=== PATIENT | female | born 1950 | race Caucasian/White ===

== ENCOUNTER → 2018-12-19 | Outpatient (CLI) | payer MEDICARE ==
--- NOTE | 2018-12-19 15:14 | MR ---
EXAMINATION TYPE: MR brain wo/w con DATE OF EXAM: 12/19/2018 COMPARISON: NONE HISTORY: History of falling / Unsteady gait/ balance issues all per patient and order. TECHNIQUE: Multiplanar, multisequence images of the brain and brainstem is performed without and with IV contras t, utilizing 8 mL intravenous Gadavist . FINDINGS: Exam noted suboptimal as there is motion artifact degradation making technologist having to perform repeat sequences Diffusion weighted images demonstrate no evidence of a recent infarct or ot her diffusion abnormality. There is no worrisome extra-axial fluid collection. There is ventricular and sulcal prominence consistent with diffuse cerebral atrophy. There are focal and confluent areas o f T2 hyperintensity seen throughout the superficial, deep, and periventricular white matter. Lesions are nonspecific in appearance and distribution but most likely on basis of product of chronic small v essel ischemic change. Midline structures demonstrate normal morphology. The craniocervical junction appears within normal limits. Post contrast images demonstrate no abnormal enhancement. The dural venous sinuses appear p atent. The visualized sinuses are clear and the globes are intact. Nasal septum is slightly deviated to left of midline. No suspicious fluid signal bilateral mastoid air cells is seen. IMPRESSION: 1. No evidence of a recent or large old cerebellar infarct. 2. Background fairly moderate diffuse cerebral atrophy and chronic small vessel ischemic change witho ut suspicious enhancement noted.
== END | disposition home or self-care (01) ==
LOC: RADMRIMAIN 13:17
PROVIDERS: ATTEND Internal Medicine
DX: I67.82 Cerebral ischemia (principal); G31.9 Degenerative disease of nervous system, unspecified; Z91.81 History of falling
CPT/HCPCS: 82565; 84520; 70553; 36415; A9585

== ENCOUNTER 2018-12-21 13:42 | Inpatient (IN) | payer MEDICARE ==
[2018-12-21 16:18] LABS: Anisocytosis Moderate; Basophils % (A) 0 %; Eosinophils # (A) 0.2 k/uL (0-0.7); Eosinophils % (A) 2 %; HCT 24.1 % (34.0-46.0); Hypochromasia Marked; Lymphocytes # (A) 1.3 k/uL (1.0-4.8); Lymphocytes % (A) 13 %; MCH 21.4 pg (25.0-35.0); MCHC 25.8 g/dL (31.0-37.0); MCV 82.9 fL (80.0-100.0); Microcytosis Slight; Monocytes # (A) 0.5 k/uL (0-1.0); Monocytes % (A) 5 %; Neutrophils % (A) 79 %; Platelet Count 294 k/uL (150-450); RDW 20.4 % (11.5-15.5); WBC 10.2 k/uL (3.8-10.6)
[2018-12-21 16:22] LABS: HGB 6.2 gm/dL (11.4-16.0)
[2018-12-21 16:26] LABS: Albumin 3.2 g/dL (3.5-5.0); Calcium 9.2 mg/dL (8.4-10.2); Total Bilirubin 1.7 mg/dL (0.2-1.3)
[2018-12-21] MEDS ORDERED: methylPREDNISolone SOD SUCCI 125 MG/2 ML VIAL IV STA (16:27)
[2018-12-21] MEDS ORDERED: IPRATROPIUM-ALBUTEROL 3 ML NEB INHALATION STA (16:27)
[2018-12-21] MEDS ORDERED: SODIUM CHLORIDE 0.9% 500 ML 500 ML IV STA (16:27)
[2018-12-21 16:41] LABS: Potassium 6.4 mmol/L (3.5-5.1)
[2018-12-21] MEDS ORDERED: DEXTROSE 5%-0.45% NACL 1,000 ML with SODIUM BICARB (1 MEQ/ML) 50 ML IV ONE ×2 (16:45)
--- NOTE | 2018-12-21 16:49 | ED ---
Weakness HPI <Craig Berry - Last Filed: 12/21/18 16:55> - General Source: patient Mode of arrival: wheelchair Limitations: no limitations <Dania Lo - Last Filed: 12/21/18 21:02> - General Chief complaint: Weakness Stated complaint: bilat leg weakness Time Seen by Provider: 12/21/18 15:43 - History of Present Illness Initial comments: 68-year-old female with past medical history of fibromyalgia, hypertension, non- insulin-dependent type 2 diabetes, chronic low back pain, anemia presenting today for chief complaint of bilateral lower extremity weakness. Patient states she has had an unsteady gait for the past 2 years, she states the past year she has had weakness of the lower extremity bilaterally with on and off lower extremity edema. Patient states the past 3 years she has been unable to lift repeat was 6 inches due to weakness. She states she often at home falling forward, she is occasionally hit her head, last time being 3 weeks ago. Denies extremity injury. Denies neck pain. Patient denies any current headache diplopia or visual changes, nausea or vomiting. Patient states she had an MRI just prior to most recent fall, she states there is no acute findings. Patient states she's been told she has nerve damage of the spine. Patient states that her back pain is a chronic, denies any increases. Patient denies any urinary retention or loss of bowel bladder control. Patient denies any numbness to the legs or vaginal numbness. Patient states she did have a previous MRI of her lumbar spine about 6 months ago, she states she is unsure of the results. Patient states she occasionally has radiation of the pain for her back down her legs bilaterally. Patient denies a chest pain, thoracic back pain, dizziness, dyspnea, dyspnea upon exertion, abdominal pain, indigestion, paresthesias of the upper extremities. Patient states she does occur every day smoker and has occasional wheeze. Patient denies home oxygen use. Patient states she does not use a walker to ambulate at home. She denies any anticoagulant use. (Dania Lo) - Related Data Home Medications Medication Instructions Recorded Confirmed Glimepiride [Amaryl] 2 mg PO AC-BID 02/15/15 12/21/18 Lisinopril-Hctz 20-25 mg 1 tab PO DAILY 02/15/15 12/21/18 [Zestoretic 20-25] Metoprolol Tartrate [Lopressor] 50 mg PO BID 02/15/15 12/21/18 Omeprazole [PriLOSEC] 20 mg PO AC-BID 02/15/15 12/21/18 metFORMIN HCL [Glucophage] 1,000 mg PO BID 02/15/15 12/21/18 Albuterol Inhaler [Ventolin 1 - 2 puff INHALATION RT-QID PRN 03/07/15 12/21/18 Inhaler] Aspirin 81 mg PO DAILY 03/07/15 12/21/18 Amitriptyline HCl [Elavil] 25 mg PO HS 12/21/18 12/21/18 Gabapentin [Neurontin] 300 mg PO TID 12/21/18 12/21/18 HYDROcodone/APAP 7.5-325MG [[place] 1 tab PO Q6HR PRN 12/21/18 12/21/18 7.5-325] Tiotropium 18 Mcg/Puff [Spiriva] 1 cap INHALATION RT-DAILY 12/21/18 12/21/18 Vitamin E 500mg 500 mg PO BID 12/21/18 12/21/18 Allergies Allergy/AdvReac Type Severity Reaction Status Date / Time Penicillins Allergy Dyspnea Verified 12/21/18 16:08 Review of Systems ROS Other: All systems not noted in ROS Statement are negative. <Craig Berry - Last Filed: 12/21/18 16:55> ROS Other: All systems not noted in ROS Statement are negative. <Dania Lo - Last Filed: 12/21/18 21:02> ROS Statement: Those systems with pertinent positive or pertinent negative responses have been documented in the HPI. Past Medical History Past Medical History: Asthma, COPD, Diabetes Mellitus, GERD/Reflux, Hyperlipidemia, Rheumatoid Arthritis (RA) Additional Past Medical History / Comment(s): polymyalgia rheumatica History of Any Multi-Drug Resistant Organisms: None Reported Past Surgical History: Bladder Surgery, Cholecystectomy, Hysterectomy, Tubal Ligation Additional Past Surgical History / Comment(s): BLADDER SUSPENSION, ovarian cyst. FRANSISCO PAIN PROCEDURES Past Anesthesia/Blood Transfusion Reactions: Motion Sickness Additional Past Anesthesia/Blood Transfusion Reaction / Comment(s): OCCASIONAL MOTION SICKNESS ON BOAT OR PLANE Past Psychological History: No Psychological Hx Reported Smoking Status: Current every day smoker Past Alcohol Use History: Occasional Past Drug Use History: None Reported - Past Family History Mother Family Medical History: Hypertension Father Family Medical History: Cancer Additional Family Medical History / Comment(s): RENAL CA <Dania Lo - Last Filed: 12/21/18 21:02> General Exam <BerryCraig - Last Filed: 12/21/18 16:55> Limitations: no limitations <Dania Lo - Last Filed: 12/21/18 21:02> - General Exam Comments Initial Comments: General: The patient is awake and alert, in no distress, and does not appear acutely ill. Eye: +3 mm pupils are equal, round and reactive to light, extra-ocular movements are intact. No APD. No nystagmus. There is normal conjunctiva bilaterally. No signs of icterus. Pallor of lids internally, lower lids. Ears, nose, mouth and throat: There are moist mucous membranes and no oral lesions. Neck: The neck is supple, there is no tenderness or JVD. Tenderness to patient of the cervical spine midline or paravertebral. Full ROM at the cervical spine. Cardiovascular: There is a regular rate and rhythm. No audible murmur, rub or gallop is appreciated. Respiratory: Respirations are non-labored, breath sounds are equal. Expiratory wheeze on exam. No stridor. Gastrointestinal: Soft, non-distended, non-tender abdomen without masses or organomegaly noted. There is no rebound or guarding present. No CVA tenderness. Bowel sounds are unremarkable. Rectal exam no hemorrhoids, good rectal tone. No gross blood. Musculoskeletal: Normal ROM, no tenderness. Strength 5/5. Sensation intact. DP and radial pulses equal bilaterally 2+. Neurological: A&O x 3. CN II-XII intact, There are no obvious motor or sensory deficits. Coordination appears grossly intact. Speech is normal. No pronator drift. Weakness of LE b/l. Skin: Skin is warm and dry and no rashes or lesions are noted. Bilateral lower extremity edema, pitting +1. Negative Homans sign. bilaterally. No tenderness to palpation of the deep venous system of the lower extremities bilaterally Psychiatric: Cooperative, appropriate mood & affect, normal judgment. (Dania Lo) Course <Craig Berry - Last Filed: 12/21/18 16:55> <Dania Lo - Last Filed: 12/21/18 21:02> Vital Signs 12/21/18 12/21/18 12/21/18 14:04 16:00 16:30 Temperature 97.9 F Pulse Rate 84 74 Respiratory 20 Rate Blood Pressure 98/66 104/66 104/66 O2 Sat by Pulse 96 100 100 Oximetry 12/21/18 12/21/18 12/21/18 16:44 16:55 17:00 Temperature Pulse Rate 74 74 77 Respiratory Rate Blood Pressure 104/66 O2 Sat by Pulse 99 Oximetry 12/21/18 12/21/18 12/21/18 17:30 18:00 18:30 Temperature Pulse Rate 80 86 Respiratory Rate Blood Pressure 123/56 123/56 107/52 O2 Sat by Pulse 95 Oximetry 12/21/18 12/21/18 12/21/18 19:00 19:28 20:32 Temperature 97.8 F Pulse Rate 82 78 85 Respiratory 18 17 Rate Blood Pressure 103/72 111/72 117/59 O2 Sat by Pulse 97 99 100 Oximetry 12/21/18 12/21/18 20:45 20:52 Temperature Pulse Rate 80 80 Respiratory Rate Blood Pressure O2 Sat by Pulse Oximetry - Reevaluation(s) Reevaluation #1: 12/21/18 16:56 Case reviewed with practitioner Wally, chart reviewed. Case was discussed in detail with Dr. Crews, who will admit covering for Dr. Curtis. Nephrology will also be contacted. Patient will medications hyperkalemia. Blood transfusion ordered. (Craig Berry) EKG Findings - EKG Comments: EKG Findings:: Ventricular rate 84 bpm, NH interval 158 ms, QRS evangelical 70 ms, QT/QTC 368/434 ms, this is normal sinus rhythm there is a low voltage QRS noted. Nonspecific ST. Reviewed by Dr. Berry as part of ATP, and myself. 18: 10 repeat EKG obtained revealing no acute findings in comparison with previous, ventricular rate 92 bpm, NH interval 158 ms, QRS duration 72 ms, QT/QTC 368/455 ms. <Dania Lo - Last Filed: 12/21/18 21:02> Medical Decision Making - Lab Data Result diagrams: 12/21/18 15:33 12/21/18 15:33 <Craig Berry - Last Filed: 12/21/18 16:55> - Lab Data Result diagrams: 12/21/18 15:33 12/21/18 15:33 <Dania Lo - Last Filed: 12/21/18 21:02> - Medical Decision Making 68 female with past medical history anemia presenting today for chief complaint of bilateral lower extremity weakness. Patient denies history of fall [address] without contrast obtained revealing no acute abnormalities. No signs concerning for cauda equina on exam, CT lumbar revealed no findings concerning for cauda equina, degenerative changes noted. Physical examination revealed no findings concerning for cauda equina, patient told within normal limits. Sensation intact saddle paresthesias. Patient appeared diffusely weak, more so than focal. Expiratory wheeze audible on exam consistent with COPD, patient given DuoNeb treatment. Laboratory revealed anemia as well as hyperkalemia. Hyperkalemia was addressed and transfusion protocols initiated. Pt admitted for anemia, occult +, hyperkalmeia, weakness. Dr. Crews accepted admission after speaking with attending provider Dr. Crews who gave instruction for prefered treatment of hyperkalemia. Dr. Sharif diet patient in the emergency department, I was present during examination. She also revealed chest x-ray. Patient will remain as a admission hold in the emergency department however admitting provider will resume care. Patient appeared stable upon transition of care. Patient is agreeable to admission denies questions at this time. (Dania Lo) - Lab Data Lab Results 12/21/18 12/21/18 12/21/18 Range/Units 14:37 15:30 15:33 WBC 10.2 (3.8-10.6) k/uL RBC 2.90 L (3.80-5.40) m/uL Hgb 6.2 L* (11.4-16.0) gm/dL Hct 24.1 L (34.0-46.0) % MCV 82.9 (80.0-100.0) fL MCH 21.4 L (25.0-35.0) pg MCHC 25.8 L (31.0-37.0) g/dL RDW 20.4 H (11.5-15.5) % Plt Count 294 (150-450) k/uL Neutrophils % 79 % Lymphocytes % 13 % Monocytes % 5 % Eosinophils % 2 % Basophils % 0 % Neutrophils # 8.0 H (1.3-7.7) k/uL Lymphocytes # 1.3 (1.0-4.8) k/uL Monocytes # 0.5 (0-1.0) k/uL Eosinophils # 0.2 (0-0.7) k/uL Basophils # 0.0 (0-0.2) k/uL Hypochromasia Marked Anisocytosis Moderate Microcytosis Slight PT (9.0-12.0) sec INR (<1.2) APTT (22.0-30.0) sec Sodium (137-145) mmol/L Potassium (3.5-5.1) mmol/L Chloride (98-107) mmol/L Carbon Dioxide (22-30) mmol/L Anion Gap mmol/L BUN (7-17) mg/dL Creatinine (0.52-1.04) mg/dL Est GFR (CKD-EPI)AfAm (>60 ml/min/1.73 sqM) Est GFR (CKD-EPI)NonAf (>60 ml/min/1.73 sqM) Glucose (74-99) mg/dL POC Glucose (mg/dL) (75-99) mg/dL POC Glu Director Clinical Pharmacology ID Calcium (8.4-10.2) mg/dL Total Bilirubin (0.2-1.3) mg/dL AST (14-36) U/L ALT (9-52) U/L Alkaline Phosphatase (38-126) U/L CK-MB (CK-2) (0.0-2.4) ng/mL Troponin I (0.000-0.034) ng/mL Total Protein (6.3-8.2) g/dL Albumin (3.5-5.0) g/dL Stool Occult Blood Positive H (Negative) Blood Type O Positive Blood Type Confirm Blood Type Recheck CABO Indicated Antibody Screen POSITIVE Crossmatch See Detail Spec Expiration Date 12/24/2018 - 232912/21/18 12/21/18 12/21/18 Range/Units 15:33 15:33 15:33 WBC (3.8-10.6) k/uL RBC (3.80-5.40) m/uL Hgb (11.4-16.0) gm/dL Hct (34.0-46.0) % MCV (80.0-100.0) fL MCH (25.0-35.0) pg MCHC (31.0-37.0) g/dL RDW (11.5-15.5) % Plt Count (150-450) k/uL Neutrophils % % Lymphocytes % % Monocytes % % Eosinophils % % Basophils % % Neutrophils # (1.3-7.7) k/uL Lymphocytes # (1.0-4.8) k/uL Monocytes # (0-1.0) k/uL Eosinophils # (0-0.7) k/uL Basophils # (0-0.2) k/uL Hypochromasia Anisocytosis Microcytosis PT 11.0 (9.0-12.0) sec INR 1.0 (<1.2) APTT 24.0 (22.0-30.0) sec Sodium 138 (137-145) mmol/L Potassium 6.4 H* (3.5-5.1) mmol/L Chloride 108 H (98-107) mmol/L Carbon Dioxide 19 L (22-30) mmol/L Anion Gap 11 mmol/L BUN 43 H (7-17) mg/dL Creatinine 1.84 H (0.52-1.04) mg/dL Est GFR (CKD-EPI)AfAm 32 (>60 ml/min/1.73 sqM) Est GFR (CKD-EPI)NonAf 27 (>60 ml/min/1.73 sqM) Glucose 104 H (74-99) mg/dL POC Glucose (mg/dL) (75-99) mg/dL POC Glu Director Clinical Pharmacology ID Calcium 9.2 (8.4-10.2) mg/dL Total Bilirubin 1.7 H (0.2-1.3) mg/dL AST 50 H (14-36) U/L ALT 22 (9-52) U/L Alkaline Phosphatase 273 H (38-126) U/L CK-MB (CK-2) 13.7 H (0.0-2.4) ng/mL Troponin I <0.012 (0.000-0.034) ng/mL Total Protein 6.0 L (6.3-8.2) g/dL Albumin 3.2 L (3.5-5.0) g/dL Stool Occult Blood (Negative) Blood Type Blood Type Confirm Blood Type Recheck Antibody Screen Crossmatch Spec Expiration Date 12/21/18 12/21/18 Range/Units 17:48 18:32 WBC (3.8-10.6) k/uL RBC (3.80-5.40) m/uL Hgb (11.4-16.0) gm/dL Hct (34.0-46.0) % MCV (80.0-100.0) fL MCH (25.0-35.0) pg MCHC (31.0-37.0) g/dL RDW (11.5-15.5) % Plt Count (150-450) k/uL Neutrophils % % Lymphocytes % % Monocytes % % Eosinophils % % Basophils % % Neutrophils # (1.3-7.7) k/uL Lymphocytes # (1.0-4.8) k/uL Monocytes # (0-1.0) k/uL Eosinophils # (0-0.7) k/uL Basophils # (0-0.2) k/uL Hypochromasia Anisocytosis Microcytosis PT (9.0-12.0) sec INR (<1.2) APTT (22.0-30.0) sec Sodium (137-145) mmol/L Potassium (3.5-5.1) mmol/L Chloride (98-107) mmol/L Carbon Dioxide (22-30) mmol/L Anion Gap mmol/L BUN (7-17) mg/dL Creatinine (0.52-1.04) mg/dL Est GFR (CKD-EPI)AfAm (>60 ml/min/1.73 sqM) Est GFR (CKD-EPI)NonAf (>60 ml/min/1.73 sqM) Glucose (74-99) mg/dL POC Glucose (mg/dL) 85 (75-99) mg/dL POC Glu Director Clinical Pharmacology ID Dania Elaine Calcium (8.4-10.2) mg/dL Total Bilirubin (0.2-1.3) mg/dL AST (14-36) U/L ALT (9-52) U/L Alkaline Phosphatase (38-126) U/L CK-MB (CK-2) (0.0-2.4) ng/mL Troponin I (0.000-0.034) ng/mL Total Protein (6.3-8.2) g/dL Albumin (3.5-5.0) g/dL Stool Occult Blood (Negative) Blood Type Blood Type Confirm O Positive Blood Type Recheck Antibody Screen Crossmatch Spec Expiration Date Disposition <Craig Berry - Last Filed: 12/21/18 16:55> Is patient prescribed a controlled substance at d/c from ED?: No Time of Disposition: 19:30 Decision to Admit Reason: Admit from EC Decision Date: 12/21/18 Decision Time: 19:30 <Dania Lo - Last Filed: 12/21/18 21:02> Clinical Impression: Anemia, Occult blood in stools, Hyperkalemia Disposition: ADMITTED IP TO THIS [facility] Condition: Stable
[2018-12-21] MEDS ORDERED: CALCIUM GLUCONATE 1,000 MG in SODIUM CHLORIDE 0.9% 100 ML IVPB ONE (16:52)
[2018-12-21] MEDS ORDERED: DEXTROSE 50%-WATER 50 ML SYRINGE IVP STA (16:54)
[2018-12-21] MEDS ORDERED: INSULIN REGULAR 100 UNIT/ML VIAL IV ONE (16:54)
[2018-12-21] MEDS ORDERED: SODIUM POLYSTYRENE SULFONATE 15 GM/60 ML BOTTLE PO STA (16:55)
[2018-12-21 16:56] LABS: Creatine Kinase MB 13.7 ng/mL (0.0-2.4); Troponin I <0.012 ng/mL (0.000-0.034)
--- NOTE | 2018-12-21 17:31 | XR ---
EXAMINATION TYPE: XR chest 2V DATE OF EXAM: 12/21/2018 COMPARISON: Chest x-ray October 14, 2017 HISTORY: Chest pain. TECHNIQUE: Frontal and lateral views of the chest are obtained. FINDINGS: There is chronic parenchymal change with new right middle lobe opacity seen on 2 views bernard houetting portion of right major and minor fissures. No mediastinal shift is seen. No pleural effusio n or pneumothorax is noted. The cardiac silhouette size remains enlarged. The osseous structures r emains demineralized. IMPRESSION: Cardiomegaly and chronic parenchymal changes with new right middle lobe infiltrate and/o r atelectasis identified. Consider progress two view chest xray.
--- NOTE | 2018-12-21 17:56 | CT ---
EXAMINATION TYPE: CT brain wo con DATE OF EXAM: 12/21/2018 HISTORY: inability to ambulate today. CT DLP: 1083.4 mGycm. Automated Exposure Control for Dose Reduction was Utilized. TECHNIQUE: CT scan of the head is performed without contrast. COMPARISON: MR brain 2 days ago. FINDINGS: There is no acute intracranial hemorrhage or midline shift identified. There is diffuse v entricular and sulcal prominence consistent with diffuse age-related cerebral atrophy. There is low- attenuation in the periventricular white matter consistent with chronic small vessel ischemic change. The globes are intact and the visualized sinuses are clear. IMPRESSION: No acute intracranial hemorrhage or midline shift. There is mild to moderate diffuse ag e-related cerebral atrophy and chronic small vessel ischemic change redemonstrated without significan t change from prior MRI.
[2018-12-21 17:59] LABS: Glucose,Whole Blood 85 mg/dL (75-99)
--- NOTE | 2018-12-21 18:05 | CT ---
EXAMINATION TYPE: CT lumbar spine wo con DATE OF EXAM: 12/21/2018 5:42 PM COMPARISON: HISTORY: inability to ambulate today per technologist. Pain per order. CT DLP: 1324.4 mGycm Automated exposure control for dose reduction was used. Unenhanced CT of the lumbar spine was performed. Bone and soft tissue window settings are submitted as well as coronal and sagittal reconstructions. There are 5 lumbar type vertebra identified. Lumbar spine show satisfactory alignment without evidenc e for acute fracture or dislocation. Mild multilevel disc space narrowing is present. No large daily sales audit clerk ior disc herniations are seen on sagittal images. No significant spurring is present. Review of axial images at L3-L4 level shows mild broad disc bulge mildly effacing anterior thecal sac and mild facet degenerative changes bilaterally. There is mild left greater than the right bilateral ly into inferior neural foraminal narrowing noted. Axial images at L4-L5 level shows moderate facet degenerative changes bilaterally. There is moderate broad-based posterior disc protrusion mildly facing anterior thecal sac. There is moderate right and mild left-sided anterior inferior neural foraminal narrowing. Axial images at L5-S1 level show mild to moderate facet degenerative changes bilaterally. There is mo derate left-sided neural foraminal narrowing due to marginal spur disc complex is seen best sagittal image 36. Right-sided neural foramen is patent. There is small to moderate amount of abdominal and pelvic ascites throughout the visualized portion o f abdomen and pelvis including fluid inferior to visualized portion of liver. Fluid surrounding the v isualized portion of spleen is seen. Gallbladder is surgically absent. Visualized liver is hypodense relative to the spleen. Mild to moderate calcified plaque of the aorta extends into branch vessels. IMPRESSION: Some multilevel degenerative changes mid to lower lumbar spine as detailed above. More im portantly partial visualization of moderate abdominal and pelvic ascites with suspicion for cirrhosis and underlying portal hypertension. Clinical correlation advised.
[2018-12-21] MEDS ORDERED: NALOXONE 0.4 MG/ML 1 ML VIAL IV PRN (18:14)
[2018-12-21 20:39] LABS: Appearance,Urine Clear (Clear); Bilirubin,Urine Negative (Negative); Blood,Urine Negative (Negative); Color,Urine Yellow; Glucose,Urine (UA) Negative (Negative); Ketones,Urine Negative (Negative); Leukocyte Esterase,Urine Negative (Negative); Nitrite,Urine Negative (Negative); Protein,Urine Trace (Negative); Specific Gravity,Urine 1.017 (1.001-1.035)
[2018-12-21] MEDS: BUDESONIDE 1 MG/2 ML NEBU INHALATION SCH (20:44)
[2018-12-21 21:31] LABS: Glucose,Whole Blood 92 mg/dL (75-99)
[2018-12-21] MEDS: guaiFENesin 600 MG TABLET.ER PO SCH (22:59)
[2018-12-22] MEDS: BUDESONIDE 1 MG/2 ML NEBU INHALATION SCH ×2 (07:10→19:46)
[2018-12-22] MEDS: IPRATROPIUM-ALBUTEROL 3 ML NEB INHALATION SCH ×4 (07:10→19:46)
[2018-12-22] MEDS ORDERED: GLIMEPIRIDE 2 MG TAB PO SCH (07:30)
[2018-12-22] MEDS ORDERED: metFORMIN 500 MG TAB PO SCH (07:30)
[2018-12-22] MEDS: HYDROcodone/APAP 7.5-325MG 1 EACH TAB PO PRN ×3 (08:19→22:17)
[2018-12-22 08:31] LABS: Glucose,Whole Blood 275 mg/dL (75-99)
[2018-12-22] MEDS: METOPROLOL TARTRATE 50 MG TAB PO SCH ×2 (08:35→20:58)
[2018-12-22] MEDS: GABAPENTIN 300 MG CAP PO SCH ×3 (08:35→20:58)
[2018-12-22 08:41] LABS: Albumin 2.8 g/dL (3.5-5.0); Potassium 5.6 mmol/L (3.5-5.1); Total Bilirubin 1.6 mg/dL (0.2-1.3); Total Protein 5.4 g/dL (6.3-8.2)
[2018-12-22 08:51] LABS: Anisocytosis Moderate; Basophils % (A) 0 %; Eosinophils % (A) 0 %; HCT 20.3 % (34.0-46.0); Hypochromasia Marked; Lymphocytes # (A) 0.7 k/uL (1.0-4.8); Lymphocytes % (A) 11 %; MCH 20.1 pg (25.0-35.0); MCV 83.9 fL (80.0-100.0); Microcytosis Slight; Monocytes # (A) 0.2 k/uL (0-1.0); Monocytes % (A) 3 %; Neutrophils # (A) 5.8 k/uL (1.3-7.7); Neutrophils % (A) 85 %; Platelet Count 260 k/uL (150-450); RBC 2.42 m/uL (3.80-5.40); RDW 20.8 % (11.5-15.5); WBC 6.8 k/uL (3.8-10.6)
[2018-12-22] MEDS ORDERED: LISINOPRIL-HCTZ 20-25 MG 1 EACH TAB PO SCH (09:00)
[2018-12-22 09:06] LABS: HGB 4.9 gm/dL (11.4-16.0)
[2018-12-22] MEDS ORDERED: SODIUM POLYSTYRENE SULFONATE 15 GM/60 ML BOTTLE PO STA ×2 (09:18→15:18)
[2018-12-22] MEDS: guaiFENesin 600 MG TABLET.ER PO SCH ×2 (10:29→20:58)
[2018-12-22 11:21] LABS: Anisocytosis Moderate; Hypochromasia Marked; MCV 84.1 fL (80.0-100.0); Mean Platelet Volume 8.4; Microcytosis Slight; Platelet Count 271 k/uL (150-450); RBC 2.34 m/uL (3.80-5.40); RDW 20.9 % (11.5-15.5); WBC 8.2 k/uL (3.8-10.6)
[2018-12-22 11:30] LABS: HCT 19.7 % (34.0-46.0); HGB 4.9 gm/dL (11.4-16.0)
[2018-12-22 11:32] LABS: Glucose,Whole Blood 290 mg/dL (75-99)
[2018-12-22] MEDS ORDERED: MAGNESIUM HYDROXIDE 2,400 MG/10 ML CUP PO PRN (15:22)
[2018-12-22] MEDS ORDERED: ONDANSETRON 4 MG/2 ML VIAL IVP PRN (15:22)
[2018-12-22] MEDS ORDERED: CALCIUM CARBONATE 500 MG CHEWABLE PO PRN (15:22)
[2018-12-22] MEDS ORDERED: LACTULOSE 20 GM/30 ML CUP PO PRN (15:22)
[2018-12-22] MEDS ORDERED: ALPRAZolam 0.25 MG TAB PO PRN (15:22)
[2018-12-22] MEDS ORDERED: MELATONIN 3 MG TABLET PO PRN (15:22)
[2018-12-22] MEDS: NICOTINE 21MG/24HR PATCH TRANSDERM SCH (16:13)
[2018-12-22] MEDS: methylPREDNISolone SOD SUCCI 40 MG/ML 1 ML VIAL IV SCH (16:13)
--- NOTE | 2018-12-22 16:52 | HP ---
HISTORY AND PHYSICAL DATE OF ADMISSION: 12/21/2018 PRESENTING COMPLAINT: Weakness. HISTORY OF PRESENTING COMPLAINT: This is a 68-year-old patient follows with Dr. Gurdeep Curtis. Chronic stable medical conditions include diabetes, fibromyalgia, GERD, hypertension, hyperlipidemia, polymyalgia rheumatica, chronic low back pain, peripheral neuropathy, hiatal hernia. The patient progressively getting more and more weak although there was some nausea, some dizzy, tired, run down. The patient presented with a hemoglobin of 6.2, repeat hemoglobin was 4.9. The patient is not sure she has been having any dark stools, Hemoccult did come back positive in the ER. The patient's potassium also came back to be 6.4. She was given a cocktail, different medications, trying to bring that down. The patient also was wheezing and was put on bronchodilators. The patient has been a long-standing heavy smoker. There was not exact available because of the symptoms of such. One unit of blood was ordered with close observation. The patient does feel weak, tired, run down. REVIEW OF SYSTEMS: CONSTITUTIONAL: Weak, tired. HEENT none. RESPIRATORY: Wheezing, cough. No sputum. No fever. No chills. GASTROINTESTINAL: No abdominal pain. GENITOURINARY: None. MUSCULOSKELETAL: Chronic low back pain. DERMATOLOGICAL, HEMATOLOGIC, LYMPHATICS: none. PSYCHIATRY none. NEUROLOGICAL: Numbness and tingling especially in the feet. PAST MEDICAL HISTORY: COPD, diabetes, fibromyalgia, GERD, hypertension, hyperlipidemia, rheumatoid arthritis, polymyalgia rheumatica, chronic back pain, hiatal hernia, peripheral neuropathy. PAST SURGICAL HISTORY: Appendectomy, bladder surgery, cholecystectomy, hysterectomy, tubal ligation, bladder suspension, lap surgery, ovarian cyst. Lumbar epidural pain procedure. SOCIAL HISTORY: Lives with her . Has not in the last 2 weeks, as she has been very weak. The patient has been smoking since age of 15, that is over 50 years, close to 5 packs a day. Just the last few days she has cut back a bit. Alcohol occasionally. Lives with her . FAMILY HISTORY: Mother of respiratory at age of 69. Hypertension. HOME MEDICATIONS: 1. Glucophage 1000 mg p.o. b.i.d. 2. Vitamin E 500 mg b.i.d. 3. Spiriva 1 capsule daily. 4. Prilosec 20 mg b.i.d. 5. Lopressor 50 mg b.i.d. 6. Zestoretic 20/25 1 tablet p.o. daily. 7. Mabie 7.5 q.6h p.r.n. 8. Amaryl 2 mg p.o. b.i.d. 9. Neurontin 300 mg p.o. t.i.d. 10.Aspirin 81 mg p.o. daily. 11.Elavil 25 mg at bedtime. 12.Ventolin HFA 1 or 2 puffs q.i.d. p.r.n. ALLERGIES: PENICILLIN. PHYSICAL EXAMINATION: VITAL SIGNS: Vital signs on presentation: Temperature 97.9, pulse 84, respiratory rate 20, blood pressure 98/66, pulse ox 96% on room air. GENERAL APPEARANCE: Well built, BMI 36.6. Lying in bed, short of breath. EYES: Pupils equal. Conjunctivae pale. HEENT: External appearance of nose and ears normal. Oral cavity normal. NECK: Short, thick neck. JVD unable to assess. Mass not palpable. RESPIRATORY: Effort increased. LUNGS: Diminished breath sounds, prolonged expiration with late expiratory crackles. CARDIOVASCULAR: First and second sounds normal. Minimal edema. ABDOMEN: Distended, soft. Liver and spleen not palpable. No guarding or rigidity. No tenderness. LYMPHATICS: No lymph nodes palpable in the neck and axilla. PSYCHIATRY: Alert and oriented x3. Mood and affect normal. NEUROLOGICAL: Pupils equal. Cranial nerves grossly intact. Power and sensation decreased sensation distally. INVESTIGATIONS: Admission labs: White count 10.2, hemoglobin 6.2, platelets 294, potassium 6.4, repeat was 5.6, bicarb 19, BUN 43, creatinine 1.84, bilirubin 1.7. ProBNP 874. Stool occult blood positive. EKG tracing personally reviewed by me shows normal sinus rhythm. Chest x-ray film personally reviewed by me shows borderline cardiomegaly. Maybe some under penetration of the film shows some venous and bronchial cuffing. CT scan of the brain nil acute. ASSESSMENT: 1. Acute severe symptomatic anemia probably from chronic gastrointestinal bleed in a patient who is on aspirin. Hemoglobin down to 4.9. Will require blood transfusion. Suspect upper gastrointestinal bleed, gastric/duodenal in origin. 2. Acute chronic obstructive pulmonary disease exacerbation in a chronic long-standing smoker. 3. Chronic nicotine dependence, patient is a cigarette smoker. 4. Diabetes mellitus type 2 on oral hypoglycemics. 5. Chronic fibromyalgia. 6. Gastroesophageal reflux disease. 7. Hypertension. 8. Essential hyperlipidemia. 9. Chronic polymyalgia rheumatica. 10.Chronic low back pain from arthritis. 11.Peripheral neuropathy secondary to diabetes. 12.Hiatal hernia. 13.Generalized weakness from severe anemia. 14.Possible chronic kidney disease from diabetic nephropathy and hypertensive nephrosclerosis cannot rule out an acute component. PLAN: Blood transfusion has been ordered. Gastroenterology was consulted. We will hold off patient's aspirin. Give a proton pump inhibitor. We will also start the patient on bronchodilators every 4 hours, IV steroids and inhaled steroids. Accu-Cheks will be followed. Given sugars are tending to run on the lower side, we will stop patient's Amaryl and also the metformin. Just follow with Accu-Cheks at this point. For the hyperkalemia, Kayexalate will be given. IV fluids will be given too. Will do renal ultrasound. Copy to Dr. Gurdeep Curtis. MMODL / IJN: [id number] /
[2018-12-22 17:23] LABS: Glucose,Whole Blood 273 mg/dL (75-99)
[2018-12-22] MEDS: INSULIN ASPART (NovoLOG) 100 UNIT/ML VIAL SQ SCH ×2 (17:42→20:58)
--- NOTE | 2018-12-22 19:16 | CONS ---
CONSULTATION REASON FOR CONSULT: Renal failure. HISTORY OF PRESENT ILLNESS: Patient is a 68-year-old female who was admitted to the hospital with complaints of weakness, not feeling well. She was found to have a hemoglobin of 4.9 g/dL. She her stool for occult blood is positive. Patient denies any previous history of kidney disease. A serum creatinine was 1.84. Review of labs shows a previous creatinine of 1.59 on 12/19/2018. On admission, potassium was also elevated at 6.4, and it is now down to 5.6. The patient is receiving packed RBCs transfusion. Gastroenterology has been consulted as well. The patient denies use of any nonsteroidal anti-inflammatory agents prior to admission. Her blood pressure is on the lower side with systolic around 107-102 mmHg. She had been maintained on MEIR inhibitors as outpatient prior to admission. PAST MEDICAL HISTORY: Hypertension, type 2 diabetes, gastroesophageal reflux disease, hyperlipidemia, history of rheumatoid arthritis, COPD, polymyalgia rheumatica. PAST SURGICAL HISTORY: Bladder suspension, cholecystectomy, hysterectomy, tubal ligation, surgery for ovarian cyst. SOCIAL HISTORY: Positive for smoking. No history of drug abuse or alcohol abuse. ALLERGIES: Include PENICILLIN which causes shortness of breath. MEDICATIONS: Medications at home included glimepiride, Zestoretic, Lopressor, Prilosec, Glucophage, Elavil, Neurontin, [place]. REVIEW OF SYSTEMS: As per HPI. Other systems negative. PHYSICAL EXAMINATION: Patient is comfortable, awake, alert, oriented x3. She is not in any acute distress. Blood pressure was 119/72, heart rate 96 per minute. Patient is afebrile. Examination of the heart S1, S2. Examination of the lungs bilateral breath sounds are heard. Abdomen is soft, nontender. Examination lower extremities shows no evidence of edema. EVAPORATOR exam is grossly intact. LABS: Show sodium 138, potassium 5.6, chloride 109, BUN of 42, serum creatinine 1.57, total bilirubin 1.6, hemoglobin 4.9 g/dL. Stool for occult blood was positive. UA shows trace protein. ASSESSMENT: 1. Acute kidney injury secondary to severe anemia, hypotension, hypoperfusion, currently nonoliguric, recurrent. We will hold off on the MEIR inhibitors for now along with diuretics. Continue with IV fluids and transfuse packed RBCs. 2. Gastrointestinal bleed, being transfused packed RBCs and Gastroenterology has been consulted. The patient should be started on proton pump inhibitors. 3. Hyperkalemia associated with acute kidney injury, use of MEIR inhibitors as well as gastrointestinal bleed, currently improved. Avoid further use of Kayexalate given the gastrointestinal bleed. 4. Type 2 diabetes. PLAN: Continue IV fluids. DC Zestoretic. Start proton pump inhibitors. Repeat labs in a.m., transfuse packed RBCs. UA is currently quite benign. We can check an ultrasound of the kidneys down the road. Thank you for this consultation. We will continue to follow the patient with you during her hospitalization. MMODL / IJN: [id number] /
[2018-12-22] MEDS: PANTOPRAZOLE 40 MG/10 ML VIAL IVP SCH (20:58)
[2018-12-22 21:01] LABS: Glucose,Whole Blood 302 mg/dL (75-99)
[2018-12-22 21:02] LABS: Anisocytosis Slight; Basophils % (A) 0 %; Eosinophils % (A) 0 %; HCT 26.8 % (34.0-46.0); Hypochromasia Marked; Lymphocytes # (A) 0.9 k/uL (1.0-4.8); Lymphocytes % (A) 9 %; MCHC 29.7 g/dL (31.0-37.0); MCV 84.3 fL (80.0-100.0); Mean Platelet Volume 7.7; Monocytes # (A) 0.3 k/uL (0-1.0); Monocytes % (A) 3 %; Neutrophils # (A) 8.3 k/uL (1.3-7.7); Neutrophils % (A) 86 %; Platelet Count 280 k/uL (150-450); Poikilocytosis Marked; RBC 3.18 m/uL (3.80-5.40); RDW 19.1 % (11.5-15.5); WBC 9.6 k/uL (3.8-10.6)
[2018-12-22 21:13] LABS: Potassium 4.5 mmol/L (3.5-5.1)
[2018-12-22] MEDS: AMITRIPTYLINE HCL 25 MG TAB PO SCH (22:17)
--- NOTE | 2018-12-22 23:12 | P.CONS ---
History of Present Illness - Reason for Consult Consult date: 12/22/18 Anemia Requesting physician: Gian Crews - Chief Complaint Weakness - History of Present Illness Pleasant 68-year-old female with a medical history significant for diabetes mellitus, fibromyalgia, GERD and hyperlipidemia who presented to the hospital with complaints of weakness. The patient reports progressive weakness over the past few weeks. She reports being tired and run down. She is on home aspirin therapy. She reports that she did note a change in her bowel habits with intermittent passage of black coffee-ground appearing bowel movements over the last little while. She denies any bright red blood with her bowel movements. She denies any prior history of peptic ulcer disease or NSAID use. She does report being told she was anemic 2 years ago and at that time was started on iron therapy with improvement in her hemoglobin. She also reports evaluation with EGD and colonoscopy approximately 1-1/2 years ago at which time she was told she had a hiatal hernia and had colonic polyps removed. She is on twice daily Prilosec therapy at home. On presentation to the hospital the patient was found to have a hemoglobin of 6.2 which trended down to 4.9. Stool was also found to be positive for occult blood. She is currently on the medical floor receiving transfusion with packed red blood cells. She denies any abdominal pain at this time. Review of Systems REVIEW OF SYSTEMS: CONSTITUTIONAL: Denies any fevers, chills, weight change or fatigue. CARDIOVASCULAR: Denies any chest pain, palpitations high or low blood pressures RESPIRATORY: Denies any shortness of breath, hemoptysis or cough. GENITOURINARY: No dysuria or hematuria. MUSCULOSKELETAL: No weakness reported. SKIN: Denies any new rashes or lesions, jaundice or pallor. PSYCHIATRIC: Denies any depression or anxiety. NEUROLOGY: Denies headache, denies any new focal deficits. EARS/NOSE/THROAT: No recent hearing change, congestion, nasal discharge or sore throat. EYES: No pain in eyes, discharge or change in vision. GASTROINTESTINAL: As per HPI. Past Medical History Past Medical History: Asthma, COPD, Diabetes Mellitus, Fibromyalgia, GERD/Reflux , Hyperlipidemia, Hypertension, Rheumatoid Arthritis (RA) Additional Past Medical History / Comment(s): Polymyalgia rheumatica, chronic lower back pain, lower back nerve damage, neuropathy R leg, NIDDM type II, anemia once, hiatal hernia, unsteady gait, elevated LFT in the past. History of Any Multi-Drug Resistant Organisms: None Reported Past Surgical History: Appendectomy, Bladder Surgery, Cholecystectomy, Hysterectomy, Tubal Ligation Additional Past Surgical History / Comment(s): [place] 2018, EGD, bladder suspension, lap surgery for ovarian cyst, lumbar epidural pain procedures, Past Anesthesia/Blood Transfusion Reactions: Motion Sickness Additional Past Anesthesia/Blood Transfusion Reaction / Comm: OCCASIONAL MOTION SICKNESS, some clausterphobia. Smoking Status: Current every day smoker - Past Family History Mother Family Medical History: Hypertension Additional Family Medical History / Comment(s): Mother of a respiratory arrest at the age of 69yrs. Father Family Medical History: Cancer Additional Family Medical History / Comment(s): Father of renal cancer at the age of 67yrs. Medications and Allergies Home Medications Medication Instructions Recorded Confirmed Type Glimepiride [Amaryl] 2 mg PO AC-BID 02/15/15 12/21/18 History Lisinopril-Hctz 20-25 mg 1 tab PO DAILY 02/15/15 12/21/18 History [Zestoretic 20-25] Metoprolol Tartrate [Lopressor] 50 mg PO BID 02/15/15 12/21/18 History Omeprazole [PriLOSEC] 20 mg PO AC-BID 02/15/15 12/21/18 History metFORMIN HCL [Glucophage] 1,000 mg PO BID 02/15/15 12/21/18 History Albuterol Inhaler [Ventolin 1 - 2 puff INHALATION RT-QID PRN 03/07/15 12/21/18 History Inhaler] Aspirin 81 mg PO DAILY 03/07/15 12/21/18 History Amitriptyline HCl [Elavil] 25 mg PO HS 12/21/18 12/21/18 History Gabapentin [Neurontin] 300 mg PO TID 12/21/18 12/21/18 History HYDROcodone/APAP 7.5-325MG [[place] 1 tab PO Q6HR PRN 12/21/18 12/21/18 History 7.5-325] Tiotropium 18 Mcg/Puff [Spiriva] 1 cap INHALATION RT-DAILY 12/21/18 12/21/18 History Vitamin E 500mg 500 mg PO BID 12/21/18 12/21/18 History Allergies Allergy/AdvReac Type Severity Reaction Status Date / Time Penicillins Allergy Dyspnea Verified 12/21/18 16:08 Physical Exam Vitals: Vital Signs Temp Pulse Pulse Resp BP BP Pulse Ox 12/22/18 20:04 80 16 12/22/18 19:49 78 16 12/22/18 19:19 97.5 F L 92 15 116/65 96 12/22/18 18:35 96 14 119/72 100 12/22/18 17:10 97.4 F L 91 20 108/56 96 12/22/18 16:40 97.3 F L 95 20 121/66 96 12/22/18 16:30 97.3 F L 96 20 119/70 95 12/22/18 16:29 98.3 F 95 20 107/52 93 L 12/22/18 15:39 82 12/22/18 15:37 96 20 12/22/18 15:28 80 12/22/18 15:22 93 L 12/22/18 15:00 98.3 F 96 20 121/69 93 L 12/22/18 14:41 98.3 F 96 20 115/69 12/22/18 14:39 98.3 F 96 20 118/65 94 L 12/22/18 12:59 97.5 F L 96 20 101/75 12/22/18 12:55 97.5 F L 96 20 110/75 12/22/18 12:29 97.7 F 94 20 101/41 12/22/18 12:19 97.9 F 95 18 111/65 12/22/18 11:23 92 12/22/18 11:09 92 12/22/18 07:27 108 H 12/22/18 07:11 107 H 12/22/18 07:00 97.9 F 89 20 95 12/22/18 04:16 97.8 F 100 22 104/73 97 12/22/18 00:55 98.7 F 97 19 105/68 100 Intake and Output 12/22/18 12/22/18 12/23/18 14:59 22:59 06:59 Intake Total 1770 310 Balance 1770 310 Intake: Oral 1150 Blood Product 620 310 Rc As-1 Unit 310 [id number] Rc Pheresis 2 As3 Unit 310 [id number] Other: Voiding Method Bedside Commode Bedside Commode # Voids 1 1 # Bowel Movements 0 On physical examination, patient appears comfortable in no apparent distress. HEAD: Normocephalic, atraumatic. EYES: No scleral icterus. No conjunctival injection. MOUTH: No lesions, tongue midline. NECK: Trachea midline, no gross abnormalities. CHEST: Clear to auscultation with no wheezing or rhonchi appreciated. HEART: Regular rate and rhythm. ABDOMEN: Soft, obese. Bowel sounds are positive. No organomegaly. No guarding or rigidity. EXTREMITIES: No pedal edema. SKIN: No rashes, no jaundice. NEUROLOGIC: Alert and oriented x3. No focal deficits. Results CBC & Chem 7: 12/22/18 20:21 12/22/18 20:21 Labs: Abnormal Lab Results - Last 24 Hours (Table) 12/21/18 12/22/18 12/22/18 Range/Units 18:55 08:08 08:08 RBC 2.42 L (3.80-5.40) m/uL Hgb 4.9 L* (11.4-16.0) gm/dL Hct 20.3 L (34.0-46.0) % MCH 20.1 L (25.0-35.0) pg MCHC 24.0 L (31.0-37.0) g/dL RDW 20.8 H (11.5-15.5) % Neutrophils # (1.3-7.7) k/uL Lymphocytes # 0.7 L (1.0-4.8) k/uL Potassium 5.6 H (3.5-5.1) mmol/L Chloride 109 H (98-107) mmol/L Carbon Dioxide 17 L (22-30) mmol/L BUN 42 H (7-17) mg/dL Creatinine 1.57 H (0.52-1.04) mg/dL Glucose 245 H (74-99) mg/dL POC Glucose (mg/dL) (75-99) mg/dL Total Bilirubin 1.6 H (0.2-1.3) mg/dL AST 47 H (14-36) U/L Alkaline Phosphatase 258 H (38-126) U/L Total Protein 5.4 L (6.3-8.2) g/dL Albumin 2.8 L (3.5-5.0) g/dL Crossmatch See Detail 12/22/18 12/22/18 12/22/18 Range/Units 08:27 10:43 11:06 RBC 2.34 L (3.80-5.40) m/uL Hgb 4.9 L* (11.4-16.0) gm/dL Hct 19.7 L* (34.0-46.0) % MCH 21.0 L (25.0-35.0) pg MCHC 25.0 L (31.0-37.0) g/dL RDW 20.9 H (11.5-15.5) % Neutrophils # (1.3-7.7) k/uL Lymphocytes # (1.0-4.8) k/uL Potassium (3.5-5.1) mmol/L Chloride (98-107) mmol/L Carbon Dioxide (22-30) mmol/L BUN (7-17) mg/dL Creatinine (0.52-1.04) mg/dL Glucose (74-99) mg/dL POC Glucose (mg/dL) 275 H 290 H (75-99) mg/dL Total Bilirubin (0.2-1.3) mg/dL AST (14-36) U/L Alkaline Phosphatase (38-126) U/L Total Protein (6.3-8.2) g/dL Albumin (3.5-5.0) g/dL Crossmatch 12/22/18 12/22/18 12/22/18 Range/Units 17:22 20:21 20:21 RBC 3.18 L (3.80-5.40) m/uL Hgb 8.0 L D (11.4-16.0) gm/dL Hct 26.8 L (34.0-46.0) % MCH (25.0-35.0) pg MCHC 29.7 L (31.0-37.0) g/dL RDW 19.1 H (11.5-15.5) % Neutrophils # 8.3 H (1.3-7.7) k/uL Lymphocytes # 0.9 L (1.0-4.8) k/uL Potassium (3.5-5.1) mmol/L Chloride (98-107) mmol/L Carbon Dioxide 19 L (22-30) mmol/L BUN 45 H (7-17) mg/dL Creatinine 1.34 H (0.52-1.04) mg/dL Glucose 254 H (74-99) mg/dL POC Glucose (mg/dL) 273 H (75-99) mg/dL Total Bilirubin (0.2-1.3) mg/dL AST (14-36) U/L Alkaline Phosphatase (38-126) U/L Total Protein (6.3-8.2) g/dL Albumin (3.5-5.0) g/dL Crossmatch 12/22/18 Range/Units 20:49 RBC (3.80-5.40) m/uL Hgb (11.4-16.0) gm/dL Hct (34.0-46.0) % MCH (25.0-35.0) pg MCHC (31.0-37.0) g/dL RDW (11.5-15.5) % Neutrophils # (1.3-7.7) k/uL Lymphocytes # (1.0-4.8) k/uL Potassium (3.5-5.1) mmol/L Chloride (98-107) mmol/L Carbon Dioxide (22-30) mmol/L BUN (7-17) mg/dL Creatinine (0.52-1.04) mg/dL Glucose (74-99) mg/dL POC Glucose (mg/dL) 302 H (75-99) mg/dL Total Bilirubin (0.2-1.3) mg/dL AST (14-36) U/L Alkaline Phosphatase (38-126) U/L Total Protein (6.3-8.2) g/dL Albumin (3.5-5.0) g/dL Crossmatch Chest x-ray: report reviewed (Chest x-ray significant for cardiomegaly and chronic parenchymal changes with a new right middle lobe infiltrate and/or atelectasis identified.) Assessment and Plan (1) Melena Narrative/Plan: Patient presenting with reports of intermittent melena over the past few weeks, found to have an acute fall in her hemoglobin in with stool testing positive for occult blood. This likely represents an upper GI bleed with differential including peptic ulcer disease, erosive esophagitis/gastritis, AVM, or other etiology. Current Visit: Yes Status: Acute Code(s): K92.1 - MELENA SNOMED Code(s): 4837968 (2) Anemia due to blood loss Narrative/Plan: Patient presenting to the ED complaints of weakness found to have hemoglobin of 6.2 subsequently trended down to 4.9. She is currently lying in bed receiving transfusion with a unit of PRBCs. Current Visit: Yes Status: Acute Code(s): D50.0 - IRON DEFICIENCY ANEMIA SECONDARY TO BLOOD LOSS (CHRONIC) SNOMED Code(s): 508581733 (3) Occult blood in stools Current Visit: Yes Status: Acute Code(s): R19.5 - OTHER FECAL ABNORMALITIES SNOMED Code(s): 91043418 Plan: Supportive care Clear liquid diet, nothing by mouth after midnight Continue Protonix therapy Monitor hemoglobin and transfuse as needed Plan for upper endoscopy for further evaluation tomorrow Further recommendations ending findings of endoscopy Thank you for allowing us dysphagia in the care of the patient we will continue to follow
[2018-12-23] MEDS: IPRATROPIUM-ALBUTEROL 3 ML NEB INHALATION SCH ×7 (00:10→23:05)
[2018-12-23] MEDS: methylPREDNISolone SOD SUCCI 40 MG/ML 1 ML VIAL IV SCH ×3 (00:27→17:17)
[2018-12-23 07:53] LABS: Glucose,Whole Blood 175 mg/dL (75-99)
[2018-12-23] MEDS: PANTOPRAZOLE 40 MG/10 ML VIAL IVP SCH (08:25)
[2018-12-23] MEDS: INSULIN ASPART (NovoLOG) 100 UNIT/ML VIAL SQ SCH ×4 (08:26→21:13)
[2018-12-23] MEDS: GABAPENTIN 300 MG CAP PO SCH ×2 (08:26→17:17)
[2018-12-23] MEDS: guaiFENesin 600 MG TABLET.ER PO SCH ×2 (08:26→21:12)
[2018-12-23] MEDS: METOPROLOL TARTRATE 50 MG TAB PO SCH ×2 (08:26→21:12)
[2018-12-23] MEDS: NICOTINE 21MG/24HR PATCH TRANSDERM SCH (08:26)
[2018-12-23 08:52] LABS: Anisocytosis Slight; Basophils % (A) 0 %; Eosinophils % (A) 0 %; HCT 25.9 % (34.0-46.0); HGB 7.6 gm/dL (11.4-16.0); Hypochromasia Marked; Lymphocytes # (A) 0.9 k/uL (1.0-4.8); Lymphocytes % (A) 10 %; MCH 24.6 pg (25.0-35.0); MCHC 29.4 g/dL (31.0-37.0); MCV 83.5 fL (80.0-100.0); Monocytes # (A) 0.2 k/uL (0-1.0); Monocytes % (A) 3 %; Neutrophils # (A) 7.8 k/uL (1.3-7.7); Neutrophils % (A) 87 %; Platelet Count 248 k/uL (150-450); Poikilocytosis Marked; RDW 19.5 % (11.5-15.5)
[2018-12-23] MEDS: BUDESONIDE 1 MG/2 ML NEBU INHALATION SCH ×2 (09:36→21:08)
[2018-12-23 12:18] LABS: Glucose,Whole Blood 168 mg/dL (75-99)
[2018-12-23] MEDS: HYDROcodone/APAP 7.5-325MG 1 EACH TAB PO PRN ×2 (12:41→21:12)
[2018-12-23] MEDS ORDERED: LIDOCAINE 1% INJ 10MG/ML (20 ML MDV) ONE (15:00)
[2018-12-23] MEDS ORDERED: GLYCOPYRROLATE 0.2 MG/ML 2 ML VIAL ONE (15:00)
[2018-12-23] MEDS ORDERED: PROPOFOL 10 MG/ML 20 ML VIAL IV ONE (15:00)
[2018-12-23] MEDS ORDERED: SODIUM CHLORIDE 0.9% 500 ML 500 ML IV ONE (15:21)
--- NOTE | 2018-12-23 15:42 | P.PCN ---
Date of Procedure: 12/23/18 Description of Procedure: BRIEF HISTORY: Pleasant 68-year-old female with a medical history significant for diabetes mellitus, fibromyalgia, GERD and hyperlipidemia who presented to the hospital with complaints of weakness. The patient reports progressive weakness over the past few weeks. She reports being tired and run down. She is on home aspirin therapy. She reports that she did note a change in her bowel habits with intermittent passage of black coffee-ground appearing bowel movements over the last little while. She denies any bright red blood with her bowel movements. She denies any prior history of peptic ulcer disease or NSAID use. She does report being told she was anemic 2 years ago and at that time was started on iron therapy with improvement in her hemoglobin. She also reports evaluation with EGD and colonoscopy approximately 1-1/2 years ago at which time she was told she had a hiatal hernia and had colonic polyps removed. She is on twice daily Prilosec therapy at home. On presentation to the hospital the patient was found to have a hemoglobin of 6.2 which trended down to 4.9. Stool was also found to be positive for occult blood. She is currently on the medical floor receiving transfusion with packed red blood cells. She denies any abdominal pain at this time. PROCEDURE PERFORMED: Esophagogastroduodenoscopy with biopsy. PREOPERATIVE DIAGNOSIS: Stool positive for occult blood, anemia of acute blood loss, melena. ESTIMATED BLOOD LOSS: Minimal. IV sedation per anesthesia. PROCEDURE: After informed consent was obtained, the patient was brought into the endoscopy unit. IV sedation was administered by Anesthesia under continuous monitoring. Initially the Olympus GIF-190 video endoscope was inserted into the mouth. Esophagus intubated without any difficulty. It was gradually advanced into the stomach and duodenum and carefully examined. The bulb and the second part of the duodenum appeared normal. The scope at this time was withdrawn to the stomach, adequately insufflated with air, and upon careful examination, mucosa of the antrum, body, cardia and the fundus appeared grossly normal except for some mild scattered erythema in the antrum and body suggestive of mild gastritis which was biopsied. The scope was then withdrawn into the esophagus. A medium-sized hiatal hernia was noted. The GE junction was located at 36 cm from the incisors. The esophagus appeared was tortuous but otherwise normal. There were no erosions or ulcerations seen and the patient tolerated the procedure well. IMPRESSION: 1. No old blood, fresh blood or pathology to explain patient's anemia. 2. Mild scattered gastritis in the antrum and body, biopsied. Hiatal hernia. Tortuous esophagus. RECOMMENDATIONS: The findings of this examination were discussed with the patient. Okay for full liquid diet, advance as tolerated. Continue to monitor hemoglobin and hematocrit and transfuse as needed. Further recommendations to follow.
[2018-12-23] MEDS ORDERED: PEG 3350-NA SULF,BICARB,CL/KCL 4,000 ML BOTTLE PO ONE (17:02)
[2018-12-23] MEDS ORDERED: BISACODYL 5 MG TABLET.DR PO STA (17:02)
[2018-12-23 17:26] LABS: Glucose,Whole Blood 188 mg/dL (75-99)
--- NOTE | 2018-12-23 21:02 | PN ---
PROGRESS NOTE Patient is seen for followup for acute kidney injury. She was admitted to the hospital with severe anemia. Hemoglobin was 4.9 g/dL. The patient denies any active bleeding. She did have an EGD done by Dr. Howell which showed mild scattered gastritis in the antrum and body with hiatal hernia. No active bleeding was noted. The patient has been transfused packed RBCs. Serum creatinine was 1.3 mg/dL yesterday, which was down from 1.8 on initial admission. Blood pressure was low. Currently, it is much improved. Patient was on MEIR inhibitors which are now on hold. PHYSICAL EXAMINATION: This morning, blood pressure was 112/68, heart rate of 82 per minute. Patient is afebrile. Examination of the heart S1, S2. Examination lungs bilateral breath sounds are heard. Abdomen is soft, nontender. Examination lower extremities shows no evidence of edema. CAFETERIA AIDE exam is grossly intact. LAB: Show hemoglobin 7.6 g/dL. BMP is not done today. ASSESSMENT: 1. Acute kidney injury secondary to severe anemia, hypotension and hypoperfusion. Currently improving. Check labs tomorrow. Continue off of MEIR inhibitors for now. 2. Severe anemia most likely gastrointestinal bleed. However, no active bleeding is noted. EGD did not show any signs of active bleeding. The patient is being followed by Gastroenterology. Iron studies were not done as patient had already received packed RBCs. 3. Hypertension. Blood pressure currently on the lower side. Continue off of MEIR inhibitors. The patient is maintained on Lopressor which we can continue for now. PLAN: Repeat labs in a.m. and continue to hold off on MEIR inhibitors for now. MMODL / IJN: [id number] /
[2018-12-23] MEDS: IPRATROPIUM-ALBUTEROL 3 ML NEB INHALATION PRN ×2 (21:06→21:07)
[2018-12-23] MEDS: AMITRIPTYLINE HCL 25 MG TAB PO SCH (21:12)
[2018-12-23] MEDS: SODIUM BICARBONATE TAB 650 MG TAB PO SCH (21:18)
[2018-12-23] MEDS: LACTATED RINGERS 1,000 ML IV SCH (21:19)
[2018-12-23 21:23] LABS: Glucose,Whole Blood 158 mg/dL (75-99)
--- NOTE | 2018-12-23 21:56 | PN ---
PROGRESS NOTE DATE OF SERVICE: 12/23/2018. PRESENT COMPLAINT: Tired. INTERVAL HISTORY: This patient presented with a hemoglobin of 4.9. Did receive 2 units of blood. Did undergo EGD today that showed some gastritis. Also had COPD exacerbation. Breathing is a bit better. REVIEW OF SYSTEMS: Done for constitutional, cardiovascular, GI, pulmonary; relevant findings as above. CURRENT MEDICATIONS: Reviewed that include bronchodilators, IV Solu-Medrol. PHYSICAL EXAMINATION: VITAL SIGNS: Temperature 97.5, pulse 100, respiratory rate 16, blood pressure 113/70, pulse ox 95% on room air. GENERAL APPEARANCE: Lying in bed, awake. EYES: Pupils equal. Conjunctivae pale. NECK: JVD not raised. Mass not palpable. RESPIRATORY: Effort increased. LUNGS: Diminished breath sounds. Less wheezing. CARDIOVASCULAR: First and second sounds normal. Minimal edema. ABDOMEN: Distended, soft. Liver and spleen not palpable. PSYCHIATRY: Alert and oriented x3. Mood and affect normal. INVESTIGATIONS: White count 9.6, hemoglobin is 8, potassium 4.5, creatinine 1.34. ASSESSMENT: 1. Acute severe symptomatic anemia likely from gastrointestinal bleed, but EGD only showed some gastritis. 2. Acute chronic obstructive pulmonary disease exacerbation in a smoker with some improvement. 3. Chronic nicotine dependence, patient is a cigarette smoker. 4. Diabetes mellitus type 2 on oral hypoglycemics. 5. Chronic fibromyalgia. 6. Gastroesophageal reflux disease. 7. Essential hypertension. 8. Hyperlipidemia. 9. Chronic polymyalgia rheumatica. 10.Chronic low back pain from arthritis. 11.Peripheral neuropathy secondary to diabetes. 12.Hiatal hernia. 13.Asthenia from anemia. 14.Chronic kidney disease likely stage III from diabetic nephropathy and hypertensive nephrosclerosis. 15.Acute kidney injury, most likely prerenal. PLAN: Care was discussed with the patient. Questions were answered. Cut back on IV Solu- Medrol. We will check the patient's total bilirubin, haptoglobin, reticulocyte to check for any hemolysis component. There were no schistocytes reported in the CBC. MMODL / IJN: [id number] /
[2018-12-24 07:27] LABS: Glucose,Whole Blood 121 mg/dL (75-99)
[2018-12-24] MEDS: INSULIN ASPART (NovoLOG) 100 UNIT/ML VIAL SQ SCH ×4 (07:59→21:21)
[2018-12-24] MEDS ORDERED: methylPREDNISolone SOD SUCCI 40 MG/ML 1 ML VIAL IV SCH (09:00)
[2018-12-24] MEDS: BUDESONIDE 1 MG/2 ML NEBU INHALATION SCH ×2 (09:24→18:50)
[2018-12-24] MEDS: IPRATROPIUM-ALBUTEROL 3 ML NEB INHALATION SCH ×4 (09:24→18:50)
[2018-12-24] MEDS: GABAPENTIN 300 MG CAP PO SCH ×2 (10:03→21:25)
[2018-12-24] MEDS: FAMOTIDINE 20 MG TAB PO SCH ×2 (10:03→21:24)
[2018-12-24] MEDS: guaiFENesin 600 MG TABLET.ER PO SCH ×2 (10:03→21:25)
[2018-12-24] MEDS: SODIUM BICARBONATE TAB 650 MG TAB PO SCH ×3 (10:04→21:28)
[2018-12-24] MEDS: METOPROLOL TARTRATE 50 MG TAB PO SCH ×2 (10:08→21:25)
[2018-12-24] MEDS: NICOTINE 21MG/24HR PATCH TRANSDERM SCH (10:14)
[2018-12-24 10:36] LABS: Anisocytosis Moderate; Basophils % (A) 0 %; Eosinophils % (A) 0 %; HCT 29.2 % (34.0-46.0); HGB 8.1 gm/dL (11.4-16.0); Hypochromasia Marked; Lymphocytes # (A) 0.9 k/uL (1.0-4.8); Lymphocytes % (A) 9 %; MCH 23.3 pg (25.0-35.0); MCHC 27.8 g/dL (31.0-37.0); MCV 83.8 fL (80.0-100.0); Mean Platelet Volume 8.4; Microcytosis Slight; Monocytes # (A) 0.5 k/uL (0-1.0); Monocytes % (A) 4 %; Neutrophils # (A) 8.7 k/uL (1.3-7.7); Neutrophils % (A) 86 %; Platelet Count 328 k/uL (150-450); Poikilocytosis Marked; RBC 3.49 m/uL (3.80-5.40); RDW 20.1 % (11.5-15.5); WBC 10.1 k/uL (3.8-10.6)
[2018-12-24 11:07] LABS: Calcium 9.1 mg/dL (8.4-10.2); Total Bilirubin 2.3 mg/dL (0.2-1.3)
[2018-12-24 12:13] LABS: Glucose,Whole Blood 112 mg/dL (75-99)
--- NOTE | 2018-12-24 12:47 | P.PN ---
Subjective Patient is seen in follow-up for acute kidney injury. Unclear as to what her baseline renal function is. Creatinine was 1.8 on admission and is down to 1.09 today. Patient was severely anemic and did receive blood transfusion. Hemoglobin 8.1 this morning. She underwent EGD yesterday which revealed gastritis and a tortuous esophagus. She is currently sleeping. Does not respond much to verbal commands. Vital signs are stable. General: The patient appeared well nourished and normally developed. HEENT: Head exam is unremarkable. Neck is without jugular venous distension. LUNGS: Lungs are clear to auscultation and percussion. Breath sounds decreased. HEART: Rate and Rhythm are regular. First and second heart sounds normal. No murmurs, rubs or gallops. ABDOMEN: Abdominal exam reveals normal bowel sounds. Non-tender and non- distended. No evidence of peritonitis. EXTREMITITES: No clubbing, cyanosis, or edema. Objective - Vital Signs Vital signs: Vital Signs Temp 97.8 F 12/24/18 08:17 Pulse 86 12/24/18 12:34 Resp 16 12/24/18 08:17 BP 134/76 12/24/18 08:17 Pulse Ox 99 12/24/18 08:17 Intake & Output 12/23/18 12/24/18 12/24/18 18:59 06:59 18:59 Intake Total 230 4415 Balance 230 4415 Intake: IV 200 Intake, IV Titration 675 Amount Lactated Ringers 1,000 ml 675 @ 75 mls/hr IV .[id number] HO Rx#:[id number] Oral 30 3740 Other: Voiding Method Toilet Toilet # Voids 2 # Bowel Movements 0 7 - Labs CBC & Chem 7: 12/24/18 08:59 12/24/18 08:59 Labs: Abnormal Lab Results - Last 24 Hours (Table) 12/23/18 12/23/18 12/24/18 Range/Units 17:14 21:11 07:14 RBC (3.80-5.40) m/uL Hgb (11.4-16.0) gm/dL Hct (34.0-46.0) % MCH (25.0-35.0) pg MCHC (31.0-37.0) g/dL RDW (11.5-15.5) % Neutrophils # (1.3-7.7) k/uL Lymphocytes # (1.0-4.8) k/uL BUN (7-17) mg/dL Creatinine (0.52-1.04) mg/dL Glucose (74-99) mg/dL POC Glucose (mg/dL) 188 H 158 H 121 H (75-99) mg/dL Total Bilirubin (0.2-1.3) mg/dL 12/24/18 12/24/18 12/24/18 Range/Units 08:59 08:59 11:56 RBC 3.49 L (3.80-5.40) m/uL Hgb 8.1 L (11.4-16.0) gm/dL Hct 29.2 L (34.0-46.0) % MCH 23.3 L (25.0-35.0) pg MCHC 27.8 L (31.0-37.0) g/dL RDW 20.1 H (11.5-15.5) % Neutrophils # 8.7 H (1.3-7.7) k/uL Lymphocytes # 0.9 L (1.0-4.8) k/uL BUN 43 H (7-17) mg/dL Creatinine 1.09 H (0.52-1.04) mg/dL Glucose 100 H (74-99) mg/dL POC Glucose (mg/dL) 112 H (75-99) mg/dL Total Bilirubin 2.3 H (0.2-1.3) mg/dL Assessment and Plan Plan: Assessment: 1. Nonoliguric acute kidney injury mostly prerenal secondary to severe anemia and hypotension. Improving. Creatinine down to 1.09 today. 2. Acute blood loss anemia secondary to GI bleed status post EGD which revealed mild gastritis and tortuous esophagus. Status post blood transition. 3. Benign hypertension. Controlled. 4. Metabolic acidosis maintained on oral sodium bicarbonate. Better. Plan: Maintain LR at 75 mL an hour. Avoid nephrotoxins. Monitor hemoglobin. Repeat electrolytes in the morning. Encouraged oral intake.
[2018-12-24] MEDS ORDERED: PROPOFOL 10 MG/ML 20 ML VIAL IV ONE (13:43)
[2018-12-24] MEDS ORDERED: MIDAZOLAM 2 MG/2 ML VIAL ONE (13:43)
[2018-12-24] MEDS ORDERED: IV FLUID CONTINUATION 600 ML IV ONE (13:49)
--- NOTE | 2018-12-24 14:24 | P.PCN ---
Date of Procedure: 12/24/18 Description of Procedure: BRIEF HISTORY: Pleasant 68-year-old female with a medical history significant for diabetes mellitus, fibromyalgia, GERD and hyperlipidemia who presented to the hospital with complaints of weakness. The patient reports progressive weakness over the past few weeks. She reports being tired and run down. She is on home aspirin therapy. She reports that she did note a change in her bowel habits with intermittent passage of black coffee-ground appearing bowel movements over the last little while. She denies any bright red blood with her bowel movements. She denies any prior history of peptic ulcer disease or NSAID use. She does report being told she was anemic 2 years ago and at that time was started on iron therapy with improvement in her hemoglobin. She also reports evaluation with EGD and colonoscopy approximately 1-1/2 years ago at which time she was told she had a hiatal hernia and had colonic polyps removed. She is on twice daily Prilosec therapy at home. On presentation to the hospital the patient was found to have a hemoglobin of 6.2 which trended down to 4.9. Stool was also found to be positive for occult blood. EGD which was performed in evaluation was significant only for mild gastritis, a tortuous esophagus and a small hiatal hernia with no source of bleeding identified. PROCEDURE PERFORMED: Colonoscopy with cold forcep polypectomy. PREOPERATIVE DIAGNOSIS: Melena, anemia of acute blood loss. ESTIMATED BLOOD LOSS: Minimal. IV sedation per Anesthesia. PROCEDURE: After informed consent was obtained, the patient, was brought into the endoscopy unit. IV sedation was administered by Anesthesia under continuous monitoring. Digital rectal examination was normal. Initially the Olympus CF- 190 flexible video colonoscope was then inserted in the rectum, gradually advanced into the cecum without any difficulty. Careful examination was performed as the scope was gradually being withdrawn. Ileocecal valve and the appendiceal orifice were visualized and appeared normal. Prep was poor with a large amount of liquid and solid stool found throughout the entire colon, copious lavage was used to suction as much stool as possible, however complete visualization was not achieved. Mucosa of the cecum, ascending colon, transverse colon, descending colon, sigmoid colon, and rectum appeared grossly normal, however visualization was impaired due to poor prep. 4 mm transverse colon polyp removed with cold forcep polypectomy. Mild internal hemorrhoids. The patient tolerated the procedure well. IMPRESSION: No old blood or active GI bleeding or pathology to explain anemia was found. Transverse colon polyp removed with cold forcep polypectomy. Mild internal hemorrhoids. RECOMMENDATIONS: Findings of this examination were discussed with the patient. Nothing by mouth. Proceed with video capsule endoscopy. If patient remains anemic would recommend repeat colonoscopy with 2 day prep in the outpatient setting. Continue to monitor hemoglobin and hematocrit and transfuse as needed.
[2018-12-24] MEDS ORDERED: SIMETHICONE 40 MG/0.6 ML DROPS 2,000 MG/30 ML BOTTLE PO ONE (16:26)
[2018-12-24 17:11] LABS: Glucose,Whole Blood 120 mg/dL (75-99)
[2018-12-24] MEDS: LACTATED RINGERS 1,000 ML IV SCH ×2 (18:26→23:38)
[2018-12-24] MEDS: predniSONE 20 MG TAB PO SCH (18:27)
--- NOTE | 2018-12-24 18:45 | PN ---
PROGRESS NOTE DATE OF SERVICE: 12/24/2018 PRESENTING COMPLAINT: Tired. INTERVAL HISTORY: Patient presented with severe anemia. Did get 2 units of blood. Also had COPD exacerbation. EGD showed some gastritis. The patient this afternoon was due to go down for colonoscopy. Breathing overall better. REVIEW OF SYSTEMS: Done for constitutional, cardiovascular, GI, pulmonary; relevant findings as above. Breathing is improved. CURRENT MEDICATIONS: Reviewed that include DuoNeb, inhaled Pulmicort and IV Solu-Medrol. PHYSICAL EXAMINATION: VITAL SIGNS: Temperature 97.6, pulse 92, respirations 15, blood pressure 103/62, pulse ox 93 percent on 2 L. GENERAL: Sitting up, breathing better. EYES: Pupils equal. Conjunctivae pale. NECK: JVD not raised. Mass not palpable. RESPIRATORY: Effort increased. LUNGS: Improved air entry. CARDIOVASCULAR: 1st and 2nd sounds, minimal edema. ABDOMEN: Distended soft. Liver and spleen not palpable. PSYCHIATRY: Alert and oriented x3. Mood and affect normal. INVESTIGATIONS: White count 10.1, hemoglobin 8.1, potassium 4.0, BUN 43, creatinine 1.09. Colonoscopy unremarkable. ASSESSMENT: 1. Acute severe symptomatic anemia likely from gastrointestinal bleed. EGD showing gastritis and colonoscopy was unremarkable. 2. Acute chronic obstructive pulmonary disease exacerbation in a smoker with significant improvement. 3. Chronic nicotine dependence, patient is a cigarette smoker. 4. Diabetes mellitus type 2 on oral hypoglycemics. 5. Chronic fibromyalgia. 6. Gastroesophageal reflux disease. 7. Essential hypertension. 8. Hyperlipidemia. 9. Chronic polymyalgia rheumatica. 10.Chronic low back pain from arthritis. 11.Peripheral neuropathy secondary to diabetes. 12.Hiatal hernia. 13.Asthenia from anemia, much improved. 14.Chronic kidney disease from diabetic nephropathy and hypertensive nephrosclerosis. 15.Acute renal acute kidney injury, most likely prerenal, with significant improvement. PLAN: We will switch the patient over to oral prednisone. DC the Pulmicort. The patient's colonoscopy was unremarkable. Overall doing much better. Looking at possible discharge in next 24 hours. MMODL / IJN: [id number] /
[2018-12-24] MEDS: HYDROcodone/APAP 7.5-325MG 1 EACH TAB PO PRN (18:47)
[2018-12-24 21:01] LABS: Glucose,Whole Blood 134 mg/dL (75-99)
[2018-12-24] MEDS: AMITRIPTYLINE HCL 25 MG TAB PO SCH (21:24)
[2018-12-25] MEDS: INSULIN ASPART (NovoLOG) 100 UNIT/ML VIAL SQ SCH ×4 (06:49→21:22)
[2018-12-25 07:00] LABS: Glucose,Whole Blood 84 mg/dL (75-99)
[2018-12-25 08:00] LABS: Calcium 9.1 mg/dL (8.4-10.2)
[2018-12-25] MEDS: guaiFENesin 600 MG TABLET.ER PO SCH ×2 (08:50→21:22)
[2018-12-25] MEDS: HYDROcodone/APAP 7.5-325MG 1 EACH TAB PO PRN ×2 (08:50→19:39)
[2018-12-25] MEDS: GABAPENTIN 300 MG CAP PO SCH ×2 (08:50→21:22)
[2018-12-25] MEDS: METOPROLOL TARTRATE 50 MG TAB PO SCH ×2 (08:50→21:22)
[2018-12-25] MEDS: NICOTINE 21MG/24HR PATCH TRANSDERM SCH (08:50)
[2018-12-25] MEDS: SODIUM BICARBONATE TAB 650 MG TAB PO SCH ×3 (08:51→21:22)
[2018-12-25] MEDS: FAMOTIDINE 20 MG TAB PO SCH (08:51)
[2018-12-25] MEDS: predniSONE 20 MG TAB PO SCH (08:51)
[2018-12-25] MEDS: IPRATROPIUM-ALBUTEROL 3 ML NEB INHALATION SCH ×4 (09:26→21:04)
[2018-12-25] MEDS: BUDESONIDE 1 MG/2 ML NEBU INHALATION SCH ×2 (09:26→21:04)
[2018-12-25 11:41] LABS: Glucose,Whole Blood 146 mg/dL (75-99)
--- NOTE | 2018-12-25 15:04 | PN ---
PROGRESS NOTE Patient is seen for followup for acute kidney injury. Her renal function has improved significantly. Patient was admitted with severe anemia, hemoglobin of about 4.9 g/dL. She is currently lying in bed, comfortable, not in any acute distress. Blood pressure this morning was 136/68, heart rate 72 per minute. Patient is afebrile. EXAMINATION OF THE HEART: S1, S2. EXAMINATION OF LUNGS: Bilateral breath sounds are heard. ABDOMEN: Soft, non-tender. Examination of lower extremities shows no evidence of edema. CLERICAL OFFICE exam shows patient is currently sleepy but arousable. She is moving all 4 extremities. Lab show sodium 140, potassium 4.0, BUN 39, serum creatinine 1.04. ASSESSMENT: 1. Acute kidney injury, acute tubular necrosis, currently significantly improved, with creatinine down to 1.0 from 1.8 mg/dL on initial admission. 2. Severe anemia, status post packed red blood cell transfusion. EGD was done which showed no evidence of active bleeding. No ulcers were seen. A polyp was removed. 3. Mild volume depletion, now improved. PLAN: Continue to maintain good oral intake. Patient is stable for discharge from nephrology standpoint. MMODL / IJN: [id number] /
[2018-12-25 16:37] LABS: Glucose,Whole Blood 175 mg/dL (75-99)
--- NOTE | 2018-12-25 16:43 | P.PN ---
Subjective Progress Note Date: 12/25/18 Principal diagnosis: Melena, anemia of acute blood loss Patient lying in bed denying any signs or symptoms GI bleeding. She is tolerating her diet. No abdominal pain reported. Objective - Vital Signs Vital signs: Vital Signs Temp 97.4 F L 12/25/18 14:17 Pulse 78 12/25/18 14:17 Resp 16 12/25/18 12:33 BP 107/73 12/25/18 14:17 Pulse Ox 93 L 12/25/18 14:17 Intake & Output 12/24/18 12/25/18 12/25/18 18:59 06:59 18:59 Intake Total 300 675 Balance 300 675 Intake: IV 300 Intake, IV Titration 675 Amount Lactated Ringers 1,000 ml 675 @ 75 mls/hr IV .[id number] HO Rx#:[id number] Other: # Voids 2 - Exam On physical examination, patient appears comfortable in no apparent distress. HEAD: Normocephalic, atraumatic. EYES: No scleral icterus. No conjunctival injection. MOUTH: No lesions, tongue midline. NECK: Trachea midline, no gross abnormalities. CHEST: Clear to auscultation with no wheezing or rhonchi appreciated. HEART: Regular rate and rhythm. ABDOMEN: Soft, obese. Bowel sounds are positive. No organomegaly. No guarding or rigidity. EXTREMITIES: No pedal edema. SKIN: No rashes, no jaundice. NEUROLOGIC: Alert and oriented x3. No focal deficits. - Labs CBC & Chem 7: 12/24/18 08:59 12/25/18 07:01 Labs: Abnormal Lab Results - Last 24 Hours (Table) 12/24/18 12/24/18 12/25/18 Range/Units 16:57 20:49 07:01 Chloride 109 H (98-107) mmol/L BUN 39 H (7-17) mg/dL Glucose 71 L (74-99) mg/dL POC Glucose (mg/dL) 120 H 134 H (75-99) mg/dL 12/25/18 12/25/18 Range/Units 11:20 16:27 Chloride (98-107) mmol/L BUN (7-17) mg/dL Glucose (74-99) mg/dL POC Glucose (mg/dL) 146 H 175 H (75-99) mg/dL Assessment and Plan (1) Melena Narrative/Plan: Patient presenting with reports of intermittent melena over the past few weeks, found to have an acute fall in her hemoglobin in with stool testing positive for occult blood. Complete evaluation with EGD suggestive only of gastritis, colonoscopy with findings of transverse colon polyp and internal hemorrhoids and video capsule endoscopy with no source of GI bleeding completed. Current Visit: Yes Status: Acute Code(s): K92.1 - MELENA SNOMED Code(s): 9986806 (2) Anemia due to blood loss Narrative/Plan: Patient presenting to the ED complaints of weakness found to have hemoglobin of 6.2 subsequently trended down to 4.9. Currently the patient is lying in bed with hemoglobin of 8.1 from 7.6 yesterday reporting that she is feeling better. Current Visit: Yes Status: Acute Code(s): D50.0 - IRON DEFICIENCY ANEMIA SECONDARY TO BLOOD LOSS (CHRONIC) SNOMED Code(s): 976464708 (3) Occult blood in stools Current Visit: Yes Status: Acute Code(s): R19.5 - OTHER FECAL ABNORMALITIES SNOMED Code(s): 92428139 Plan: Supportive care Okay for diet Continue Protonix therapy Monitor hemoglobin and transfuse as needed No source of GI bleeding found with EGD significant for gastritis, colonoscopy significant for transverse colonic polyp removed with polypectomy and internal hemorrhoids, and a capsule endoscopy with no source of GI bleeding identified Thank you for allowing us to participate in the care of this patient, we will continue to follow
[2018-12-25] MEDS: LACTATED RINGERS 1,000 ML IV SCH (17:41)
[2018-12-25 20:28] LABS: Glucose,Whole Blood 233 mg/dL (75-99)
[2018-12-25] MEDS: AMITRIPTYLINE HCL 25 MG TAB PO SCH (21:22)
--- NOTE | 2018-12-25 22:46 | PN ---
PROGRESS NOTE DATE OF SERVICE: 12/25/2018. PRESENTING COMPLAINT: Tired. INTERVAL HISTORY: This patient presented with severe anemia. Did have an EGD, colonoscopy and a small bowel capsule. Only found to have some gastritis. Overall doing better. Also had COPD exacerbation, better, feels rather tired today. REVIEW OF SYSTEMS: Done for constitutional, cardiovascular, GI, pulmonary and relevant findings as above. CURRENT MEDICATIONS: Reviewed that include DuoNeb, prednisone. EXAMINATION: VITAL SIGNS: Temperature 97.4, pulse 78, respiration 16, blood pressure 107/73, pulse ox 93 percent on 2 L. GENERAL APPEARANCE: Lying in bed tired-appearing. EYES: Pupils equal. Conjunctivae pale. NECK: JVD not raised. Mass not palpable. RESPIRATORY: Effort increased. LUNGS: Improved air entry. CARDIOVASCULAR: 1st and 2nd sounds normal. Minimal edema. ABDOMEN: Soft, nontender. Liver and spleen not palpable. PSYCHIATRY: Alert and oriented x3. Mood and affect tired-appearing. INVESTIGATIONS: Potassium 4, BUN 39, creatinine 1.04. ASSESSMENT: 1. Acute severe symptomatic anemia, likely gastrointestinal bleed. EGD showed gastric gastritis. Otherwise, colonoscopy and capsule endoscopy did not show any more evidence of bleeding. 2. Acute chronic obstructive pulmonary disease exacerbation in a smoker with significant improvement. 3. Chronic nicotine dependence, patient is a cigarette smoker. 4. Diabetes mellitus type 2 on oral hypoglycemics. 5. Chronic fibromyalgia. 6. Gastroesophageal reflux disease. 7. Essential hypertension. 8. Hyperlipidemia. 9. Chronic polymyalgia rheumatica. 10.Chronic low back pain from arthritis. 11.Peripheral neuropathy secondary to diabetes. 12.Hiatal hernia. 13.Asthenia from anemia, much improved. 14.Chronic kidney disease from diabetic nephropathy and hypertensive nephrosclerosis. 15.Acute renal failure likely prerenal with significant improvement. PLAN: Overall patient doing much better. Gastroenterology wanted to watch the patient another 24 hours. Will let the patient go home tomorrow. MMODL / IJN: [id number] /
[2018-12-26] MEDS: LACTATED RINGERS 1,000 ML IV SCH (03:07)
[2018-12-26 04:15] LABS: Glucose,Whole Blood 141 mg/dL (75-99)
[2018-12-26] MEDS: HYDROcodone/APAP 7.5-325MG 1 EACH TAB PO PRN (04:54)
[2018-12-26 07:22] LABS: Glucose,Whole Blood 86 mg/dL (75-99)
[2018-12-26] MEDS: BUDESONIDE 1 MG/2 ML NEBU INHALATION SCH ×2 (07:25→19:21)
[2018-12-26] MEDS: IPRATROPIUM-ALBUTEROL 3 ML NEB INHALATION SCH ×5 (07:25→23:05)
[2018-12-26] MEDS: IPRATROPIUM-ALBUTEROL 3 ML NEB INHALATION PRN (08:21)
[2018-12-26] MEDS ORDERED: FUROSEMIDE 10 MG/ML 4 ML VIAL IV STA (08:31)
[2018-12-26] MEDS: INSULIN ASPART (NovoLOG) 100 UNIT/ML VIAL SQ SCH ×3 (08:46→18:16)
--- NOTE | 2018-12-26 09:03 | XR ---
EXAMINATION TYPE: XR chest 1V DATE OF EXAM: 12/26/2018 CLINICAL HISTORY: Difficulty breathing progress study. TECHNIQUE: Single AP portable upright view of the chest is obtained. COMPARISON: Chest radiograph 12/21/2018 FINDINGS: The cardiomediastinal silhouette is again enlarged. Right basilar atelectasis versus scarring is stab le. Some new airspace disease is identified in the left upper lung. No large pleural effusion. No pne umothorax. Osseous structures again demonstrate senescent changes but are otherwise unremarkable. IMPRESSION: 1. New subtle left upper lung opacity when compared to recent prior study. This may be related to dif ferences in phase of inspiration as the current image was acquired in relative expiration. 2. Otherwise, no significant interval change.
[2018-12-26 09:08] LABS: Anisocytosis Moderate; HCT 33.7 % (34.0-46.0); Hypochromasia Marked; MCH 23.7 pg (25.0-35.0); MCHC 28.6 g/dL (31.0-37.0); MCV 82.7 fL (80.0-100.0); Mean Platelet Volume 7.6; Microcytosis Slight; Platelet Count 333 k/uL (150-450); Poikilocytosis Moderate; RBC 4.07 m/uL (3.80-5.40)
[2018-12-26 09:09] LABS: HGB 9.6 gm/dL (11.4-16.0)
[2018-12-26 09:46] LABS: Calcium 9.2 mg/dL (8.4-10.2); Potassium 4.2 mmol/L (3.5-5.1)
[2018-12-26 09:50] LABS: Glucose,Whole Blood 85 mg/dL (75-99)
[2018-12-26 09:56] LABS: ABG Base Excess 0.4 mmol/L; ABG HCO3 25 mmol/L (21-25); ABG Oxygen Saturation 99.3 % (94-97); ABG PCO2 41 mmHg (35-45); ABG PO2 171 mmHg (83-108); ABG TCO2 27 mmol/L (19-24)
[2018-12-26] MEDS: PROPOFOL 1,000 MG in EMPTY BAG 1 BAG IV SCH ×3 (10:30→19:42)
[2018-12-26 10:37] LABS: Metamyelocytes # (M) 0.16 k/uL (0); Metamyelocytes % 1 %; Monocytes # (M) 0.98 k/uL (0-1.0); Neutrophils # (M) 13.12 k/uL (1.3-7.7); Neutrophils % (M) 80 %; Nucleated Red Blood Cells 1 /100 WBC (0-0); Total Cells Counted 200; WBC 16.4 k/uL (3.8-10.6)
[2018-12-26 10:38] LABS: Polychromasia Present
[2018-12-26] MEDS ORDERED: IOPAMIDOL-300 CONTRAST 30 ML VIAL (ORAL USE) PO PRN (10:54)
--- NOTE | 2018-12-26 10:55 | XR ---
EXAMINATION TYPE: XR chest 1V [facility] DATE OF EXAM: 12/26/2018 CLINICAL HISTORY: Difficulty breathing progress study. TECHNIQUE: Single AP portable upright view of the chest is obtained. COMPARISON: Chest x-ray from earlier the same day. FINDINGS: Cardiomediastinal silhouette silhouette is unchanged. Interval placement of left subclavian central line which is in appropriate position. Enteric tube is in place in the interval with the distal tip and side-port located well below the level of the diaphr agm. Endotracheal tube has been placed with the distal tip residing in the right mainstem bronchus. A few centimeters of retraction is recommended. Wedge-shaped opacity persists in the left upper lung. No pneumothorax or large pleural effusion. Osse ous structures are unchanged. IMPRESSION: 1. Interval placement of endotracheal tracheal tube with the distal tip located in the right mainstem bronchus. A few centimeters of retraction and repeat imaging is recommended. 2. Interval and adequate position of enteric and left subclavian central line. 3. Persistent wedge-shaped area of opacification left upper lung.
[2018-12-26] MEDS: CLINDAMYCIN 600 MG in DEXTROSE 5% IN WATER 50 ML IVPB SCH ×4 (11:12→18:07)
[2018-12-26] MEDS: LEVOFLOXACIN 750MG-D5W PMX 750 MG in DEXTROSE/WATER 1 150ML.BAG IVPB SCH (11:13)
[2018-12-26 11:15] LABS: ABG Base Excess 0.4 mmol/L; ABG HCO3 25 mmol/L (21-25); ABG PCO2 38 mmHg (35-45); ABG PH 7.43 (7.35-7.45); ABG PO2 162 mmHg (83-108); ABG TCO2 26 mmol/L (19-24)
[2018-12-26] MEDS: CISATRACURIUM 2 MG/ML 5 ML VIAL IV ONE ×2 (11:18→19:07)
[2018-12-26] MEDS: SODIUM BICARBONATE TAB 650 MG TAB PO SCH ×3 (11:23→21:04)
[2018-12-26] MEDS: guaiFENesin 600 MG TABLET.ER PO SCH ×2 (11:25→20:50)
[2018-12-26] MEDS: FAMOTIDINE 20 MG TAB PO SCH (11:51)
[2018-12-26] MEDS: GABAPENTIN 300 MG CAP PO SCH ×2 (11:51→21:04)
[2018-12-26] MEDS: NICOTINE 21MG/24HR PATCH TRANSDERM SCH (11:56)
[2018-12-26] MEDS: methylPREDNISolone SOD SUCCI 125 MG/2 ML VIAL IV SCH ×2 (11:56→18:07)
[2018-12-26] MEDS: METOPROLOL TARTRATE 50 MG TAB PO SCH ×2 (13:58→22:40)
--- NOTE | 2018-12-26 14:01 | P.CNPUL ---
History of Present Illness Consult date: 12/26/18 Reason for consult: dyspnea, COPD History of present illness: This is a 68-year-old female patient with known history of COPD in addition to history of polymyalgia rheumatica, fibromyalgia, chronic back pain, peripheral neuropathy and diabetes mellitus who came into the hospital because of generalized weakness. The patient apparently was getting progressively more weak and she had some increased nausea and dizziness. Overall she was feeling rundown. She was having difficulties mobility. In the emergency department, hemoglobin was done and came back at 4.9. The patient denied having any tarry stool. Hemoccult was positive. The patient had a component of hyperkalemia that was treated and the potassium level normalized. The patient was found to bronchospastic and wheezy. The patient was started on bronchodilators. GI consultation was obtained. Patient was given packed RBC transfusion. Over the past few days, the patient underwent further investigation including a EGD that was done that showed no evidence of any acute bleeding. There was mild scattered gastritis and the angiogram in the body and hiatal hernia. The esophagus was tortuous. The colonoscopy was also done that showed a polyp in transverse colon that was removed. There was mild internal hemorrhoids. Based on all this, a video capsule endoscopy was recommended. The patient was doing well. The patient was being considered even to be discharged home. Earlier this morning she became acutely short of breath. She became bronchus spastic and wheezy. She has also diminished level of consciousness. Time of the arrival to the ICU, the patient was diaphoretic and sweaty and tachypneic and tachycardic. She was not following commands. The blood gases was done that showed no significant respiratory acidosis. Nevertheless, clinically the patient was in impending respiratory failure. At that point, I decided to intubate the patient put on a mechanical ventilator. I reviewed the chest x-ray that was done earlier this morning and it showed a new left upper lobe opacity compared to the prior study and this finding was highly suspicious for an evolving pneumonia. Repeat chest x-ray as well as done post intubation showed a wedge-shaped opacity in the left upper lobe. Otherwise the rest of the cardiac border structures were low normal limits and ET tube was in a good location. The patient was started on a combination of Levaquin and clindamycin. She was started on DuoNeb the right seems on the clock and IV Solu-Medrol. Currently she is an assist-control mode of ventilation with a tidal volume of 400, FiO2 of 60%, PEEP of 5 and a respiratory rate of 20. Peak airway pressures around 30. The pH is at 7.43 with a pCO2 of 38 and pO2 of 162. Note that IV realized the patient had some increased abdominal distention post intubation. NG tube was inserted and output was minimal. The patient will be sent for a CAT scan of the chest and abdomen. Note that the CAT scan of the lumbar spine that was done showed degenerative changes in the mid in the lower lumbar spine in addition to moderate degree of abdominal pelvic ascites suspicious for liver cirrhosis an underlying portal hypertension. Review of Systems ROS unobtainable: due to endotracheal tube Past Medical History Past Medical History: COPD, Diabetes Mellitus, Fibromyalgia, GERD/Reflux, Hyperlipidemia, Hypertension, Rheumatoid Arthritis (RA) Additional Past Medical History / Comment(s): Polymyalgia rheumatica, chronic lower back pain, lower back nerve damage, neuropathy R leg, NIDDM type II, anemia once, hiatal hernia, unsteady gait, elevated LFT in the past. History of Any Multi-Drug Resistant Organisms: None Reported Past Surgical History: Appendectomy, Bladder Surgery, Cholecystectomy, Hysterectomy, Tubal Ligation Additional Past Surgical History / Comment(s): [place] 2018, EGD, bladder suspension, lap surgery for ovarian cyst, lumbar epidural pain procedures, Past Anesthesia/Blood Transfusion Reactions: Motion Sickness Additional Past Anesthesia/Blood Transfusion Reaction / Comment(s): OCCASIONAL MOTION SICKNESS, some clausterphobia. Smoking Status: Current every day smoker - Past Family History Mother Family Medical History: Hypertension Additional Family Medical History / Comment(s): Mother of a respiratory arrest at the age of 69yrs. Father Family Medical History: Cancer Additional Family Medical History / Comment(s): Father of renal cancer at the age of 67yrs. Medications and Allergies Home Medications Medication Instructions Recorded Confirmed Type Glimepiride [Amaryl] 2 mg PO AC-BID 02/15/15 12/21/18 History Lisinopril-Hctz 20-25 mg 1 tab PO DAILY 02/15/15 12/21/18 History [Zestoretic 20-25] Metoprolol Tartrate [Lopressor] 50 mg PO BID 02/15/15 12/21/18 History Omeprazole [PriLOSEC] 20 mg PO AC-BID 02/15/15 12/21/18 History metFORMIN HCL [Glucophage] 1,000 mg PO BID 02/15/15 12/21/18 History Albuterol Inhaler [Ventolin 1 - 2 puff INHALATION RT-QID PRN 03/07/15 12/21/18 History Inhaler] Aspirin 81 mg PO DAILY 03/07/15 12/21/18 History Amitriptyline HCl [Elavil] 25 mg PO HS 12/21/18 12/21/18 History Gabapentin [Neurontin] 300 mg PO TID 12/21/18 12/21/18 History HYDROcodone/APAP 7.5-325MG [[place] 1 tab PO Q6HR PRN 12/21/18 12/21/18 History 7.5-325] Tiotropium 18 Mcg/Puff [Spiriva] 1 cap INHALATION RT-DAILY 12/21/18 12/21/18 History Vitamin E 500mg 500 mg PO BID 12/21/18 12/21/18 History Allergies Allergy/AdvReac Type Severity Reaction Status Date / Time Penicillins Allergy Dyspnea Verified 12/21/18 16:08 Physical Exam Vitals: Vital Signs Temp Pulse Pulse Resp BP BP BP 12/26/18 11:51 108 H 12/26/18 11:47 100.4 F H 100 20 84/58 12/26/18 11:40 105 H 12/26/18 08:38 100 99 143/90 12/26/18 08:21 92 12/26/18 08:00 20 12/26/18 07:41 96 12/26/18 07:25 92 12/26/18 07:14 97.6 F 86 20 118/84 12/26/18 03:20 97.7 F 83 18 117/77 12/26/18 01:00 97.7 F 72 20 133/71 12/25/18 21:21 88 12/25/18 21:04 90 12/25/18 19:30 97.8 F 80 18 125/74 12/25/18 17:22 94 12/25/18 17:13 90 12/25/18 14:17 97.4 F L 78 107/73 Pulse Ox 12/26/18 11:51 12/26/18 11:47 99 12/26/18 11:40 12/26/18 08:38 99 12/26/18 08:21 12/26/18 08:00 12/26/18 07:41 12/26/18 07:25 12/26/18 07:14 99 12/26/18 03:20 97 12/26/18 01:00 100 12/25/18 21:21 12/25/18 21:04 12/25/18 19:30 100 12/25/18 17:22 12/25/18 17:13 12/25/18 14:17 93 L Intake and Output 12/25/18 12/26/18 12/26/18 22:59 06:59 14:59 Intake Total 600 1080 173.64 Output Total 825 Balance 600 1080 -651.36 Intake: Intake, IV Titration 600 600 173.64 Amount Lactated Ringers 1,000 ml 600 600 @ 75 mls/hr IV .[id number] HO Rx#:[id number] Levofloxacin 750Mg-D5w 150 Pmx 750 mg In Dextrose/ Water 1 150ml.bag @ 100 mls/hr IVPB Q24H HO Rx#: [id number] Propofol 1,000 mg In 23.64 Empty Bag 1 bag @ Titrate IV .Q0M HO Rx#: [id number] Blood Product 480 Output: Urine 825 Other: Voiding Method Toilet # Voids 3 3 ABP, PAP, CO, CI - Last 8 Hours Arterial Blood Pressure 109/44 Gen. appearance intubated, comfortable likely distress. The patient is sedated with propofol. The patient has an orotracheal and orogastric tube are both in place. Head exam was generally normal. There was no scleral icterus or corneal arcus. Mucous membranes were moist. Neck was supple and without jugular venous distension, thyromegaly, or carotid bruits. Carotids were easily palpable bilaterally. There was no adenopathy. Lungs sounds are diminished and the patient has diffuse expiratory wheezes throughout the lung meyer bilaterally and prolongation of expiratory phase of breathing. Cardiac exam revealed the PMI to be normally situated and sized. The rhythm was regular and no extrasystoles were noted during several minutes of auscultation. The first and second heart sounds were normal and physiologic splitting of the second heart sound was noted. There were no murmurs, rubs, clicks, or gallops. Abdomen is distended. There is some firmness over the upper abdominal portions involving the right upper and left upper quadrant. No direct tenderness. No rebound tenderness. No guarding. There may be possibly some underlying ascites. All his cannot be accurately palpated. The patient is obese. Extremities revealed +1 pitting edema and there is no cyanosis or clubbing. Neurologically, the patient is sedated and the patient is calm and comfortable. Examination of the skin revealed no evidence of significant rashes, suspicious appearing nevi or other concerning lesions. Results - Laboratory Findings CBC and BMP: 12/26/18 08:23 12/26/18 08:13 ABG ABG pH 7.43 (7.35-7.45) 12/26/18 11:13 ABG pCO2 38 mmHg (35-45) 12/26/18 11:13 ABG pO2 162 mmHg (83-108) H 12/26/18 11:13 ABG O2 Saturation 100.0 % (94-97) H 12/26/18 11:13 PT/INR, D-dimer PT 11.0 sec (9.0-12.0) 12/21/18 15:33 INR 1.0 (<1.2) 12/21/18 15:33 Abnormal lab findings: Abnormal Labs 12/21/18 12/21/18 12/21/18 14:37 15:30 15:33 WBC RBC 2.90 L Hgb 6.2 L* Hct 24.1 L MCH 21.4 L MCHC 25.8 L RDW 20.4 H Neutrophils # 8.0 H Neutrophils # (Manual) Lymphocytes # Metamyelocytes # (Man) Nucleated RBCs ABG pO2 ABG Total CO2 ABG O2 Saturation Potassium Chloride Carbon Dioxide BUN Creatinine Glucose POC Glucose (mg/dL) Total Bilirubin AST Alkaline Phosphatase CK-MB (CK-2) Total Protein Albumin Urine Protein Stool Occult Blood Positive H Crossmatch See Detail 12/21/18 12/21/18 12/21/18 15:33 15:33 18:55 WBC RBC Hgb Hct MCH MCHC RDW Neutrophils # Neutrophils # (Manual) Lymphocytes # Metamyelocytes # (Man) Nucleated RBCs ABG pO2 ABG Total CO2 ABG O2 Saturation Potassium 6.4 H* Chloride 108 H Carbon Dioxide 19 L BUN 43 H Creatinine 1.84 H Glucose 104 H POC Glucose (mg/dL) Total Bilirubin 1.7 H AST 50 H Alkaline Phosphatase 273 H CK-MB (CK-2) 13.7 H Total Protein 6.0 L Albumin 3.2 L Urine Protein Stool Occult Blood Crossmatch See Detail 12/21/18 12/22/18 12/22/18 20:23 08:08 08:08 WBC RBC 2.42 L Hgb 4.9 L* Hct 20.3 L MCH 20.1 L MCHC 24.0 L RDW 20.8 H Neutrophils # Neutrophils # (Manual) Lymphocytes # 0.7 L Metamyelocytes # (Man) Nucleated RBCs ABG pO2 ABG Total CO2 ABG O2 Saturation Potassium 5.6 H Chloride 109 H Carbon Dioxide 17 L BUN 42 H Creatinine 1.57 H Glucose 245 H POC Glucose (mg/dL) Total Bilirubin 1.6 H AST 47 H Alkaline Phosphatase 258 H CK-MB (CK-2) Total Protein 5.4 L Albumin 2.8 L Urine Protein Trace H Stool Occult Blood Crossmatch 12/22/18 12/22/18 12/22/18 08:27 10:43 11:06 WBC RBC 2.34 L Hgb 4.9 L* Hct 19.7 L* MCH 21.0 L MCHC 25.0 L RDW 20.9 H Neutrophils # Neutrophils # (Manual) Lymphocytes # Metamyelocytes # (Man) Nucleated RBCs ABG pO2 ABG Total CO2 ABG O2 Saturation Potassium Chloride Carbon Dioxide BUN Creatinine Glucose POC Glucose (mg/dL) 275 H 290 H Total Bilirubin AST Alkaline Phosphatase CK-MB (CK-2) Total Protein Albumin Urine Protein Stool Occult Blood Crossmatch 12/22/18 12/22/18 12/22/18 17:22 20:21 20:21 WBC RBC 3.18 L Hgb 8.0 L D Hct 26.8 L MCH MCHC 29.7 L RDW 19.1 H Neutrophils # 8.3 H Neutrophils # (Manual) Lymphocytes # 0.9 L Metamyelocytes # (Man) Nucleated RBCs ABG pO2 ABG Total CO2 ABG O2 Saturation Potassium Chloride Carbon Dioxide 19 L BUN 45 H Creatinine 1.34 H Glucose 254 H POC Glucose (mg/dL) 273 H Total Bilirubin AST Alkaline Phosphatase CK-MB (CK-2) Total Protein Albumin Urine Protein Stool Occult Blood Crossmatch 12/22/18 12/23/18 12/23/18 20:49 07:41 08:18 WBC RBC 3.10 L Hgb 7.6 L Hct 25.9 L MCH 24.6 L MCHC 29.4 L RDW 19.5 H Neutrophils # 7.8 H Neutrophils # (Manual) Lymphocytes # 0.9 L Metamyelocytes # (Man) Nucleated RBCs ABG pO2 ABG Total CO2 ABG O2 Saturation Potassium Chloride Carbon Dioxide BUN Creatinine Glucose POC Glucose (mg/dL) 302 H 175 H Total Bilirubin AST Alkaline Phosphatase CK-MB (CK-2) Total Protein Albumin Urine Protein Stool Occult Blood Crossmatch 12/23/18 12/23/18 12/23/18 12:07 17:14 21:11 WBC RBC Hgb Hct MCH MCHC RDW Neutrophils # Neutrophils # (Manual) Lymphocytes # Metamyelocytes # (Man) Nucleated RBCs ABG pO2 ABG Total CO2 ABG O2 Saturation Potassium Chloride Carbon Dioxide BUN Creatinine Glucose POC Glucose (mg/dL) 168 H 188 H 158 H Total Bilirubin AST Alkaline Phosphatase CK-MB (CK-2) Total Protein Albumin Urine Protein Stool Occult Blood Crossmatch 12/24/18 12/24/18 12/24/18 07:14 08:59 08:59 WBC RBC 3.49 L Hgb 8.1 L Hct 29.2 L MCH 23.3 L MCHC 27.8 L RDW 20.1 H Neutrophils # 8.7 H Neutrophils # (Manual) Lymphocytes # 0.9 L Metamyelocytes # (Man) Nucleated RBCs ABG pO2 ABG Total CO2 ABG O2 Saturation Potassium Chloride Carbon Dioxide BUN 43 H Creatinine 1.09 H Glucose 100 H POC Glucose (mg/dL) 121 H Total Bilirubin 2.3 H AST Alkaline Phosphatase CK-MB (CK-2) Total Protein Albumin Urine Protein Stool Occult Blood Crossmatch 12/24/18 12/24/18 12/24/18 11:56 16:57 20:49 WBC RBC Hgb Hct MCH MCHC RDW Neutrophils # Neutrophils # (Manual) Lymphocytes # Metamyelocytes # (Man) Nucleated RBCs ABG pO2 ABG Total CO2 ABG O2 Saturation Potassium Chloride Carbon Dioxide BUN Creatinine Glucose POC Glucose (mg/dL) 112 H 120 H 134 H Total Bilirubin AST Alkaline Phosphatase CK-MB (CK-2) Total Protein Albumin Urine Protein Stool Occult Blood Crossmatch 12/25/18 12/25/18 12/25/18 07:01 11:20 16:27 WBC RBC Hgb Hct MCH MCHC RDW Neutrophils # Neutrophils # (Manual) Lymphocytes # Metamyelocytes # (Man) Nucleated RBCs ABG pO2 ABG Total CO2 ABG O2 Saturation Potassium Chloride 109 H Carbon Dioxide BUN 39 H Creatinine Glucose 71 L POC Glucose (mg/dL) 146 H 175 H Total Bilirubin AST Alkaline Phosphatase CK-MB (CK-2) Total Protein Albumin Urine Protein Stool Occult Blood Crossmatch 12/25/18 12/26/18 12/26/18 20:16 04:04 08:13 WBC RBC Hgb Hct MCH MCHC RDW Neutrophils # Neutrophils # (Manual) Lymphocytes # Metamyelocytes # (Man) Nucleated RBCs ABG pO2 ABG Total CO2 ABG O2 Saturation Potassium Chloride Carbon Dioxide BUN 36 H Creatinine Glucose POC Glucose (mg/dL) 233 H 141 H Total Bilirubin AST Alkaline Phosphatase CK-MB (CK-2) Total Protein Albumin Urine Protein Stool Occult Blood Crossmatch 12/26/18 12/26/18 12/26/18 08:23 09:50 11:13 WBC 16.4 H RBC Hgb 9.6 L D Hct 33.7 L MCH 23.7 L MCHC 28.6 L RDW 21.0 H Neutrophils # Neutrophils # (Manual) 13.12 H Lymphocytes # Metamyelocytes # (Man) 0.16 H Nucleated RBCs 1 H ABG pO2 171 H 162 H ABG Total CO2 27 H 26 H ABG O2 Saturation 99.3 H 100.0 H Potassium Chloride Carbon Dioxide BUN Creatinine Glucose POC Glucose (mg/dL) Total Bilirubin AST Alkaline Phosphatase CK-MB (CK-2) Total Protein Albumin Urine Protein Stool Occult Blood Crossmatch - Diagnostic Findings Chest x-ray: image reviewed Assessment and Plan Plan: Assessment 1 acute left upper lobe pneumonia. The patient is a patchy opacity in the left upper lobe it of old over the past 48 hours. Consider hospital-acquired pneumonia. Consider aspiration. Pulmonary embolism is felt to be less likely 2 acute respiratory distress and respiratory failure, requiring intubation mechanical ventilation 3 COPD exacerbation secondary to above 4 abdominal distention, possibly underlying ascites. An underlying abdominal mass cannot be completely excluded 5 history of profound anemia and the patient was hospitalized during this current admission with a hemoglobin as low as 4.9 with a positive Hemoccult blood in the workup included a EGD and colonoscopy both been negative 6 diabetes mellitus 7 fibromyalgia 8. polyMyalgia rheumatica 9 hypertension 10 hyperlipidemia 11 rheumatoid arthritis 12 degenerative this disease involving the lumbar spine and the patient has received lumbar epidural pain injections 13 mild antritis and a transverse colonic polyp that was resected 14 chronic lower back pain 15 difficulties mobility secondary to above-mentioned comorbidities Plan Patient is already intubated on a mechanical ventilated. Necessary vent changes were done. Chest x-ray was reviewed. The patient was started on a combination of Levaquin and clindamycin. The patient was started on DuoNeb the right seems on the clock and IV Solu-Medrol. The patient will need a CAT scan of the chest and abdomen. There is a concern of an abdominal finding 90 the patient's abdomen is slightly distended and same time the patient initially admitted to the hospital because of profound anemia which could be related to any other GI pathology knowing that the EGD and a colonoscopy were essentially negative. Hemoglobin is stable for now at 9.6. No evidence of any ongoing GI bleed. We will offer GI prophylaxis. We'll proceed with a CAT scan of the chest and abdomen. Continue supportive care. IV fluids to no pressors for now. NG tube is in place. We'll continue to follow make further recommendations based on her progress. Time with Patient: Greater than 30
[2018-12-26] MEDS: IOPAMIDOL-300 CONTRAST 30 ML VIAL (ORAL USE) PO PRN ×2 (14:09→15:32)
--- NOTE | 2018-12-26 18:07 | CT ---
EXAMINATION TYPE: CT ChestAbdPelvis w con DATE OF EXAM: 12/26/2018 COMPARISON: CT lumbar spine dated 12/21/2018 HISTORY: Abdominal distention and shortness of breath. CT DLP: 1909.2 mGycm. Automated Exposure Control for Dose Reduction was Utilized. CONTRAST: CT scan of the thorax, abdomen and pelvis is performed with IV Contrast, patient injected with 80ml m L of Isovue 300. FINDINGS: LUNGS: Endotracheal tube is seen extending into the right mainstem bronchus. Retraction of approximat elsie 2-3 cm is recommended for optimal placement. There is linear atelectasis along the right minor fi ssure and dependent right basilar subsegmental atelectasis. Within the left upper lobe there is a foc al consolidation that is somewhat masslike containing air bronchograms. Few areas of decreased attenu ation are seen along the periphery suspicious for pneumonia. There is a trace left pleural effusion a nd left basilar compressive atelectasis that is subsegmental. MEDIASTINUM: There are no greater than 1 cm hilar or mediastinal lymph nodes. No pericardial effusi on is seen. Mild coronary artery calcifications are noted. OTHER: Enteric tube courses beyond the gastroesophageal junction into the gastric body. Fenestrated p ortion is not well delineated on CT. There is moderate body wall edema/anasarca. LIVER/GB: Hepatic parenchyma is diffusely hypoattenuated in comparison to that of the spleen, most co mmonly seen in hepatic steatosis. However there is a lobulated contour of the liver suggesting hepato cellular disease and early cirrhosis. This finding limits evaluation for hepatic masses. No gross dario dence of hepatic mass is seen. No intrahepatic biliary ductal dilatation. Gallbladder surgically abse nt. PANCREAS: No significant abnormality is seen. SPLEEN: Spleen is upper limits of normal size measuring 13.3 cm in craniocaudal dimension. ADRENALS: No significant abnormality is seen. KIDNEYS: Kidneys enhance symmetrically without hydronephrosis. BOWEL: Within the rectal vault there are metallic foreign bodies. There is mild diffuse colonic wall thickening, that may relate to congestive colitis or may be reactive to the adjacent ascites. Additio nal consideration is for hypoalbuminemia given the above findings. OSSEOUS STRUCTURES: Multilevel degenerative changes of the spine are mild. OTHER: Amaro catheter is placed within the incompletely distended urinary bladder. There is moderate volume abdominopelvic ascites as well as diffuse mesenteric edema. Moderate to severe atherosclerosis is seen of the abdominal aorta and its branches. IMPRESSION: 1. Right mainstem endobronchial intubation. Recommend retraction approximately 2-3 cm. Findings were discussed with the patient's nurse Miguel Ángel at 1803 on 12/26/[address] Dowd. 2. Findings suggesting hepatocellular disease and cirrhosis with moderate volume abdominopelvic ascit es and upper limits of normal size of the spleen suggesting portal venous hypertension. 3. Left upper lobe consolidation is likely partially attributable to atelectasis given the right main stem bronchial intubation, however low-density peripheral region suggests superimposed pneumonia. Giv en the masslike morphology follow-up after treatment is recommended to exclude underlying nodule or m ass. 4. Metallic densities within the rectal vault of unknown etiology. 5. Diffuse colonic bowel wall thickening could relate to congestive colitis, reactive from the adjace nt ascites or could relate to hypoalbuminemia.
[2018-12-26 18:12] LABS: Glucose,Whole Blood 201 mg/dL (75-99)
[2018-12-26] MEDS: HYDROmorphone 0.5 MG/0.5 ML SYRINGE IVP PRN (19:11)
[2018-12-26] MEDS: SODIUM CHLORIDE 0.9% 1,000 ML IV SCH (21:04)
[2018-12-26] MEDS: CHLORHEXIDINE GLUCONATE 15 ML CUP MUCOUS MEM SCH (21:04)
--- NOTE | 2018-12-26 22:26 | PN ---
PROGRESS NOTE DATE OF SERVICE: 12/26/2018 PRESENTING COMPLAINT: Short of breath. INTERVAL HISTORY: This patient initially presented with severe anemia, status post EGD, colonoscopy and small bowel capsule study, only was found to have gastritis, also with COPD exacerbation when she initially presented. The patient this morning was quite a bit short of breath and crackles were reported in the chest. Nurses had called me. I told them to get a stat chest x-ray and ordered 40 mg of Lasix. The patient remained short of breath. The patient initially was moved to the Cardiology where is the 3rd selective floor and as patient's symptoms were still present, I asked them to move the patient to the ICU where patient was actually intubated. Chest x-ray was showing infiltrate on the left side which is new and some atelectasis in the right base. REVIEW OF SYSTEMS: Patient intubated. CURRENT MEDICATIONS: Include DuoNeb, nebulized Pulmicort, IV clindamycin, IV Levaquin, IV Solu-Medrol, IV propofol. PHYSICAL EXAMINATION: VITAL SIGNS: Temperature 100.4, pulse 105, respiration 20, blood pressure 84/58, pulse ox 99% on ventilator. GENERAL APPEARANCE: Lying in bed, intubated. EYES: Pupils equal. Conjunctivae normal. HEENT: External appearance of nose and ears normal. Oral cavity endotracheal tube. NECK: JVD unable to assess. Mass not palpable. RESPIRATORY: Effort increased. LUNGS: Diminished breath sounds. Some crackles. CARDIOVASCULAR: First and second sounds normal. Minimal edema. ABDOMEN: Distended, soft. Liver and spleen not palpable. PSYCHIATRY: Unable to assess. NEUROLOGICAL: Pupils are reactive. Does respond to pain. INVESTIGATIONS: White count 16.4, hemoglobin 9.6. Blood gases noted. BUN 36, creatinine 0.97. Chest x-ray film personally reviewed by me, results as above. CT scan abdomen and pelvis ordered by Dr. Vela did show evidence of hepatocellular disease/cirrhosis with some secondary ascites. ASSESSMENT: 1. Left upper lobe aspiration pneumonia causing acute hypoxic respiratory failure leading to ventilator support. 2. Acute severe symptomatic anemia from gastrointestinal bleed status post EGD, colonoscopy and capsule endoscopy. 3. Acute chronic obstructive pulmonary disease exacerbation in a smoker with relapse. 4. Chronic nicotine dependence, patient is a cigarette smoker. 5. Diabetes mellitus type 2. 6. Chronic fibromyalgia. 7. Gastroesophageal reflux disease. 8. Essential hypertension. 9. Hyperlipidemia. 10.Chronic polymyalgia rheumatica. 11.Chronic low back pain from arthritis. 12.Peripheral neuropathy secondary to diabetes. 13.Hiatal hernia. 14.Chronic kidney disease from diabetic nephropathy and hypertensive nephrosclerosis probably mild. 15.Acute renal failure likely prerenal with significant improvement. 16.Cirrhosis and abdominal ascites, cause unknown. PLAN: Care was discussed with Dr. Vela. The patient is on antibiotic, propofol, bronchodilators, steroids. We will have also Gastroenterology relook at the patient from a cirrhosis standpoint. Prognosis is guarded. MMODL / IJN: [id number] /
[2018-12-26] MEDS: AMITRIPTYLINE HCL 25 MG TAB PO SCH (22:43)
[2018-12-27 00:08] LABS: Glucose,Whole Blood 216 mg/dL (75-99)
[2018-12-27] MEDS: CLINDAMYCIN 600 MG in DEXTROSE 5% IN WATER 50 ML IVPB SCH ×8 (00:33→17:21)
[2018-12-27] MEDS: INSULIN ASPART (NovoLOG) 100 UNIT/ML VIAL SQ SCH ×6 (00:33→20:32)
[2018-12-27] MEDS: methylPREDNISolone SOD SUCCI 125 MG/2 ML VIAL IV SCH ×4 (00:34→17:20)
[2018-12-27] MEDS: IPRATROPIUM-ALBUTEROL 3 ML NEB INHALATION SCH ×6 (03:25→23:34)
[2018-12-27] MEDS: PROPOFOL 1,000 MG in EMPTY BAG 1 BAG IV SCH ×4 (03:35→21:59)
[2018-12-27 04:13] LABS: Glucose,Whole Blood 240 mg/dL (75-99)
[2018-12-27 05:15] LABS: ABG Base Excess 0.3 mmol/L; ABG HCO3 24 mmol/L (21-25); ABG Oxygen Saturation 99.6 % (94-97); ABG PCO2 33 mmHg (35-45); ABG PH 7.47 (7.35-7.45); ABG PO2 120 mmHg (83-108); ABG TCO2 25 mmol/L (19-24)
[2018-12-27 05:28] LABS: Magnesium 1.3 mg/dL (1.6-2.3); Phosphorus 4.3 mg/dL (2.5-4.5); Potassium 3.7 mmol/L (3.5-5.1)
[2018-12-27] MEDS: HYDROmorphone 0.5 MG/0.5 ML SYRINGE IVP PRN ×4 (05:34→21:09)
[2018-12-27] MEDS ORDERED: Potassium Replacement Protocol 1 EACH MISC MISCELLANE PRN (06:07)
[2018-12-27] MEDS ORDERED: Magnesium Replacement Protocol 1 EACH MISC MISCELLANE PRN (06:08)
[2018-12-27 06:24] LABS: Anisocytosis Moderate; HCT 24.4 % (34.0-46.0); Hypochromasia Marked; MCH 24.5 pg (25.0-35.0); MCHC 28.9 g/dL (31.0-37.0); MCV 84.9 fL (80.0-100.0); Mean Platelet Volume 7.6; Microcytosis Slight; Platelet Count 212 k/uL (150-450); Poikilocytosis Moderate; RBC 2.88 m/uL (3.80-5.40); RDW 21.1 % (11.5-15.5); WBC 9.7 k/uL (3.8-10.6)
[2018-12-27 06:29] LABS: HGB 7.1 gm/dL (11.4-16.0)
[2018-12-27] MEDS: MAGNESIUM SULFATE-D5W PMX 1 GM in DEXTROSE/WATER 1 100ML.BAG IVPB SCH ×3 (06:48→09:33)
[2018-12-27] MEDS: POTASSIUM CHLORIDE 10 MEQ in WATER FOR INJECTION 1 100ML.BAG IVPB SCH ×2 (06:59→08:25)
[2018-12-27 08:05] LABS: Glucose,Whole Blood 220 mg/dL (75-99)
--- NOTE | 2018-12-27 08:20 | XR ---
EXAMINATION TYPE: XR chest 1V portable DATE OF EXAM: 12/27/2018 COMPARISON: 12/26/2018 INDICATION: Tube placement TECHNIQUE: Single frontal view of the chest is obtained. FINDINGS: The heart size is normal. The pulmonary vasculature is normal. Mild left lower lobe infiltrate is developing. Correlate for atelectasis. Opacity in the left upper lobe is improving. Endotracheal tube tip is within the proximal right main bronchus at the level of the az. This magen uld be pulled back approximately 2 cm. Report was called to the ICU Fay RN by Dr. Tay by teleph one at the time of interpretation. Nasogastric tube transverses the thorax. EKG leads overlie the daina st. Left central venous catheter is present with the tip in the right atrium. IMPRESSION: 1. Suspected atelectasis left lower lobe. 2. Endotracheal tube tip at the level the az or within the proximal right bronchus. Recommend pul ling catheter back 2 cm. A Document Only message has been documented for Gian Crews MD in the [employer] system on 12/27/2018 8:17 AM, Message ID [id number].
[2018-12-27] MEDS: SODIUM BICARBONATE TAB 650 MG TAB PO SCH ×3 (08:32→20:54)
[2018-12-27] MEDS: NICOTINE 21MG/24HR PATCH TRANSDERM SCH (08:32)
[2018-12-27] MEDS: FAMOTIDINE 20 MG TAB PO SCH (08:32)
[2018-12-27] MEDS: CHLORHEXIDINE GLUCONATE 15 ML CUP MUCOUS MEM SCH ×2 (08:32→20:39)
[2018-12-27] MEDS: GABAPENTIN 300 MG CAP PO SCH ×2 (08:32→20:54)
[2018-12-27] MEDS: fentaNYL (PF) 1,000 MCG in SODIUM CHLORIDE 0.9% 80 ML IV SCH ×2 (08:34→17:20)
[2018-12-27] MEDS: BUDESONIDE 1 MG/2 ML NEBU INHALATION SCH ×2 (08:56→19:05)
[2018-12-27] MEDS: guaiFENesin 600 MG TABLET.ER PO SCH ×2 (09:31→20:35)
[2018-12-27] MEDS: METOPROLOL TARTRATE 50 MG TAB PO SCH ×2 (09:32→21:58)
--- NOTE | 2018-12-27 09:32 | XR ---
EXAMINATION TYPE: XR chest 1V DATE OF EXAM: 12/27/2018 COMPARISON: Exam earlier same date INDICATION: Endotracheal tube adjustment TECHNIQUE: Single frontal view of the chest is obtained. FINDINGS: The heart size is normal. The pulmonary vasculature is normal. Retrocardiac infiltrate may remain present. The endotracheal tube is been pulled back and now has the tip located 2.7 cm above the az. The en dotracheal tube transverses the thorax with tip within the midabdomen. Right central venous catheter is present with tip in the right atrium. IMPRESSION: 1. Adjustment of the endotracheal tube with the tip above the az. 2. Suspected retrocardiac infiltrate remains present this time. Some elevation of the right diaphragm may be present. Continued follow-up exams are recommended.
[2018-12-27] MEDS: LEVOFLOXACIN 750MG-D5W PMX 750 MG in DEXTROSE/WATER 1 150ML.BAG IVPB SCH (09:33)
[2018-12-27 09:46] LABS: Band Neutrophils % 2 %; Lymphocytes # (M) 0.49 k/uL (1.0-4.8); Monocytes # (M) 0.19 k/uL (0-1.0); Neutrophils % (M) 91 %; Nucleated Red Blood Cells 0 /100 WBC (0-0); Total Cells Counted 100
[2018-12-27 11:53] LABS: Glucose,Whole Blood 221 mg/dL (75-99)
--- NOTE | 2018-12-27 14:01 | P.PN ---
Subjective Progress Note Date: 12/27/18 This is a 68-year-old female patient with known history of COPD in addition to history of polymyalgia rheumatica, fibromyalgia, chronic back pain, peripheral neuropathy and diabetes mellitus who came into the hospital because of generalized weakness. The patient apparently was getting progressively more weak and she had some increased nausea and dizziness. Overall she was feeling rundown. She was having difficulties mobility. In the emergency department, hemoglobin was done and came back at 4.9. The patient denied having any tarry stool. Hemoccult was positive. The patient had a component of hyperkalemia that was treated and the potassium level normalized. The patient was found to bronchospastic and wheezy. The patient was started on bronchodilators. GI consultation was obtained. Patient was given packed RBC transfusion. Over the past few days, the patient underwent further investigation including a EGD that was done that showed no evidence of any acute bleeding. There was mild scattered gastritis and the angiogram in the body and hiatal hernia. The esophagus was tortuous. The colonoscopy was also done that showed a polyp in transverse colon that was removed. There was mild internal hemorrhoids. Based on all this, a video capsule endoscopy was recommended. The patient was doing well. The patient was being considered even to be discharged home. Earlier this morning she became acutely short of breath. She became bronchus spastic and wheezy. She has also diminished level of consciousness. Time of the arrival to the ICU, the patient was diaphoretic and sweaty and tachypneic and tachycardic. She was not following commands. The blood gases was done that showed no significant respiratory acidosis. Nevertheless, clinically the patient was in impending respiratory failure. At that point, I decided to intubate the patient put on a mechanical ventilator. I reviewed the chest x-ray that was done earlier this morning and it showed a new left upper lobe opacity compared to the prior study and this finding was highly suspicious for an evolving pneumonia. Repeat chest x-ray as well as done post intubation showed a wedge-shaped opacity in the left upper lobe. Otherwise the rest of the cardiac border structures were low normal limits and ET tube was in a good location. The patient was started on a combination of Levaquin and clindamycin. She was started on DuoNeb the right seems on the clock and IV Solu-Medrol. Currently she is an assist-control mode of ventilation with a tidal volume of 400, FiO2 of 60%, PEEP of 5 and a respiratory rate of 20. Peak airway pressures around 30. The pH is at 7.43 with a pCO2 of 38 and pO2 of 162. Note that IV realized the patient had some increased abdominal distention post intubation. NG tube was inserted and output was minimal. The patient will be sent for a CAT scan of the chest and abdomen. Note that the CAT scan of the lumbar spine that was done showed degenerative changes in the mid in the lower lumbar spine in addition to moderate degree of abdominal pelvic ascites suspicious for liver cirrhosis an underlying portal hypertension. On today's evaluation of 12/27/2018 I'm seeing this patient for a follow-up. The patient is calm and comfortable sedated with Diprivan. She remains on a mechanical ventilator. On today's evaluation she has an assist-control mode of ventilation with an FiO2 of 50% with a PEEP of 5 and tidal volume of 400 with a rate of 20. This is an assist-control mode of ventilation. The blood pressure was improvement in oxygenation. The patient also has a component of respiratory alkalosis of these to be adjusted. The chest x-ray shows small lung volumes. There is improvement in left upper lobe consolidation that was consistent with pneumonia. The patient remains on a combination of Levaquin and clindamycin. She remains on bronchodilators. She remains on steroids. The COPD exacerbation is improved and the peak airway pressures around 26 on a mechanical ventilator. CAT scan of the abdomen chest was done yesterday. CAT scan of the chest showed left lung pneumonia consistent with a chest x-ray findings. CAT scan of the abdomen showed liver cirrhosis and abdominal and pelvic ascites. The patient is nothing by mouth. NG tube is in place. She is producing adequate amount of urine output. No fever. No evidence of any GI bleeding. Hemoglobin has dropped and they're monitoring the hemoglobin very closely. Noted the patient initially came into the hospital because of her profound anemia. For the most part, she is improved and she is much more stable compared to yesterday. Objective - Vital Signs Vital signs: Vital Signs Temp 98.0 F 12/27/18 09:00 Pulse 94 12/27/18 12:15 Resp 11 L 12/27/18 11:00 BP 85/52 12/26/18 19:00 Pulse Ox 96 12/27/18 11:00 Intake & Output 12/26/18 12/27/18 12/27/18 18:59 06:59 18:59 Intake Total 779.058 720.924 929.076 Output Total 1185 303 135 Balance -405.942 417.924 794.076 Weight 91.9 kg Intake: IV 250 600 200 Clindamycin 600 mg In 100 Dextrose 5% in Water 50 ml @ 50 mls/hr IVPB Q6HR HO Rx#:[id number] NS 0.9 250 500 200 Intake, IV Titration 529.058 120.924 729.076 Amount Clindamycin 600 mg In 100 Dextrose 5% in Water 50 ml @ 50 mls/hr IVPB Q6HR HO Rx#:[id number] IV Fluid Continuation 600 100 ml @ 0 mls/hr IV .STK- [facility] Rx#:[id number] Levofloxacin 750Mg-D5w 150 150 Pmx 750 mg In Dextrose/ Water 1 150ml.bag @ 100 mls/hr IVPB Q24H [facility] Rx#: [id number] Magnesium Sulfate-D5w Pmx 300 1 gm In Dextrose/Water 1 100ml.bag @ 100 mls/hr IVPB Q1H [facility] Rx#: [id number] Potassium Chloride 10 meq 200 In Water For Injection 1 100ml.bag @ 100 mls/hr IVPB Q1H [facility] Rx#: [id number] Propofol 1,000 mg In 179.058 120.924 79.076 Empty Bag 1 bag @ Titrate IV .Q0M [facility] Rx#: [id number] Output: Urine 1185 303 135 Other: Voiding Method Indwelling Catheter Indwelling Catheter Indwelling Catheter ABP, PAP, CO, CI - Last Documented Arterial Blood Pressure 97/42 - Exam Gen. appearance intubated, comfortable likely distress. The patient is sedated with propofol. The patient has an orotracheal and orogastric tube are both in place. Head exam was generally normal. There was no scleral icterus or corneal arcus. Mucous membranes were moist. Neck was supple and without jugular venous distension, thyromegaly, or carotid bruits. Carotids were easily palpable bilaterally. There was no adenopathy. Lungs sounds are diminished and the patient has diffuse expiratory wheezes throughout the lung meyer bilaterally and prolongation of expiratory phase of breathing. Cardiac exam revealed the PMI to be normally situated and sized. The rhythm was regular and no extrasystoles were noted during several minutes of auscultation. The first and second heart sounds were normal and physiologic splitting of the second heart sound was noted. There were no murmurs, rubs, clicks, or gallops. Abdomen is less distended compared to yesterday.. There is some firmness over the upper abdominal portions involving the right upper and left upper quadrant. No direct tenderness. No rebound tenderness. No guarding. There may be possibly some underlying ascites. All his cannot be accurately palpated. The patient is obese. Extremities revealed +1 pitting edema and there is no cyanosis or clubbing. Neurologically, the patient is sedated and the patient is calm and comfortable. Examination of the skin revealed no evidence of significant rashes, suspicious appearing nevi or other concerning lesions. - Labs CBC & Chem 7: 12/27/18 04:40 12/27/18 04:40 Labs: Abnormal Lab Results - Last 24 Hours (Table) 12/26/18 12/27/18 12/27/18 Range/Units 18:11 00:06 04:11 RBC (3.80-5.40) m/uL Hgb (11.4-16.0) gm/dL Hct (34.0-46.0) % MCH (25.0-35.0) pg MCHC (31.0-37.0) g/dL RDW (11.5-15.5) % Neutrophils # (Manual) (1.3-7.7) k/uL Lymphocytes # (Manual) (1.0-4.8) k/uL ABG pH (7.35-7.45) ABG pCO2 (35-45) mmHg ABG pO2 (83-108) mmHg ABG Total CO2 (19-24) mmol/L ABG O2 Saturation (94-97) % Sodium (137-145) mmol/L BUN (7-17) mg/dL Glucose (74-99) mg/dL POC Glucose (mg/dL) 201 H 216 H 240 H (75-99) mg/dL Calcium (8.4-10.2) mg/dL Magnesium (1.6-2.3) mg/dL 12/27/18 12/27/18 12/27/18 Range/Units 04:40 04:40 05:13 RBC 2.88 L (3.80-5.40) m/uL Hgb 7.1 L D (11.4-16.0) gm/dL Hct 24.4 L (34.0-46.0) % MCH 24.5 L (25.0-35.0) pg MCHC 28.9 L (31.0-37.0) g/dL RDW 21.1 H (11.5-15.5) % Neutrophils # (Manual) 9.00 H (1.3-7.7) k/uL Lymphocytes # (Manual) 0.49 L (1.0-4.8) k/uL ABG pH 7.47 H (7.35-7.45) ABG pCO2 33 L (35-45) mmHg ABG pO2 120 H (83-108) mmHg ABG Total CO2 25 H (19-24) mmol/L ABG O2 Saturation 99.6 H (94-97) % Sodium 135 L (137-145) mmol/L BUN 34 H (7-17) mg/dL Glucose 202 H (74-99) mg/dL POC Glucose (mg/dL) (75-99) mg/dL Calcium 8.0 L (8.4-10.2) mg/dL Magnesium 1.3 L (1.6-2.3) mg/dL 12/27/18 12/27/18 Range/Units 08:04 11:51 RBC (3.80-5.40) m/uL Hgb (11.4-16.0) gm/dL Hct (34.0-46.0) % MCH (25.0-35.0) pg MCHC (31.0-37.0) g/dL RDW (11.5-15.5) % Neutrophils # (Manual) (1.3-7.7) k/uL Lymphocytes # (Manual) (1.0-4.8) k/uL ABG pH (7.35-7.45) ABG pCO2 (35-45) mmHg ABG pO2 (83-108) mmHg ABG Total CO2 (19-24) mmol/L ABG O2 Saturation (94-97) % Sodium (137-145) mmol/L BUN (7-17) mg/dL Glucose (74-99) mg/dL POC Glucose (mg/dL) 220 H 221 H (75-99) mg/dL Calcium (8.4-10.2) mg/dL Magnesium (1.6-2.3) mg/dL Assessment and Plan Plan: Assessment 1 acute left upper lobe pneumonia. The patient is a patchy opacity in the left upper lobe it of old over the past 48 hours. Consider hospital-acquired pneumonia. Consider aspiration. Pulmonary embolism is felt to be less likely. The patient had a CAT scan of the chest that confirmed the left upper lobe consolidation. The patient is currently intubated on a mechanical ventilator. The patient is covered with a combination of Levaquin and clindamycin. Cultures of been negative. Continue pneumonia treatment with same antibiotic coverage. Chest x-ray shows improvement in left upper lobe consolidation. 2 acute respiratory distress and respiratory failure, requiring intubation mechanical ventilation, blood gases from today showing a component of respiratory alkalosis. 3 COPD exacerbation secondary to above 4 abdominal distention, possibly underlying ascites. A CAT scan of the abdomen was done that showed liver cirrhosis and ascites involving the abdomen and pelvis. 5 history of profound anemia and the patient was hospitalized during this current admission with a hemoglobin as low as 4.9 with a positive Hemoccult blood in the workup included a EGD and colonoscopy both been negative. The patient got transfused with packed RBCs. Most recent hemoglobin 7.1 and the patient is not showing any signs of GI bleeding. She is nothing by mouth for now. 6 diabetes mellitus 7 fibromyalgia 8. 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 Continue systemic steroids. Continue antibiotics. Continue mechanical ventilator. Dropped a respiratory rate down to 14. Keep the FiO2 at 40%. Keep the patient nothing by mouth for another 24 hours. Consult interventional radiology for a bedside paracentesis regarding the abdominal and pelvic ascites. This may be needed for diagnostic and therapeutic purposes although an underlying liver cirrhosis cannot be completely excluded. Case was discussed with her . He is agreeable to the above-mentioned interventions. We'll continue to follow and make further recommendations based on the patient's overall progress. Condition is critical. Family is updated on his condition. This evaluation was done and 35 minutes. Time with Patient: Greater than 30
[2018-12-27] MEDS: NOREPINEPHRINE 8 MG in SODIUM CHLORIDE 0.9% 250 ML IV SCH (14:13)
[2018-12-27 16:06] LABS: Glucose,Whole Blood 148 mg/dL (75-99)
[2018-12-27] MEDS: SODIUM CHLORIDE 0.9% 1,000 ML IV SCH (16:46)
--- NOTE | 2018-12-27 19:38 | PN ---
PROGRESS NOTE DATE OF SERVICE: December 27, 2018. PRESENTING COMPLAINT: Short of breath. INTERVAL HISTORY: This patient initially presented to the hospital with severe anemia and COPD exacerbation. Status post EGD, colonoscopy, small bowel capsule study. Was found to have gastritis, polyp and internal hemorrhoids. The patient went into COPD exacerbation again and fluid overload. The patient remains in the ICU with a FiO2 40 and a PEEP of 5. Drips include Levophed and propofol. Telemetry shows sinus rhythm. REVIEW OF SYSTEMS: Patient is intubated. CURRENT MEDICATIONS: Reviewed and include DuoNeb, inhaled Pulmicort, IV clindamycin, IV fentanyl, IV Levaquin, IV Solu-Medrol, IV Levophed and propofol. PHYSICAL EXAMINATION: VITAL SIGNS: Temperature 97.8, pulse 97, respiration 11, blood pressure 104/51, pulse ox 97% on 40% FiO2. GENERAL APPEARANCE: Lying in bed, intubated. EYES: Pupils equal. Conjunctivae normal. HEENT: External appearance of nose and ears normal. Oral cavity normal. Endotracheal tube placed. NECK: JVD unable to assess. Mass not palpable. RESPIRATORY: Effort increased. LUNGS: Diminished breath sounds. CARDIOVASCULAR: 1st and 2nd sounds normal. Some edema. ABDOMEN: Distended, soft. Liver and spleen not palpable. PSYCHIATRY: Unable to assess. NEUROLOGICAL: Pupils are reactive. The patient does move spontaneously. INVESTIGATIONS: Chest x-ray film personally reviewed by me shows infiltrate and possibly fluid overload. White count 9.7, hemoglobin 7.1, platelets 212. Blood gas shows a pH of 7.47, potassium 3.7, BUN 34, creatinine 0.94. ASSESSMENT: 1. Left upper lobe aspiration pneumonia causing acute hypoxic respiratory failure leading to ventilator support. 2. Acute severe symptomatic anemia from gastrointestinal bleed status post EGD, colonoscopy and capsule endoscopy. No obvious source detected. 3. Acute severe chronic obstructive pulmonary disease exacerbation in a smoker relapse, slow to respond. 4. Chronic nicotine dependence, patient is a cigarette smoker. 5. Diabetes mellitus type 2. 6. Chronic fibromyalgia. 7. Gastroesophageal reflux disease. 8. Essential hypertension. 9. Hyperlipidemia. 10.Chronic polymyalgia rheumatica. 11.Chronic low back pain from arthritis. 12.Peripheral neuropathy secondary to diabetes. 13.Hiatal hernia. 14.Acute renal failure likely prerenal with significant improvement. 15.Chronic kidney disease from diabetic nephropathy and hypertensive nephrosclerosis, possibly mild. 16.Cirrhosis with possible ascites, cause unknown. PLAN: Continue current medication and treatment plan. Patient remains critically ill. Dr. Vela is going to have Interventional Radiology tap the belly. We will also await GI for further evaluation in view of the cirrhosis and ascitic fluid. Prognosis remains guarded. MMODL / IJN: [id number] /
[2018-12-27 20:20] LABS: Glucose,Whole Blood 116 mg/dL (75-99)
[2018-12-27] MEDS: AMITRIPTYLINE HCL 25 MG TAB PO SCH (20:54)
[2018-12-28 00:31] LABS: Glucose,Whole Blood 134 mg/dL (75-99)
[2018-12-28] MEDS: INSULIN ASPART (NovoLOG) 100 UNIT/ML VIAL SQ SCH ×6 (00:45→20:22)
[2018-12-28] MEDS: methylPREDNISolone SOD SUCCI 125 MG/2 ML VIAL IV SCH ×3 (00:45→12:35)
[2018-12-28] MEDS: CLINDAMYCIN 600 MG in DEXTROSE 5% IN WATER 50 ML IVPB SCH ×8 (00:45→18:34)
[2018-12-28] MEDS: HYDROmorphone 0.5 MG/0.5 ML SYRINGE IVP PRN ×2 (01:48→06:25)
[2018-12-28] MEDS: IPRATROPIUM-ALBUTEROL 3 ML NEB INHALATION SCH ×6 (03:10→22:57)
[2018-12-28] MEDS: PROPOFOL 1,000 MG in EMPTY BAG 1 BAG IV SCH ×4 (03:27→17:53)
[2018-12-28 04:08] LABS: Glucose,Whole Blood 133 mg/dL (75-99)
[2018-12-28 04:10] LABS: ABG Base Excess 1.3 mmol/L; ABG HCO3 25 mmol/L (21-25); ABG Oxygen Saturation 97.5 % (94-97); ABG PCO2 37 mmHg (35-45); ABG PH 7.44 (7.35-7.45); ABG PO2 90 mmHg (83-108); ABG TCO2 27 mmol/L (19-24)
[2018-12-28 04:32] LABS: Anisocytosis Moderate; Basophils % (A) 0 %; Eosinophils % (A) 0 %; HGB 7.6 gm/dL (11.4-16.0); Hypochromasia Marked; Lymphocytes # (A) 0.4 k/uL (1.0-4.8); Lymphocytes % (A) 3 %; MCH 23.7 pg (25.0-35.0); MCHC 28.3 g/dL (31.0-37.0); MCV 83.8 fL (80.0-100.0); Mean Platelet Volume 7.7; Microcytosis Slight; Monocytes # (A) 0.3 k/uL (0-1.0); Monocytes % (A) 3 %; Neutrophils # (A) 12.1 k/uL (1.3-7.7); Neutrophils % (A) 94 %; Platelet Count 280 k/uL (150-450); Poikilocytosis Moderate; RBC 3.22 m/uL (3.80-5.40); RDW 21.6 % (11.5-15.5); WBC 12.9 k/uL (3.8-10.6)
[2018-12-28 04:40] LABS: Albumin 2.3 g/dL (3.5-5.0); Calcium 8.5 mg/dL (8.4-10.2); Magnesium 1.9 mg/dL (1.6-2.3); Phosphorus 4.8 mg/dL (2.5-4.5); Potassium 3.7 mmol/L (3.5-5.1); Total Bilirubin 2.3 mg/dL (0.2-1.3); Total Protein 4.7 g/dL (6.3-8.2)
[2018-12-28] MEDS: MAGNESIUM SULFATE-D5W PMX 1 GM in DEXTROSE/WATER 1 100ML.BAG IVPB SCH ×2 (05:44→08:27)
[2018-12-28] MEDS: POTASSIUM CHLORIDE 10 MEQ in WATER FOR INJECTION 1 100ML.BAG IVPB SCH ×2 (07:00→08:28)
[2018-12-28] MEDS: BUDESONIDE 1 MG/2 ML NEBU INHALATION SCH ×2 (07:09→19:05)
[2018-12-28 08:09] LABS: Glucose,Whole Blood 177 mg/dL (75-99)
--- NOTE | 2018-12-28 08:15 | XR ---
EXAMINATION TYPE: XR chest 1V portable DATE OF EXAM: 12/28/2018 COMPARISON: Prior chest x-ray 12/27/2018 HISTORY: Intubated TECHNIQUE: Single frontal view of the chest is obtained. FINDINGS: Endotracheal tube, NG tube, left subclavian central venous catheter are stable and are ove rlying appropriate positions. Surgical clips are present in the right upper quadrant. Lung volumes ar e low and the patient is rotated. Heart size is likely stable, enlarged. No pneumothorax. Patchy basi lar density is present, improvement in left upper lobe airspace disease, difficult to exclude small e ffusion. IMPRESSION: Basilar atelectasis, suspect some improved aeration in the left upper lobe. Cardiomegaly .
[2018-12-28] MEDS ORDERED: SODIUM CHLORIDE 0.9% 1,000 ML IV ONE ×2 (08:18→15:14)
[2018-12-28] MEDS: NICOTINE 21MG/24HR PATCH TRANSDERM SCH (08:28)
[2018-12-28] MEDS: METOPROLOL TARTRATE 50 MG TAB PO SCH ×2 (08:29→21:24)
[2018-12-28] MEDS: guaiFENesin 600 MG TABLET.ER PO SCH ×2 (08:29→20:23)
[2018-12-28] MEDS: CHLORHEXIDINE GLUCONATE 15 ML CUP MUCOUS MEM SCH ×2 (08:29→20:22)
[2018-12-28] MEDS: FAMOTIDINE 20 MG TAB PO SCH (08:29)
[2018-12-28] MEDS: GABAPENTIN 300 MG CAP PO SCH ×2 (08:29→21:24)
[2018-12-28] MEDS: SODIUM BICARBONATE TAB 650 MG TAB PO SCH ×3 (08:30→21:24)
[2018-12-28] MEDS: LEVOFLOXACIN 750MG-D5W PMX 750 MG in DEXTROSE/WATER 1 150ML.BAG IVPB SCH (09:59)
[2018-12-28 10:03] LABS: INR 1.2 (<1.2); Prothrombin Time 12.8 sec (9.0-12.0)
--- NOTE | 2018-12-28 10:07 | US ---
EXAMINATION TYPE: US abdomen limited DATE OF EXAM: 12/28/2018 COMPARISON: CT 12/26/2018 CLINICAL HISTORY: Ascites assess for paracentesis. Fluid seen in all four quadrants. IMPRESSION: Moderate ascites
[2018-12-28 10:56] LABS: ABG Base Excess 0.5 mmol/L; ABG HCO3 25 mmol/L (21-25); ABG PCO2 35 mmHg (35-45); ABG PH 7.45 (7.35-7.45); ABG PO2 90 mmHg (83-108); ABG TCO2 26 mmol/L (19-24)
--- NOTE | 2018-12-28 11:38 | P.PN ---
Subjective Progress Note Date: 12/28/18 Principal diagnosis: Acute hypoxic and hypercapnic respiratory failure secondary to left upper lobe pneumonia and underlying COPD with acute exacerbation of COPD. This is a 68-year-old female patient with known history of COPD in addition to history of polymyalgia rheumatica, fibromyalgia, chronic back pain, peripheral neuropathy and diabetes mellitus who came into the hospital because of generalized weakness. The patient apparently was getting progressively more weak and she had some increased nausea and dizziness. Overall she was feeling rundown. She was having difficulties mobility. In the emergency department, hemoglobin was done and came back at 4.9. The patient denied having any tarry stool. Hemoccult was positive. The patient had a component of hyperkalemia that was treated and the potassium level normalized. The patient was found to bronchospastic and wheezy. The patient was started on bronchodilators. GI consultation was obtained. Patient was given packed RBC transfusion. Over the past few days, the patient underwent further investigation including a EGD that was done that showed no evidence of any acute bleeding. There was mild scattered gastritis and the angiogram in the body and hiatal hernia. The esophagus was tortuous. The colonoscopy was also done that showed a polyp in transverse colon that was removed. There was mild internal hemorrhoids. Based on all this, a video capsule endoscopy was recommended.The patient was doing well. The patient was being considered even to be discharged home. Earlier this morning she became acutely short of breath. She became bronchus spastic and wheezy. She has also diminished level of consciousness. Time of the arrival to the ICU, the patient was diaphoretic and sweaty and tachypneic and tachycardic. She was not following commands. The blood gases was done that showed no significant respiratory acidosis. Nevertheless, clinically the patient was in impending respiratory failure. At that point, I decided to intubate the patient put on a mechanical ventilator. I reviewed the chest x- ray that was done earlier this morning and it showed a new left upper lobe opacity compared to the prior study and this finding was highly suspicious for an evolving pneumonia. Repeat chest x-ray as well as done post intubation showed a wedge-shaped opacity in the left upper lobe. Otherwise the rest of the cardiac border structures were low normal limits and ET tube was in a good location. The patient was started on a combination of Levaquin and clindamycin. She was started on DuoNeb the right seems on the clock and IV Solu -Medrol. Currently she is an assist-control mode of ventilation with a tidal volume of 400, FiO2 of 60%, PEEP of 5 and a respiratory rate of 20. Peak airway pressures around 30. The pH is at 7.43 with a pCO2 of 38 and pO2 of 162. Note that IV realized the patient had some increased abdominal distention post intubation. NG tube was inserted and output was minimal. The patient will be sent for a CAT scan of the chest and abdomen. Note that the CAT scan of the lumbar spine that was done showed degenerative changes in the mid in the lower lumbar spine in addition to moderate degree of abdominal pelvic ascites suspicious for liver cirrhosis an underlying portal hypertension. On 12/28/2018, patient was reevaluated in the ICU, remains on mechanical ventilation. Her ventilator settings are tidal volume of 400 assist control rate of 14 FiO2 is 40% PEEP of 5. Chest x-ray continues to show left upper lobe pneumonia. Patient remains on propofol at 40 mcg/kg/m, she was on norepinephrine this morning and this was discontinued. Her urine output was marginal, hence she was given fluid bolus of 0.9 normal saline/1 L. Patient was seen by interventional radiology, ultrasound was done, and being considered for paracentesis sometime today. However this is yet to be done. CT of the abdomen showed liver cirrhosis and abdominal with pelvic ascites. Patient continues to have a nasogastric tube in place, no evidence of any active GI bleeding, hemoglobin is holding at 7.6 today. ABG showed a pO2 of 90 pCO2 of 37 pH of 7.44. Pressure support/CPAP ABG showed a pO2 of 90 pCO2 of 35 pH of 7.45. Relatively normal electrolytes were noted. BUN is 32 creatinine is 0.88. Liver enzymes remain slightly elevated with alkaline phosphatase of 229. Total bilirubin is 2.3. Chest x-ray again showed bibasilar atelectasis, and left upper lobe pneumonia. Patient was noted to be arousable, followed simple instructions even on low dose of propofol. Objective - Vital Signs Vital signs: Vital Signs Temp 97.7 F 12/28/18 10:59 Pulse 91 12/28/18 11:15 Resp 14 12/28/18 11:00 BP 103/60 12/28/18 11:00 Pulse Ox 97 12/28/18 11:00 Intake & Output 12/27/18 12/28/18 12/28/18 18:59 06:59 18:59 Intake Total 1575.170 500.093 8102.447 Output Total 585 760 128 Balance 990.170 96.816 1194.447 Weight 91 kg 91 kg Intake: IV 824 333 8941 Clindamycin 600 mg In 200 50 Dextrose 5% in Water 50 ml @ 50 mls/hr IVPB Q6HR [facility] Rx#:[id number] NS 0.9 550 500 250 Sodium Chloride 0.9% 1, 1000 000 ml @ 999 mls/hr IV . Q1H1M [facility] Rx#:[id number] Intake, IV Titration 825.170 306.816 72.447 Amount Levofloxacin 750Mg-D5w 150 Pmx 750 mg In Dextrose/ Water 1 150ml.bag @ 100 mls/hr IVPB Q24H [facility] Rx#: [id number] Magnesium Sulfate-D5w Pmx 300 1 gm In Dextrose/Water 1 100ml.bag @ 100 mls/hr IVPB Q1H [facility] Rx#: [id number] Norepinephrine 8 mg In 28.004 28.906 11.977 Sodium Chloride 0.9% 250 ml @ 0.05 MCG/KG/MIN 8.89 mls/hr IV .Q24H [facility] Rx#: [id number] Potassium Chloride 10 meq 200 In Water For Injection 1 100ml.bag @ 100 mls/hr IVPB Q1H [facility] Rx#: [id number] Propofol 1,000 mg In 147.166 277.910 60.470 Empty Bag 1 bag @ Titrate IV .Q0M [facility] Rx#: [id number] Output: Gastric Drainage 350 Urine 585 410 128 Other: Voiding Method Indwelling Catheter Indwelling Catheter ABP, PAP, CO, CI - Last Documented Arterial Blood Pressure 147/63 - Exam Physical Exam: Revealed a 68-year-old female, intubated, in no distress, on propofol. Head: Atraumatic normocephalic. HEENT:[Neck is supple.] [No neck masses.] [No thyromegaly.] [No JVD.] PERRLA, EOMI, no icterus. Chest: [Diminished breath sounds at the bases, rhonchi and wheezes mostly on forced expiratory maneuver and mostly over the upper left anterior chest wall.] Cardiac Exam: [Normal S1 and S2, no S3 gallop, no murmur.] Abdomen: [Obese, Soft, nontender, no megaly, no rebound, no guarding, normal bowel sounds.] Extremities: [No clubbing, 1+ bipedal edema, no cyanosis.] Neurological Exam: [No focal neurologic deficit.] Psychiatric: Normal mood affect and mental status examination. Skin: No rashes. - Labs CBC & Chem 7: 12/28/18 04:10 12/28/18 04:10 Labs: Abnormal Lab Results - Last 24 Hours (Table) 12/27/18 12/27/18 12/27/18 Range/Units 11:51 16:05 20:18 WBC (3.8-10.6) k/uL RBC (3.80-5.40) m/uL Hgb (11.4-16.0) gm/dL Hct (34.0-46.0) % MCH (25.0-35.0) pg MCHC (31.0-37.0) g/dL RDW (11.5-15.5) % Neutrophils # (1.3-7.7) k/uL Lymphocytes # (1.0-4.8) k/uL PT (9.0-12.0) sec INR (<1.2) ABG Total CO2 (19-24) mmol/L ABG O2 Saturation (94-97) % Sodium (137-145) mmol/L BUN (7-17) mg/dL Glucose (74-99) mg/dL POC Glucose (mg/dL) 221 H 148 H 116 H (75-99) mg/dL Phosphorus (2.5-4.5) mg/dL Total Bilirubin (0.2-1.3) mg/dL Alkaline Phosphatase (38-126) U/L Total Protein (6.3-8.2) g/dL Albumin (3.5-5.0) g/dL 12/28/18 12/28/18 12/28/18 Range/Units 00:29 04:06 04:09 WBC (3.8-10.6) k/uL RBC (3.80-5.40) m/uL Hgb (11.4-16.0) gm/dL Hct (34.0-46.0) % MCH (25.0-35.0) pg MCHC (31.0-37.0) g/dL RDW (11.5-15.5) % Neutrophils # (1.3-7.7) k/uL Lymphocytes # (1.0-4.8) k/uL PT (9.0-12.0) sec INR (<1.2) ABG Total CO2 27 H (19-24) mmol/L ABG O2 Saturation 97.5 H (94-97) % Sodium (137-145) mmol/L BUN (7-17) mg/dL Glucose (74-99) mg/dL POC Glucose (mg/dL) 134 H 133 H (75-99) mg/dL Phosphorus (2.5-4.5) mg/dL Total Bilirubin (0.2-1.3) mg/dL Alkaline Phosphatase (38-126) U/L Total Protein (6.3-8.2) g/dL Albumin (3.5-5.0) g/dL 12/28/18 12/28/18 12/28/18 Range/Units 04:10 04:10 08:07 WBC 12.9 H (3.8-10.6) k/uL RBC 3.22 L (3.80-5.40) m/uL Hgb 7.6 L (11.4-16.0) gm/dL Hct 27.0 L (34.0-46.0) % MCH 23.7 L (25.0-35.0) pg MCHC 28.3 L (31.0-37.0) g/dL RDW 21.6 H (11.5-15.5) % Neutrophils # 12.1 H (1.3-7.7) k/uL Lymphocytes # 0.4 L (1.0-4.8) k/uL PT (9.0-12.0) sec INR (<1.2) ABG Total CO2 (19-24) mmol/L ABG O2 Saturation (94-97) % Sodium 135 L (137-145) mmol/L BUN 32 H (7-17) mg/dL Glucose 125 H (74-99) mg/dL POC Glucose (mg/dL) 177 H (75-99) mg/dL Phosphorus 4.8 H (2.5-4.5) mg/dL Total Bilirubin 2.3 H (0.2-1.3) mg/dL Alkaline Phosphatase 229 H (38-126) U/L Total Protein 4.7 L (6.3-8.2) g/dL Albumin 2.3 L (3.5-5.0) g/dL 12/28/18 12/28/18 Range/Units 09:25 10:50 WBC (3.8-10.6) k/uL RBC (3.80-5.40) m/uL Hgb (11.4-16.0) gm/dL Hct (34.0-46.0) % MCH (25.0-35.0) pg MCHC (31.0-37.0) g/dL RDW (11.5-15.5) % Neutrophils # (1.3-7.7) k/uL Lymphocytes # (1.0-4.8) k/uL PT 12.8 H (9.0-12.0) sec INR 1.2 H (<1.2) ABG Total CO2 26 H (19-24) mmol/L ABG O2 Saturation 98.0 H (94-97) % Sodium (137-145) mmol/L BUN (7-17) mg/dL Glucose (74-99) mg/dL POC Glucose (mg/dL) (75-99) mg/dL Phosphorus (2.5-4.5) mg/dL Total Bilirubin (0.2-1.3) mg/dL Alkaline Phosphatase (38-126) U/L Total Protein (6.3-8.2) g/dL Albumin (3.5-5.0) g/dL Assessment and Plan Assessment: Impression: 1 acute hypoxic and hypercapnic respiratory failure secondary to left upper lobe pneumonia, likely hospital acquired or aspiration related. Considering the acute episode I believe it is possibly aspiration related. Also related to underlying COPD with acute exacerbation. 2 acute exacerbation of COPD, also contributing to her hypoxic respiratory failure and requiring intubation and mechanical ventilation. 3 profound anemia secondary to GI blood losses, received a total of 2 units of packed RBCs since admission. GI workup is in progress, so far nondiagnostic. 4 abdominal ascites possibly related to liver disease, workup is in progress. Patient will likely have paracentesis done today. 5 multiple comorbidities including diabetes, fibromyalgia, polymyalgia rheumatica, hypertension, rheumatoid arthritis, hyperlipidemia, degenerative joint disease, and transverse colonic polyp which was resected during this admission, chronic low back pain, and possible liver cirrhosis. Recommendation: Continue ventilatory support, bronchodilators, nutritional support, systemic steroids, no changes were made in the ventilator settings, however I was able to wean propofol down and discontinued propofol, patient was given a short weaning trial utilizing a pressure support of 8 and CPAP of 5, it seems to be very well-tolerated, and can potentially consider extubating the patient, however patient is scheduled to undergo a paracentesis this afternoon, will wait until this is done, try and another trial of weaning later this afternoon, and possibly consider extubating the patient later this afternoon. Continue antibiotics for her pneumonia, continue GI and DVT prophylaxis, patient is critically ill, and we will continue to follow. Critical care time is 34 minutes. Time with Patient: Greater than 30
[2018-12-28 11:53] LABS: Glucose,Whole Blood 228 mg/dL (75-99)
[2018-12-28 12:10] LABS: Hemoglobin A1C 5.6 % (4.0-6.0)
[2018-12-28] MEDS: SODIUM CHLORIDE 0.9% 1,000 ML IV SCH (12:41)
[2018-12-28] MEDS: fentaNYL (PF) 1,000 MCG in SODIUM CHLORIDE 0.9% 80 ML IV SCH (14:27)
--- NOTE | 2018-12-28 15:26 | US ---
EXAMINATION TYPE: US paracentesis abd w/image DATE OF EXAM: 12/28/2018 COMPARISON: NONE HISTORY: Ascites. PROCEDURE: Maximal barrier technique was utilized. The skin overlying a suitable pocket of fluid was localized with ultrasound and the overlying skin was prepped and draped. Ultrasound was utilized with sterile technique. Lidocaine was used for local anesthesia and a skin vasile made with a scalpel. Catheter was advanced under direct ultrasound guidance into a suitable pocket of fluid and approximately 4.5 liter s of serous fluid were removed. Catheter was withdrawn and hemostasis achieved. There is no immedia te complication; the patient is discharged in stable condition. IMPRESSION: STATUS POST ULTRASOUND GUIDED PARACENTESIS FOR PALLIATION OF ASCITES. THIS PROCEDURE WA S PERFORMED BY THE UNDERSIGNED. Specimen sent for laboratory analysis.
[2018-12-28] MEDS: HYDROcodone/APAP 7.5-325MG 1 EACH TAB PO PRN (16:06)
[2018-12-28 16:07] LABS: Glucose,Whole Blood 194 mg/dL (75-99)
--- NOTE | 2018-12-28 16:18 | PN ---
PROGRESS NOTE DATE OF SERVICE: December 28, 2018. PRESENTING COMPLAINT: Intubated. INTERVAL HISTORY: The patient initially presented to the hospital with severe anemia and COPD exacerbation. COPD exacerbation actually improved. The patient had EGD, colonoscopy and incomplete small bowel capsule study and was found to have gastritis, polyps, internal hemorrhoids. Subsequently, patient went into COPD exacerbation and aspiration pneumonia. The patient is in the ICU with FiO2 40 and a PEEP of 5. Weaning parameters were good today. Patient currently is on IV propofol and IV epinephrine drip. The patient also newly found to have ascites with cirrhosis possibly from NAFLD awaiting paracentesis. at the bedside in the ICU. REVIEW OF SYSTEMS: Patient intubated. CURRENT MEDICATIONS: Reviewed that include DuoNeb, Elavil, Pulmicort nebulizer, IV clindamycin, IV Levaquin, IV Solu-Medrol, IV Levophed, IV propofol. PHYSICAL EXAMINATION: VITAL SIGNS: Temperature 97.7, pulse 91, respiration 14, blood pressure 130/59, pulse ox 97% on 40% FiO2. GENERAL APPEARANCE: Lying in bed, intubated. EYES: Pupils equal. Conjunctivae normal. HEENT: External appearance of nose and ears normal. Oral cavity, endotracheal tube in place. NECK: JVD unable to assess. Mass not palpable. RESPIRATORY: Effort increased. LUNGS: Diminished breath sounds. CARDIOVASCULAR: 1st and 2nd sounds normal. Minimal edema. ABDOMEN: Distended, soft. Liver and spleen not palpable. PSYCHIATRY: Unable to assess. NEUROLOGICAL: Pupils are reacting. The patient does move spontaneously. INVESTIGATIONS: White count 12.9, hemoglobin 7.6, potassium 3.7, BUN 32, creatinine 0.88. Accu-Cheks are noted. Abdominal ultrasound shows moderate ascites. ASSESSMENT: 1. Left upper lobe aspiration pneumonia causing acute hypoxic respiratory failure leading to ventilator support. 2. Acute severe symptomatic anemia from GI bleed status post EGD, colonoscopy and capsule endoscopy. No obvious source was determined. 3. Acute severe chronic obstructive pulmonary disease exacerbation in a current smoker, improving. 4. Chronic nicotine dependence, patient is a cigarette smoker. 5. Diabetes mellitus type 2, uncontrolled with hyperglycemia secondary to steroids. 6. Chronic fibromyalgia. 7. Gastroesophageal reflux disease. 8. Essential hypertension. 9. Hyperlipidemia. 10.Chronic polymyalgia rheumatica. 11.Chronic low back pain from arthritis. 12.Peripheral neuropathy secondary to diabetes. 13.Hiatal hernia. 14.Acute renal failure likely prerenal with improvement. 15.Cirrhosis, possibly from nonalcoholic fatty liver disease with secondary ascites moderate. PLAN: Awaiting intervention radiology to tap the ascitic fluid. The patient subsequently hopefully can then be extubated. Other medication and treatment plan is to continue. Discussed with the at the bedside. MMODL / IJN: [id number] /
[2018-12-28] MEDS: methylPREDNISolone SOD SUCCI 40 MG/ML 1 ML VIAL IV SCH (16:49)
[2018-12-28] MEDS: NOREPINEPHRINE 8 MG in SODIUM CHLORIDE 0.9% 250 ML IV SCH (16:50)
[2018-12-28 17:04] LABS: Color,BF Yellow
[2018-12-28 17:05] LABS: Appearance,BF Clear; Nucleated Cells, Body Fluid 49 /uL; RBC, Body Fluid 64 /uL
[2018-12-28 17:10] LABS: Mononuclear WBC,Body Fluid 12 %; Polynuclear WBC,Body Fluid 88 %; Total Cells Counted,Body Fluid 100
[2018-12-28 19:36] LABS: Glucose,Whole Blood 188 mg/dL (75-99)
--- NOTE | 2018-12-28 19:38 | P.PN ---
Subjective Progress Note Date: 12/28/18 Principal diagnosis: Melena, anemia of acute blood loss, ascites Patient lying in bed intubated and sedated. No GI bleeding per nursing staff. Objective - Vital Signs Vital signs: Vital Signs Temp 97.9 F 12/28/18 16:00 Pulse 96 12/28/18 19:21 Resp 14 12/28/18 19:00 BP 102/66 12/28/18 14:45 Pulse Ox 99 12/28/18 19:00 Intake & Output 12/28/18 12/28/18 12/29/18 06:59 18:59 06:59 Intake Total 958.372 6740.741 50 Output Total 760 5005 25 Balance 96.816 -2156.259 25 Weight 91 kg 91 kg Intake: IV 550 2550 50 Clindamycin 600 mg In 50 50 Dextrose 5% in Water 50 ml @ 50 mls/hr IVPB Q6HR [facility] Rx#:[id number] NS 0.9 500 550 0 Sodium Chloride 0.9% 1, 2000 000 ml @ 999 mls/hr IV . Q1H1M [facility] Rx#:[id number] Intake, IV Titration 306.816 298.741 Amount Clindamycin 600 mg In 50 Dextrose 5% in Water 50 ml @ 50 mls/hr IVPB Q6HR [facility] Rx#:[id number] Levofloxacin 750Mg-D5w 100 Pmx 750 mg In Dextrose/ Water 1 150ml.bag @ 100 mls/hr IVPB Q24H [facility] Rx#: [id number] Norepinephrine 8 mg In 28.906 11.977 Sodium Chloride 0.9% 250 ml @ 0.05 MCG/KG/MIN 8.89 mls/hr IV .Q24H [facility] Rx#: [id number] Propofol 1,000 mg In 277.910 136.764 Empty Bag 1 bag @ Titrate IV .Q0M [facility] Rx#: [id number] Output: Gastric Drainage 350 200 Urine 410 345 25 Other 4460 Other: Voiding Method Indwelling Catheter Indwelling Catheter ABP, PAP, CO, CI - Last Documented Arterial Blood Pressure 139/57 - Exam On physical examination, patient appears comfortable in no apparent distress. HEAD: Normocephalic, atraumatic. EYES: No scleral icterus. No conjunctival injection. MOUTH: No lesions, tongue midline, ET tube in place. NECK: Trachea midline, no gross abnormalities. CHEST: Intubated with coarse respiratory sounds diffusely. HEART: Regular rate and rhythm. ABDOMEN: Soft, obese. Bowel sounds are positive. No organomegaly. No guarding or rigidity. EXTREMITIES: No pedal edema. SKIN: No rashes, no jaundice. NEUROLOGIC: Intubated and sedated. - Labs CBC & Chem 7: 12/28/18 04:10 12/28/18 16:35 Labs: Abnormal Lab Results - Last 24 Hours (Table) 12/27/18 12/28/18 12/28/18 Range/Units 20:18 00:29 04:06 WBC (3.8-10.6) k/uL RBC (3.80-5.40) m/uL Hgb (11.4-16.0) gm/dL Hct (34.0-46.0) % MCH (25.0-35.0) pg MCHC (31.0-37.0) g/dL RDW (11.5-15.5) % Neutrophils # (1.3-7.7) k/uL Lymphocytes # (1.0-4.8) k/uL PT (9.0-12.0) sec INR (<1.2) ABG Total CO2 (19-24) mmol/L ABG O2 Saturation (94-97) % Sodium (137-145) mmol/L BUN (7-17) mg/dL Glucose (74-99) mg/dL POC Glucose (mg/dL) 116 H 134 H 133 H (75-99) mg/dL Phosphorus (2.5-4.5) mg/dL Total Bilirubin (0.2-1.3) mg/dL Alkaline Phosphatase (38-126) U/L Total Protein (6.3-8.2) g/dL Albumin (3.5-5.0) g/dL 12/28/18 12/28/18 12/28/18 Range/Units 04:09 04:10 04:10 WBC 12.9 H (3.8-10.6) k/uL RBC 3.22 L (3.80-5.40) m/uL Hgb 7.6 L (11.4-16.0) gm/dL Hct 27.0 L (34.0-46.0) % MCH 23.7 L (25.0-35.0) pg MCHC 28.3 L (31.0-37.0) g/dL RDW 21.6 H (11.5-15.5) % Neutrophils # 12.1 H (1.3-7.7) k/uL Lymphocytes # 0.4 L (1.0-4.8) k/uL PT (9.0-12.0) sec INR (<1.2) ABG Total CO2 27 H (19-24) mmol/L ABG O2 Saturation 97.5 H (94-97) % Sodium 135 L (137-145) mmol/L BUN 32 H (7-17) mg/dL Glucose 125 H (74-99) mg/dL POC Glucose (mg/dL) (75-99) mg/dL Phosphorus 4.8 H (2.5-4.5) mg/dL Total Bilirubin 2.3 H (0.2-1.3) mg/dL Alkaline Phosphatase 229 H (38-126) U/L Total Protein 4.7 L (6.3-8.2) g/dL Albumin 2.3 L (3.5-5.0) g/dL 12/28/18 12/28/18 12/28/18 Range/Units 08:07 09:25 10:50 WBC (3.8-10.6) k/uL RBC (3.80-5.40) m/uL Hgb (11.4-16.0) gm/dL Hct (34.0-46.0) % MCH (25.0-35.0) pg MCHC (31.0-37.0) g/dL RDW (11.5-15.5) % Neutrophils # (1.3-7.7) k/uL Lymphocytes # (1.0-4.8) k/uL PT 12.8 H (9.0-12.0) sec INR 1.2 H (<1.2) ABG Total CO2 26 H (19-24) mmol/L ABG O2 Saturation 98.0 H (94-97) % Sodium (137-145) mmol/L BUN (7-17) mg/dL Glucose (74-99) mg/dL POC Glucose (mg/dL) 177 H (75-99) mg/dL Phosphorus (2.5-4.5) mg/dL Total Bilirubin (0.2-1.3) mg/dL Alkaline Phosphatase (38-126) U/L Total Protein (6.3-8.2) g/dL Albumin (3.5-5.0) g/dL 12/28/18 12/28/18 Range/Units 11:52 16:06 WBC (3.8-10.6) k/uL RBC (3.80-5.40) m/uL Hgb (11.4-16.0) gm/dL Hct (34.0-46.0) % MCH (25.0-35.0) pg MCHC (31.0-37.0) g/dL RDW (11.5-15.5) % Neutrophils # (1.3-7.7) k/uL Lymphocytes # (1.0-4.8) k/uL PT (9.0-12.0) sec INR (<1.2) ABG Total CO2 (19-24) mmol/L ABG O2 Saturation (94-97) % Sodium (137-145) mmol/L BUN (7-17) mg/dL Glucose (74-99) mg/dL POC Glucose (mg/dL) 228 H 194 H (75-99) mg/dL Phosphorus (2.5-4.5) mg/dL Total Bilirubin (0.2-1.3) mg/dL Alkaline Phosphatase (38-126) U/L Total Protein (6.3-8.2) g/dL Albumin (3.5-5.0) g/dL Microbiology - Last 24 Hours (Table) 12/28/18 14:55 Body Fluid Culture - Preliminary Ascites Fluid 12/28/18 14:55 Anaerobic Culture - Preliminary Ascites Fluid 12/28/18 14:55 Acid Fast Bacilli Culture - Preliminary Ascites Fluid Assessment and Plan (1) Melena Narrative/Plan: Patient presenting with reports of intermittent melena over the past few weeks, found to have an acute fall in her hemoglobin in with stool testing positive for occult blood. Complete evaluation with EGD suggestive only of gastritis, colonoscopy with findings of transverse colon polyp and internal hemorrhoids and video capsule endoscopy with no source of GI bleeding completed. Current Visit: Yes Status: Acute Code(s): K92.1 - MELENA SNOMED Code(s): 4609406 (2) Anemia due to blood loss Narrative/Plan: Patient presenting to the ED complaints of weakness found to have hemoglobin of 6.2 subsequently trended down to 4.9. Currently the patient is lying in bed with hemoglobin 7.6 from 7.1 yesterday with no signs or symptoms of GI bleeding reported. Current Visit: Yes Status: Acute Code(s): D50.0 - IRON DEFICIENCY ANEMIA SECONDARY TO BLOOD LOSS (CHRONIC) SNOMED Code(s): 412252606 (3) Occult blood in stools Current Visit: Yes Status: Acute Code(s): R19.5 - OTHER FECAL ABNORMALITIES SNOMED Code(s): 04667734 (4) Ascites Narrative/Plan: Unclear if the etiology his underlying liver disease with CT showing hepatic steatosis with nodularity or cardiac etiology, or other source. Paracentesis with 4.5 L removed. Fluid studies pending. Current Visit: Yes Status: Acute Code(s): R18.8 - OTHER ASCITES SNOMED Code(s): 133282702 (5) Elevated liver enzymes Narrative/Plan: Cholestatic pattern of elevation of the patient's liver enzymes with mild elevation of total bilirubin and alkaline phosphatase. Unclear if this is secondary to a liver pathology with the patient being noted to have hepatic steatosis and a contoured liver on computed tomography scan, cardiac etiology or other etiology. Current Visit: Yes Status: Acute Code(s): R74.8 - ABNORMAL LEVELS OF OTHER SERUM ENZYMES SNOMED Code(s): 926266660 Plan: Supportive care Okay for diet after extubation Continue Protonix therapy Monitor hemoglobin and transfuse as needed No source of GI bleeding found with EGD significant for gastritis, colonoscopy significant for transverse colonic polyp removed with polypectomy and internal hemorrhoids, and a capsule endoscopy with no source of GI bleeding identified Await fluid studies from paracentesis Viral hepatitis panel pending Hepatic function order for tomorrow Thank you for allowing us to participate in the care of this patient, we will continue to follow
[2018-12-28] MEDS: AMITRIPTYLINE HCL 25 MG TAB PO SCH (21:24)
[2018-12-29] MEDS: methylPREDNISolone SOD SUCCI 40 MG/ML 1 ML VIAL IV SCH ×3 (00:09→16:41)
[2018-12-29] MEDS: CLINDAMYCIN 600 MG in DEXTROSE 5% IN WATER 50 ML IVPB SCH ×8 (00:09→17:59)
[2018-12-29] MEDS: PROPOFOL 1,000 MG in EMPTY BAG 1 BAG IV SCH ×2 (00:10→05:31)
[2018-12-29 00:23] LABS: Glucose,Whole Blood 174 mg/dL (75-99)
[2018-12-29] MEDS: INSULIN ASPART (NovoLOG) 100 UNIT/ML VIAL SQ SCH ×6 (00:31→20:17)
[2018-12-29 00:43] LABS: Total Protein, Body Fluid 1070 mg/dL
[2018-12-29] MEDS: IPRATROPIUM-ALBUTEROL 3 ML NEB INHALATION SCH ×6 (03:07→23:18)
[2018-12-29] MEDS: HYDROmorphone 0.5 MG/0.5 ML SYRINGE IVP PRN (03:50)
[2018-12-29 04:39] LABS: Glucose,Whole Blood 158 mg/dL (75-99)
[2018-12-29 05:32] LABS: Anisocytosis Moderate; Basophils % (A) 0 %; Eosinophils % (A) 0 %; Hypochromasia Marked; Lymphocytes # (A) 0.3 k/uL (1.0-4.8); Lymphocytes % (A) 4 %; MCH 24.5 pg (25.0-35.0); MCHC 29.1 g/dL (31.0-37.0); MCV 84.4 fL (80.0-100.0); Mean Platelet Volume 7.4; Microcytosis Slight; Monocytes # (A) 0.3 k/uL (0-1.0); Monocytes % (A) 3 %; Neutrophils # (A) 8.2 k/uL (1.3-7.7); Neutrophils % (A) 93 %; Platelet Count 222 k/uL (150-450); Poikilocytosis Moderate; RBC 2.84 m/uL (3.80-5.40); RDW 21.4 % (11.5-15.5); WBC 8.8 k/uL (3.8-10.6)
[2018-12-29 06:02] LABS: Bilirubin, Conjugated 0.3 mg/dL (0.0-0.3); Bilirubin, Delta 1.2 mg/dL (0.0-0.2); Bilirubin,Unconjugated 0.3 mg/dL (0.0-1.1); Calcium 7.9 mg/dL (8.4-10.2); Magnesium 2.1 mg/dL (1.6-2.3); Phosphorus 4.8 mg/dL (2.5-4.5); Total Bilirubin 1.8 mg/dL (0.2-1.3); Total Protein 3.9 g/dL (6.3-8.2)
[2018-12-29 07:03] LABS: ABG HCO3 25 mmol/L (21-25); ABG Oxygen Saturation 99.7 % (94-97); ABG PCO2 37 mmHg (35-45); ABG PH 7.45 (7.35-7.45); ABG PO2 144 mmHg (83-108); ABG TCO2 26 mmol/L (19-24)
[2018-12-29] MEDS: BUDESONIDE 1 MG/2 ML NEBU INHALATION SCH ×2 (07:08→19:53)
[2018-12-29 08:19] LABS: Glucose,Whole Blood 162 mg/dL (75-99)
[2018-12-29] MEDS: NICOTINE 21MG/24HR PATCH TRANSDERM SCH (08:25)
[2018-12-29] MEDS: CHLORHEXIDINE GLUCONATE 15 ML CUP MUCOUS MEM SCH ×2 (08:26→18:01)
[2018-12-29] MEDS: SODIUM CHLORIDE 0.9% 1,000 ML IV SCH (08:31)
[2018-12-29] MEDS: GABAPENTIN 300 MG CAP PO SCH ×2 (08:32→21:03)
[2018-12-29] MEDS: SODIUM BICARBONATE TAB 650 MG TAB PO SCH ×3 (08:32→21:03)
[2018-12-29] MEDS: FAMOTIDINE 20 MG TAB PO SCH (08:32)
[2018-12-29] MEDS: guaiFENesin 600 MG TABLET.ER PO SCH ×2 (08:32→21:03)
[2018-12-29] MEDS: METOPROLOL TARTRATE 50 MG TAB PO SCH ×2 (08:32→21:03)
[2018-12-29] MEDS: fentaNYL (PF) 1,000 MCG in SODIUM CHLORIDE 0.9% 80 ML IV SCH (08:33)
[2018-12-29] MEDS ORDERED: FUROSEMIDE 10 MG/ML 4 ML VIAL IV STA (09:09)
--- NOTE | 2018-12-29 09:13 | XR ---
EXAMINATION TYPE: XR chest 1V portable DATE OF EXAM: 12/29/2018 COMPARISON: Prior chest x-ray 12/28/2017 HISTORY: Intubated TECHNIQUE: Single frontal view of the chest is obtained. FINDINGS: Endotracheal tube, orogastric tube, left subclavian central venous catheter are overlying appropriate positions, distal tip of the gastric tube is not seen. There is no pneumothorax. Patchy b ibasilar density persists. Heart size remains enlarged. Prominence of the central vascularity, airspa ce disease present in the left upper lobe. IMPRESSION: Probable basilar atelectasis, correlate for pneumonia. Cardiomegaly.
--- NOTE | 2018-12-29 10:55 | P.PN ---
Subjective Progress Note Date: 12/29/18 Principal diagnosis: Acute hypoxic and hypercapnic respiratory failure secondary to left upper lobe pneumonia and underlying COPD with acute exacerbation of COPD. This is a 68-year-old female patient with known history of COPD in addition to history of polymyalgia rheumatica, fibromyalgia, chronic back pain, peripheral neuropathy and diabetes mellitus who came into the hospital because of generalized weakness. The patient apparently was getting progressively more weak and she had some increased nausea and dizziness. Overall she was feeling rundown. She was having difficulties mobility. In the emergency department, hemoglobin was done and came back at 4.9. The patient denied having any tarry stool. Hemoccult was positive. The patient had a component of hyperkalemia that was treated and the potassium level normalized. The patient was found to bronchospastic and wheezy. The patient was started on bronchodilators. GI consultation was obtained. Patient was given packed RBC transfusion. Over the past few days, the patient underwent further investigation including a EGD that was done that showed no evidence of any acute bleeding. There was mild scattered gastritis and the angiogram in the body and hiatal hernia. The esophagus was tortuous. The colonoscopy was also done that showed a polyp in transverse colon that was removed. There was mild internal hemorrhoids. Based on all this, a video capsule endoscopy was recommended.The patient was doing well. The patient was being considered even to be discharged home. Earlier this morning she became acutely short of breath. She became bronchus spastic and wheezy. She has also diminished level of consciousness. Time of the arrival to the ICU, the patient was diaphoretic and sweaty and tachypneic and tachycardic. She was not following commands. The blood gases was done that showed no significant respiratory acidosis. Nevertheless, clinically the patient was in impending respiratory failure. At that point, I decided to intubate the patient put on a mechanical ventilator. I reviewed the chest x- ray that was done earlier this morning and it showed a new left upper lobe opacity compared to the prior study and this finding was highly suspicious for an evolving pneumonia. Repeat chest x-ray as well as done post intubation showed a wedge-shaped opacity in the left upper lobe. Otherwise the rest of the cardiac border structures were low normal limits and ET tube was in a good location. The patient was started on a combination of Levaquin and clindamycin. She was started on DuoNeb the right seems on the clock and IV Solu -Medrol. Currently she is an assist-control mode of ventilation with a tidal volume of 400, FiO2 of 60%, PEEP of 5 and a respiratory rate of 20. Peak airway pressures around 30. The pH is at 7.43 with a pCO2 of 38 and pO2 of 162. Note that IV realized the patient had some increased abdominal distention post intubation. NG tube was inserted and output was minimal. The patient will be sent for a CAT scan of the chest and abdomen. Note that the CAT scan of the lumbar spine that was done showed degenerative changes in the mid in the lower lumbar spine in addition to moderate degree of abdominal pelvic ascites suspicious for liver cirrhosis an underlying portal hypertension. On 12/28/2018, patient was reevaluated in the ICU, remains on mechanical ventilation. Her ventilator settings are tidal volume of 400 assist control rate of 14 FiO2 is 40% PEEP of 5. Chest x-ray continues to show left upper lobe pneumonia. Patient remains on propofol at 40 mcg/kg/m, she was on norepinephrine this morning and this was discontinued. Her urine output was marginal, hence she was given fluid bolus of 0.9 normal saline/1 L. Patient was seen by interventional radiology, ultrasound was done, and being considered for paracentesis sometime today. However this is yet to be done. CT of the abdomen showed liver cirrhosis and abdominal with pelvic ascites. Patient continues to have a nasogastric tube in place, no evidence of any active GI bleeding, hemoglobin is holding at 7.6 today. ABG showed a pO2 of 90 pCO2 of 37 pH of 7.44. Pressure support/CPAP ABG showed a pO2 of 90 pCO2 of 35 pH of 7.45. Relatively normal electrolytes were noted. BUN is 32 creatinine is 0.88. Liver enzymes remain slightly elevated with alkaline phosphatase of 229. Total bilirubin is 2.3. Chest x-ray again showed bibasilar atelectasis, and left upper lobe pneumonia. Patient was noted to be arousable, followed simple instructions even on low dose of propofol. A shunt was reevaluated today on 12/29/2018, remains in the ICU, mechanically ventilated. Her ventilator settings were noted to be unchanged, remains on assist control rate of 14, FiO2 of 40% PEEP of 400 and PEEP of 5. Chest x-ray is showing improvement, patchy bibasilar density persists, resolving pneumonia. Patient underwent paracentesis yesterday, and 4.5 L of fluid were drained. ABG this morning showed a pO2 of 144 pCO2 of 37 pH of 7.45. WBC count is 8.8 hemoglobin is 7. Electrolytes and renal profile are relatively normal. Studies on the spinal fluid are pending. However the fluid seems to be low on protein, and minimal amount of WBC count noted in the fluid. Clearly does not seem to be infected patient remains sedated at present, however I plan to hold sedation and I will likely give the patient another trial of weaning today, this will be utilizing a pressure support of 8 and CPAP, and if tolerated I will likely proceed to extubating the patient later today. Objective - Vital Signs Vital signs: Vital Signs Temp 96.3 F L 12/29/18 08:00 Pulse 67 12/29/18 10:00 Resp 13 12/29/18 10:00 BP 94/51 12/29/18 10:00 Pulse Ox 100 12/29/18 10:00 Intake & Output 12/28/18 12/29/18 12/29/18 18:59 06:59 18:59 Intake Total 2848.741 829.224 206.987 Output Total 5005 440 335 Balance -2156.259 389.224 -128.013 Weight 91 kg 91.4 kg 91.4 kg Intake: IV 2550 650 150 Clindamycin 600 mg In 50 Dextrose 5% in Water 50 ml @ 50 mls/hr IVPB Q6HR [facility] Rx#:[id number] NS 0.9 550 600 150 Sodium Chloride 0.9% 1, 2000 000 ml @ 999 mls/hr IV . Q1H1M [facility] Rx#:[id number] Intake, IV Titration 298.741 179.224 56.987 Amount Clindamycin 600 mg In 50 Dextrose 5% in Water 50 ml @ 50 mls/hr IVPB Q6HR [facility] Rx#:[id number] Levofloxacin 750Mg-D5w 100 Pmx 750 mg In Dextrose/ Water 1 150ml.bag @ 100 mls/hr IVPB Q24H [facility] Rx#: [id number] Norepinephrine 8 mg In 11.977 Sodium Chloride 0.9% 250 ml @ 0.05 MCG/KG/MIN 8.89 mls/hr IV .Q24H [facility] Rx#: [id number] Propofol 1,000 mg In 136.764 179.224 56.987 Empty Bag 1 bag @ Titrate IV .Q0M [facility] Rx#: [id number] Output: Gastric Drainage 200 Urine 345 440 335 Other 4460 Other: Voiding Method Indwelling Catheter Indwelling Catheter Indwelling Catheter ABP, PAP, CO, CI - Last Documented Arterial Blood Pressure 141/63 - Exam Physical Exam: Revealed a 68-year-old female, intubated, in no distress, on propofol. Head: Atraumatic normocephalic. HEENT:[Neck is supple.] [No neck masses.] [No thyromegaly.] [No JVD.] PERRLA, EOMI, no icterus. Chest: [Diminished breath sounds at the bases, rhonchi and wheezes mostly on forced expiratory maneuver and mostly over the upper left anterior chest wall.] Cardiac Exam: [Normal S1 and S2, no S3 gallop, no murmur.] Abdomen: [Obese, Soft, nontender, no megaly, no rebound, no guarding, normal bowel sounds.] Extremities: [No clubbing, 1+ bipedal edema, no cyanosis.] Neurological Exam: Cannot be assessed, patient remains on propofol this morning , sedated. Psychiatric: Cannot be assessed today.. Skin: No rashes. Lymphatics: No lymphadenopathy. - Labs CBC & Chem 7: 12/29/18 04:25 12/29/18 04:25 Labs: Abnormal Lab Results - Last 24 Hours (Table) 12/28/18 12/28/18 12/28/18 Range/Units 10:50 11:52 16:06 RBC (3.80-5.40) m/uL Hgb (11.4-16.0) gm/dL Hct (34.0-46.0) % MCH (25.0-35.0) pg MCHC (31.0-37.0) g/dL RDW (11.5-15.5) % Neutrophils # (1.3-7.7) k/uL Lymphocytes # (1.0-4.8) k/uL ABG pO2 (83-108) mmHg ABG Total CO2 26 H (19-24) mmol/L ABG O2 Saturation 98.0 H (94-97) % Sodium (137-145) mmol/L BUN (7-17) mg/dL Glucose (74-99) mg/dL POC Glucose (mg/dL) 228 H 194 H (75-99) mg/dL Calcium (8.4-10.2) mg/dL Phosphorus (2.5-4.5) mg/dL Total Bilirubin (0.2-1.3) mg/dL Delta Bilirubin (0.0-0.2) mg/dL Alkaline Phosphatase (38-126) U/L Total Protein (6.3-8.2) g/dL Albumin (3.5-5.0) g/dL 12/28/18 12/29/18 12/29/18 Range/Units 19:35 00:20 04:25 RBC 2.84 L (3.80-5.40) m/uL Hgb 7.0 L (11.4-16.0) gm/dL Hct 24.0 L (34.0-46.0) % MCH 24.5 L (25.0-35.0) pg MCHC 29.1 L (31.0-37.0) g/dL RDW 21.4 H (11.5-15.5) % Neutrophils # 8.2 H (1.3-7.7) k/uL Lymphocytes # 0.3 L (1.0-4.8) k/uL ABG pO2 (83-108) mmHg ABG Total CO2 (19-24) mmol/L ABG O2 Saturation (94-97) % Sodium (137-145) mmol/L BUN (7-17) mg/dL Glucose (74-99) mg/dL POC Glucose (mg/dL) 188 H 174 H (75-99) mg/dL Calcium (8.4-10.2) mg/dL Phosphorus (2.5-4.5) mg/dL Total Bilirubin (0.2-1.3) mg/dL Delta Bilirubin (0.0-0.2) mg/dL Alkaline Phosphatase (38-126) U/L Total Protein (6.3-8.2) g/dL Albumin (3.5-5.0) g/dL 12/29/18 12/29/18 12/29/18 Range/Units 04:25 04:38 06:59 RBC (3.80-5.40) m/uL Hgb (11.4-16.0) gm/dL Hct (34.0-46.0) % MCH (25.0-35.0) pg MCHC (31.0-37.0) g/dL RDW (11.5-15.5) % Neutrophils # (1.3-7.7) k/uL Lymphocytes # (1.0-4.8) k/uL ABG pO2 144 H (83-108) mmHg ABG Total CO2 26 H (19-24) mmol/L ABG O2 Saturation 99.7 H (94-97) % Sodium 134 L (137-145) mmol/L BUN 33 H (7-17) mg/dL Glucose 142 H (74-99) mg/dL POC Glucose (mg/dL) 158 H (75-99) mg/dL Calcium 7.9 L (8.4-10.2) mg/dL Phosphorus 4.8 H (2.5-4.5) mg/dL Total Bilirubin 1.8 H (0.2-1.3) mg/dL Delta Bilirubin 1.2 H (0.0-0.2) mg/dL Alkaline Phosphatase 153 H (38-126) U/L Total Protein 3.9 L (6.3-8.2) g/dL Albumin 2.0 L (3.5-5.0) g/dL 12/29/18 Range/Units 08:16 RBC (3.80-5.40) m/uL Hgb (11.4-16.0) gm/dL Hct (34.0-46.0) % MCH (25.0-35.0) pg MCHC (31.0-37.0) g/dL RDW (11.5-15.5) % Neutrophils # (1.3-7.7) k/uL Lymphocytes # (1.0-4.8) k/uL ABG pO2 (83-108) mmHg ABG Total CO2 (19-24) mmol/L ABG O2 Saturation (94-97) % Sodium (137-145) mmol/L BUN (7-17) mg/dL Glucose (74-99) mg/dL POC Glucose (mg/dL) 162 H (75-99) mg/dL Calcium (8.4-10.2) mg/dL Phosphorus (2.5-4.5) mg/dL Total Bilirubin (0.2-1.3) mg/dL Delta Bilirubin (0.0-0.2) mg/dL Alkaline Phosphatase (38-126) U/L Total Protein (6.3-8.2) g/dL Albumin (3.5-5.0) g/dL Microbiology - Last 24 Hours (Table) 12/28/18 14:55 Acid Fast Bacilli Smear - Final Ascites Fluid Acid Fast Bacilli Culture - Preliminary 12/28/18 14:55 Gram Stain - Preliminary Ascites Fluid Body Fluid Culture - Preliminary 12/28/18 14:55 Anaerobic Culture - Preliminary Ascites Fluid Assessment and Plan Assessment: Impression: 1 acute hypoxic and hypercapnic respiratory failure secondary to likely aspiration pneumonia, and underlying COPD with acute exacerbation. Patient is presently on mechanical ventilation, however considering all the values and the chest x-ray findings and the ABG findings, I would likely consider weaning trial today and possibly extubation. 2 acute exacerbation of COPD, also contributing to her hypoxic respiratory failure and requiring intubation and mechanical ventilation. 3 profound anemia secondary to GI blood losses, received a total of 2 units of packed RBCs since admission. GI workup is in progress, so far nondiagnostic. 4 abdominal ascites possibly related to liver disease, workup is in progress. Patient underwent paracentesis, and 4.5 L of fluid were drained from the peritoneal cavity. 5 multiple comorbidities including diabetes, fibromyalgia, polymyalgia rheumatica, hypertension, rheumatoid arthritis, hyperlipidemia, degenerative joint disease, and transverse colonic polyp which was resected during this admission, chronic low back pain, and possible liver cirrhosis. Recommendation: Continue present treatment plan addressing all the issues noted above, patient will remain on GI and DVT prophylaxis. We will give the patient a weaning trial today using pressure support and CPAP, continue bronchodilators , antibiotics, continue to follow up on the results of the peritoneal fluid, and address accordingly. Patient is still being followed by gastroenterology on the case. is at bedside today, and he is well-known to me, he is actually a patient of mine, and we discussed her condition, updated him on all her complex medical issues, and I felt the patient will at least be given a trial of weaning possibly extubation today. Even if extubated, the patient will be monitored in the ICU for at least the next 24 hours. Critical care time is 40 minutes. Time with Patient: Greater than 30
[2018-12-29] MEDS: LEVOFLOXACIN 750MG-D5W PMX 750 MG in DEXTROSE/WATER 1 150ML.BAG IVPB SCH (11:15)
[2018-12-29] MEDS: NOREPINEPHRINE 8 MG in SODIUM CHLORIDE 0.9% 250 ML IV SCH (11:18)
[2018-12-29 11:58] LABS: Glucose,Whole Blood 139 mg/dL (75-99)
[2018-12-29 12:41] LABS: ABG HCO3 26 mmol/L (21-25); ABG Oxygen Saturation 99.4 % (94-97); ABG PCO2 35 mmHg (35-45); ABG PH 7.47 (7.35-7.45); ABG PO2 118 mmHg (83-108); ABG TCO2 27 mmol/L (19-24)
[2018-12-29 13:59] LABS: Hepatitis A Antibody IgM Non-Reactive (Non-Reactive); Hepatitis B Core IgM Non-Reactive (Non-Reactive)
[2018-12-29 16:27] LABS: Glucose,Whole Blood 130 mg/dL (75-99)
--- NOTE | 2018-12-29 18:58 | P.PN ---
Subjective Progress Note Date: 12/29/18 Principal diagnosis: Melena, anemia of acute blood loss, ascites Patient seen lying in bed extubated earlier. There is no signs or symptoms of GI bleeding reported. Objective - Vital Signs Vital signs: Vital Signs Temp 97.6 F 12/29/18 16:00 Pulse 77 12/29/18 18:00 Resp 14 12/29/18 18:00 BP 94/51 12/29/18 17:00 Pulse Ox 97 12/29/18 18:00 Intake & Output 12/28/18 12/29/18 12/29/18 18:59 06:59 18:59 Intake Total 2848.741 829.224 706.987 Output Total 5005 440 1420 Balance -2156.259 389.224 -713.013 Weight 91 kg 91.4 kg 91.4 kg Intake: IV 2550 650 650 Clindamycin 600 mg In 50 100 Dextrose 5% in Water 50 ml @ 50 mls/hr IVPB Q6HR [facility] Rx#:[id number] NS 0.9 550 600 550 Sodium Chloride 0.9% 1, 2000 000 ml @ 999 mls/hr IV . Q1H1M [facility] Rx#:[id number] Intake, IV Titration 298.741 179.224 56.987 Amount Clindamycin 600 mg In 50 Dextrose 5% in Water 50 ml @ 50 mls/hr IVPB Q6HR [facility] Rx#:[id number] Levofloxacin 750Mg-D5w 100 Pmx 750 mg In Dextrose/ Water 1 150ml.bag @ 100 mls/hr IVPB Q24H [facility] Rx#: [id number] Norepinephrine 8 mg In 11.977 Sodium Chloride 0.9% 250 ml @ 0.05 MCG/KG/MIN 8.89 mls/hr IV .Q24H [facility] Rx#: [id number] Propofol 1,000 mg In 136.764 179.224 56.987 Empty Bag 1 bag @ Titrate IV .Q0M [facility] Rx#: [id number] Output: Gastric Drainage 200 Urine 909 742 5940 Other 4460 Other: Voiding Method Indwelling Catheter Indwelling Catheter Indwelling Catheter ABP, PAP, CO, CI - Last Documented Arterial Blood Pressure 114/51 - Exam On physical examination, patient appears comfortable in no apparent distress. HEAD: Normocephalic, atraumatic. EYES: No scleral icterus. No conjunctival injection. MOUTH: No lesions, tongue midline. NECK: Trachea midline, no gross abnormalities. CHEST: Decreased air entry in all lung meyer. HEART: Regular rate and rhythm. ABDOMEN: Soft, obese. Bowel sounds are positive. No organomegaly. No guarding or rigidity. EXTREMITIES: No pedal edema. SKIN: No rashes, no jaundice. NEUROLOGIC: Awake, alert and oriented 3. - Labs CBC & Chem 7: 12/29/18 04:25 12/29/18 04:25 Labs: Abnormal Lab Results - Last 24 Hours (Table) 12/28/18 12/29/18 12/29/18 Range/Units 19:35 00:20 04:25 RBC 2.84 L (3.80-5.40) m/uL Hgb 7.0 L (11.4-16.0) gm/dL Hct 24.0 L (34.0-46.0) % MCH 24.5 L (25.0-35.0) pg MCHC 29.1 L (31.0-37.0) g/dL RDW 21.4 H (11.5-15.5) % Neutrophils # 8.2 H (1.3-7.7) k/uL Lymphocytes # 0.3 L (1.0-4.8) k/uL ABG pH (7.35-7.45) ABG pO2 (83-108) mmHg ABG HCO3 (21-25) mmol/L ABG Total CO2 (19-24) mmol/L ABG O2 Saturation (94-97) % Sodium (137-145) mmol/L BUN (7-17) mg/dL Glucose (74-99) mg/dL POC Glucose (mg/dL) 188 H 174 H (75-99) mg/dL Calcium (8.4-10.2) mg/dL Phosphorus (2.5-4.5) mg/dL Total Bilirubin (0.2-1.3) mg/dL Delta Bilirubin (0.0-0.2) mg/dL Alkaline Phosphatase (38-126) U/L Total Protein (6.3-8.2) g/dL Albumin (3.5-5.0) g/dL 12/29/18 12/29/18 12/29/18 Range/Units 04:25 04:38 06:59 RBC (3.80-5.40) m/uL Hgb (11.4-16.0) gm/dL Hct (34.0-46.0) % MCH (25.0-35.0) pg MCHC (31.0-37.0) g/dL RDW (11.5-15.5) % Neutrophils # (1.3-7.7) k/uL Lymphocytes # (1.0-4.8) k/uL ABG pH (7.35-7.45) ABG pO2 144 H (83-108) mmHg ABG HCO3 (21-25) mmol/L ABG Total CO2 26 H (19-24) mmol/L ABG O2 Saturation 99.7 H (94-97) % Sodium 134 L (137-145) mmol/L BUN 33 H (7-17) mg/dL Glucose 142 H (74-99) mg/dL POC Glucose (mg/dL) 158 H (75-99) mg/dL Calcium 7.9 L (8.4-10.2) mg/dL Phosphorus 4.8 H (2.5-4.5) mg/dL Total Bilirubin 1.8 H (0.2-1.3) mg/dL Delta Bilirubin 1.2 H (0.0-0.2) mg/dL Alkaline Phosphatase 153 H (38-126) U/L Total Protein 3.9 L (6.3-8.2) g/dL Albumin 2.0 L (3.5-5.0) g/dL 12/29/18 12/29/18 12/29/18 Range/Units 08:16 11:57 12:35 RBC (3.80-5.40) m/uL Hgb (11.4-16.0) gm/dL Hct (34.0-46.0) % MCH (25.0-35.0) pg MCHC (31.0-37.0) g/dL RDW (11.5-15.5) % Neutrophils # (1.3-7.7) k/uL Lymphocytes # (1.0-4.8) k/uL ABG pH 7.47 H (7.35-7.45) ABG pO2 118 H (83-108) mmHg ABG HCO3 26 H (21-25) mmol/L ABG Total CO2 27 H (19-24) mmol/L ABG O2 Saturation 99.4 H (94-97) % Sodium (137-145) mmol/L BUN (7-17) mg/dL Glucose (74-99) mg/dL POC Glucose (mg/dL) 162 H 139 H (75-99) mg/dL Calcium (8.4-10.2) mg/dL Phosphorus (2.5-4.5) mg/dL Total Bilirubin (0.2-1.3) mg/dL Delta Bilirubin (0.0-0.2) mg/dL Alkaline Phosphatase (38-126) U/L Total Protein (6.3-8.2) g/dL Albumin (3.5-5.0) g/dL 12/29/18 Range/Units 16:26 RBC (3.80-5.40) m/uL Hgb (11.4-16.0) gm/dL Hct (34.0-46.0) % MCH (25.0-35.0) pg MCHC (31.0-37.0) g/dL RDW (11.5-15.5) % Neutrophils # (1.3-7.7) k/uL Lymphocytes # (1.0-4.8) k/uL ABG pH (7.35-7.45) ABG pO2 (83-108) mmHg ABG HCO3 (21-25) mmol/L ABG Total CO2 (19-24) mmol/L ABG O2 Saturation (94-97) % Sodium (137-145) mmol/L BUN (7-17) mg/dL Glucose (74-99) mg/dL POC Glucose (mg/dL) 130 H (75-99) mg/dL Calcium (8.4-10.2) mg/dL Phosphorus (2.5-4.5) mg/dL Total Bilirubin (0.2-1.3) mg/dL Delta Bilirubin (0.0-0.2) mg/dL Alkaline Phosphatase (38-126) U/L Total Protein (6.3-8.2) g/dL Albumin (3.5-5.0) g/dL Microbiology - Last 24 Hours (Table) 12/28/18 14:55 Gram Stain - Preliminary Ascites Fluid Body Fluid Culture - Preliminary 12/28/18 14:55 Acid Fast Bacilli Smear - Final Ascites Fluid Acid Fast Bacilli Culture - Preliminary 12/28/18 14:55 Anaerobic Culture - Preliminary Ascites Fluid Assessment and Plan (1) Melena Narrative/Plan: Patient presenting with reports of intermittent melena over the past few weeks, found to have an acute fall in her hemoglobin in with stool testing positive for occult blood. Complete evaluation with EGD suggestive only of gastritis, colonoscopy with findings of transverse colon polyp and internal hemorrhoids and video capsule endoscopy with no source of GI bleeding completed. Current Visit: Yes Status: Acute Code(s): K92.1 - MELENA SNOMED Code(s): 1374756 (2) Anemia due to blood loss Narrative/Plan: Patient presenting to the ED complaints of weakness found to have hemoglobin of 6.2 subsequently trended down to 4.9. Currently the patient is lying in bed with hemoglobin 7.0 from 7.6 yesterday with no signs or symptoms of GI bleeding reported. Current Visit: Yes Status: Acute Code(s): D50.0 - IRON DEFICIENCY ANEMIA SECONDARY TO BLOOD LOSS (CHRONIC) SNOMED Code(s): 561169120 (3) Occult blood in stools Current Visit: Yes Status: Acute Code(s): R19.5 - OTHER FECAL ABNORMALITIES SNOMED Code(s): 27293841 (4) Ascites Narrative/Plan: Unclear if the etiology his underlying liver disease with CT showing hepatic steatosis with nodularity or cardiac etiology, or other source. Paracentesis with 4.5 L removed. Current Visit: Yes Status: Acute Code(s): R18.8 - OTHER ASCITES SNOMED Code(s): 658142028 (5) Elevated liver enzymes Narrative/Plan: Cholestatic pattern of elevation of the patient's liver enzymes with mild elevation of total bilirubin and alkaline phosphatase. Unclear if this is secondary to a liver pathology with the patient being noted to have hepatic steatosis and a contoured liver on computed tomography scan, cardiac etiology or other etiology. Improved today. Current Visit: Yes Status: Acute Code(s): R74.8 - ABNORMAL LEVELS OF OTHER SERUM ENZYMES SNOMED Code(s): 630946699 Plan: Supportive care Okay for diet Continue Protonix therapy Monitor hemoglobin and transfuse as needed No source of GI bleeding found with EGD significant for gastritis, colonoscopy significant for transverse colonic polyp removed with polypectomy and internal hemorrhoids, and a capsule endoscopy with no source of GI bleeding identified Await fluid studies from paracentesis Viral hepatitis panel negative Thank you for allowing us to participate in the care of this patient, we will continue to follow
[2018-12-29 19:52] LABS: Glucose,Whole Blood 123 mg/dL (75-99)
[2018-12-29] MEDS: AMITRIPTYLINE HCL 25 MG TAB PO SCH (21:04)
[2018-12-29] MEDS: ACETAMINOPHEN TAB 325 MG TAB PO PRN (21:04)
--- NOTE | 2018-12-29 23:26 | P.PN ---
Subjective Progress Note Date: 12/29/18 Principal diagnosis: Acute hypoxic respiratory failure. Status post VDRF Left upper lobe aspiration pneumonia Acute blood loss anemia secondary to GI bleed. Status post EGD and colonoscopy. No source identified. Patient is 68-year-old female initially presented to ER with severe anemia and COPD exacerbation. Patient had EGD and colonoscopy and incomplete small bowel capsule endoscopy. Patient was found have gastritis/polyps and internal hemorrhoids. Subsequently patient went into respiratory failure secondary to COPD and possible aspiration pneumonia. Patient was transferred to ICU. Patient was also found to have ascites and cirrhosis possibly from nonalcoholic fatty liver disease..Paracentesis with 4.5 L removed. Viral hepatitis panel is negative. 12/29/2089 Patient was successfully extubated today. Currently patient is awake alert and oriented 3 and is able to communicate slowly. No fever no chills. Paracentesis fluid analysis is pending at this time. Unlikely SBP. Hemoglobin is 7.0 today. Pulmonary and GI is following. Liver enzymes normalized. Alk phos is slightly elevated 153 Albumin 2.0. No complaints of chest pain. No worsening shortness of breath. No leg swelling. All other review of systems negative except the above Discussed with her at bedside in detail. Active Medications Acetaminophen (Tylenol Tab) 650 mg PO Q6HR PRN PRN Reason: Mild Pain or Fever > 100.5 Last Admin: 12/29/18 21:04 Dose: 650 mg Hydrocodone Bitart/Acetaminophen ([place] 7.5-325) 1 each PO Q6H PRN PRN Reason: Pain Last Admin: 12/28/18 16:06 Dose: 1 each Albuterol/Ipratropium (Duoneb 0.5 Mg-3 Mg/3 Ml Soln) 3 ml INHALATION RT-Q4H PRN PRN Reason: Shortness Of Breath Or Wheezing Last Admin: 12/26/18 08:21 Dose: 3 ml Albuterol/Ipratropium (Duoneb 0.5 Mg-3 Mg/3 Ml Soln) 3 ml INHALATION RT-Q4H HO Last Admin: 12/29/18 23:18 Dose: 3 ml Alprazolam (Xanax) 0.25 mg PO Q6HR PRN PRN Reason: Anxiety Amitriptyline HCl (Elavil) 25 mg PO HS HO Last Admin: 12/29/18 21:04 Dose: 25 mg Budesonide (Pulmicort) 1 mg INHALATION RT-BID [facility] Last Admin: 12/29/18 19:53 Dose: 1 mg Calcium Carbonate/Glycine (Tums) 1,000 mg PO Q4HR PRN PRN Reason: Dyspepsia Chlorhexidine Gluconate (Peridex) 15 ml MUCOUS MEM BID [facility] Last Admin: 12/29/18 18:01 Dose: Not Given Famotidine (Pepcid) 20 mg PO DAILY [facility] Last Admin: 12/29/18 08:32 Dose: 20 mg Gabapentin (Neurontin) 300 mg PO BID [facility] Last Admin: 12/29/18 21:03 Dose: 300 mg Guaifenesin (Mucinex) 1,200 mg PO Q12HR [facility] Last Admin: 12/29/18 21:03 Dose: 1,200 mg Hydromorphone HCl (Dilaudid) 0.5 mg IVP Q3HR PRN PRN Reason: Pain Last Admin: 12/29/18 03:50 Dose: 0.5 mg Clindamycin Phosphate 600 mg/ (Dextrose/Water) 54 mls @ 50 mls/hr IVPB Q6HR [facility] Last Admin: 12/29/18 17:59 Dose: 50 mls/hr Levofloxacin 750 mg/ IV (Solution) 150 mls @ 100 mls/hr IVPB Q24H [facility] Last Admin: 12/29/18 11:15 Dose: 100 mls/hr Propofol 1,000 mg/ IV Solution 100 mls @ 0 mls/hr IV .Q0M [facility]; Protocol Last Titration: 12/29/18 09:43 Dose: 5 mcg/kg/min, 2.74 mls/hr Fentanyl Citrate 1,000 mcg/ (Sodium Chloride) 100 mls @ 4.92 mls/hr IV .[id number] [facility] Last Admin: 12/29/18 08:33 Dose: Not Given Sodium Chloride (Saline 0.9%) 1,000 mls @ 50 mls/hr IV .Q20H [facility] Last Admin: 12/29/18 08:31 Dose: 50 mls/hr Norepinephrine Bitartrate 8 mg (/ Sodium Chloride) 258 mls @ 8.89 mls/hr IV .Q24H [facility]; Protocol Last Admin: 12/29/18 11:18 Dose: Not Given Insulin Aspart (Novolog) 0 unit SQ Q4H [facility]; Protocol Last Admin: 12/29/18 20:17 Dose: Not Given Lactulose (Cephulac) 20 gm PO DAILY PRN PRN Reason: Constipation Magnesium Hydroxide (Milk Of Magnesia) 2,400 mg PO DAILY PRN PRN Reason: Constipation Melatonin (Melatonin) 3 mg PO HS PRN PRN Reason: Insomnia Methylprednisolone Sodium Succinate (Solu-Medrol) 40 mg IV Q8HR [facility] Last Admin: 12/29/18 16:41 Dose: 40 mg Metoprolol Tartrate (Lopressor) 50 mg PO BID [facility] Last Admin: 12/29/18 21:03 Dose: 50 mg Miscellaneous Information (Magnesium Per Protocol) 1 each MISCELLANE DAILY PRN ; Protocol PRN Reason: Per Protocol Miscellaneous Information (Potassium Per Protocol) 1 each MISCELLANE DAILY PRN ; Protocol PRN Reason: Per Protocol Naloxone HCl (Narcan) 0.2 mg IV Q2M PRN PRN Reason: Opioid Reversal Nicotine (Habitrol 21mg/24hr Patch) 1 patch TRANSDERM DAILY [facility] Last Admin: 12/29/18 08:25 Dose: 1 patch Ondansetron HCl (Zofran) 4 mg IVP Q8HR PRN PRN Reason: Nausea And Vomiting Last Admin: 12/24/18 01:50 Dose: 4 mg Sodium Bicarbonate (Sodium Bicarbonate Tab) 650 mg PO TID [facility] Last Admin: 12/29/18 21:03 Dose: 650 mg Objective - Vital Signs Vital signs: Vital Signs Temp 96.3 F L 12/29/18 08:00 Pulse 69 12/29/18 13:00 Resp 13 12/29/18 13:00 BP 94/51 12/29/18 13:00 Pulse Ox 100 12/29/18 13:00 Intake & Output 12/28/18 12/29/18 12/29/18 18:59 06:59 18:59 Intake Total 2848.741 829.224 406.987 Output Total 5005 440 985 Balance -2156.259 389.224 -578.013 Weight 91 kg 91.4 kg 91.4 kg Intake: IV 2550 650 350 Clindamycin 600 mg In 50 50 Dextrose 5% in Water 50 ml @ 50 mls/hr IVPB Q6HR [facility] Rx#:[id number] NS 0.9 550 600 300 Sodium Chloride 0.9% 1, 2000 000 ml @ 999 mls/hr IV . Q1H1M [facility] Rx#:[id number] Intake, IV Titration 298.741 179.224 56.987 Amount Clindamycin 600 mg In 50 Dextrose 5% in Water 50 ml @ 50 mls/hr IVPB Q6HR [facility] Rx#:[id number] Levofloxacin 750Mg-D5w 100 Pmx 750 mg In Dextrose/ Water 1 150ml.bag @ 100 mls/hr IVPB Q24H [facility] Rx#: [id number] Norepinephrine 8 mg In 11.977 Sodium Chloride 0.9% 250 ml @ 0.05 MCG/KG/MIN 8.89 mls/hr IV .Q24H [facility] Rx#: [id number] Propofol 1,000 mg In 136.764 179.224 56.987 Empty Bag 1 bag @ Titrate IV .Q0M [facility] Rx#: [id number] Output: Gastric Drainage 200 Urine 345 440 985 Other 4460 Other: Voiding Method Indwelling Catheter Indwelling Catheter Indwelling Catheter ABP, PAP, CO, CI - Last Documented Arterial Blood Pressure 130/59 - Exam On physical examination, patient appears comfortable in no apparent distress. HEAD: Normocephalic, atraumatic. EYES: No scleral icterus. No conjunctival injection. MOUTH: No lesions, tongue midline. NECK: Trachea midline, no gross abnormalities. CHEST: Decreased air entry in all lung meyer. Scattered rhonchi. HEART: Regular rate and rhythm. ABDOMEN: Soft, obese. Bowel sounds are positive. No organomegaly. No guarding or rigidity. EXTREMITIES: No pedal edema. SKIN: No rashes, no jaundice. NEUROLOGIC: Awake, alert and oriented 3. - Labs CBC & Chem 7: 12/29/18 04:25 12/29/18 04:25 Labs: Abnormal Lab Results - Last 24 Hours (Table) 12/28/18 12/28/18 12/29/18 Range/Units 16:06 19:35 00:20 RBC (3.80-5.40) m/uL Hgb (11.4-16.0) gm/dL Hct (34.0-46.0) % MCH (25.0-35.0) pg MCHC (31.0-37.0) g/dL RDW (11.5-15.5) % Neutrophils # (1.3-7.7) k/uL Lymphocytes # (1.0-4.8) k/uL ABG pH (7.35-7.45) ABG pO2 (83-108) mmHg ABG HCO3 (21-25) mmol/L ABG Total CO2 (19-24) mmol/L ABG O2 Saturation (94-97) % Sodium (137-145) mmol/L BUN (7-17) mg/dL Glucose (74-99) mg/dL POC Glucose (mg/dL) 194 H 188 H 174 H (75-99) mg/dL Calcium (8.4-10.2) mg/dL Phosphorus (2.5-4.5) mg/dL Total Bilirubin (0.2-1.3) mg/dL Delta Bilirubin (0.0-0.2) mg/dL Alkaline Phosphatase (38-126) U/L Total Protein (6.3-8.2) g/dL Albumin (3.5-5.0) g/dL 12/29/18 12/29/18 12/29/18 Range/Units 04:25 04:25 04:38 RBC 2.84 L (3.80-5.40) m/uL Hgb 7.0 L (11.4-16.0) gm/dL Hct 24.0 L (34.0-46.0) % MCH 24.5 L (25.0-35.0) pg MCHC 29.1 L (31.0-37.0) g/dL RDW 21.4 H (11.5-15.5) % Neutrophils # 8.2 H (1.3-7.7) k/uL Lymphocytes # 0.3 L (1.0-4.8) k/uL ABG pH (7.35-7.45) ABG pO2 (83-108) mmHg ABG HCO3 (21-25) mmol/L ABG Total CO2 (19-24) mmol/L ABG O2 Saturation (94-97) % Sodium 134 L (137-145) mmol/L BUN 33 H (7-17) mg/dL Glucose 142 H (74-99) mg/dL POC Glucose (mg/dL) 158 H (75-99) mg/dL Calcium 7.9 L (8.4-10.2) mg/dL Phosphorus 4.8 H (2.5-4.5) mg/dL Total Bilirubin 1.8 H (0.2-1.3) mg/dL Delta Bilirubin 1.2 H (0.0-0.2) mg/dL Alkaline Phosphatase 153 H (38-126) U/L Total Protein 3.9 L (6.3-8.2) g/dL Albumin 2.0 L (3.5-5.0) g/dL 12/29/18 12/29/18 12/29/18 Range/Units 06:59 08:16 11:57 RBC (3.80-5.40) m/uL Hgb (11.4-16.0) gm/dL Hct (34.0-46.0) % MCH (25.0-35.0) pg MCHC (31.0-37.0) g/dL RDW (11.5-15.5) % Neutrophils # (1.3-7.7) k/uL Lymphocytes # (1.0-4.8) k/uL ABG pH (7.35-7.45) ABG pO2 144 H (83-108) mmHg ABG HCO3 (21-25) mmol/L ABG Total CO2 26 H (19-24) mmol/L ABG O2 Saturation 99.7 H (94-97) % Sodium (137-145) mmol/L BUN (7-17) mg/dL Glucose (74-99) mg/dL POC Glucose (mg/dL) 162 H 139 H (75-99) mg/dL Calcium (8.4-10.2) mg/dL Phosphorus (2.5-4.5) mg/dL Total Bilirubin (0.2-1.3) mg/dL Delta Bilirubin (0.0-0.2) mg/dL Alkaline Phosphatase (38-126) U/L Total Protein (6.3-8.2) g/dL Albumin (3.5-5.0) g/dL 12/29/18 Range/Units 12:35 RBC (3.80-5.40) m/uL Hgb (11.4-16.0) gm/dL Hct (34.0-46.0) % MCH (25.0-35.0) pg MCHC (31.0-37.0) g/dL RDW (11.5-15.5) % Neutrophils # (1.3-7.7) k/uL Lymphocytes # (1.0-4.8) k/uL ABG pH 7.47 H (7.35-7.45) ABG pO2 118 H (83-108) mmHg ABG HCO3 26 H (21-25) mmol/L ABG Total CO2 27 H (19-24) mmol/L ABG O2 Saturation 99.4 H (94-97) % Sodium (137-145) mmol/L BUN (7-17) mg/dL Glucose (74-99) mg/dL POC Glucose (mg/dL) (75-99) mg/dL Calcium (8.4-10.2) mg/dL Phosphorus (2.5-4.5) mg/dL Total Bilirubin (0.2-1.3) mg/dL Delta Bilirubin (0.0-0.2) mg/dL Alkaline Phosphatase (38-126) U/L Total Protein (6.3-8.2) g/dL Albumin (3.5-5.0) g/dL Microbiology - Last 24 Hours (Table) 12/28/18 14:55 Gram Stain - Preliminary Ascites Fluid Body Fluid Culture - Preliminary 12/28/18 14:55 Acid Fast Bacilli Smear - Final Ascites Fluid Acid Fast Bacilli Culture - Preliminary 12/28/18 14:55 Anaerobic Culture - Preliminary Ascites Fluid Assessment and Plan Assessment: Acute hypoxic respiratory failure status post ventilator-dependent respiratory failure. currently extubated. Acute severe blood loss anemia status post EGD and colonoscopy and inconclusive small bowel capsule endoscopy. Gastritis and olives and internal hemorrhoids. Acute COPD exacerbation Left upper lobe pneumonia possibly aspiration Ascites status post paracentesis 4.5 L and NALFD/cirrhosis/ Chronic nicotine dependence Diabetes type 2 uncontrolled with hyperglycemia secondary to steroids Chronic fibromyalgia GERD Essential hypertension Hyperlipidemia Chronic polymyalgia rheumatica Chronic low back pain with arthritis. Peripheral neuropathy secondary to diabetes Hyperlipidemia Acute renal failure likely prerenal improved Plan: Patient be continued on breathing treatments and IV steroids. Current with antibiotics in the form of Levaquin and clindamycin. Transfuse if needed. Hemoglobin 7.0 today. Continue to follow closely and further recommendations based on the clinical course. Follow-up fluid analysis from paracentesis. Pulmonary and GI is on board. Prognosis is guarded. Time with Patient: Greater than 30
[2018-12-29 23:45] LABS: Glucose,Whole Blood 130 mg/dL (75-99)
[2018-12-30] MEDS: INSULIN ASPART (NovoLOG) 100 UNIT/ML VIAL SQ SCH ×6 (00:50→21:27)
[2018-12-30] MEDS: CLINDAMYCIN 600 MG in DEXTROSE 5% IN WATER 50 ML IVPB SCH ×8 (00:53→18:12)
[2018-12-30] MEDS: methylPREDNISolone SOD SUCCI 40 MG/ML 1 ML VIAL IV SCH ×3 (00:53→16:45)
[2018-12-30] MEDS: IPRATROPIUM-ALBUTEROL 3 ML NEB INHALATION SCH ×6 (03:13→23:45)
[2018-12-30 04:01] LABS: Glucose,Whole Blood 137 mg/dL (75-99)
[2018-12-30] MEDS: fentaNYL (PF) 1,000 MCG in SODIUM CHLORIDE 0.9% 80 ML IV SCH (04:48)
[2018-12-30] MEDS: SODIUM CHLORIDE 0.9% 1,000 ML IV SCH ×2 (05:23→08:09)
[2018-12-30 05:44] LABS: Anisocytosis Moderate; Basophils % (A) 0 %; Eosinophils % (A) 0 %; HGB 8.1 gm/dL (11.4-16.0); Hypochromasia Marked; Lymphocytes # (A) 0.4 k/uL (1.0-4.8); Lymphocytes % (A) 4 %; MCH 24.3 pg (25.0-35.0); MCHC 28.8 g/dL (31.0-37.0); MCV 84.3 fL (80.0-100.0); Mean Platelet Volume 6.7; Microcytosis Slight; Monocytes # (A) 0.4 k/uL (0-1.0); Monocytes % (A) 4 %; Neutrophils # (A) 9.4 k/uL (1.3-7.7); Neutrophils % (A) 91 %; Platelet Count 230 k/uL (150-450); Poikilocytosis Moderate; RBC 3.32 m/uL (3.80-5.40); WBC 10.3 k/uL (3.8-10.6)
[2018-12-30 05:54] LABS: Albumin 2.2 g/dL (3.5-5.0); Phosphorus 4.8 mg/dL (2.5-4.5); Potassium 4.1 mmol/L (3.5-5.1); Total Bilirubin 2.2 mg/dL (0.2-1.3); Total Protein 4.3 g/dL (6.3-8.2)
--- NOTE | 2018-12-30 07:33 | XR ---
EXAMINATION TYPE: XR chest 1V portable DATE OF EXAM: 12/30/2018 COMPARISON: Prior chest x-ray 12/29/2018 HISTORY: Extubated, abnormal chest x-ray TECHNIQUE: Single frontal view of the chest is obtained. FINDINGS: There is been interval removal of the endotracheal tube, orogastric tube. Left subclavian central venous catheter remains in place, there are overlying cardiac leads and tubing. No evident pn eumothorax. Heart remains enlarged. Lung volumes are improved. Patchy basilar and left upper lobe den sity is improved. IMPRESSION: Improvement in aeration, interval extubation.
[2018-12-30] MEDS: BUDESONIDE 1 MG/2 ML NEBU INHALATION SCH ×2 (07:54→20:24)
[2018-12-30 07:58] LABS: Glucose,Whole Blood 138 mg/dL (75-99)
[2018-12-30] MEDS: NICOTINE 21MG/24HR PATCH TRANSDERM SCH (08:05)
[2018-12-30] MEDS: CHLORHEXIDINE GLUCONATE 15 ML CUP MUCOUS MEM SCH (08:11)
[2018-12-30 09:19] LABS: ABG Base Excess 1.1 mmol/L; ABG HCO3 25 mmol/L (21-25); ABG Oxygen Saturation 93.3 % (94-97); ABG PCO2 34 mmHg (35-45); ABG PH 7.47 (7.35-7.45); ABG PO2 66 mmHg (83-108); ABG TCO2 26 mmol/L (19-24)
[2018-12-30] MEDS: GABAPENTIN 300 MG CAP PO SCH ×2 (09:34→21:26)
[2018-12-30] MEDS: SODIUM BICARBONATE TAB 650 MG TAB PO SCH ×3 (09:34→21:27)
[2018-12-30] MEDS: METOPROLOL TARTRATE 50 MG TAB PO SCH ×2 (09:34→21:27)
[2018-12-30] MEDS: guaiFENesin 600 MG TABLET.ER PO SCH ×2 (09:35→21:26)
[2018-12-30] MEDS: FAMOTIDINE 20 MG TAB PO SCH (09:36)
[2018-12-30] MEDS: LEVOFLOXACIN 750MG-D5W PMX 750 MG in DEXTROSE/WATER 1 150ML.BAG IVPB SCH (09:46)
[2018-12-30] MEDS: NOREPINEPHRINE 8 MG in SODIUM CHLORIDE 0.9% 250 ML IV SCH (09:46)
--- NOTE | 2018-12-30 10:23 | P.PN ---
Subjective Progress Note Date: 12/30/18 Principal diagnosis: Acute hypoxic and hypercapnic respiratory failure secondary to left upper lobe pneumonia and underlying COPD with acute exacerbation of COPD. This is a 68-year-old female patient with known history of COPD in addition to history of polymyalgia rheumatica, fibromyalgia, chronic back pain, peripheral neuropathy and diabetes mellitus who came into the hospital because of generalized weakness. The patient apparently was getting progressively more weak and she had some increased nausea and dizziness. Overall she was feeling rundown. She was having difficulties mobility. In the emergency department, hemoglobin was done and came back at 4.9. The patient denied having any tarry stool. Hemoccult was positive. The patient had a component of hyperkalemia that was treated and the potassium level normalized. The patient was found to bronchospastic and wheezy. The patient was started on bronchodilators. GI consultation was obtained. Patient was given packed RBC transfusion. Over the past few days, the patient underwent further investigation including a EGD that was done that showed no evidence of any acute bleeding. There was mild scattered gastritis and the angiogram in the body and hiatal hernia. The esophagus was tortuous. The colonoscopy was also done that showed a polyp in transverse colon that was removed. There was mild internal hemorrhoids. Based on all this, a video capsule endoscopy was recommended.The patient was doing well. The patient was being considered even to be discharged home. Earlier this morning she became acutely short of breath. She became bronchus spastic and wheezy. She has also diminished level of consciousness. Time of the arrival to the ICU, the patient was diaphoretic and sweaty and tachypneic and tachycardic. She was not following commands. The blood gases was done that showed no significant respiratory acidosis. Nevertheless, clinically the patient was in impending respiratory failure. At that point, I decided to intubate the patient put on a mechanical ventilator. I reviewed the chest x- ray that was done earlier this morning and it showed a new left upper lobe opacity compared to the prior study and this finding was highly suspicious for an evolving pneumonia. Repeat chest x-ray as well as done post intubation showed a wedge-shaped opacity in the left upper lobe. Otherwise the rest of the cardiac border structures were low normal limits and ET tube was in a good location. The patient was started on a combination of Levaquin and clindamycin. She was started on DuoNeb the right seems on the clock and IV Solu -Medrol. Currently she is an assist-control mode of ventilation with a tidal volume of 400, FiO2 of 60%, PEEP of 5 and a respiratory rate of 20. Peak airway pressures around 30. The pH is at 7.43 with a pCO2 of 38 and pO2 of 162. Note that IV realized the patient had some increased abdominal distention post intubation. NG tube was inserted and output was minimal. The patient will be sent for a CAT scan of the chest and abdomen. Note that the CAT scan of the lumbar spine that was done showed degenerative changes in the mid in the lower lumbar spine in addition to moderate degree of abdominal pelvic ascites suspicious for liver cirrhosis an underlying portal hypertension. On 12/28/2018, patient was reevaluated in the ICU, remains on mechanical ventilation. Her ventilator settings are tidal volume of 400 assist control rate of 14 FiO2 is 40% PEEP of 5. Chest x-ray continues to show left upper lobe pneumonia. Patient remains on propofol at 40 mcg/kg/m, she was on norepinephrine this morning and this was discontinued. Her urine output was marginal, hence she was given fluid bolus of 0.9 normal saline/1 L. Patient was seen by interventional radiology, ultrasound was done, and being considered for paracentesis sometime today. However this is yet to be done. CT of the abdomen showed liver cirrhosis and abdominal with pelvic ascites. Patient continues to have a nasogastric tube in place, no evidence of any active GI bleeding, hemoglobin is holding at 7.6 today. ABG showed a pO2 of 90 pCO2 of 37 pH of 7.44. Pressure support/CPAP ABG showed a pO2 of 90 pCO2 of 35 pH of 7.45. Relatively normal electrolytes were noted. BUN is 32 creatinine is 0.88. Liver enzymes remain slightly elevated with alkaline phosphatase of 229. Total bilirubin is 2.3. Chest x-ray again showed bibasilar atelectasis, and left upper lobe pneumonia. Patient was noted to be arousable, followed simple instructions even on low dose of propofol. A patient was reevaluated today on 12/29/2018, remains in the ICU, mechanically ventilated. Her ventilator settings were noted to be unchanged, remains on assist control rate of 14, FiO2 of 40% PEEP of 400 and PEEP of 5. Chest x-ray is showing improvement, patchy bibasilar density persists, resolving pneumonia. Patient underwent paracentesis yesterday, and 4.5 L of fluid were drained. ABG this morning showed a pO2 of 144 pCO2 of 37 pH of 7.45. WBC count is 8.8 hemoglobin is 7. Electrolytes and renal profile are relatively normal. Studies on the spinal fluid are pending. However the fluid seems to be low on protein, and minimal amount of WBC count noted in the fluid. Clearly does not seem to be infected patient remains sedated at present, however I plan to hold sedation and I will likely give the patient another trial of weaning today, this will be utilizing a pressure support of 8 and CPAP, and if tolerated I will likely proceed to extubating the patient later today. Patient was reevaluated today on 10/29/2019, she was extubated yesterday, and tolerated the extubation quite well. However this morning the patient seems to be a bit sleepy and lethargic, in no form of respiratory distress. He denies any pain, denies any shortness of breath, no cough no wheezing, her abdomen seems to be a bit more distended, and I believe she is developing ascites again. This is all likely related to her liver and underlying liver disease. Patient was never a drinker, but she had history of fatty liver. ABG this morning was done to look into potential hypercapnia, her pO2 was noted to be 66 pCO2 is 34 pH of 7.47, and this was done on room air. Her chest x-ray, showed definite improvement in aeration of both lungs and specially the left upper lobe post extubation. Blood sugar was noted to be normal. Ammonia level is pending. Cytology on the peritoneal fluid is still pending. Cultures are negative so far. Patient is still being followed by gastroenterology. Still addressing her issue of intermittent melena and anemia as well as ascites and elevated liver enzymes. Objective - Vital Signs Vital signs: Vital Signs Temp 97.9 F 12/30/18 08:00 Pulse 77 12/30/18 10:00 Resp 20 12/30/18 10:00 BP 94/51 12/30/18 10:00 Pulse Ox 91 L 12/30/18 10:00 Intake & Output 12/29/18 12/30/18 12/30/18 18:59 06:59 18:59 Intake Total 739.979 6007 200 Output Total 1420 620 170 Balance -827.084 8038 30 Weight 91.4 kg 90.2 kg Intake: IV 650 700 200 Clindamycin 600 mg In 100 100 Dextrose 5% in Water 50 ml @ 50 mls/hr IVPB Q6HR HO Rx#:[id number] NS 0.9 550 600 200 Intake, IV Titration 56.987 Amount Propofol 1,000 mg In 56.987 Empty Bag 1 bag @ Titrate IV .Q0M HO Rx#: [id number] Oral 960 Output: Urine 1420 620 170 Other: Voiding Method Indwelling Catheter Indwelling Catheter Indwelling Catheter ABP, PAP, CO, CI - Last Documented Arterial Blood Pressure 136/65 - Exam Physical Exam: Revealed a 68-year-old female, on room air, slightly lethargic, but arousable, follows all simple instructions, and appropriate. On room air. Head: Atraumatic normocephalic. HEENT:[Neck is supple.] [No neck masses.] [No thyromegaly.] [No JVD.] PERRLA, EOMI, no icterus. Chest: [Diminished breath sounds at the bases, no crackles or rhonchi or wheezes. Cardiac Exam: [Normal S1 and S2, no S3 gallop, no murmur.] Abdomen: [Obese,distended nontender, no megaly, no rebound, no guarding, normal bowel sounds. Suspect ongoing ascites.] Extremities: [No clubbing, trace of bipedal edema, no cyanosis..] Neurological Exam: Lethargic, arousable, followed all simple instructions, no gross focal neurologic deficit otherwise Psychiatric: Normal mood, affect and mental status examination except for a bit of lethargy. Skin: No rashes. Lymphatics: No lymphadenopathy. - Labs CBC & Chem 7: 12/30/18 05:25 12/30/18 05:25 Labs: Abnormal Lab Results - Last 24 Hours (Table) 12/29/18 12/29/18 12/29/18 Range/Units 11:57 12:35 16:26 RBC (3.80-5.40) m/uL Hgb (11.4-16.0) gm/dL Hct (34.0-46.0) % MCH (25.0-35.0) pg MCHC (31.0-37.0) g/dL RDW (11.5-15.5) % Neutrophils # (1.3-7.7) k/uL Lymphocytes # (1.0-4.8) k/uL ABG pH 7.47 H (7.35-7.45) ABG pCO2 (35-45) mmHg ABG pO2 118 H (83-108) mmHg ABG HCO3 26 H (21-25) mmol/L ABG Total CO2 27 H (19-24) mmol/L ABG O2 Saturation 99.4 H (94-97) % Sodium (137-145) mmol/L BUN (7-17) mg/dL Glucose (74-99) mg/dL POC Glucose (mg/dL) 139 H 130 H (75-99) mg/dL Calcium (8.4-10.2) mg/dL Phosphorus (2.5-4.5) mg/dL Total Bilirubin (0.2-1.3) mg/dL AST (14-36) U/L Alkaline Phosphatase (38-126) U/L Total Protein (6.3-8.2) g/dL Albumin (3.5-5.0) g/dL 12/29/18 12/29/18 12/30/18 Range/Units 19:51 23:43 04:00 RBC (3.80-5.40) m/uL Hgb (11.4-16.0) gm/dL Hct (34.0-46.0) % MCH (25.0-35.0) pg MCHC (31.0-37.0) g/dL RDW (11.5-15.5) % Neutrophils # (1.3-7.7) k/uL Lymphocytes # (1.0-4.8) k/uL ABG pH (7.35-7.45) ABG pCO2 (35-45) mmHg ABG pO2 (83-108) mmHg ABG HCO3 (21-25) mmol/L ABG Total CO2 (19-24) mmol/L ABG O2 Saturation (94-97) % Sodium (137-145) mmol/L BUN (7-17) mg/dL Glucose (74-99) mg/dL POC Glucose (mg/dL) 123 H 130 H 137 H (75-99) mg/dL Calcium (8.4-10.2) mg/dL Phosphorus (2.5-4.5) mg/dL Total Bilirubin (0.2-1.3) mg/dL AST (14-36) U/L Alkaline Phosphatase (38-126) U/L Total Protein (6.3-8.2) g/dL Albumin (3.5-5.0) g/dL 12/30/18 12/30/18 12/30/18 Range/Units 05:25 05:25 07:56 RBC 3.32 L (3.80-5.40) m/uL Hgb 8.1 L (11.4-16.0) gm/dL Hct 28.0 L (34.0-46.0) % MCH 24.3 L (25.0-35.0) pg MCHC 28.8 L (31.0-37.0) g/dL RDW 21.0 H (11.5-15.5) % Neutrophils # 9.4 H (1.3-7.7) k/uL Lymphocytes # 0.4 L (1.0-4.8) k/uL ABG pH (7.35-7.45) ABG pCO2 (35-45) mmHg ABG pO2 (83-108) mmHg ABG HCO3 (21-25) mmol/L ABG Total CO2 (19-24) mmol/L ABG O2 Saturation (94-97) % Sodium 136 L (137-145) mmol/L BUN 35 H (7-17) mg/dL Glucose 124 H (74-99) mg/dL POC Glucose (mg/dL) 138 H (75-99) mg/dL Calcium 8.0 L (8.4-10.2) mg/dL Phosphorus 4.8 H (2.5-4.5) mg/dL Total Bilirubin 2.2 H (0.2-1.3) mg/dL AST 40 H (14-36) U/L Alkaline Phosphatase 188 H (38-126) U/L Total Protein 4.3 L (6.3-8.2) g/dL Albumin 2.2 L (3.5-5.0) g/dL 12/30/18 Range/Units 09:14 RBC (3.80-5.40) m/uL Hgb (11.4-16.0) gm/dL Hct (34.0-46.0) % MCH (25.0-35.0) pg MCHC (31.0-37.0) g/dL RDW (11.5-15.5) % Neutrophils # (1.3-7.7) k/uL Lymphocytes # (1.0-4.8) k/uL ABG pH 7.47 H (7.35-7.45) ABG pCO2 34 L (35-45) mmHg ABG pO2 66 L (83-108) mmHg ABG HCO3 (21-25) mmol/L ABG Total CO2 26 H (19-24) mmol/L ABG O2 Saturation 93.3 L (94-97) % Sodium (137-145) mmol/L BUN (7-17) mg/dL Glucose (74-99) mg/dL POC Glucose (mg/dL) (75-99) mg/dL Calcium (8.4-10.2) mg/dL Phosphorus (2.5-4.5) mg/dL Total Bilirubin (0.2-1.3) mg/dL AST (14-36) U/L Alkaline Phosphatase (38-126) U/L Total Protein (6.3-8.2) g/dL Albumin (3.5-5.0) g/dL Microbiology - Last 24 Hours (Table) 12/28/18 14:55 Gram Stain - Preliminary Ascites Fluid Body Fluid Culture - Preliminary Assessment and Plan Assessment: Impression: 1 acute hypoxic and hypercapnic respiratory failure secondary to likely aspiration pneumonia, and underlying COPD with acute exacerbation. Patient was extubated on 12/29/2018, tolerated the extubation well, remains on antibiotics and bronchodilators. 2 acute exacerbation of COPD, also contributing to her hypoxic respiratory failure and requiring intubation and mechanical ventilation. 3 profound anemia secondary to GI blood losses, received a total of 2 units of packed RBCs since admission. GI workup is in progress, so far nondiagnostic. 4 abdominal ascites possibly related to liver disease, workup is in progress. Patient underwent paracentesis, and 4.5 L of fluid were drained from the peritoneal cavity. This was done a few days ago. 5 change in mental status, possible metabolic encephalopathy possible related to elevated ammonia level which will be checked and results are pending. ABG did not reflect hypercapnia. 6 type 2 diabetes 7 fibromyalgia 8 polymyalgia rheumatica 9 hypertension 10 rheumatoid arthritis 11 hyperlipidemia 12 elevated liver enzymes and history of fatty liver with ascites. 13 transverse colonic polyp recently resected. 14 chronic back pain. Recommendation: Continue present treatment plan including bronchodilators, antibiotics, GI and DVT prophylaxis, patient is now on room air, ABG was reviewed, discussed her mental status with the family, ammonia level is pending , if elevated may start the patient on around the clock lactulose. Cytology from the peritoneal fluid is still pending. Cultures so far are negative. We' ll continue to monitor in the ICU today, patient is not quite ready for any discharge planning. Time with Patient: Less than 30
[2018-12-30] MEDS: ACETAMINOPHEN TAB 325 MG TAB PO PRN (11:02)
[2018-12-30 12:09] LABS: Glucose,Whole Blood 136 mg/dL (75-99)
[2018-12-30 16:53] LABS: Glucose,Whole Blood 157 mg/dL (75-99)
[2018-12-30 21:15] LABS: Glucose,Whole Blood 219 mg/dL (75-99)
[2018-12-30] MEDS: AMITRIPTYLINE HCL 25 MG TAB PO SCH (21:28)
--- NOTE | 2018-12-30 22:13 | P.PN ---
Subjective Progress Note Date: 12/30/18 Principal diagnosis: Melena, anemia of acute blood loss, ascites Patient is seen lying in bed. Family is bedside. She is awaiting lunch. No abdominal pain reported. No signs or symptoms of GI bleeding reported. Objective - Vital Signs Vital signs: Vital Signs Temp 97.8 F 12/30/18 20:00 Pulse 105 H 12/30/18 21:00 Resp 17 12/30/18 21:00 BP 94/51 12/30/18 18:00 Pulse Ox 92 L 12/30/18 21:00 Intake & Output 12/30/18 12/30/18 12/31/18 06:59 18:59 06:59 Intake Total 1660 1400 Output Total 620 670 175 Balance 1040 730 -175 Weight 90.2 kg 90.2 kg Intake: IV 700 650 Clindamycin 600 mg In 100 50 Dextrose 5% in Water 50 ml @ 50 mls/hr IVPB Q6HR HO Rx#:[id number] NS 0.9 600 600 Oral 960 750 Output: Urine 620 670 175 Other: Voiding Method Indwelling Catheter Indwelling Catheter ABP, PAP, CO, CI - Last Documented Arterial Blood Pressure 125/67 - Exam On physical examination, patient appears comfortable in no apparent distress. HEAD: Normocephalic, atraumatic. EYES: No scleral icterus. No conjunctival injection. MOUTH: No lesions, tongue midline. NECK: Trachea midline, no gross abnormalities. CHEST: Decreased air entry in all lung meyer. HEART: Regular rate and rhythm. ABDOMEN: Soft, obese. Bowel sounds are positive. No organomegaly. No guarding or rigidity. EXTREMITIES: No pedal edema. SKIN: No rashes, no jaundice. NEUROLOGIC: Awake, alert and oriented 3. - Labs CBC & Chem 7: 12/30/18 05:25 12/30/18 05:25 Labs: Abnormal Lab Results - Last 24 Hours (Table) 12/29/18 12/30/18 12/30/18 Range/Units 23:43 04:00 05:25 RBC 3.32 L (3.80-5.40) m/uL Hgb 8.1 L (11.4-16.0) gm/dL Hct 28.0 L (34.0-46.0) % MCH 24.3 L (25.0-35.0) pg MCHC 28.8 L (31.0-37.0) g/dL RDW 21.0 H (11.5-15.5) % Neutrophils # 9.4 H (1.3-7.7) k/uL Lymphocytes # 0.4 L (1.0-4.8) k/uL ABG pH (7.35-7.45) ABG pCO2 (35-45) mmHg ABG pO2 (83-108) mmHg ABG Total CO2 (19-24) mmol/L ABG O2 Saturation (94-97) % Sodium (137-145) mmol/L BUN (7-17) mg/dL Glucose (74-99) mg/dL POC Glucose (mg/dL) 130 H 137 H (75-99) mg/dL Calcium (8.4-10.2) mg/dL Phosphorus (2.5-4.5) mg/dL Total Bilirubin (0.2-1.3) mg/dL AST (14-36) U/L Alkaline Phosphatase (38-126) U/L Total Protein (6.3-8.2) g/dL Albumin (3.5-5.0) g/dL 12/30/18 12/30/18 12/30/18 Range/Units 05:25 07:56 09:14 RBC (3.80-5.40) m/uL Hgb (11.4-16.0) gm/dL Hct (34.0-46.0) % MCH (25.0-35.0) pg MCHC (31.0-37.0) g/dL RDW (11.5-15.5) % Neutrophils # (1.3-7.7) k/uL Lymphocytes # (1.0-4.8) k/uL ABG pH 7.47 H (7.35-7.45) ABG pCO2 34 L (35-45) mmHg ABG pO2 66 L (83-108) mmHg ABG Total CO2 26 H (19-24) mmol/L ABG O2 Saturation 93.3 L (94-97) % Sodium 136 L (137-145) mmol/L BUN 35 H (7-17) mg/dL Glucose 124 H (74-99) mg/dL POC Glucose (mg/dL) 138 H (75-99) mg/dL Calcium 8.0 L (8.4-10.2) mg/dL Phosphorus 4.8 H (2.5-4.5) mg/dL Total Bilirubin 2.2 H (0.2-1.3) mg/dL AST 40 H (14-36) U/L Alkaline Phosphatase 188 H (38-126) U/L Total Protein 4.3 L (6.3-8.2) g/dL Albumin 2.2 L (3.5-5.0) g/dL 12/30/18 12/30/18 12/30/18 Range/Units 12:07 16:50 21:14 RBC (3.80-5.40) m/uL Hgb (11.4-16.0) gm/dL Hct (34.0-46.0) % MCH (25.0-35.0) pg MCHC (31.0-37.0) g/dL RDW (11.5-15.5) % Neutrophils # (1.3-7.7) k/uL Lymphocytes # (1.0-4.8) k/uL ABG pH (7.35-7.45) ABG pCO2 (35-45) mmHg ABG pO2 (83-108) mmHg ABG Total CO2 (19-24) mmol/L ABG O2 Saturation (94-97) % Sodium (137-145) mmol/L BUN (7-17) mg/dL Glucose (74-99) mg/dL POC Glucose (mg/dL) 136 H 157 H 219 H (75-99) mg/dL Calcium (8.4-10.2) mg/dL Phosphorus (2.5-4.5) mg/dL Total Bilirubin (0.2-1.3) mg/dL AST (14-36) U/L Alkaline Phosphatase (38-126) U/L Total Protein (6.3-8.2) g/dL Albumin (3.5-5.0) g/dL Microbiology - Last 24 Hours (Table) 12/28/18 14:55 Anaerobic Culture - Preliminary Ascites Fluid 12/28/18 14:55 Gram Stain - Preliminary Ascites Fluid Body Fluid Culture - Preliminary Assessment and Plan (1) Melena Narrative/Plan: Patient presenting with reports of intermittent melena over the past few weeks, found to have an acute fall in her hemoglobin in with stool testing positive for occult blood. Complete evaluation with EGD suggestive only of gastritis, colonoscopy with findings of transverse colon polyp and internal hemorrhoids and video capsule endoscopy with no source of GI bleeding completed. Current Visit: Yes Status: Acute Code(s): K92.1 - MELENA SNOMED Code(s): 3198447 (2) Anemia due to blood loss Narrative/Plan: Patient presenting to the ED complaints of weakness found to have hemoglobin of 6.2 subsequently trended down to 4.9. Currently the patient is lying in bed with hemoglobin 8.1 from 7.0 yesterday with no signs or symptoms of GI bleeding reported. Current Visit: Yes Status: Acute Code(s): D50.0 - IRON DEFICIENCY ANEMIA SECONDARY TO BLOOD LOSS (CHRONIC) SNOMED Code(s): 521076161 (3) Occult blood in stools Current Visit: Yes Status: Acute Code(s): R19.5 - OTHER FECAL ABNORMALITIES SNOMED Code(s): 57975832 (4) Ascites Narrative/Plan: Unclear if the etiology his underlying liver disease with CT showing hepatic steatosis with nodularity or cardiac etiology, or other source. Paracentesis with 4.5 L removed. Current Visit: Yes Status: Acute Code(s): R18.8 - OTHER ASCITES SNOMED Code(s): 047684355 (5) Elevated liver enzymes Narrative/Plan: Cholestatic pattern of elevation of the patient's liver enzymes with mild elevation of total bilirubin and alkaline phosphatase. Unclear if this is secondary to a liver pathology with the patient being noted to have hepatic steatosis and a contoured liver on computed tomography scan, cardiac etiology or other etiology. Current Visit: Yes Status: Acute Code(s): R74.8 - ABNORMAL LEVELS OF OTHER SERUM ENZYMES SNOMED Code(s): 391326974 Plan: Supportive care Okay for diet Continue Protonix therapy Monitor hemoglobin and transfuse as needed No source of GI bleeding found with EGD significant for gastritis, colonoscopy significant for transverse colonic polyp removed with polypectomy and internal hemorrhoids, and a capsule endoscopy with no source of GI bleeding identified Await fluid studies from paracentesis, albumin level pending and final culture Viral hepatitis panel negative Will consider full serology for liver enzymes if they do not continue to improve , however elevation is likely secondary to underlying fatty liver disease with decompensation during her hospitalization due to multiple medical issues Thank you for allowing us to participate in the care of this patient, we will continue to follow
[2018-12-31] MEDS: CLINDAMYCIN 600 MG in DEXTROSE 5% IN WATER 50 ML IVPB SCH ×10 (00:20→22:52)
[2018-12-31] MEDS: methylPREDNISolone SOD SUCCI 40 MG/ML 1 ML VIAL IV SCH ×3 (00:21→21:11)
[2018-12-31] MEDS ORDERED: HALOPERIDOL LACTATE 5 MG/ML 1 ML VIAL IVP PRN (01:55)
[2018-12-31] MEDS: IPRATROPIUM-ALBUTEROL 3 ML NEB INHALATION SCH ×5 (03:34→20:27)
[2018-12-31 04:40] LABS: Anisocytosis Moderate; Basophils % (A) 0 %; Eosinophils % (A) 0 %; HCT 27.7 % (34.0-46.0); HGB 8.2 gm/dL (11.4-16.0); Hypochromasia Marked; Lymphocytes # (A) 0.6 k/uL (1.0-4.8); Lymphocytes % (A) 6 %; MCH 24.7 pg (25.0-35.0); MCHC 29.7 g/dL (31.0-37.0); MCV 83.4 fL (80.0-100.0); Microcytosis Slight; Monocytes # (A) 0.4 k/uL (0-1.0); Monocytes % (A) 4 %; Neutrophils # (A) 9.5 k/uL (1.3-7.7); Neutrophils % (A) 89 %; Platelet Count 210 k/uL (150-450); Poikilocytosis Moderate; RBC 3.32 m/uL (3.80-5.40); RDW 20.9 % (11.5-15.5); WBC 10.6 k/uL (3.8-10.6)
[2018-12-31 04:43] LABS: INR 1.2 (<1.2); Prothrombin Time 12.5 sec (9.0-12.0)
[2018-12-31 04:49] LABS: Albumin 2.4 g/dL (3.5-5.0); Bilirubin, Conjugated 0.3 mg/dL (0.0-0.3); Bilirubin, Delta 1.3 mg/dL (0.0-0.2); Bilirubin,Unconjugated 0.5 mg/dL (0.0-1.1); Calcium 8.4 mg/dL (8.4-10.2); Phosphorus 4.6 mg/dL (2.5-4.5); Potassium 4.5 mmol/L (3.5-5.1); Total Bilirubin 2.1 mg/dL (0.2-1.3); Total Protein 4.6 g/dL (6.3-8.2)
[2018-12-31] MEDS: fentaNYL (PF) 1,000 MCG in SODIUM CHLORIDE 0.9% 80 ML IV SCH (06:20)
[2018-12-31] MEDS: SODIUM CHLORIDE 0.9% 1,000 ML IV SCH ×2 (06:26→21:47)
[2018-12-31 06:32] LABS: Glucose,Whole Blood 186 mg/dL (75-99)
[2018-12-31] MEDS: INSULIN ASPART (NovoLOG) 100 UNIT/ML VIAL SQ SCH ×4 (06:33→21:11)
[2018-12-31] MEDS: BUDESONIDE 1 MG/2 ML NEBU INHALATION SCH ×2 (07:24→20:27)
--- NOTE | 2018-12-31 08:46 | XR ---
EXAMINATION TYPE: XR chest 1V portable DATE OF EXAM: 12/31/2018 COMPARISON: Prior chest x-ray 12/30/2018 HISTORY: Abnormal chest x-ray TECHNIQUE: Single frontal view of the chest is obtained. FINDINGS: Account for differences in technique there is not a significant interval change. Patchy ba silar density persists. Heart remains enlarged. Aorta is dense. Central venous catheter is stable. No pneumothorax. IMPRESSION: Probable residual basilar atelectasis. Cardiomegaly. Follow-up PA and lateral chest x-ra y when patient is clinically stable.
[2018-12-31] MEDS: GABAPENTIN 300 MG CAP PO SCH ×2 (08:48→21:10)
[2018-12-31] MEDS: SODIUM BICARBONATE TAB 650 MG TAB PO SCH ×3 (08:48→21:10)
[2018-12-31] MEDS: guaiFENesin 600 MG TABLET.ER PO SCH ×2 (08:48→21:11)
[2018-12-31] MEDS: METOPROLOL TARTRATE 50 MG TAB PO SCH ×2 (08:48→21:11)
[2018-12-31] MEDS: FAMOTIDINE 20 MG TAB PO SCH (08:48)
--- NOTE | 2018-12-31 10:42 | P.PN ---
Subjective Progress Note Date: 12/31/18 Principal diagnosis: Acute hypoxic and hypercapnic respiratory failure secondary to left upper lobe pneumonia and underlying COPD with acute exacerbation of COPD. This is a 68-year-old female patient with known history of COPD in addition to history of polymyalgia rheumatica, fibromyalgia, chronic back pain, peripheral neuropathy and diabetes mellitus who came into the hospital because of generalized weakness. The patient apparently was getting progressively more weak and she had some increased nausea and dizziness. Overall she was feeling rundown. She was having difficulties mobility. In the emergency department, hemoglobin was done and came back at 4.9. The patient denied having any tarry stool. Hemoccult was positive. The patient had a component of hyperkalemia that was treated and the potassium level normalized. The patient was found to bronchospastic and wheezy. The patient was started on bronchodilators. GI consultation was obtained. Patient was given packed RBC transfusion. Over the past few days, the patient underwent further investigation including a EGD that was done that showed no evidence of any acute bleeding. There was mild scattered gastritis and the angiogram in the body and hiatal hernia. The esophagus was tortuous. The colonoscopy was also done that showed a polyp in transverse colon that was removed. There was mild internal hemorrhoids. Based on all this, a video capsule endoscopy was recommended.The patient was doing well. The patient was being considered even to be discharged home. Earlier this morning she became acutely short of breath. She became bronchus spastic and wheezy. She has also diminished level of consciousness. Time of the arrival to the ICU, the patient was diaphoretic and sweaty and tachypneic and tachycardic. She was not following commands. The blood gases was done that showed no significant respiratory acidosis. Nevertheless, clinically the patient was in impending respiratory failure. At that point, I decided to intubate the patient put on a mechanical ventilator. I reviewed the chest x- ray that was done earlier this morning and it showed a new left upper lobe opacity compared to the prior study and this finding was highly suspicious for an evolving pneumonia. Repeat chest x-ray as well as done post intubation showed a wedge-shaped opacity in the left upper lobe. Otherwise the rest of the cardiac border structures were low normal limits and ET tube was in a good location. The patient was started on a combination of Levaquin and clindamycin. She was started on DuoNeb the right seems on the clock and IV Solu -Medrol. Currently she is an assist-control mode of ventilation with a tidal volume of 400, FiO2 of 60%, PEEP of 5 and a respiratory rate of 20. Peak airway pressures around 30. The pH is at 7.43 with a pCO2 of 38 and pO2 of 162. Note that IV realized the patient had some increased abdominal distention post intubation. NG tube was inserted and output was minimal. The patient will be sent for a CAT scan of the chest and abdomen. Note that the CAT scan of the lumbar spine that was done showed degenerative changes in the mid in the lower lumbar spine in addition to moderate degree of abdominal pelvic ascites suspicious for liver cirrhosis an underlying portal hypertension. On 12/28/2018, patient was reevaluated in the ICU, remains on mechanical ventilation. Her ventilator settings are tidal volume of 400 assist control rate of 14 FiO2 is 40% PEEP of 5. Chest x-ray continues to show left upper lobe pneumonia. Patient remains on propofol at 40 mcg/kg/m, she was on norepinephrine this morning and this was discontinued. Her urine output was marginal, hence she was given fluid bolus of 0.9 normal saline/1 L. Patient was seen by interventional radiology, ultrasound was done, and being considered for paracentesis sometime today. However this is yet to be done. CT of the abdomen showed liver cirrhosis and abdominal with pelvic ascites. Patient continues to have a nasogastric tube in place, no evidence of any active GI bleeding, hemoglobin is holding at 7.6 today. ABG showed a pO2 of 90 pCO2 of 37 pH of 7.44. Pressure support/CPAP ABG showed a pO2 of 90 pCO2 of 35 pH of 7.45. Relatively normal electrolytes were noted. BUN is 32 creatinine is 0.88. Liver enzymes remain slightly elevated with alkaline phosphatase of 229. Total bilirubin is 2.3. Chest x-ray again showed bibasilar atelectasis, and left upper lobe pneumonia. Patient was noted to be arousable, followed simple instructions even on low dose of propofol. A patient was reevaluated today on 12/29/2018, remains in the ICU, mechanically ventilated. Her ventilator settings were noted to be unchanged, remains on assist control rate of 14, FiO2 of 40% PEEP of 400 and PEEP of 5. Chest x-ray is showing improvement, patchy bibasilar density persists, resolving pneumonia. Patient underwent paracentesis yesterday, and 4.5 L of fluid were drained. ABG this morning showed a pO2 of 144 pCO2 of 37 pH of 7.45. WBC count is 8.8 hemoglobin is 7. Electrolytes and renal profile are relatively normal. Studies on the spinal fluid are pending. However the fluid seems to be low on protein, and minimal amount of WBC count noted in the fluid. Clearly does not seem to be infected patient remains sedated at present, however I plan to hold sedation and I will likely give the patient another trial of weaning today, this will be utilizing a pressure support of 8 and CPAP, and if tolerated I will likely proceed to extubating the patient later today. Patient was reevaluated today on 12/30/2018, she was extubated yesterday, and tolerated the extubation quite well. However this morning the patient seems to be a bit sleepy and lethargic, in no form of respiratory distress. He denies any pain, denies any shortness of breath, no cough no wheezing, her abdomen seems to be a bit more distended, and I believe she is developing ascites again. This is all likely related to her liver and underlying liver disease. Patient was never a drinker, but she had history of fatty liver. ABG this morning was done to look into potential hypercapnia, her pO2 was noted to be 66 pCO2 is 34 pH of 7.47, and this was done on room air. Her chest x-ray, showed definite improvement in aeration of both lungs and specially the left upper lobe post extubation. Blood sugar was noted to be normal. Ammonia level is pending. Cytology on the peritoneal fluid is still pending. Cultures are negative so far. Patient is still being followed by gastroenterology. Still addressing her issue of intermittent melena and anemia as well as ascites and elevated liver enzymes. Reevaluated today on 12/31/2018, patient remains in the ICU, she was extubated 2 days ago, and she tolerated the extubation well. Denies any active pulmonary symptoms, no cough no wheezing no shortness of breath. She seems to be more alert today, however she had some episodes of confusion last night, and this has resolved early this morning. Denies any abdominal pain, no evidence of any active bleeding, hemoglobin is holding at 8.2 today. INR is normal. Electrolytes are normal renal profile is normal. Liver enzymes were noted to be slightly elevated. Chest x-ray was also reviewed, her left upper lobe pneumonia seems to be significantly improved. Ascites fluid has been negative for infection. Negative cytology was also noted. Objective - Vital Signs Vital signs: Vital Signs Temp 98.4 F 12/31/18 08:00 Pulse 84 12/31/18 08:00 Resp 18 12/31/18 08:00 BP 94/51 12/31/18 00:00 Pulse Ox 94 L 12/31/18 08:00 Intake & Output 12/30/18 12/31/18 12/31/18 18:59 06:59 18:59 Intake Total 1400 100 250 Output Total 670 560 85 Balance 730 -460 165 Weight 90.2 kg 91.4 kg Intake: IV 650 100 100 Clindamycin 600 mg In 50 Dextrose 5% in Water 50 ml @ 50 mls/hr IVPB Q6HR [facility] Rx#:[id number] NS 0.9 600 100 100 Oral 750 150 Output: Urine 670 560 85 Other: Voiding Method Indwelling Catheter Indwelling Catheter Bedpan ABP, PAP, CO, CI - Last Documented Arterial Blood Pressure 137/61 - Exam Physical Exam: Revealed a 68-year-old female, on room air, alert oriented, in no distress. Head: Atraumatic normocephalic. HEENT:[Neck is supple.] [No neck masses.] [No thyromegaly.] [No JVD.] PERRLA, EOMI, no icterus. Chest: [Diminished breath sounds at the bases symmetrical chest expansion, no rhonchi and no wheezes. Cardiac Exam: [Normal S1 and S2, no S3 gallop, no murmur.] Abdomen: [Obese,distended nontender, no megaly, no rebound, no guarding, normal bowel sounds. Suspect ongoing ascites.] Extremities: [No clubbing, trace of bipedal edema, no cyanosis..] Neurological Exam: Alert and oriented 3, no gross focal neurologic deficits. Psychiatric: Normal mood, affect and normal mental status. Skin: No rashes. Lymphatics: No lymphadenopathy. - Labs CBC & Chem 7: 12/31/18 04:29 12/31/18 04:29 Labs: Abnormal Lab Results - Last 24 Hours (Table) 12/30/18 12/30/18 12/30/18 Range/Units 12:07 16:50 21:14 RBC (3.80-5.40) m/uL Hgb (11.4-16.0) gm/dL Hct (34.0-46.0) % MCH (25.0-35.0) pg MCHC (31.0-37.0) g/dL RDW (11.5-15.5) % Neutrophils # (1.3-7.7) k/uL Lymphocytes # (1.0-4.8) k/uL PT (9.0-12.0) sec INR (<1.2) BUN (7-17) mg/dL Glucose (74-99) mg/dL POC Glucose (mg/dL) 136 H 157 H 219 H (75-99) mg/dL Phosphorus (2.5-4.5) mg/dL Total Bilirubin (0.2-1.3) mg/dL Delta Bilirubin (0.0-0.2) mg/dL AST (14-36) U/L ALT (9-52) U/L Alkaline Phosphatase (38-126) U/L Total Protein (6.3-8.2) g/dL Albumin (3.5-5.0) g/dL 12/31/18 12/31/18 12/31/18 Range/Units 04:29 04:29 04:29 RBC 3.32 L (3.80-5.40) m/uL Hgb 8.2 L (11.4-16.0) gm/dL Hct 27.7 L (34.0-46.0) % MCH 24.7 L (25.0-35.0) pg MCHC 29.7 L (31.0-37.0) g/dL RDW 20.9 H (11.5-15.5) % Neutrophils # 9.5 H (1.3-7.7) k/uL Lymphocytes # 0.6 L (1.0-4.8) k/uL PT 12.5 H (9.0-12.0) sec INR 1.2 H (<1.2) BUN 39 H (7-17) mg/dL Glucose 166 H (74-99) mg/dL POC Glucose (mg/dL) (75-99) mg/dL Phosphorus 4.6 H (2.5-4.5) mg/dL Total Bilirubin 2.1 H (0.2-1.3) mg/dL Delta Bilirubin 1.3 H (0.0-0.2) mg/dL AST 46 H (14-36) U/L ALT 57 H (9-52) U/L Alkaline Phosphatase 248 H (38-126) U/L Total Protein 4.6 L (6.3-8.2) g/dL Albumin 2.4 L (3.5-5.0) g/dL 12/31/18 Range/Units 06:31 RBC (3.80-5.40) m/uL Hgb (11.4-16.0) gm/dL Hct (34.0-46.0) % MCH (25.0-35.0) pg MCHC (31.0-37.0) g/dL RDW (11.5-15.5) % Neutrophils # (1.3-7.7) k/uL Lymphocytes # (1.0-4.8) k/uL PT (9.0-12.0) sec INR (<1.2) BUN (7-17) mg/dL Glucose (74-99) mg/dL POC Glucose (mg/dL) 186 H (75-99) mg/dL Phosphorus (2.5-4.5) mg/dL Total Bilirubin (0.2-1.3) mg/dL Delta Bilirubin (0.0-0.2) mg/dL AST (14-36) U/L ALT (9-52) U/L Alkaline Phosphatase (38-126) U/L Total Protein (6.3-8.2) g/dL Albumin (3.5-5.0) g/dL Microbiology - Last 24 Hours (Table) 12/28/18 14:55 Gram Stain - Preliminary Ascites Fluid Body Fluid Culture - Preliminary 12/28/18 14:55 Anaerobic Culture - Preliminary Ascites Fluid Assessment and Plan Assessment: Impression: 1 acute hypoxic and hypercapnic respiratory failure secondary to likely aspiration pneumonia, and underlying COPD with acute exacerbation. Patient was extubated on 12/29/2018, 2 acute exacerbation of COPD, also contributing to her hypoxic respiratory failure and requiring intubation and mechanical ventilation. 3 profound anemia secondary to GI blood losses, received a total of 2 units of packed RBCs since admission. Continues to be followed by gastroenterology. 4 abdominal ascites possibly related to liver disease, workup is nondiagnostic, basically negative. 5 change in mental status, possible metabolic encephalopathy improving, and her ammonia level came back normal 6 type 2 diabetes 7 fibromyalgia 8 polymyalgia rheumatica 9 hypertension 10 rheumatoid arthritis 11 hyperlipidemia 12 elevated liver enzymes and history of fatty liver with ascites. 13 transverse colonic polyp recently resected. 14 chronic back pain. Recommendation: Continue supportive care measures, antibiotics, bronchodilators , GI and DVT prophylaxis, discussed with the patient the results of her peritoneal fluid, and the fact on cultures are negative, cytology is negative, patient is nothing requiring any pressors at this point, and her mental status seems to be improving, hence I would likely recommend that we transfer the patient out of the ICU to a medical surgical floor, will continue to follow. Her ascites and her GI bleeding is being addressed by gastroenterology on the case. Not quite ready for discharge planning at this point yet. Considering her liver issues and GI issues, prognosis remains guarded. Time with Patient: Less than 30
[2018-12-31 12:08] LABS: Glucose,Whole Blood 162 mg/dL (75-99)
[2018-12-31 17:16] LABS: Glucose,Whole Blood 134 mg/dL (75-99)
[2018-12-31 20:27] LABS: Glucose,Whole Blood 178 mg/dL (75-99)
--- NOTE | 2018-12-31 20:42 | P.PN ---
Subjective Progress Note Date: 12/31/18 Principal diagnosis: Melena, anemia of acute blood loss, ascites Patient is seen lying in bed. Some confusion overnight reported by nursing staff. No signs or symptoms of GI bleeding or complaints of abdominal pain, she is tolerating her diet. Objective - Vital Signs Vital signs: Vital Signs Temp 98.7 F 12/31/18 15:00 Pulse 92 12/31/18 20:27 Resp 18 12/31/18 15:00 BP 115/62 12/31/18 15:00 Pulse Ox 95 12/31/18 15:00 Intake & Output 12/31/18 12/31/18 01/01/19 06:59 18:59 06:59 Intake Total 100 1350 Output Total 560 885 Balance -460 465 Weight 91.4 kg Intake: IV 100 550 Clindamycin 600 mg In 50 Dextrose 5% in Water 50 ml @ 50 mls/hr IVPB Q6HR [facility] Rx#:[id number] NS 0.9 100 500 Oral 800 Output: Urine 560 885 Other: Voiding Method Indwelling Catheter Bedpan ABP, PAP, CO, CI - Last Documented Arterial Blood Pressure 137/61 - Exam On physical examination, patient appears comfortable in no apparent distress. HEAD: Normocephalic, atraumatic. EYES: No scleral icterus. No conjunctival injection. MOUTH: No lesions, tongue midline. NECK: Trachea midline, no gross abnormalities. CHEST: Decreased air entry in all lung meyer. HEART: Regular rate and rhythm. ABDOMEN: Soft, obese. Bowel sounds are positive. No organomegaly. No guarding or rigidity. EXTREMITIES: No pedal edema. SKIN: No rashes, no jaundice. NEUROLOGIC: Awake, alert and oriented 3. - Labs CBC & Chem 7: 12/31/18 04:29 12/31/18 04:29 Labs: Abnormal Lab Results - Last 24 Hours (Table) 12/30/18 12/31/18 12/31/18 Range/Units 21:14 04:29 04:29 RBC (3.80-5.40) m/uL Hgb (11.4-16.0) gm/dL Hct (34.0-46.0) % MCH (25.0-35.0) pg MCHC (31.0-37.0) g/dL RDW (11.5-15.5) % Neutrophils # (1.3-7.7) k/uL Lymphocytes # (1.0-4.8) k/uL PT 12.5 H (9.0-12.0) sec INR 1.2 H (<1.2) BUN 39 H (7-17) mg/dL Glucose 166 H (74-99) mg/dL POC Glucose (mg/dL) 219 H (75-99) mg/dL Phosphorus 4.6 H (2.5-4.5) mg/dL Total Bilirubin 2.1 H (0.2-1.3) mg/dL Delta Bilirubin 1.3 H (0.0-0.2) mg/dL AST 46 H (14-36) U/L ALT 57 H (9-52) U/L Alkaline Phosphatase 248 H (38-126) U/L Total Protein 4.6 L (6.3-8.2) g/dL Albumin 2.4 L (3.5-5.0) g/dL 12/31/18 12/31/18 12/31/18 Range/Units 04:29 06:31 12:06 RBC 3.32 L (3.80-5.40) m/uL Hgb 8.2 L (11.4-16.0) gm/dL Hct 27.7 L (34.0-46.0) % MCH 24.7 L (25.0-35.0) pg MCHC 29.7 L (31.0-37.0) g/dL RDW 20.9 H (11.5-15.5) % Neutrophils # 9.5 H (1.3-7.7) k/uL Lymphocytes # 0.6 L (1.0-4.8) k/uL PT (9.0-12.0) sec INR (<1.2) BUN (7-17) mg/dL Glucose (74-99) mg/dL POC Glucose (mg/dL) 186 H 162 H (75-99) mg/dL Phosphorus (2.5-4.5) mg/dL Total Bilirubin (0.2-1.3) mg/dL Delta Bilirubin (0.0-0.2) mg/dL AST (14-36) U/L ALT (9-52) U/L Alkaline Phosphatase (38-126) U/L Total Protein (6.3-8.2) g/dL Albumin (3.5-5.0) g/dL 12/31/18 12/31/18 Range/Units 17:15 20:26 RBC (3.80-5.40) m/uL Hgb (11.4-16.0) gm/dL Hct (34.0-46.0) % MCH (25.0-35.0) pg MCHC (31.0-37.0) g/dL RDW (11.5-15.5) % Neutrophils # (1.3-7.7) k/uL Lymphocytes # (1.0-4.8) k/uL PT (9.0-12.0) sec INR (<1.2) BUN (7-17) mg/dL Glucose (74-99) mg/dL POC Glucose (mg/dL) 134 H 178 H (75-99) mg/dL Phosphorus (2.5-4.5) mg/dL Total Bilirubin (0.2-1.3) mg/dL Delta Bilirubin (0.0-0.2) mg/dL AST (14-36) U/L ALT (9-52) U/L Alkaline Phosphatase (38-126) U/L Total Protein (6.3-8.2) g/dL Albumin (3.5-5.0) g/dL Microbiology - Last 24 Hours (Table) 12/28/18 14:55 Gram Stain - Preliminary Ascites Fluid Body Fluid Culture - Preliminary Assessment and Plan (1) Melena Narrative/Plan: Patient presenting with reports of intermittent melena over the past few weeks, found to have an acute fall in her hemoglobin in with stool testing positive for occult blood. Complete evaluation with EGD suggestive only of gastritis, colonoscopy with findings of transverse colon polyp and internal hemorrhoids and video capsule endoscopy with no source of GI bleeding completed. Current Visit: Yes Status: Acute Code(s): K92.1 - MELENA SNOMED Code(s): 6146691 (2) Anemia due to blood loss Narrative/Plan: Patient presenting to the ED complaints of weakness found to have hemoglobin of 6.2 subsequently trended down to 4.9. Currently the patient is lying in bed with hemoglobin 8.1 from 7.0 yesterday with no signs or symptoms of GI bleeding reported. Current Visit: Yes Status: Acute Code(s): D50.0 - IRON DEFICIENCY ANEMIA SECONDARY TO BLOOD LOSS (CHRONIC) SNOMED Code(s): 102424820 (3) Occult blood in stools Current Visit: Yes Status: Acute Code(s): R19.5 - OTHER FECAL ABNORMALITIES SNOMED Code(s): 62315885 (4) Ascites Narrative/Plan: Unclear if the etiology his underlying liver disease with CT showing hepatic steatosis with nodularity or cardiac etiology, or other source. Paracentesis with 4.5 L removed. Current Visit: Yes Status: Acute Code(s): R18.8 - OTHER ASCITES SNOMED Code(s): 934651099 (5) Elevated liver enzymes Narrative/Plan: Cholestatic and hepatocellular pattern of elevation of the patient's liver enzymes with mild elevation of total bilirubin and alkaline phosphatase and transaminases. Unclear if this is secondary to a liver pathology with the patient being noted to have hepatic steatosis and a contoured liver on computed tomography scan, cardiac etiology or other etiology. Current Visit: Yes Status: Acute Code(s): R74.8 - ABNORMAL LEVELS OF OTHER SERUM ENZYMES SNOMED Code(s): 632800928 Plan: Supportive care Okay for diet Continue Protonix therapy Monitor hemoglobin and transfuse as needed No source of GI bleeding found with EGD significant for gastritis, colonoscopy significant for transverse colonic polyp removed with polypectomy and internal hemorrhoids, and a capsule endoscopy with no source of GI bleeding identified Await fluid studies from paracentesis, albumin level pending Viral hepatitis panel negative Will order full liver serologies given persistent elevat of liver enzymes, however elevation is likely secondary to underlying fatty liver disease with decompensation during her hospitalization due to multiple medical issues Thank you for allowing us to participate in the care of this patient, we will continue to follow
[2018-12-31] MEDS: AMITRIPTYLINE HCL 25 MG TAB PO SCH (21:11)
[2019-01-01] MEDS: IPRATROPIUM-ALBUTEROL 3 ML NEB INHALATION SCH ×6 (00:25→21:20)
--- NOTE | 2019-01-01 00:46 | P.PN ---
Subjective Progress Note Date: 12/30/18 Principal diagnosis: Acute hypoxic respiratory failure. Status post VDRF Left upper lobe aspiration pneumonia Acute blood loss anemia secondary to GI bleed. Status post EGD and colonoscopy. No source identified. Patient is 68-year-old female initially presented to ER with severe anemia and COPD exacerbation. Patient had EGD and colonoscopy and incomplete small bowel capsule endoscopy. Patient was found have gastritis/polyps and internal hemorrhoids. Subsequently patient went into respiratory failure secondary to COPD and possible aspiration pneumonia. Patient was transferred to ICU. Patient was also found to have ascites and cirrhosis possibly from nonalcoholic fatty liver disease..Paracentesis with 4.5 L removed. Viral hepatitis panel is negative. 12/29/2018 Patient was successfully extubated today. Currently patient is awake alert and oriented 3 and is able to communicate slowly. No fever no chills. Paracentesis fluid analysis is pending at this time. Unlikely SBP. Hemoglobin is 7.0 today. Pulmonary and GI is following. Liver enzymes normalized. Alk phos is slightly elevated 153 Albumin 2.0. No complaints of chest pain. No worsening shortness of breath. No leg swelling. 12/30/2018 Patient is lying in the bed comfortably. Patient was able to sit in the chair this morning. Otherwise no complaints of fever or chills. No nausea vomiting or abdominal pain. Abdominal is slightly distended likely due to recurrent ascites. Fluid culture is negative. Cytology is pending. Patient is able to tolerate oral diet. No commerce of fever or chills. Pulmonary and GI is following. All other review of systems negative except the above Discussed with her at bedside in detail. Current medications reviewed. Objective - Vital Signs Vital signs: Vital Signs Temp 97.8 F 12/30/18 20:00 Pulse 105 H 12/30/18 21:00 Resp 17 12/30/18 21:00 BP 94/51 12/30/18 18:00 Pulse Ox 92 L 12/30/18 21:00 Intake & Output 12/30/18 12/30/18 12/31/18 06:59 18:59 06:59 Intake Total 1660 1400 Output Total 620 670 175 Balance 1040 730 -175 Weight 90.2 kg 90.2 kg Intake: IV 700 650 Clindamycin 600 mg In 100 50 Dextrose 5% in Water 50 ml @ 50 mls/hr IVPB Q6HR [facility] Rx#:[id number] NS 0.9 600 600 Oral 960 750 Output: Urine 620 670 175 Other: Voiding Method Indwelling Catheter Indwelling Catheter ABP, PAP, CO, CI - Last Documented Arterial Blood Pressure 125/67 - Exam On physical examination, patient appears comfortable in no apparent distress. HEAD: Normocephalic, atraumatic. EYES: No scleral icterus. No conjunctival injection. MOUTH: No lesions, tongue midline. NECK: Trachea midline, no gross abnormalities. CHEST: Decreased air entry in all lung meyer. Scattered rhonchi. HEART: Regular rate and rhythm. ABDOMEN: Soft, obese. Bowel sounds are positive. No organomegaly. No guarding or rigidity. EXTREMITIES: No pedal edema. SKIN: No rashes, no jaundice. NEUROLOGIC: Awake, alert and oriented 3. - Labs CBC & Chem 7: 12/31/18 04:29 12/31/18 04:29 Labs: Abnormal Lab Results - Last 24 Hours (Table) 12/29/18 12/30/18 12/30/18 Range/Units 23:43 04:00 05:25 RBC 3.32 L (3.80-5.40) m/uL Hgb 8.1 L (11.4-16.0) gm/dL Hct 28.0 L (34.0-46.0) % MCH 24.3 L (25.0-35.0) pg MCHC 28.8 L (31.0-37.0) g/dL RDW 21.0 H (11.5-15.5) % Neutrophils # 9.4 H (1.3-7.7) k/uL Lymphocytes # 0.4 L (1.0-4.8) k/uL ABG pH (7.35-7.45) ABG pCO2 (35-45) mmHg ABG pO2 (83-108) mmHg ABG Total CO2 (19-24) mmol/L ABG O2 Saturation (94-97) % Sodium (137-145) mmol/L BUN (7-17) mg/dL Glucose (74-99) mg/dL POC Glucose (mg/dL) 130 H 137 H (75-99) mg/dL Calcium (8.4-10.2) mg/dL Phosphorus (2.5-4.5) mg/dL Total Bilirubin (0.2-1.3) mg/dL AST (14-36) U/L Alkaline Phosphatase (38-126) U/L Total Protein (6.3-8.2) g/dL Albumin (3.5-5.0) g/dL 12/30/18 12/30/18 12/30/18 Range/Units 05:25 07:56 09:14 RBC (3.80-5.40) m/uL Hgb (11.4-16.0) gm/dL Hct (34.0-46.0) % MCH (25.0-35.0) pg MCHC (31.0-37.0) g/dL RDW (11.5-15.5) % Neutrophils # (1.3-7.7) k/uL Lymphocytes # (1.0-4.8) k/uL ABG pH 7.47 H (7.35-7.45) ABG pCO2 34 L (35-45) mmHg ABG pO2 66 L (83-108) mmHg ABG Total CO2 26 H (19-24) mmol/L ABG O2 Saturation 93.3 L (94-97) % Sodium 136 L (137-145) mmol/L BUN 35 H (7-17) mg/dL Glucose 124 H (74-99) mg/dL POC Glucose (mg/dL) 138 H (75-99) mg/dL Calcium 8.0 L (8.4-10.2) mg/dL Phosphorus 4.8 H (2.5-4.5) mg/dL Total Bilirubin 2.2 H (0.2-1.3) mg/dL AST 40 H (14-36) U/L Alkaline Phosphatase 188 H (38-126) U/L Total Protein 4.3 L (6.3-8.2) g/dL Albumin 2.2 L (3.5-5.0) g/dL 12/30/18 12/30/18 12/30/18 Range/Units 12:07 16:50 21:14 RBC (3.80-5.40) m/uL Hgb (11.4-16.0) gm/dL Hct (34.0-46.0) % MCH (25.0-35.0) pg MCHC (31.0-37.0) g/dL RDW (11.5-15.5) % Neutrophils # (1.3-7.7) k/uL Lymphocytes # (1.0-4.8) k/uL ABG pH (7.35-7.45) ABG pCO2 (35-45) mmHg ABG pO2 (83-108) mmHg ABG Total CO2 (19-24) mmol/L ABG O2 Saturation (94-97) % Sodium (137-145) mmol/L BUN (7-17) mg/dL Glucose (74-99) mg/dL POC Glucose (mg/dL) 136 H 157 H 219 H (75-99) mg/dL Calcium (8.4-10.2) mg/dL Phosphorus (2.5-4.5) mg/dL Total Bilirubin (0.2-1.3) mg/dL AST (14-36) U/L Alkaline Phosphatase (38-126) U/L Total Protein (6.3-8.2) g/dL Albumin (3.5-5.0) g/dL Microbiology - Last 24 Hours (Table) 12/28/18 14:55 Anaerobic Culture - Preliminary Ascites Fluid 12/28/18 14:55 Gram Stain - Preliminary Ascites Fluid Body Fluid Culture - Preliminary Assessment and Plan Assessment: Acute hypoxic respiratory failure status post ventilator-dependent respiratory failure. currently extubated. Acute severe blood loss anemia status post EGD and colonoscopy and inconclusive small bowel capsule endoscopy. Gastritis and olives and internal hemorrhoids. Acute COPD exacerbation Left upper lobe pneumonia possibly aspiration Ascites status post paracentesis 4.5 L and NALFD/cirrhosis/ Chronic nicotine dependence Diabetes type 2 uncontrolled with hyperglycemia secondary to steroids Chronic fibromyalgia GERD Essential hypertension Hyperlipidemia Chronic polymyalgia rheumatica Chronic low back pain with arthritis. Peripheral neuropathy secondary to diabetes Hyperlipidemia Acute renal failure likely prerenal improved Plan: Patient be continued on breathing treatments and IV steroids. Current with antibiotics in the form of Levaquin and clindamycin. Transfuse if needed. Hemoglobin 7.0 today. Continue to follow closely and further recommendations based on the clinical course. Follow-up fluid analysis from paracentesis. Pulmonary and GI is on board. Prognosis is guarded. Time with Patient: Greater than 30
--- NOTE | 2019-01-01 00:50 | P.PN ---
Subjective Progress Note Date: 12/31/18 Principal diagnosis: Acute hypoxic respiratory failure. Status post VDRF Left upper lobe aspiration pneumonia Acute blood loss anemia secondary to GI bleed. Status post EGD and colonoscopy. No source identified. Patient is 68-year-old female initially presented to ER with severe anemia and COPD exacerbation. Patient had EGD and colonoscopy and incomplete small bowel capsule endoscopy. Patient was found have gastritis/polyps and internal hemorrhoids. Subsequently patient went into respiratory failure secondary to COPD and possible aspiration pneumonia. Patient was transferred to ICU. Patient was also found to have ascites and cirrhosis possibly from nonalcoholic fatty liver disease..Paracentesis with 4.5 L removed. Viral hepatitis panel is negative. 12/29/2018 Patient was successfully extubated today. Currently patient is awake alert and oriented 3 and is able to communicate slowly. No fever no chills. Paracentesis fluid analysis is pending at this time. Unlikely SBP. Hemoglobin is 7.0 today. Pulmonary and GI is following. Liver enzymes normalized. Alk phos is slightly elevated 153 Albumin 2.0. No complaints of chest pain. No worsening shortness of breath. No leg swelling. 12/30/2018 Patient is lying in the bed comfortably. Patient was able to sit in the chair this morning. Otherwise no complaints of fever or chills. No nausea vomiting or abdominal pain. Abdominal is slightly distended likely due to recurrent ascites. Fluid culture is negative. Cytology is pending. Patient is able to tolerate oral diet. No commerce of fever or chills. Pulmonary and GI is following. 12/31/2018 Patient is able to sit in the chair and tolerating oral diet today. PT OT was consulted. Otherwise hemoglobin is stable. Abdomen seems to be still distending. No complaints of fever or chills. Fluid culture showed no growth. and cytology is negative for malignancy. Patient will be assessed for subacute rehab transfer. Chest x-ray showed improved aeration of the left upper lobe with improving pneumonia. Patient is being transferred to general medical floor today. Pulmonary and GI on board. All other review of systems negative except the above Discussed with her at bedside in detail. Current medications reviewed. Objective - Vital Signs Vital signs: Vital Signs Temp 98.0 F 12/31/18 21:29 Pulse 96 12/31/18 21:29 Resp 14 12/31/18 21:29 BP 107/67 12/31/18 21:29 Pulse Ox 95 12/31/18 21:29 Intake & Output 12/31/18 12/31/18 01/01/19 06:59 18:59 06:59 Intake Total 100 1350 Output Total 560 885 Balance -460 465 Weight 91.4 kg Intake: IV 100 550 Clindamycin 600 mg In 50 Dextrose 5% in Water 50 ml @ 50 mls/hr IVPB Q6HR [facility] Rx#:[id number] NS 0.9 100 500 Oral 800 Output: Urine 560 885 Other: Voiding Method Indwelling Catheter Bedpan ABP, PAP, CO, CI - Last Documented Arterial Blood Pressure 137/61 - Exam On physical examination, patient appears comfortable in no apparent distress. HEAD: Normocephalic, atraumatic. EYES: No scleral icterus. No conjunctival injection. MOUTH: No lesions, tongue midline. NECK: Trachea midline, no gross abnormalities. CHEST: Decreased air entry in all lung meyer. Scattered rhonchi. HEART: Regular rate and rhythm. ABDOMEN: Soft, obese. Distended. Bowel sounds are positive. No organomegaly. No guarding or rigidity. EXTREMITIES: No pedal edema. SKIN: No rashes, no jaundice. NEUROLOGIC: Awake, alert and oriented 3. - Labs CBC & Chem 7: 12/31/18 04:29 12/31/18 04:29 Labs: Abnormal Lab Results - Last 24 Hours (Table) 12/31/18 12/31/18 12/31/18 Range/Units 04:29 04:29 04:29 RBC 3.32 L (3.80-5.40) m/uL Hgb 8.2 L (11.4-16.0) gm/dL Hct 27.7 L (34.0-46.0) % MCH 24.7 L (25.0-35.0) pg MCHC 29.7 L (31.0-37.0) g/dL RDW 20.9 H (11.5-15.5) % Neutrophils # 9.5 H (1.3-7.7) k/uL Lymphocytes # 0.6 L (1.0-4.8) k/uL PT 12.5 H (9.0-12.0) sec INR 1.2 H (<1.2) BUN 39 H (7-17) mg/dL Glucose 166 H (74-99) mg/dL POC Glucose (mg/dL) (75-99) mg/dL Phosphorus 4.6 H (2.5-4.5) mg/dL Total Bilirubin 2.1 H (0.2-1.3) mg/dL Delta Bilirubin 1.3 H (0.0-0.2) mg/dL AST 46 H (14-36) U/L ALT 57 H (9-52) U/L Alkaline Phosphatase 248 H (38-126) U/L Total Protein 4.6 L (6.3-8.2) g/dL Albumin 2.4 L (3.5-5.0) g/dL 12/31/18 12/31/18 12/31/18 Range/Units 06:31 12:06 17:15 RBC (3.80-5.40) m/uL Hgb (11.4-16.0) gm/dL Hct (34.0-46.0) % MCH (25.0-35.0) pg MCHC (31.0-37.0) g/dL RDW (11.5-15.5) % Neutrophils # (1.3-7.7) k/uL Lymphocytes # (1.0-4.8) k/uL PT (9.0-12.0) sec INR (<1.2) BUN (7-17) mg/dL Glucose (74-99) mg/dL POC Glucose (mg/dL) 186 H 162 H 134 H (75-99) mg/dL Phosphorus (2.5-4.5) mg/dL Total Bilirubin (0.2-1.3) mg/dL Delta Bilirubin (0.0-0.2) mg/dL AST (14-36) U/L ALT (9-52) U/L Alkaline Phosphatase (38-126) U/L Total Protein (6.3-8.2) g/dL Albumin (3.5-5.0) g/dL 12/31/18 Range/Units 20:26 RBC (3.80-5.40) m/uL Hgb (11.4-16.0) gm/dL Hct (34.0-46.0) % MCH (25.0-35.0) pg MCHC (31.0-37.0) g/dL RDW (11.5-15.5) % Neutrophils # (1.3-7.7) k/uL Lymphocytes # (1.0-4.8) k/uL PT (9.0-12.0) sec INR (<1.2) BUN (7-17) mg/dL Glucose (74-99) mg/dL POC Glucose (mg/dL) 178 H (75-99) mg/dL Phosphorus (2.5-4.5) mg/dL Total Bilirubin (0.2-1.3) mg/dL Delta Bilirubin (0.0-0.2) mg/dL AST (14-36) U/L ALT (9-52) U/L Alkaline Phosphatase (38-126) U/L Total Protein (6.3-8.2) g/dL Albumin (3.5-5.0) g/dL Microbiology - Last 24 Hours (Table) 12/28/18 14:55 Gram Stain - Preliminary Ascites Fluid Body Fluid Culture - Preliminary Assessment and Plan Assessment: Acute hypoxic respiratory failure status post ventilator-dependent respiratory failure. currently extubated. Acute severe blood loss anemia status post EGD and colonoscopy and inconclusive small bowel capsule endoscopy. Gastritis and internal hemorrhoids. Hemoglobin stable. Acute COPD exacerbation Left upper lobe pneumonia possibly aspiration Ascites status post paracentesis 4.5 L and NALFD/cirrhosis/ Chronic nicotine dependence Diabetes type 2 uncontrolled with hyperglycemia secondary to steroids Chronic fibromyalgia GERD Essential hypertension Hyperlipidemia Chronic polymyalgia rheumatica Chronic low back pain with arthritis. Peripheral neuropathy secondary to diabetes Hyperlipidemia Acute renal failure likely prerenal improved Plan: Patient be continued on breathing treatments and IV steroids. Current with antibiotics in the form of Levaquin and clindamycin. Transfuse if needed. Hemoglobin 8.2 today. Continue to follow closely and further recommendations based on the clinical course. Follow-up fluid analysis from paracentesis. Pulmonary and GI is on board. Prognosis is guarded. Time with Patient: Greater than 30
[2019-01-01] MEDS: CLINDAMYCIN 600 MG in DEXTROSE 5% IN WATER 50 ML IVPB SCH ×8 (05:47→23:27)
[2019-01-01 07:27] LABS: Glucose,Whole Blood 139 mg/dL (75-99)
[2019-01-01] MEDS: INSULIN ASPART (NovoLOG) 100 UNIT/ML VIAL SQ SCH ×4 (08:26→21:28)
[2019-01-01] MEDS: GABAPENTIN 300 MG CAP PO SCH ×3 (08:27→21:28)
[2019-01-01] MEDS: guaiFENesin 600 MG TABLET.ER PO SCH ×3 (08:27→20:35)
[2019-01-01] MEDS: METOPROLOL TARTRATE 50 MG TAB PO SCH ×3 (08:27→20:35)
[2019-01-01] MEDS: SODIUM BICARBONATE TAB 650 MG TAB PO SCH ×4 (08:27→20:35)
[2019-01-01] MEDS: FAMOTIDINE 20 MG TAB PO SCH ×2 (08:27→10:45)
[2019-01-01] MEDS: methylPREDNISolone SOD SUCCI 40 MG/ML 1 ML VIAL IV SCH ×2 (09:07→20:39)
[2019-01-01] MEDS: BUDESONIDE 1 MG/2 ML NEBU INHALATION SCH ×2 (09:09→21:20)
[2019-01-01] MEDS: predniSONE 20 MG TAB PO SCH (09:12)
[2019-01-01] MEDS: LEVOFLOXACIN 750 MG TAB PO SCH ×2 (09:57→10:45)
[2019-01-01 12:09] LABS: Glucose,Whole Blood 130 mg/dL (75-99)
[2019-01-01 12:58] VITALS: BMI 40.6
--- NOTE | 2019-01-01 13:14 | US ---
EXAMINATION TYPE: US abdomen limited DATE OF EXAM: 01/01/2019 COMPARISON: NONE CLINICAL HISTORY: ascites/recurrent. Mild amount of free fluid visualized. Largest pocket measuring 4.7cm in the RLQ IMPRESSION: Mild to moderate ascites.
--- NOTE | 2019-01-01 14:58 | P.PN ---
Subjective Progress Note Date: 01/01/19 Principal diagnosis: Acute hypoxic and hypercapnic respiratory failure secondary to left upper lobe pneumonia and underlying COPD with acute exacerbation. This is a 68-year-old female patient with known history of COPD in addition to history of polymyalgia rheumatica, fibromyalgia, chronic back pain, peripheral neuropathy and diabetes mellitus who came into the hospital because of generalized weakness. The patient apparently was getting progressively more weak and she had some increased nausea and dizziness. Overall she was feeling rundown. She was having difficulties mobility. In the emergency department, hemoglobin was done and came back at 4.9. The patient denied having any tarry stool. Hemoccult was positive. The patient had a component of hyperkalemia that was treated and the potassium level normalized. The patient was found to bronchospastic and wheezy. The patient was started on bronchodilators. GI consultation was obtained. Patient was given packed RBC transfusion. Over the past few days, the patient underwent further investigation including a EGD that was done that showed no evidence of any acute bleeding. There was mild scattered gastritis and the angiogram in the body and hiatal hernia. The esophagus was tortuous. The colonoscopy was also done that showed a polyp in transverse colon that was removed. There was mild internal hemorrhoids. Based on all this, a video capsule endoscopy was recommended.The patient was doing well. The patient was being considered even to be discharged home. Earlier this morning she became acutely short of breath. She became bronchus spastic and wheezy. She has also diminished level of consciousness. Time of the arrival to the ICU, the patient was diaphoretic and sweaty and tachypneic and tachycardic. She was not following commands. The blood gases was done that showed no significant respiratory acidosis. Nevertheless, clinically the patient was in impending respiratory failure. At that point, I decided to intubate the patient put on a mechanical ventilator. I reviewed the chest x- ray that was done earlier this morning and it showed a new left upper lobe opacity compared to the prior study and this finding was highly suspicious for an evolving pneumonia. Repeat chest x-ray as well as done post intubation showed a wedge-shaped opacity in the left upper lobe. Otherwise the rest of the cardiac border structures were low normal limits and ET tube was in a good location. The patient was started on a combination of Levaquin and clindamycin. She was started on DuoNeb the right seems on the clock and IV Solu -Medrol. Currently she is an assist-control mode of ventilation with a tidal volume of 400, FiO2 of 60%, PEEP of 5 and a respiratory rate of 20. Peak airway pressures around 30. The pH is at 7.43 with a pCO2 of 38 and pO2 of 162. Note that IV realized the patient had some increased abdominal distention post intubation. NG tube was inserted and output was minimal. The patient will be sent for a CAT scan of the chest and abdomen. Note that the CAT scan of the lumbar spine that was done showed degenerative changes in the mid in the lower lumbar spine in addition to moderate degree of abdominal pelvic ascites suspicious for liver cirrhosis an underlying portal hypertension. On 12/28/2018, patient was reevaluated in the ICU, remains on mechanical ventilation. Her ventilator settings are tidal volume of 400 assist control rate of 14 FiO2 is 40% PEEP of 5. Chest x-ray continues to show left upper lobe pneumonia. Patient remains on propofol at 40 mcg/kg/m, she was on norepinephrine this morning and this was discontinued. Her urine output was marginal, hence she was given fluid bolus of 0.9 normal saline/1 L. Patient was seen by interventional radiology, ultrasound was done, and being considered for paracentesis sometime today. However this is yet to be done. CT of the abdomen showed liver cirrhosis and abdominal with pelvic ascites. Patient continues to have a nasogastric tube in place, no evidence of any active GI bleeding, hemoglobin is holding at 7.6 today. ABG showed a pO2 of 90 pCO2 of 37 pH of 7.44. Pressure support/CPAP ABG showed a pO2 of 90 pCO2 of 35 pH of 7.45. Relatively normal electrolytes were noted. BUN is 32 creatinine is 0.88. Liver enzymes remain slightly elevated with alkaline phosphatase of 229. Total bilirubin is 2.3. Chest x-ray again showed bibasilar atelectasis, and left upper lobe pneumonia. Patient was noted to be arousable, followed simple instructions even on low dose of propofol. A patient was reevaluated today on 12/29/2018, remains in the ICU, mechanically ventilated. Her ventilator settings were noted to be unchanged, remains on assist control rate of 14, FiO2 of 40% PEEP of 400 and PEEP of 5. Chest x-ray is showing improvement, patchy bibasilar density persists, resolving pneumonia. Patient underwent paracentesis yesterday, and 4.5 L of fluid were drained. ABG this morning showed a pO2 of 144 pCO2 of 37 pH of 7.45. WBC count is 8.8 hemoglobin is 7. Electrolytes and renal profile are relatively normal. Studies on the spinal fluid are pending. However the fluid seems to be low on protein, and minimal amount of WBC count noted in the fluid. Clearly does not seem to be infected patient remains sedated at present, however I plan to hold sedation and I will likely give the patient another trial of weaning today, this will be utilizing a pressure support of 8 and CPAP, and if tolerated I will likely proceed to extubating the patient later today. Patient was reevaluated today on 12/30/2018, she was extubated yesterday, and tolerated the extubation quite well. However this morning the patient seems to be a bit sleepy and lethargic, in no form of respiratory distress. He denies any pain, denies any shortness of breath, no cough no wheezing, her abdomen seems to be a bit more distended, and I believe she is developing ascites again. This is all likely related to her liver and underlying liver disease. Patient was never a drinker, but she had history of fatty liver. ABG this morning was done to look into potential hypercapnia, her pO2 was noted to be 66 pCO2 is 34 pH of 7.47, and this was done on room air. Her chest x-ray, showed definite improvement in aeration of both lungs and specially the left upper lobe post extubation. Blood sugar was noted to be normal. Ammonia level is pending. Cytology on the peritoneal fluid is still pending. Cultures are negative so far. Patient is still being followed by gastroenterology. Still addressing her issue of intermittent melena and anemia as well as ascites and elevated liver enzymes. Reevaluated today on 12/31/2018, patient remains in the ICU, she was extubated 2 days ago, and she tolerated the extubation well. Denies any active pulmonary symptoms, no cough no wheezing no shortness of breath. She seems to be more alert today, however she had some episodes of confusion last night, and this has resolved early this morning. Denies any abdominal pain, no evidence of any active bleeding, hemoglobin is holding at 8.2 today. INR is normal. Electrolytes are normal renal profile is normal. Liver enzymes were noted to be slightly elevated. Chest x-ray was also reviewed, her left upper lobe pneumonia seems to be significantly improved. Ascites fluid has been negative for infection. Negative cytology was also noted. On 01/01/2019 patient seen in follow-up in medical surgical floor. She is lethargic, but arousable to verbal and tactile stimulation. No signs of respiratory distress, pulse ox is 99% on room air, no fever or chills, no use of accessory muscles of breathing. Lung sounds are positive for scattered rhonchi. Ascites fluid cultures remain negative thus far. Abdomen soft and nontender, family thinks there is a reaccumulation of ascites fluid. GI service is following. Repeat ultrasound the abdomen today showed mild to moderate ascites. She is status post paracentesis with removal of 3000 ML of ascites fluid on 12/29/2018. Cytology showed acute inflammation admixed with reactive mesothelial cells. Objective - Vital Signs Vital signs: Vital Signs Temp 97.8 F 01/01/19 05:49 Pulse 85 01/01/19 13:06 Resp 18 01/01/19 08:00 BP 119/71 01/01/19 05:49 Pulse Ox 99 01/01/19 05:49 Intake & Output 12/31/18 01/01/19 01/01/19 18:59 06:59 18:59 Intake Total 1350 50 Output Total 885 550 Balance 465 -500 Weight 91.4 kg Intake: IV 550 50 Clindamycin 600 mg In 50 50 Dextrose 5% in Water 50 ml @ 50 mls/hr IVPB Q6HR [facility] Rx#:[id number] NS 0.9 500 Oral 800 Output: Urine 885 550 Other: Voiding Method Bedpan Indwelling Catheter # Voids 0 # Bowel Movements 3 ABP, PAP, CO, CI - Last Documented Arterial Blood Pressure 137/61 - Exam GENERAL EXAM: Somnolent, but arousable 68-year-old white female, on room air, comfortable in no apparent distress. HEAD: Normocephalic/atraumatic. EYES: Normal reaction of pupils, equal size. Conjunctiva pink, sclera white. NOSE: Clear with pink turbinates. THROAT: No erythema or exudates. NECK: No masses, no JVD, no thyroid enlargement, no adenopathy. CHEST: No chest wall deformity. Symmetrical expansion. LUNGS: Equal air entry with diffuse rhonchi CVS: Regular rate and rhythm, normal S1 and S2, no gallops, no murmurs, no rubs ABDOMEN: Soft, nontender. No hepatosplenomegaly, normal bowel sounds, no guarding or rigidity. EXTREMITIES: No clubbing, no edema, no cyanosis, 2+ pulses and upper and lower extremities. MUSCULOSKELETAL: Muscle strength and tone normal. SPINE: No scoliosis or deformity SKIN: No rashes CENTRAL NERVOUS SYSTEM: Lethargic but arousable, confused. No focal deficits, tone is normal in all 4 extremities. - Labs CBC & Chem 7: 12/31/18 04:29 12/31/18 04:29 Labs: Abnormal Lab Results - Last 24 Hours (Table) 12/31/18 12/31/18 01/01/19 Range/Units 17:15 20:26 07:16 POC Glucose (mg/dL) 134 H 178 H 139 H (75-99) mg/dL 01/01/19 Range/Units 12:03 POC Glucose (mg/dL) 130 H (75-99) mg/dL Microbiology - Last 24 Hours (Table) 12/28/18 14:55 Anaerobic Culture - Final Ascites Fluid 12/28/18 14:55 Gram Stain - Final Ascites Fluid Body Fluid Culture - Final Assessment and Plan Plan: Assessment: 1 acute hypoxic and hypercapnic respiratory failure secondary to likely aspiration pneumonia, and underlying COPD with acute exacerbation. Patient was extubated on 12/29/2018, 2 acute exacerbation of COPD, also contributing to her hypoxic respiratory failure and requiring intubation and mechanical ventilation. 3 profound anemia secondary to GI blood losses, received a total of 2 units of packed RBCs since admission. Continues to be followed by gastroenterology. 4 abdominal ascites possibly related to liver disease, workup is nondiagnostic, basically negative. 5 change in mental status, possible metabolic encephalopathy improving, and her ammonia level came back normal 6 type 2 diabetes 7 fibromyalgia 8 polymyalgia rheumatica 9 hypertension 10 rheumatoid arthritis 11 hyperlipidemia 12 elevated liver enzymes and history of fatty liver with ascites. 13 transverse colonic polyp recently resected. 14 chronic back pain. Plan: From pulmonary perspective patient remains stable, tolerating extubation quite well, currently on room air, maintain aspiration precautions, continue current antibiotic coverage. No fever or chills. Chest x-ray from yesterday showing improvement in the appearance of left upper lobe pneumonia, probable residual basilar atelectasis. Continue nebulized bronchodilators, increase activity as tolerated, encouraged patient to sit up in the chair, deep breathing and cough. Family takes there is reaccumulation of the ascites fluid within the abdomen, and repeat ultrasound abdomen showed only mild to moderate ascites. GI service is following. I performed a history & physical examination of the patient and discussed their management with my nurse practitioner, Kenzie Daigle. I reviewed the nurse practitioner's note and agree with the documented findings and plan of care. Lung sounds are positive for scattered rhonchi. The findings and the impression was discussed with the patient. I attest to the documentation by the nurse practitioner. Time with Patient: Less than 30
[2019-01-01 17:18] LABS: Glucose,Whole Blood 175 mg/dL (75-99)
[2019-01-01] MEDS: SODIUM CHLORIDE 0.9% 1,000 ML IV SCH (17:26)
[2019-01-01] MEDS: AMITRIPTYLINE HCL 25 MG TAB PO SCH (20:35)
[2019-01-01 21:21] LABS: Glucose,Whole Blood 176 mg/dL (75-99)
--- NOTE | 2019-01-01 22:04 | P.PN ---
Subjective Progress Note Date: 01/01/19 Principal diagnosis: Melena, anemia of acute blood loss, ascites patient is seen lying in bed eating her lunch. No reports of abdominal pain. She was transferred out of the ICU and is currently on the medical floor. Objective - Vital Signs Vital signs: Vital Signs Temp 98.2 F 01/01/19 15:00 Pulse 80 01/01/19 21:32 Resp 16 01/01/19 18:10 BP 124/73 01/01/19 15:00 Pulse Ox 92 L 01/01/19 15:00 Intake & Output 01/01/19 01/01/19 01/02/19 06:59 18:59 06:59 Intake Total 50 50 Output Total 550 450 Balance -500 -400 Weight 91.4 kg Intake: IV 50 Clindamycin 600 mg In 50 Dextrose 5% in Water 50 ml @ 50 mls/hr IVPB Q6HR [facility] Rx#:[id number] Intake, IV Titration 50 Amount Clindamycin 600 mg In 50 Dextrose 5% in Water 50 ml @ 50 mls/hr IVPB Q6HR [facility] Rx#:[id number] Output: Urine 550 450 Other: Voiding Method Indwelling Catheter Indwelling Catheter # Voids 0 400 # Bowel Movements 3 ABP, PAP, CO, CI - Last Documented Arterial Blood Pressure 137/61 - Exam On physical examination, patient appears comfortable in no apparent distress. HEAD: Normocephalic, atraumatic. EYES: No scleral icterus. No conjunctival injection. MOUTH: No lesions, tongue midline. NECK: Trachea midline, no gross abnormalities. CHEST: Decreased air entry in all lung meyer. HEART: Regular rate and rhythm. ABDOMEN: Soft, obese. Bowel sounds are positive. No organomegaly. No guarding or rigidity. EXTREMITIES: No pedal edema. SKIN: No rashes, no jaundice. NEUROLOGIC: Awake, alert and oriented 3. - Labs CBC & Chem 7: 12/31/18 04:29 12/31/18 04:29 Labs: Abnormal Lab Results - Last 24 Hours (Table) 01/01/19 01/01/19 01/01/19 Range/Units 07:16 12:03 17:14 POC Glucose (mg/dL) 139 H 130 H 175 H (75-99) mg/dL 01/01/19 Range/Units 21:18 POC Glucose (mg/dL) 176 H (75-99) mg/dL Microbiology - Last 24 Hours (Table) 12/28/18 14:55 Anaerobic Culture - Final Ascites Fluid 12/28/18 14:55 Gram Stain - Final Ascites Fluid Body Fluid Culture - Final Assessment and Plan (1) Melena Narrative/Plan: Patient presenting with reports of intermittent melena over the past few weeks, found to have an acute fall in her hemoglobin in with stool testing positive for occult blood. Complete evaluation with EGD suggestive only of gastritis, colonoscopy with findings of transverse colon polyp and internal hemorrhoids and video capsule endoscopy with no source of GI bleeding completed. Current Visit: Yes Status: Acute Code(s): K92.1 - MELENA SNOMED Code(s): 0691997 (2) Anemia due to blood loss Narrative/Plan: Patient presenting to the ED complaints of weakness found to have hemoglobin of 6.2 subsequently trended down to 4.9. Currently the patient is lying in bed with hemoglobin 8.2 from 8.1 yesterday with no signs or symptoms of GI bleeding reported. Current Visit: Yes Status: Acute Code(s): D50.0 - IRON DEFICIENCY ANEMIA SECONDARY TO BLOOD LOSS (CHRONIC) SNOMED Code(s): 829890773 (3) Occult blood in stools Current Visit: Yes Status: Acute Code(s): R19.5 - OTHER FECAL ABNORMALITIES SNOMED Code(s): 56331069 (4) Ascites Narrative/Plan: Unclear if the etiology his underlying liver disease with CT showing hepatic steatosis with nodularity or cardiac etiology, or other source. Paracentesis with 4.5 L removed. Current Visit: Yes Status: Acute Code(s): R18.8 - OTHER ASCITES SNOMED Code(s): 266110520 (5) Elevated liver enzymes Narrative/Plan: Cholestatic and hepatocellular pattern of elevation of the patient's liver enzymes with mild elevation of total bilirubin and alkaline phosphatase and transaminases. Unclear if this is secondary to a liver pathology with the patient being noted to have hepatic steatosis and a contoured liver on computed tomography scan, cardiac etiology or other etiology. Current Visit: Yes Status: Acute Code(s): R74.8 - ABNORMAL LEVELS OF OTHER SERUM ENZYMES SNOMED Code(s): 501169377 Plan: Supportive care Okay for diet Continue Protonix therapy Monitor hemoglobin and transfuse as needed No source of GI bleeding found with EGD significant for gastritis, colonoscopy significant for transverse colonic polyp removed with polypectomy and internal hemorrhoids, and a capsule endoscopy with no source of GI bleeding identified Await fluid studies from paracentesis, albumin level pending Viral hepatitis panel negative Results from liver serology pending Thank you for allowing us to participate in the care of this patient, we will continue to follow
--- NOTE | 2019-01-01 23:40 | P.PN ---
Subjective Progress Note Date: 01/01/19 Principal diagnosis: Acute hypoxic respiratory failure. Status post VDRF Left upper lobe aspiration pneumonia Acute blood loss anemia secondary to GI bleed. Status post EGD and colonoscopy. No source identified. Patient is 68-year-old female initially presented to ER with severe anemia and COPD exacerbation. Patient had EGD and colonoscopy and incomplete small bowel capsule endoscopy. Patient was found have gastritis/polyps and internal hemorrhoids. Subsequently patient went into respiratory failure secondary to COPD and possible aspiration pneumonia. Patient was transferred to ICU. Patient was also found to have ascites and cirrhosis possibly from nonalcoholic fatty liver disease..Paracentesis with 4.5 L removed. Viral hepatitis panel is negative. 12/29/2018 Patient was successfully extubated today. Currently patient is awake alert and oriented 3 and is able to communicate slowly. No fever no chills. Paracentesis fluid analysis is pending at this time. Unlikely SBP. Hemoglobin is 7.0 today. Pulmonary and GI is following. Liver enzymes normalized. Alk phos is slightly elevated 153 Albumin 2.0. No complaints of chest pain. No worsening shortness of breath. No leg swelling. 12/30/2018 Patient is lying in the bed comfortably. Patient was able to sit in the chair this morning. Otherwise no complaints of fever or chills. No nausea vomiting or abdominal pain. Abdominal is slightly distended likely due to recurrent ascites. Fluid culture is negative. Cytology is pending. Patient is able to tolerate oral diet. No commerce of fever or chills. Pulmonary and GI is following. 12/31/2018 Patient is able to sit in the chair and tolerating oral diet today. PT OT was consulted. Otherwise hemoglobin is stable. Abdomen seems to be still distending. No complaints of fever or chills. Fluid culture showed no growth. and cytology is negative for malignancy. Patient will be assessed for subacute rehab transfer. Chest x-ray showed improved aeration of the left upper lobe with improving pneumonia. Patient is being transferred to general medical floor today. Pulmonary and GI on board. 01/01/2019 Patient was transferred to general medical floor today. Patient is able to get up Slowly and trying to participate in physical therapy. Abdominal distention is stable otherwise. No fever no chills. Hepatic serology panel was ordered per GI. Patient is being continued on PT OT and possible rehab transfer on Friday. All other review of systems negative except the above Discussed with her at bedside in detail. Current medications reviewed. Objective - Vital Signs Vital signs: Vital Signs Temp 98.2 F 01/01/19 15:00 Pulse 80 01/01/19 21:21 Resp 16 01/01/19 18:10 BP 124/73 01/01/19 15:00 Pulse Ox 92 L 01/01/19 15:00 Intake & Output 01/01/19 01/01/19 01/02/19 06:59 18:59 06:59 Intake Total 50 50 Output Total 550 450 Balance -500 -400 Weight 91.4 kg Intake: IV 50 Clindamycin 600 mg In 50 Dextrose 5% in Water 50 ml @ 50 mls/hr IVPB Q6HR [facility] Rx#:[id number] Intake, IV Titration 50 Amount Clindamycin 600 mg In 50 Dextrose 5% in Water 50 ml @ 50 mls/hr IVPB Q6HR [facility] Rx#:[id number] Output: Urine 550 450 Other: Voiding Method Indwelling Catheter # Voids 0 400 # Bowel Movements 3 ABP, PAP, CO, CI - Last Documented Arterial Blood Pressure 137/61 - Exam On physical examination, patient appears comfortable in no apparent distress. HEAD: Normocephalic, atraumatic. EYES: No scleral icterus. No conjunctival injection. MOUTH: No lesions, tongue midline. NECK: Trachea midline, no gross abnormalities. CHEST: Decreased air entry in all lung meyer. Scattered rhonchi. HEART: Regular rate and rhythm. ABDOMEN: Soft, obese. Distended but soft. Bowel sounds are positive. No organomegaly. No guarding or rigidity. EXTREMITIES: No pedal edema. SKIN: No rashes, no jaundice. NEUROLOGIC: Awake, alert and oriented 3. - Labs CBC & Chem 7: 12/31/18 04:29 12/31/18 04:29 Labs: Abnormal Lab Results - Last 24 Hours (Table) 01/01/19 01/01/19 01/01/19 Range/Units 07:16 12:03 17:14 POC Glucose (mg/dL) 139 H 130 H 175 H (75-99) mg/dL 01/01/19 Range/Units 21:18 POC Glucose (mg/dL) 176 H (75-99) mg/dL Microbiology - Last 24 Hours (Table) 12/28/18 14:55 Anaerobic Culture - Final Ascites Fluid 12/28/18 14:55 Gram Stain - Final Ascites Fluid Body Fluid Culture - Final Assessment and Plan Assessment: Acute hypoxic respiratory failure status post ventilator-dependent respiratory failure. currently extubated. Acute severe blood loss anemia status post EGD and colonoscopy and inconclusive small bowel capsule endoscopy. Gastritis and internal hemorrhoids. Hemoglobin stable. Acute COPD exacerbation Left upper lobe pneumonia possibly aspiration Ascites status post paracentesis 4.5 L and NALFD/cirrhosis/ Chronic nicotine dependence Diabetes type 2 uncontrolled with hyperglycemia secondary to steroids Chronic fibromyalgia GERD Essential hypertension Hyperlipidemia Chronic polymyalgia rheumatica Chronic low back pain with arthritis. Peripheral neuropathy secondary to diabetes Hyperlipidemia Acute renal failure likely prerenal improved Plan: Patient be continued on breathing treatments and IV steroids. Current with antibiotics in the form of Levaquin and clindamycin. Transfuse if needed. Hemoglobin is stable. Continue to follow closely and further recommendations based on the clinical course. Fluid cytology negative for malignancy.. Pulmonary and GI is on board. Prognosis is guarded. Time with Patient: Greater than 30
[2019-01-02] MEDS: IPRATROPIUM-ALBUTEROL 3 ML NEB INHALATION SCH ×6 (00:12→20:12)
[2019-01-02] MEDS: CLINDAMYCIN 600 MG in DEXTROSE 5% IN WATER 50 ML IVPB SCH ×8 (06:43→23:44)
[2019-01-02 07:21] LABS: Glucose,Whole Blood 286 mg/dL (75-99)
[2019-01-02] MEDS: BUDESONIDE 1 MG/2 ML NEBU INHALATION SCH ×2 (07:47→20:13)
[2019-01-02] MEDS: INSULIN ASPART (NovoLOG) 100 UNIT/ML VIAL SQ SCH ×4 (08:36→21:34)
[2019-01-02] MEDS: SODIUM BICARBONATE TAB 650 MG TAB PO SCH (08:36)
[2019-01-02] MEDS: METOPROLOL TARTRATE 50 MG TAB PO SCH ×2 (08:36→20:02)
[2019-01-02] MEDS: FAMOTIDINE 20 MG TAB PO SCH (08:36)
[2019-01-02] MEDS: methylPREDNISolone SOD SUCCI 40 MG/ML 1 ML VIAL IV SCH (08:37)
[2019-01-02] MEDS: guaiFENesin 600 MG TABLET.ER PO SCH ×2 (08:37→20:03)
[2019-01-02] MEDS: GABAPENTIN 300 MG CAP PO SCH ×2 (08:43→20:02)
[2019-01-02 09:53] LABS: Anisocytosis Moderate; Basophils % (A) 0 %; Eosinophils % (A) 0 %; HCT 29.4 % (34.0-46.0); HGB 8.5 gm/dL (11.4-16.0); Hypochromasia Marked; Lymphocytes # (A) 1.2 k/uL (1.0-4.8); Lymphocytes % (A) 11 %; MCH 24.2 pg (25.0-35.0); MCHC 28.7 g/dL (31.0-37.0); MCV 84.2 fL (80.0-100.0); Mean Platelet Volume 7.9; Microcytosis Slight; Monocytes # (A) 0.5 k/uL (0-1.0); Monocytes % (A) 5 %; Neutrophils # (A) 9.3 k/uL (1.3-7.7); Neutrophils % (A) 84 %; Platelet Count 165 k/uL (150-450); Poikilocytosis Slight; RBC 3.49 m/uL (3.80-5.40); RDW 20.9 % (11.5-15.5); WBC 11.1 k/uL (3.8-10.6)
[2019-01-02 10:04] LABS: Albumin 2.8 g/dL (3.5-5.0); Bilirubin, Conjugated 0.1 mg/dL (0.0-0.3); Bilirubin, Delta 1.5 mg/dL (0.0-0.2); Bilirubin,Unconjugated 0.9 mg/dL (0.0-1.1); Calcium 8.9 mg/dL (8.4-10.2); Potassium 4.4 mmol/L (3.5-5.1); Total Bilirubin 2.5 mg/dL (0.2-1.3); Total Protein 5.2 g/dL (6.3-8.2)
[2019-01-02 11:30] LABS: Glucose,Whole Blood 157 mg/dL (75-99)
[2019-01-02 11:45] LABS: IgG Subclass 3 11.5 mg/dL (11.0-85.0); IgG Subclass 4 8.6 mg/dL (3.0-175.0)
[2019-01-02 12:06] LABS: IgG Subclass 2 85.2 mg/dL (169.0-640.0)
[2019-01-02 12:18] LABS: Ceruloplasmin 27.9 mg/dL (20.0-60.0)
[2019-01-02] MEDS: SODIUM CHLORIDE 0.9% 1,000 ML IV SCH (13:15)
[2019-01-02 14:30] LABS: Appearance,Urine Bloody (Clear); Color,Urine Red; RBC,Urine >182 /hpf (0-5); WBC,Urine >182 /hpf (0-5)
--- NOTE | 2019-01-02 14:47 | P.PN ---
Subjective Progress Note Date: 01/02/19 Principal diagnosis: Acute hypoxic and hypercapnic respiratory failure secondary to left upper lobe pneumonia and underlying COPD with acute exacerbation of COPD. This is a 68-year-old female patient with known history of COPD in addition to history of polymyalgia rheumatica, fibromyalgia, chronic back pain, peripheral neuropathy and diabetes mellitus who came into the hospital because of generalized weakness. The patient apparently was getting progressively more weak and she had some increased nausea and dizziness. Overall she was feeling rundown. She was having difficulties mobility. In the emergency department, hemoglobin was done and came back at 4.9. The patient denied having any tarry stool. Hemoccult was positive. The patient had a component of hyperkalemia that was treated and the potassium level normalized. The patient was found to bronchospastic and wheezy. The patient was started on bronchodilators. GI consultation was obtained. Patient was given packed RBC transfusion. Over the past few days, the patient underwent further investigation including a EGD that was done that showed no evidence of any acute bleeding. There was mild scattered gastritis and the angiogram in the body and hiatal hernia. The esophagus was tortuous. The colonoscopy was also done that showed a polyp in transverse colon that was removed. There was mild internal hemorrhoids. Based on all this, a video capsule endoscopy was recommended.The patient was doing well. The patient was being considered even to be discharged home. Earlier this morning she became acutely short of breath. She became bronchus spastic and wheezy. She has also diminished level of consciousness. Time of the arrival to the ICU, the patient was diaphoretic and sweaty and tachypneic and tachycardic. She was not following commands. The blood gases was done that showed no significant respiratory acidosis. Nevertheless, clinically the patient was in impending respiratory failure. At that point, I decided to intubate the patient put on a mechanical ventilator. I reviewed the chest x- ray that was done earlier this morning and it showed a new left upper lobe opacity compared to the prior study and this finding was highly suspicious for an evolving pneumonia. Repeat chest x-ray as well as done post intubation showed a wedge-shaped opacity in the left upper lobe. Otherwise the rest of the cardiac border structures were low normal limits and ET tube was in a good location. The patient was started on a combination of Levaquin and clindamycin. She was started on DuoNeb the right seems on the clock and IV Solu -Medrol. Currently she is an assist-control mode of ventilation with a tidal volume of 400, FiO2 of 60%, PEEP of 5 and a respiratory rate of 20. Peak airway pressures around 30. The pH is at 7.43 with a pCO2 of 38 and pO2 of 162. Note that IV realized the patient had some increased abdominal distention post intubation. NG tube was inserted and output was minimal. The patient will be sent for a CAT scan of the chest and abdomen. Note that the CAT scan of the lumbar spine that was done showed degenerative changes in the mid in the lower lumbar spine in addition to moderate degree of abdominal pelvic ascites suspicious for liver cirrhosis an underlying portal hypertension. On 12/28/2018, patient was reevaluated in the ICU, remains on mechanical ventilation. Her ventilator settings are tidal volume of 400 assist control rate of 14 FiO2 is 40% PEEP of 5. Chest x-ray continues to show left upper lobe pneumonia. Patient remains on propofol at 40 mcg/kg/m, she was on norepinephrine this morning and this was discontinued. Her urine output was marginal, hence she was given fluid bolus of 0.9 normal saline/1 L. Patient was seen by interventional radiology, ultrasound was done, and being considered for paracentesis sometime today. However this is yet to be done. CT of the abdomen showed liver cirrhosis and abdominal with pelvic ascites. Patient continues to have a nasogastric tube in place, no evidence of any active GI bleeding, hemoglobin is holding at 7.6 today. ABG showed a pO2 of 90 pCO2 of 37 pH of 7.44. Pressure support/CPAP ABG showed a pO2 of 90 pCO2 of 35 pH of 7.45. Relatively normal electrolytes were noted. BUN is 32 creatinine is 0.88. Liver enzymes remain slightly elevated with alkaline phosphatase of 229. Total bilirubin is 2.3. Chest x-ray again showed bibasilar atelectasis, and left upper lobe pneumonia. Patient was noted to be arousable, followed simple instructions even on low dose of propofol. A patient was reevaluated today on 12/29/2018, remains in the ICU, mechanically ventilated. Her ventilator settings were noted to be unchanged, remains on assist control rate of 14, FiO2 of 40% PEEP of 400 and PEEP of 5. Chest x-ray is showing improvement, patchy bibasilar density persists, resolving pneumonia. Patient underwent paracentesis yesterday, and 4.5 L of fluid were drained. ABG this morning showed a pO2 of 144 pCO2 of 37 pH of 7.45. WBC count is 8.8 hemoglobin is 7. Electrolytes and renal profile are relatively normal. Studies on the spinal fluid are pending. However the fluid seems to be low on protein, and minimal amount of WBC count noted in the fluid. Clearly does not seem to be infected patient remains sedated at present, however I plan to hold sedation and I will likely give the patient another trial of weaning today, this will be utilizing a pressure support of 8 and CPAP, and if tolerated I will likely proceed to extubating the patient later today. Patient was reevaluated today on 12/30/2018, she was extubated yesterday, and tolerated the extubation quite well. However this morning the patient seems to be a bit sleepy and lethargic, in no form of respiratory distress. He denies any pain, denies any shortness of breath, no cough no wheezing, her abdomen seems to be a bit more distended, and I believe she is developing ascites again. This is all likely related to her liver and underlying liver disease. Patient was never a drinker, but she had history of fatty liver. ABG this morning was done to look into potential hypercapnia, her pO2 was noted to be 66 pCO2 is 34 pH of 7.47, and this was done on room air. Her chest x-ray, showed definite improvement in aeration of both lungs and specially the left upper lobe post extubation. Blood sugar was noted to be normal. Ammonia level is pending. Cytology on the peritoneal fluid is still pending. Cultures are negative so far. Patient is still being followed by gastroenterology. Still addressing her issue of intermittent melena and anemia as well as ascites and elevated liver enzymes. Reevaluated today on 12/31/2018, patient remains in the ICU, she was extubated 2 days ago, and she tolerated the extubation well. Denies any active pulmonary symptoms, no cough no wheezing no shortness of breath. She seems to be more alert today, however she had some episodes of confusion last night, and this has resolved early this morning. Denies any abdominal pain, no evidence of any active bleeding, hemoglobin is holding at 8.2 today. INR is normal. Electrolytes are normal renal profile is normal. Liver enzymes were noted to be slightly elevated. Chest x-ray was also reviewed, her left upper lobe pneumonia seems to be significantly improved. Ascites fluid has been negative for infection. Negative cytology was also noted. On 01/01/2019 patient seen in follow-up in medical surgical floor. She is lethargic, but arousable to verbal and tactile stimulation. No signs of respiratory distress, pulse ox is 99% on room air, no fever or chills, no use of accessory muscles of breathing. Lung sounds are positive for scattered rhonchi. Ascites fluid cultures remain negative thus far. Abdomen soft and nontender, family thinks there is a reaccumulation of ascites fluid. GI service is following. Repeat ultrasound the abdomen today showed mild to moderate ascites. She is status post paracentesis with removal of 3000 ML of ascites fluid on 12/29/2018. Cytology showed acute inflammation admixed with reactive mesothelial cells. On 01/02/2019, patient was reevaluated on the medical surgical floor, she is more awake today, more verbal, denies any specific complaints. Denies any shortness of breath, no cough no wheezing, no abdominal pain. Her ultrasound of the abdomen showed mild to moderate ascites, not certain that the patient may or may not require another paracentesis. Liver enzymes were noted to be slightly elevated. Patient does not have any further episodes of GI bleeding or blood loss. GI service is addressing the issue of ascites, and I will leave it up to them to decide whether another paracentesis is necessary. Labs today were reviewed, and I went ahead and switch the patient to oral prednisone instead of Solu-Medrol, discontinued some of the medications she is presently on including bicarb, and including Dierks. Her CBC is relatively normal, hemoglobin is holding at 8.5. Basic metabolic profile is normal. BUN is 35 creatinine is 0.91. IV fluid was cut down from 50 mL per hour to 20 mL/h, and I have instructed the nurses taking care of the patient to establish a peripheral IV access and discontinue left subclavian central line. Objective - Vital Signs Vital signs: Vital Signs Temp 96.6 F L 01/02/19 14:30 Pulse 78 01/02/19 14:30 Resp 16 01/02/19 14:30 BP 130/72 01/02/19 14:30 Pulse Ox 95 01/02/19 14:30 Intake & Output 01/01/19 01/02/19 01/02/19 18:59 06:59 18:59 Intake Total 50 Output Total 975 300 Balance -925 -300 Weight 91.4 kg Intake: Intake, IV Titration 50 Amount Clindamycin 600 mg In 50 Dextrose 5% in Water 50 ml @ 50 mls/hr IVPB Q6HR [facility] Rx#:[id number] Output: Urine 975 300 Other: Voiding Method Indwelling Catheter Indwelling Catheter Indwelling Catheter # Voids 400 # Bowel Movements 3 1 1 ABP, PAP, CO, CI - Last Documented Arterial Blood Pressure 137/61 - Exam Physical Exam: Revealed a 68-year-old female, on room air, alert oriented, in no distress. Head: Atraumatic normocephalic. HEENT:[Neck is supple.] [No neck masses.] [No thyromegaly.] [No JVD.] PERRLA, EOMI, no icterus. Chest: [Diminished breath sounds at the bases symmetrical chest expansion, no rhonchi and no wheezes. Cardiac Exam: [Normal S1 and S2, no S3 gallop, no murmur.] Abdomen: [Obese,distended nontender, no megaly, no rebound, no guarding, normal bowel sounds. Minimal ascites is suspected.] Extremities: [No clubbing, trace of bipedal edema, no cyanosis..] Neurological Exam: Alert and oriented 3, no gross focal neurologic deficits. Psychiatric: Normal mood, affect and normal mental status. Skin: No rashes. Lymphatics: No lymphadenopathy. - Labs CBC & Chem 7: 01/02/19 08:56 01/02/19 08:56 Labs: Abnormal Lab Results - Last 24 Hours (Table) 01/01/19 01/01/19 01/01/19 Range/Units 09:22 17:14 21:18 WBC (3.8-10.6) k/uL RBC (3.80-5.40) m/uL Hgb (11.4-16.0) gm/dL Hct (34.0-46.0) % MCH (25.0-35.0) pg MCHC (31.0-37.0) g/dL RDW (11.5-15.5) % Neutrophils # (1.3-7.7) k/uL BUN (7-17) mg/dL Glucose (74-99) mg/dL POC Glucose (mg/dL) 175 H 176 H (75-99) mg/dL Total Bilirubin (0.2-1.3) mg/dL Delta Bilirubin (0.0-0.2) mg/dL AST (14-36) U/L ALT (9-52) U/L Alkaline Phosphatase (38-126) U/L Total Protein (6.3-8.2) g/dL Albumin (3.5-5.0) g/dL Urine Appearance (Clear) Urine RBC (0-5) /hpf Urine WBC (0-5) /hpf IgG2 85.2 L (169.0-640.0) mg/dL 01/02/19 01/02/19 01/02/19 Range/Units 07:19 08:56 08:56 WBC 11.1 H (3.8-10.6) k/uL RBC 3.49 L (3.80-5.40) m/uL Hgb 8.5 L (11.4-16.0) gm/dL Hct 29.4 L (34.0-46.0) % MCH 24.2 L (25.0-35.0) pg MCHC 28.7 L (31.0-37.0) g/dL RDW 20.9 H (11.5-15.5) % Neutrophils # 9.3 H (1.3-7.7) k/uL BUN 35 H (7-17) mg/dL Glucose 172 H (74-99) mg/dL POC Glucose (mg/dL) 286 H (75-99) mg/dL Total Bilirubin 2.5 H (0.2-1.3) mg/dL Delta Bilirubin 1.5 H (0.0-0.2) mg/dL AST 57 H (14-36) U/L ALT 71 H (9-52) U/L Alkaline Phosphatase 292 H (38-126) U/L Total Protein 5.2 L (6.3-8.2) g/dL Albumin 2.8 L (3.5-5.0) g/dL Urine Appearance (Clear) Urine RBC (0-5) /hpf Urine WBC (0-5) /hpf IgG2 (169.0-640.0) mg/dL 01/02/19 01/02/19 Range/Units 11:24 13:58 WBC (3.8-10.6) k/uL RBC (3.80-5.40) m/uL Hgb (11.4-16.0) gm/dL Hct (34.0-46.0) % MCH (25.0-35.0) pg MCHC (31.0-37.0) g/dL RDW (11.5-15.5) % Neutrophils # (1.3-7.7) k/uL BUN (7-17) mg/dL Glucose (74-99) mg/dL POC Glucose (mg/dL) 157 H (75-99) mg/dL Total Bilirubin (0.2-1.3) mg/dL Delta Bilirubin (0.0-0.2) mg/dL AST (14-36) U/L ALT (9-52) U/L Alkaline Phosphatase (38-126) U/L Total Protein (6.3-8.2) g/dL Albumin (3.5-5.0) g/dL Urine Appearance Bloody H (Clear) Urine RBC >182 H (0-5) /hpf Urine WBC >182 H (0-5) /hpf IgG2 (169.0-640.0) mg/dL Microbiology - Last 24 Hours (Table) 12/28/18 14:55 Anaerobic Culture - Final Ascites Fluid Assessment and Plan Assessment: Impression: 1 acute hypoxic and hypercapnic respiratory failure secondary to likely aspiration pneumonia, and underlying COPD with acute exacerbation. Patient was extubated on 12/29/2018, 2 acute exacerbation of COPD, also contributing to her hypoxic respiratory failure and requiring intubation and mechanical ventilation. 3 profound anemia secondary to GI blood losses, received a total of 2 units of packed RBCs since admission. Continues to be followed by gastroenterology. 4 abdominal ascites possibly related to liver disease, workup is nondiagnostic, basically negative. Minimal reaccumulation of ascites fluid noted on the last ultrasound yesterday 5 change in mental status, possible metabolic encephalopathy, resolved 6 type 2 diabetes 7 fibromyalgia 8 polymyalgia rheumatica 9 hypertension 10 rheumatoid arthritis 11 hyperlipidemia 12 elevated liver enzymes and history of fatty liver with ascites. 13 transverse colonic polyp recently resected. 14 chronic back pain. Recommendation: Today, I recommended establishing a peripheral IV access and discontinue left subclavian central line. We'll switch Solu-Medrol to oral prednisone 20 mg daily and that will be tapered probably on outpatient basis. I have also recommended discontinuation of Dierks, discontinue sodium bicarb, possibly switch to oral antibiotics tomorrow, and discontinue clindamycin in a.m. We'll continue bronchodilators. Reviewed and discussed the findings of the ultrasound that was done yesterday, but I will leave it up to the nephrology nurse on the case to decide whether repeat paracentesis is even necessary. Continue GI and DVT prophylaxis, continue bronchodilators, antibiotics for now, reviewed the cytology report from the paracentesis fluid. Consider discharge planning early next week. We will have to be cleared by other consultants on the case. Time with Patient: Less than 30
[2019-01-02] MEDS: predniSONE 20 MG TAB PO SCH (15:25)
[2019-01-02 17:14] LABS: Glucose,Whole Blood 232 mg/dL (75-99)
--- NOTE | 2019-01-02 18:19 | PN ---
PROGRESS NOTE DATE OF SERVICE: 01/02/2019 This 68-year-old woman who was admitted with acute hypoxic respiratory failure also had left upper lobe aspiration pneumonia. The patient is confused. Patient also complained of generalized tiredness and weakness. The patient is being closely monitored. PT, OT evaluated the patient for possible ECF rehab. Past medical history reviewed. REVIEW OF SYSTEMS: CARDIOVASCULAR: No angina. Respiratory: As mentioned earlier. GASTROINTESTINAL: no nausea or vomiting. no dysuria. Nervous systems: As mentioned earlier. CURRENT MEDICATIONS ARE: Reviewed and include: 1. Tylenol 650 q.6h p.r.n. 2. DuoNeb q.i.d. and p.r.n. 3. Xanax 0.5 q.6h. 4. Elavil 25 mg q.h.s. 5. Pulmicort 1 mg b.i.d. 6. Tums 1000 mg q.4h p.r.n. 7. Clindamycin 600 mg q.6h. 8. Pepcid 20 mg. 9. Neurontin 300 mg p.o. b.i.d. 10.Mucinex 1200 mg p.o. b.i.d. 11.NovoLog. 12.Cephulac 20 g daily. 13.Levaquin 750 mg every 48 hours. 14.Milk of Magnesia. 15.Melatonin 3 mg q.h.s. 16.Lopressor 50 mg p.o. b.i.d. 17.Replacement protocols. 18.Narcan. 19.Prednisone. PHYSICAL EXAMINATION: Patient is alert, oriented times three. Pulse 78. Blood pressure 130/72, respiration 16, temperature 98.6, pulse ox 94% on room air. HEENT: Conjunctivae normal. Neck: No jugular venous distention. CARDIOVASCULAR: S1, S2 muffled. Respiratory: Breath sounds diminished in the bases. A few scattered rhonchi and crackles. Abdomen is soft, nontender. Legs are no edema. No swelling. Central nervous system: Diffusely weak. LAB STUDIES: WBC 11.7, hemoglobin is 8.5, sodium 139, potassium 4.4. UA noted. ASSESSMENT: 1. Chronic obstructive pulmonary disease acute exacerbation with acute hypoxic respiratory failure ventilator dependent status post mechanical ventilation. 2. Acute left upper lobe pneumonia possibly gram-negative. 3. Acute severe blood loss anemia status post EGD, colonoscopy, and small bowel enteroscopy is showing gastritis and internal hemorrhoids. 4. Ascites status post paracentesis of 2.5 L. Nonalcoholic fatty liver disease or cirrhosis of liver. 5. History of nicotine dependence. 6. Diabetes mellitus type 2, uncontrolled with hyperglycemia secondary to steroids. 7. Chronic fibromyalgia. 8. Gastroesophageal reflux disease. 9. Hypertension. 10.Hyperlipidemia. 11.History of polymyalgia rheumatica. 12.History of chronic back pain. 13.Peripheral neuropathy. 14.Hyperlipidemia. 15.Gait dysfunction. 16.Acute renal failure, likely prerenal improved. 17.FULL CODE. RECOMMENDATIONS AND DISCUSSION: In this 68-year-old woman who presented with multiple complex medical issues, we will monitor the patient closely. Continue the current medications, management and symptomatic treatment. Continue the bronchodilators. Continue with antibiotics. Continue with tapering steroids. PT/OT evaluation. Increase ambulation. Possible ECF rehab. Discussed with the patient who understands and agrees. Further recommendations to follow. The patient is looking at [facility]. MMODL / IJN: [id number] /
[2019-01-02] MEDS: AMITRIPTYLINE HCL 25 MG TAB PO SCH (20:02)
[2019-01-02 21:02] LABS: Glucose,Whole Blood 258 mg/dL (75-99)
[2019-01-03] MEDS: IPRATROPIUM-ALBUTEROL 3 ML NEB INHALATION SCH ×6 (00:25→21:22)
[2019-01-03] MEDS: CLINDAMYCIN 600 MG in DEXTROSE 5% IN WATER 50 ML IVPB SCH ×6 (06:11→18:17)
[2019-01-03 07:19] LABS: Glucose,Whole Blood 328 mg/dL (75-99)
[2019-01-03] MEDS: guaiFENesin 600 MG TABLET.ER PO SCH ×2 (08:01→22:15)
[2019-01-03] MEDS: ASPIRIN 81 MG PO SCH (08:02)
[2019-01-03] MEDS: LEVOFLOXACIN 750 MG TAB PO SCH (08:02)
[2019-01-03] MEDS: INSULIN ASPART (NovoLOG) 100 UNIT/ML VIAL SQ SCH ×4 (08:02→22:16)
[2019-01-03] MEDS: FAMOTIDINE 20 MG TAB PO SCH (08:02)
[2019-01-03] MEDS: PANTOPRAZOLE 40 MG TABLET PO SCH (08:02)
[2019-01-03] MEDS: GABAPENTIN 300 MG CAP PO SCH ×2 (08:02→22:15)
[2019-01-03] MEDS: METOPROLOL TARTRATE 50 MG TAB PO SCH ×2 (08:02→22:15)
[2019-01-03] MEDS: predniSONE 20 MG TAB PO SCH (08:02)
[2019-01-03] MEDS: BUDESONIDE 1 MG/2 ML NEBU INHALATION SCH ×2 (08:20→21:22)
[2019-01-03 11:37] LABS: Anisocytosis Moderate; Basophils % (A) 0 %; Eosinophils # (A) 0.1 k/uL (0-0.7); Eosinophils % (A) 1 %; HCT 30.4 % (34.0-46.0); HGB 8.7 gm/dL (11.4-16.0); Hypochromasia Marked; Lymphocytes # (A) 0.8 k/uL (1.0-4.8); Lymphocytes % (A) 6 %; MCH 24.6 pg (25.0-35.0); MCHC 28.6 g/dL (31.0-37.0); MCV 85.9 fL (80.0-100.0); Mean Platelet Volume 7.1; Microcytosis Slight; Monocytes # (A) 0.5 k/uL (0-1.0); Monocytes % (A) 4 %; Neutrophils # (A) 12.3 k/uL (1.3-7.7); Neutrophils % (A) 88 %; Platelet Count 144 k/uL (150-450); Poikilocytosis Slight; RBC 3.53 m/uL (3.80-5.40); RDW 21.7 % (11.5-15.5)
[2019-01-03 11:54] LABS: Calcium 8.9 mg/dL (8.4-10.2); Potassium 4.7 mmol/L (3.5-5.1)
[2019-01-03 12:02] LABS: Glucose,Whole Blood 133 mg/dL (75-99)
[2019-01-03] MEDS: SODIUM CHLORIDE 0.9% 1,000 ML IV SCH (13:17)
--- NOTE | 2019-01-03 14:39 | P.PN ---
Subjective Progress Note Date: 01/03/19 Principal diagnosis: Acute hypoxic and hypercapnic respiratory failure secondary to left upper lobe pneumonia and underlying COPD with acute exacerbation of COPD. This is a 68-year-old female patient with known history of COPD in addition to history of polymyalgia rheumatica, fibromyalgia, chronic back pain, peripheral neuropathy and diabetes mellitus who came into the hospital because of generalized weakness. The patient apparently was getting progressively more weak and she had some increased nausea and dizziness. Overall she was feeling rundown. She was having difficulties mobility. In the emergency department, hemoglobin was done and came back at 4.9. The patient denied having any tarry stool. Hemoccult was positive. The patient had a component of hyperkalemia that was treated and the potassium level normalized. The patient was found to bronchospastic and wheezy. The patient was started on bronchodilators. GI consultation was obtained. Patient was given packed RBC transfusion. Over the past few days, the patient underwent further investigation including a EGD that was done that showed no evidence of any acute bleeding. There was mild scattered gastritis and the angiogram in the body and hiatal hernia. The esophagus was tortuous. The colonoscopy was also done that showed a polyp in transverse colon that was removed. There was mild internal hemorrhoids. Based on all this, a video capsule endoscopy was recommended.The patient was doing well. The patient was being considered even to be discharged home. Earlier this morning she became acutely short of breath. She became bronchus spastic and wheezy. She has also diminished level of consciousness. Time of the arrival to the ICU, the patient was diaphoretic and sweaty and tachypneic and tachycardic. She was not following commands. The blood gases was done that showed no significant respiratory acidosis. Nevertheless, clinically the patient was in impending respiratory failure. At that point, I decided to intubate the patient put on a mechanical ventilator. I reviewed the chest x- ray that was done earlier this morning and it showed a new left upper lobe opacity compared to the prior study and this finding was highly suspicious for an evolving pneumonia. Repeat chest x-ray as well as done post intubation showed a wedge-shaped opacity in the left upper lobe. Otherwise the rest of the cardiac border structures were low normal limits and ET tube was in a good location. The patient was started on a combination of Levaquin and clindamycin. She was started on DuoNeb the right seems on the clock and IV Solu -Medrol. Currently she is an assist-control mode of ventilation with a tidal volume of 400, FiO2 of 60%, PEEP of 5 and a respiratory rate of 20. Peak airway pressures around 30. The pH is at 7.43 with a pCO2 of 38 and pO2 of 162. Note that IV realized the patient had some increased abdominal distention post intubation. NG tube was inserted and output was minimal. The patient will be sent for a CAT scan of the chest and abdomen. Note that the CAT scan of the lumbar spine that was done showed degenerative changes in the mid in the lower lumbar spine in addition to moderate degree of abdominal pelvic ascites suspicious for liver cirrhosis an underlying portal hypertension. On 12/28/2018, patient was reevaluated in the ICU, remains on mechanical ventilation. Her ventilator settings are tidal volume of 400 assist control rate of 14 FiO2 is 40% PEEP of 5. Chest x-ray continues to show left upper lobe pneumonia. Patient remains on propofol at 40 mcg/kg/m, she was on norepinephrine this morning and this was discontinued. Her urine output was marginal, hence she was given fluid bolus of 0.9 normal saline/1 L. Patient was seen by interventional radiology, ultrasound was done, and being considered for paracentesis sometime today. However this is yet to be done. CT of the abdomen showed liver cirrhosis and abdominal with pelvic ascites. Patient continues to have a nasogastric tube in place, no evidence of any active GI bleeding, hemoglobin is holding at 7.6 today. ABG showed a pO2 of 90 pCO2 of 37 pH of 7.44. Pressure support/CPAP ABG showed a pO2 of 90 pCO2 of 35 pH of 7.45. Relatively normal electrolytes were noted. BUN is 32 creatinine is 0.88. Liver enzymes remain slightly elevated with alkaline phosphatase of 229. Total bilirubin is 2.3. Chest x-ray again showed bibasilar atelectasis, and left upper lobe pneumonia. Patient was noted to be arousable, followed simple instructions even on low dose of propofol. A patient was reevaluated today on 12/29/2018, remains in the ICU, mechanically ventilated. Her ventilator settings were noted to be unchanged, remains on assist control rate of 14, FiO2 of 40% PEEP of 400 and PEEP of 5. Chest x-ray is showing improvement, patchy bibasilar density persists, resolving pneumonia. Patient underwent paracentesis yesterday, and 4.5 L of fluid were drained. ABG this morning showed a pO2 of 144 pCO2 of 37 pH of 7.45. WBC count is 8.8 hemoglobin is 7. Electrolytes and renal profile are relatively normal. Studies on the spinal fluid are pending. However the fluid seems to be low on protein, and minimal amount of WBC count noted in the fluid. Clearly does not seem to be infected patient remains sedated at present, however I plan to hold sedation and I will likely give the patient another trial of weaning today, this will be utilizing a pressure support of 8 and CPAP, and if tolerated I will likely proceed to extubating the patient later today. Patient was reevaluated today on 12/30/2018, she was extubated yesterday, and tolerated the extubation quite well. However this morning the patient seems to be a bit sleepy and lethargic, in no form of respiratory distress. He denies any pain, denies any shortness of breath, no cough no wheezing, her abdomen seems to be a bit more distended, and I believe she is developing ascites again. This is all likely related to her liver and underlying liver disease. Patient was never a drinker, but she had history of fatty liver. ABG this morning was done to look into potential hypercapnia, her pO2 was noted to be 66 pCO2 is 34 pH of 7.47, and this was done on room air. Her chest x-ray, showed definite improvement in aeration of both lungs and specially the left upper lobe post extubation. Blood sugar was noted to be normal. Ammonia level is pending. Cytology on the peritoneal fluid is still pending. Cultures are negative so far. Patient is still being followed by gastroenterology. Still addressing her issue of intermittent melena and anemia as well as ascites and elevated liver enzymes. Reevaluated today on 12/31/2018, patient remains in the ICU, she was extubated 2 days ago, and she tolerated the extubation well. Denies any active pulmonary symptoms, no cough no wheezing no shortness of breath. She seems to be more alert today, however she had some episodes of confusion last night, and this has resolved early this morning. Denies any abdominal pain, no evidence of any active bleeding, hemoglobin is holding at 8.2 today. INR is normal. Electrolytes are normal renal profile is normal. Liver enzymes were noted to be slightly elevated. Chest x-ray was also reviewed, her left upper lobe pneumonia seems to be significantly improved. Ascites fluid has been negative for infection. Negative cytology was also noted. On 01/01/2019 patient seen in follow-up in medical surgical floor. She is lethargic, but arousable to verbal and tactile stimulation. No signs of respiratory distress, pulse ox is 99% on room air, no fever or chills, no use of accessory muscles of breathing. Lung sounds are positive for scattered rhonchi. Ascites fluid cultures remain negative thus far. Abdomen soft and nontender, family thinks there is a reaccumulation of ascites fluid. GI service is following. Repeat ultrasound the abdomen today showed mild to moderate ascites. She is status post paracentesis with removal of 3000 ML of ascites fluid on 12/29/2018. Cytology showed acute inflammation admixed with reactive mesothelial cells. On 01/02/2019, patient was reevaluated on the medical surgical floor, she is more awake today, more verbal, denies any specific complaints. Denies any shortness of breath, no cough no wheezing, no abdominal pain. Her ultrasound of the abdomen showed mild to moderate ascites, not certain that the patient may or may not require another paracentesis. Liver enzymes were noted to be slightly elevated. Patient does not have any further episodes of GI bleeding or blood loss. GI service is addressing the issue of ascites, and I will leave it up to them to decide whether another paracentesis is necessary. Labs today were reviewed, and I went ahead and switch the patient to oral prednisone instead of Solu-Medrol, discontinued some of the medications she is presently on including bicarb, and including [place]albin. Her CBC is relatively normal, hemoglobin is holding at 8.5. Basic metabolic profile is normal. BUN is 35 creatinine is 0.91. IV fluid was cut down from 50 mL per hour to 20 mL/h, and I have instructed the nurses taking care of the patient to establish a peripheral IV access and discontinue left subclavian central line. Reevaluated today on 01/03/2019, patient is showing steady improvement. Less cough and less wheezing less shortness of breath, she is clearly having some difficulty ambulating out of the bed to the bedside chair, and required a lot of assistance today. Her pulmonary status seems to be improving, her abdominal status is basically about the same, and I'm not certain if the repeat paracentesis will be recommended by gastroenterology on the case. At this point the patient is showing definite improvement compared to how she felt on admission. Labs today showed WBC count of 14 hemoglobin of 8.7 electrolytes are normal renal profile is normal. Medications were all reviewed, she remains on DuoNeb updrafts, clindamycin, Levaquin, And oral prednisone at 20 mg daily. Will deficit Recommend repeat chest x-ray tomorrow, and if improved, patient could be considered for discharge planning to a rehab facility for sure. Objective - Vital Signs Vital signs: Vital Signs Temp 97.9 F 01/03/19 05:50 Pulse 77 01/03/19 12:33 Resp 16 01/03/19 05:50 BP 123/75 01/03/19 05:50 Pulse Ox 97 01/03/19 08:20 Intake & Output 01/02/19 01/03/19 01/03/19 18:59 06:59 18:59 Intake Total 210 160 Output Total 300 650 Balance -90 -650 160 Intake: IV 210 160 Clindamycin 600 mg In 50 Dextrose 5% in Water 50 ml @ 50 mls/hr IVPB Q6HR HO Rx#:[id number] Sodium Chloride 0.9% 1, 160 160 000 ml @ 20 mls/hr IV . Q24H HO Rx#:[id number] Output: Urine 300 650 Other: Voiding Method Indwelling Catheter Indwelling Catheter Indwelling Catheter # Bowel Movements 1 1 ABP, PAP, CO, CI - Last Documented Arterial Blood Pressure 137/61 - Exam Physical Exam: Revealed a 68-year-old female, on room air, asymptomatic Head: Atraumatic normocephalic. HEENT:[Neck is supple.] [No neck masses.] [No thyromegaly.] [No JVD.] PERRLA, EOMI, no icterus. Chest: [Diminished breath sounds at the bases symmetrical chest expansion, no rhonchi and no wheezes. Cardiac Exam: [Normal S1 and S2, no S3 gallop, no murmur.] Abdomen: [Obese,distended nontender, no megaly, no rebound, no guarding, normal bowel sounds. Minimal ascites is suspected.] Extremities: [No clubbing, 2+ by bipedal edema, no cyanosis..] Neurological Exam: Alert and oriented 3, no gross focal neurologic deficits. Psychiatric: Normal mood, affect and normal mental status. Skin: No rashes. Lymphatics: No lymphadenopathy. - Labs CBC & Chem 7: 01/03/19 11:24 01/03/19 11:24 Labs: Abnormal Lab Results - Last 24 Hours (Table) 01/02/19 01/02/19 01/03/19 Range/Units 17:12 21:01 07:17 WBC (3.8-10.6) k/uL RBC (3.80-5.40) m/uL Hgb (11.4-16.0) gm/dL Hct (34.0-46.0) % MCH (25.0-35.0) pg MCHC (31.0-37.0) g/dL RDW (11.5-15.5) % Plt Count (150-450) k/uL Neutrophils # (1.3-7.7) k/uL Lymphocytes # (1.0-4.8) k/uL BUN (7-17) mg/dL Glucose (74-99) mg/dL POC Glucose (mg/dL) 232 H 258 H 328 H (75-99) mg/dL 01/03/19 01/03/19 01/03/19 Range/Units 11:24 11:24 12:00 WBC 14.0 H (3.8-10.6) k/uL RBC 3.53 L (3.80-5.40) m/uL Hgb 8.7 L (11.4-16.0) gm/dL Hct 30.4 L (34.0-46.0) % MCH 24.6 L (25.0-35.0) pg MCHC 28.6 L (31.0-37.0) g/dL RDW 21.7 H (11.5-15.5) % Plt Count 144 L (150-450) k/uL Neutrophils # 12.3 H (1.3-7.7) k/uL Lymphocytes # 0.8 L (1.0-4.8) k/uL BUN 32 H (7-17) mg/dL Glucose 130 H (74-99) mg/dL POC Glucose (mg/dL) 133 H (75-99) mg/dL Microbiology - Last 24 Hours (Table) 01/02/19 13:58 Urine Culture - Preliminary Urine,Catheterized Yeast species Assessment and Plan Assessment: Impression: 1 acute hypoxic and hypercapnic respiratory failure secondary to likely aspiration pneumonia, and underlying COPD with acute exacerbation. Patient was extubated on 12/29/2018, 2 acute exacerbation of COPD, also contributing to her hypoxic respiratory failure and requiring intubation and mechanical ventilation. 3 profound anemia secondary to GI blood losses, received a total of 2 units of packed RBCs since admission. Continues to be followed by gastroenterology. 4 abdominal ascites possibly related to liver disease, workup is nondiagnostic, basically negative. Minimal reaccumulation of ascites fluid noted on the last ultrasound on 01/01/2019 5 change in mental status, possible metabolic encephalopathy, resolved, and much improvement 6 type 2 diabetes 7 fibromyalgia 8 polymyalgia rheumatica 9 hypertension 10 rheumatoid arthritis 11 hyperlipidemia 12 elevated liver enzymes and history of fatty liver with ascites. 13 transverse colonic polyp recently resected. 14 chronic back pain. 15 medical debility and profound weakness, may have to consider eventual referral to a rehab facility near [place]. Recommendation: Today I had a long discussion with the at bedside. Explained time that from the pulmonary perspective she is showing definite improvement. GI will likely reevaluate regarding her GI bleeding and regarding her ascites. And at this point no need for repeat paracentesis as far as I'm concerned. I have explained to them that I will repeat chest x-ray tomorrow, and if continues to improve, could consider stopping all antibiotics. Patient will remain on bronchodilators, will likely remain on all the remaining medications as listed, and also prednisone 20 mg which will be tapered down over the next month 20 mg. Patient will definitely need rehab referral considering the profound weakness that I have noticed today. Long-term prognosis is definitely guarded. understands, and he would like to talk to social work program coordinator regarding his preference for rehab. Time with Patient: Less than 30
--- NOTE | 2019-01-03 16:44 | PN ---
PROGRESS NOTE DATE OF SERVICE: 01/03/2019 This 68-year-old woman who was admitted with COPD acute exacerbation, also complaining of change in mental status also. Patient also had pneumonia. Patient has been closely monitored. PT, OT evaluating the patient for possible ECF rehab. PAST MEDICAL HISTORY: Reviewed. REVIEW OF SYSTEMS: CARDIOVASCULAR: No angina. RESPIRATORY: As mentioned earlier. GI: As mentioned. : No dysuria. NERVOUS SYSTEM: As mentioned earlier. MEDICATIONS: Reviewed and include: 1. Tylenol 650 q.6h p.r.n. 2. DuoNeb q.i.d. and p.r.n. 3. Xanax 0.5 q.6h. 4. Elavil 25 mg q.h.s. 5. Aspirin 81 mg. 6. TUMs. 7. Clindamycin. 8. Pepcid. 9. Neurontin. 10.Mucinex. 11.NovoLog. 12.Cephalexin. 13.Levaquin. 14.Melatonin. 15.Narcan. 16.Zofran. EXAM: Patient is alert, oriented x3. The pulse is 83, blood pressure 123/75, respirations 16, temperature 97.2, pulse ox 94% on room air. HEENT: Conjunctivae normal. CARDIOVASCULAR: S1, S2. RESPIRATORY: Breath sounds diminished in the bases. Scattered rhonchi and crackles. ABDOMEN: Soft, nontender. LEGS: No edema. NERVOUS SYSTEM: No focal deficits. LABS: WBC 14, hemoglobin n. Other labs are noted. ASSESSMENT: 1. Chronic obstructive pulmonary disease acute exacerbation with acute hypoxic respiratory failure and ventilator dependent respiratory failure on mechanical ventilation and acute left upper lobe pneumonia possibly gram-negative. 2. Acute severe blood loss anemia, status post EGD, colonoscopy, small bowel enteroscopy showing gastritis and internal hemorrhoids. 3. Ascites status post paracentesis 2.5 L. 4. Nonalcoholic fatty liver disease or cirrhosis of liver. 5. History of nicotine dependence. 6. Diabetes mellitus type 2, uncontrolled with hyperglycemia secondary to steroids. 7. Chronic fibromyalgia. 8. Gastroesophageal reflux disease. 9. Gait dysfunction. 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 11.Hypertension. 12.Hyperlipidemia. 13.History of polymyalgia rheumatica. 14.History of chronic back pain. 15.Peripheral neuropathy. 16.Hyperlipidemia. 17.Gait dysfunction. 18.Acute renal failure possibly prerenal improved. 19.FULL CODE. RECOMMENDATIONS AND DISCUSSION: I recommend to continue current management and symptomatic treatment. The patient has significant weakness possibly secondary to critical-care polyneuropathy. I would recommend continue the PT, OT evaluation. Repeat labs. Continue the bronchodilators, steroids. Continue the antibiotics. Closely follow with Pulmonary. PT, OT evaluation, possible ECF rehab. [facility] is being [facility] by the family. Further recommendations to follow. MMIRISL / IJN: [id number] / DANIE
[2019-01-03 16:59] LABS: Glucose,Whole Blood 188 mg/dL (75-99)
[2019-01-03 20:32] LABS: Glucose,Whole Blood 326 mg/dL (75-99)
[2019-01-03] MEDS: AMITRIPTYLINE HCL 25 MG TAB PO SCH (22:15)
[2019-01-04] MEDS: IPRATROPIUM-ALBUTEROL 3 ML NEB INHALATION SCH ×7 (00:39→23:34)
[2019-01-04] MEDS: CLINDAMYCIN 600 MG in DEXTROSE 5% IN WATER 50 ML IVPB SCH ×6 (00:40→18:30)
[2019-01-04 07:11] LABS: Glucose,Whole Blood 144 mg/dL (75-99)
[2019-01-04] MEDS: BUDESONIDE 1 MG/2 ML NEBU INHALATION SCH ×2 (08:00→20:11)
[2019-01-04 08:07] LABS: Anisocytosis Moderate; Basophils % (A) 0 %; Eosinophils # (A) 0.2 k/uL (0-0.7); Eosinophils % (A) 2 %; HCT 28.2 % (34.0-46.0); HGB 8.2 gm/dL (11.4-16.0); Hypochromasia Marked; Lymphocytes # (A) 1.7 k/uL (1.0-4.8); Lymphocytes % (A) 19 %; MCH 24.8 pg (25.0-35.0); MCHC 28.9 g/dL (31.0-37.0); MCV 85.8 fL (80.0-100.0); Mean Platelet Volume 7.1; Microcytosis Slight; Monocytes # (A) 0.3 k/uL (0-1.0); Monocytes % (A) 4 %; Neutrophils # (A) 6.7 k/uL (1.3-7.7); Neutrophils % (A) 75 %; Platelet Count 119 k/uL (150-450); Poikilocytosis Slight; RBC 3.28 m/uL (3.80-5.40); RDW 22.2 % (11.5-15.5)
[2019-01-04 08:23] LABS: Calcium 8.6 mg/dL (8.4-10.2)
--- NOTE | 2019-01-04 08:24 | XR ---
EXAMINATION TYPE: XR chest 1V portable DATE OF EXAM: 01/04/2019 COMPARISON: 12/31/2018 HISTORY: Pneumonia TECHNIQUE: Single frontal view of the chest is obtained. FINDINGS: Bilateral consolidation and small effusion stable. Arthropathy shoulders. Heart size stable. No pneumothorax. IMPRESSION: 1. Stable bilateral consolidation and pleural effusion. Correlate for pneumonia versus CHF. Findings stable. Follow-up to resolution to exclude other
[2019-01-04] MEDS: GABAPENTIN 300 MG CAP PO SCH ×2 (08:48→21:55)
[2019-01-04] MEDS: METOPROLOL TARTRATE 50 MG TAB PO SCH ×2 (08:48→21:55)
[2019-01-04] MEDS: FAMOTIDINE 20 MG TAB PO SCH (08:48)
[2019-01-04] MEDS: predniSONE 20 MG TAB PO SCH (08:48)
[2019-01-04] MEDS: PANTOPRAZOLE 40 MG TABLET PO SCH (08:48)
[2019-01-04] MEDS: ASPIRIN 81 MG PO SCH (08:48)
[2019-01-04] MEDS: guaiFENesin 600 MG TABLET.ER PO SCH ×2 (08:48→21:55)
[2019-01-04] MEDS: SODIUM CHLORIDE 0.9% 1,000 ML IV SCH (08:49)
[2019-01-04] MEDS: INSULIN ASPART (NovoLOG) 100 UNIT/ML VIAL SQ SCH ×4 (08:49→21:55)
--- NOTE | 2019-01-04 09:37 | P.PN ---
Subjective Progress Note Date: 01/04/19 Principal diagnosis: melena anemia acute blood loss ascites No GI complaints. No bleeding. S/P paracentesis last week. Hemoglobin 8.2. LFTs 2 days ago TB 2.5. AST 57. ALT 71. AP 292. ALbumin 2.8. Ascitic fluid no evidence of infection. Ascitic albumin pending. Hep panel nonreactive. Cytology non malignant. CT hepatic steatosis. Objective - Vital Signs Vital signs: Vital Signs Temp 98.0 F 01/04/19 07:00 Pulse 76 01/04/19 08:16 Resp 18 01/04/19 07:00 BP 123/82 01/04/19 07:00 Pulse Ox 95 01/04/19 07:00 Intake & Output 01/03/19 01/04/19 01/04/19 18:59 06:59 18:59 Intake Total 160 Output Total 1300 Balance 160 -1300 Intake: IV 160 Sodium Chloride 0.9% 1, 160 000 ml @ 20 mls/hr IV . Q24H HO Rx#:[id number] Output: Urine 1300 Other: Voiding Method Indwelling Catheter Indwelling Catheter ABP, PAP, CO, CI - Last Documented Arterial Blood Pressure 137/61 - Constitutional General appearance: Present: average body habitus, obese - EENT Eyes: Present: normal appearance - Neck Neck: Present: normal ROM - Respiratory Respiratory: bilateral: CTA - Cardiovascular Heart sounds: normal: S1, S2 - Gastrointestinal Gastrointestinal Comment(s): nontender General gastrointestinal: Present: soft - Integumentary Integumentary Comment(s): +2 BLE edema - Psychiatric Psychiatric: Present: appropriate affect - Labs CBC & Chem 7: 01/04/19 07:44 01/04/19 07:44 Labs: Abnormal Lab Results - Last 24 Hours (Table) 01/03/19 01/03/19 01/03/19 Range/Units 11:24 11:24 12:00 WBC 14.0 H (3.8-10.6) k/uL RBC 3.53 L (3.80-5.40) m/uL Hgb 8.7 L (11.4-16.0) gm/dL Hct 30.4 L (34.0-46.0) % MCH 24.6 L (25.0-35.0) pg MCHC 28.6 L (31.0-37.0) g/dL RDW 21.7 H (11.5-15.5) % Plt Count 144 L (150-450) k/uL Neutrophils # 12.3 H (1.3-7.7) k/uL Lymphocytes # 0.8 L (1.0-4.8) k/uL BUN 32 H (7-17) mg/dL Glucose 130 H (74-99) mg/dL POC Glucose (mg/dL) 133 H (75-99) mg/dL 01/03/19 01/03/19 01/04/19 Range/Units 16:50 20:29 07:09 WBC (3.8-10.6) k/uL RBC (3.80-5.40) m/uL Hgb (11.4-16.0) gm/dL Hct (34.0-46.0) % MCH (25.0-35.0) pg MCHC (31.0-37.0) g/dL RDW (11.5-15.5) % Plt Count (150-450) k/uL Neutrophils # (1.3-7.7) k/uL Lymphocytes # (1.0-4.8) k/uL BUN (7-17) mg/dL Glucose (74-99) mg/dL POC Glucose (mg/dL) 188 H 326 H 144 H (75-99) mg/dL 01/04/19 01/04/19 Range/Units 07:44 07:44 WBC (3.8-10.6) k/uL RBC 3.28 L (3.80-5.40) m/uL Hgb 8.2 L (11.4-16.0) gm/dL Hct 28.2 L (34.0-46.0) % MCH 24.8 L (25.0-35.0) pg MCHC 28.9 L (31.0-37.0) g/dL RDW 22.2 H (11.5-15.5) % Plt Count 119 L (150-450) k/uL Neutrophils # (1.3-7.7) k/uL Lymphocytes # (1.0-4.8) k/uL BUN 27 H (7-17) mg/dL Glucose (74-99) mg/dL POC Glucose (mg/dL) (75-99) mg/dL Microbiology - Last 24 Hours (Table) 01/02/19 13:58 Urine Culture - Preliminary Urine,Catheterized Yeast species Assessment and Plan (1) Anemia due to blood loss Current Visit: Yes Status: Acute Code(s): D50.0 - IRON DEFICIENCY ANEMIA SECONDARY TO BLOOD LOSS (CHRONIC) SNOMED Code(s): 703222087 (2) Ascites Current Visit: Yes Status: Acute Code(s): R18.8 - OTHER ASCITES SNOMED Code(s): 758549962 (3) Elevated liver enzymes Current Visit: Yes Status: Acute Code(s): R74.8 - ABNORMAL LEVELS OF OTHER SERUM ENZYMES SNOMED Code(s): 458446474 (4) Melena Current Visit: Yes Status: Acute Code(s): K92.1 - MELENA SNOMED Code(s): 1097934 (5) Occult blood in stools Current Visit: Yes Status: Acute Code(s): R19.5 - OTHER FECAL ABNORMALITIES SNOMED Code(s): 49522352 (6) Hepatic steatosis Current Visit: Yes Status: Acute Code(s): K76.0 - FATTY (CHANGE OF) LIVER, NOT ELSEWHERE CLASSIFIED SNOMED Code(s): 135423438 Plan: 1. Continue with current management. Chronic serologic workup for liver disease pending. DC per medicine to rehab. RTO 2-3 weeks. Low salt diet. Assessment and plan of care discussed with Dr. Howell
[2019-01-04 11:11] LABS: Glucose,Whole Blood 153 mg/dL (75-99)
[2019-01-04 12:53] LABS: Prothrombin Time 11.1 sec (9.0-12.0)
--- NOTE | 2019-01-04 13:28 | P.DS ---
Providers Date of admission: 12/21/18 19:30 Expected date of discharge: 01/04/19 Attending physician: Gian Long Consults: 12/21/18 17:32 Consult Physician Stat Consulting Provider: Cezar Howell Consult Reason/Comments: heme occult +, anemia Do you want consulting provider notified?: Yes 12/21/18 17:33 Consult Physician Stat Consulting Provider: Clara Key Consult Reason/Comments: low GFR, increased Cr Do you want consulting provider notified?: Yes Primary care physician: Gurdeep Curtis Hospital Course: Final Diagnoses: Acute hypoxic respiratory failure status post ventilator-dependent respiratory failure. currently extubated. Acute severe blood loss anemia status post EGD and colonoscopy and inconclusive small bowel capsule endoscopy. Gastritis and internal hemorrhoids. Hemoglobin stable. Acute COPD exacerbation Left upper lobe pneumonia possibly aspiration Ascites status post paracentesis 4.5 L and NALFD/cirrhosis/ Chronic nicotine dependence Diabetes type 2 uncontrolled with hyperglycemia secondary to steroids Chronic fibromyalgia GERD Essential hypertension Hyperlipidemia Chronic polymyalgia rheumatica Chronic low back pain with arthritis. Peripheral neuropathy secondary to diabetes Hyperlipidemia Acute renal failure likely prerenal improved Hospital course: Acute hypoxic respiratory failure. Status post VDRF Left upper lobe aspiration pneumonia Acute blood loss anemia secondary to GI bleed. Status post EGD and colonoscopy. No source identified. Patient is 68-year-old female initially presented to ER with severe anemia and COPD exacerbation. Evaluated by a pulmonary and GI. Patient had EGD and colonoscopy and incomplete small bowel capsule endoscopy. Patient was found have gastritis/polyps and internal hemorrhoids. Subsequently patient went into respiratory failure secondary to COPD and possible aspiration pneumonia. Patient was transferred to ICU. Patient was also found to have ascites and cirrhosis possibly from nonalcoholic fatty liver disease..Paracentesis with 4.5 L removed. Ascitic fluid reported negative for infection, Cytology nonmalignant. CT hepatic steatosis.Viral hepatitis panel is negative. Cleared by all consults for discharge. Patient is being discharged to [facility] in a stable condition with guarded prognosis. - Exam GEN: Alert and oriented 3, no acute distress CHEST: Decreased air entry in all lung meyer. Scattered rhonchi. HEART: Regular rate and rhythm. ABDOMEN: Soft, obese. Distended but soft. Bowel sounds are positive. No organomegaly. NEUROLOGIC: No focal deficits The impression and plan of care has been dictated as directed. : I performed a history and examination of this patient, discussed the same with the dictator. I agree with the dictator's note ,documented as a scribe. Any additional findings or plans will be noted. Time taken: 35 minutes Patient Condition at Discharge: Stable Plan - Discharge Summary Discharge Rx Participant: No New Discharge Prescriptions: New Acetaminophen Tab [Tylenol] 650 mg PO Q6HR PRN tab PRN Reason: Mild Pain Or Fever > 100.5 Budesonide [Pulmicort] 1 mg INHALATION RT-BID nebu Calcium Carbonate [Tums] 1,000 mg PO Q4HR PRN chew PRN Reason: Dyspepsia Gabapentin [Neurontin] 300 mg PO BID #6 cap guaiFENesin [Mucinex] 1,200 mg PO Q12HR tablet.er INSULIN LISPRO (HumaLOG) [humaLOG] 0 unit SQ ACHS #1 vial Ipratropium-Albuterol Nebulize [Duoneb 0.5 mg-3 mg/3 ml Soln] 3 ml INHALATION RT-Q4H ampul.neb Ipratropium-Albuterol Nebulize [Duoneb 0.5 mg-3 mg/3 ml Soln] 3 ml INHALATION RT-Q4H PRN ampul.neb PRN Reason: Shortness Of Breath Or Wheezing Lactulose [Cephulac] 20 gm PO DAILY PRN ml PRN Reason: Constipation Levofloxacin [Levaquin] 750 mg PO Q48H #5 tab Melatonin 3 mg PO HS PRN tablet PRN Reason: Insomnia predniSONE 10 mg PO DIRECTED #9 tab metFORMIN HCL 1,000 mg PO BID #1 tab Continue Omeprazole [PriLOSEC] 20 mg PO AC-BID Metoprolol Tartrate [Lopressor] 50 mg PO BID Aspirin 81 mg PO DAILY Amitriptyline HCl [Elavil] 25 mg PO HS Vitamin E 500mg 500 mg PO BID Discontinued Lisinopril-Hctz 20-25 mg [Zestoretic 20-25] 1 tab PO DAILY Glimepiride [Amaryl] 2 mg PO AC-BID metFORMIN HCL [Glucophage] 1,000 mg PO BID Albuterol Inhaler [Ventolin Inhaler] 1 - 2 puff INHALATION RT-QID PRN PRN Reason: Shortness Of Breath Tiotropium 18 Mcg/Puff [Spiriva] 1 cap INHALATION RT-DAILY HYDROcodone/APAP 7.5-325MG [[place] 7.5-325] 1 tab PO Q6HR PRN PRN Reason: Pain Gabapentin [Neurontin] 300 mg PO TID Discharge Medication List Metoprolol Tartrate [Lopressor] 50 mg PO BID 02/15/15 [History] Omeprazole [PriLOSEC] 20 mg PO AC-BID 02/15/15 [History] Aspirin 81 mg PO DAILY 03/07/15 [History] Amitriptyline HCl [Elavil] 25 mg PO HS 12/21/18 [History] Vitamin E 500mg 500 mg PO BID 12/21/18 [History] Acetaminophen Tab [Tylenol] 650 mg PO Q6HR PRN tab 01/04/19 [Rx] Budesonide [Pulmicort] 1 mg INHALATION RT-BID nebu 01/04/19 [Rx] Calcium Carbonate [Tums] 1,000 mg PO Q4HR PRN chew 01/04/19 [Rx] Gabapentin [Neurontin] 300 mg PO BID #6 cap 01/04/19 [Rx] INSULIN LISPRO (HumaLOG) [humaLOG] 0 unit SQ ACHS #1 vial 01/04/19 [Rx] Ipratropium-Albuterol Nebulize [Duoneb 0.5 mg-3 mg/3 ml Soln] 3 ml INHALATION RT -Q4H ampul.neb 01/04/19 [Rx] Ipratropium-Albuterol Nebulize [Duoneb 0.5 mg-3 mg/3 ml Soln] 3 ml INHALATION RT -Q4H PRN ampul.neb 01/04/19 [Rx] Lactulose [Cephulac] 20 gm PO DAILY PRN ml 01/04/19 [Rx] Levofloxacin [Levaquin] 750 mg PO Q48H #5 tab 01/04/19 [Rx] Melatonin 3 mg PO HS PRN tablet 01/04/19 [Rx] guaiFENesin [Mucinex] 1,200 mg PO Q12HR tablet.er 01/04/19 [Rx] metFORMIN HCL 1,000 mg PO BID #1 tab 01/04/19 [Rx] predniSONE 10 mg PO DIRECTED #9 tab 01/04/19 [Rx] Follow up Appointment(s)/Referral(s): [facility] [NON-STAFF] - As Needed (walker) Gurdeep Curtis MD [Primary Care Provider] - 3 Days Cezar Howell MD [STAFF PHYSICIAN] - 2 Weeks Patient Instructions/Handouts: Gastritis (DC), Anemia (DC) Activity/Diet/Wound Care/Special Instructions: [facility] Glucometer and supplies ordered through [employer]. They will mail glucometer and supplies within 1-2 business days. They will be mailing an Assignment of Benefits form that you have to sign, date, and mail back to them in order to receive 90 days worth of supplies. [facility] [facility] ph #[phone] [facility] care: #[phone] Low-salt, Cardiac, diabetic diet. Activity as tolerated, fall precautions. CBC, CMP in 3 days Discharge Disposition: TRANSFER TO SNF/ECF
[2019-01-04 17:38] LABS: Glucose,Whole Blood 255 mg/dL (75-99)
--- NOTE | 2019-01-04 18:57 | PN ---
PROGRESS NOTE This is a 68-year-old female with history of acute hypoxemic hypercapnic respiratory failure secondary to aspiration pneumonia and chronic obstructive pulmonary disease exacerbation. She was initially on mechanical ventilator and she was successfully extubated on December 29. In addition to that, she has a history of abdominal ascites status postop paracentesis abdominis. The patient may need another paracentesis before discharge. She has a history of COPD, profound anemia, type 2 diabetes, fibromyalgia, polymyalgia rheumatica, hypertension, rheumatoid arthritis, hyperlipidemia, elevated liver enzymes, fatty liver, transverse colonic polyp recently resected, chronic back pain and general medical debility. The patient was today complaining of pain in the abdomen. It appears that her abdominal distention has gotten worse. We did ask Interventional Radiology to consider repeating the paracentesis. We will allow them to make that decision. A repeat ultrasound showed [id number] ascites accumulation following the initial paracentesis. She denies any respiratory issues at this time. I believe any shortness of breath that she does have relates to this increasing abdominal girth from her ascites. She denies any chest pain or chest discomfort. No cough. No phlegm production. No wheezing. PHYSICAL EXAMINATION: Current vital signs are reviewed. Temperature is 98.2, heart rate 80, respiratory rate 18, blood pressure 122/78, mean 92, room air saturation 97%. Appears in no acute distress. Lying nearly flat in bed. We boost her up in bed and raised the head of the bed which probably will make her feel more comfortable. HEENT examination is grossly unremarkable. Mucous membranes are moist. No oral lesions. Neck is supple. Full range of motion. No adenopathy or thyromegaly. Neck veins are flat. Cardiovascular examination reveals regular rhythm rate. S1, S2 normal. Heart sounds are distant. No murmur. Lungs reveal diminished breath sounds throughout. A few scattered mild rhonchi. No wheezes or crackles. Abdomen is distended. Bowel sounds are noted. She appears to have a fluid wave. There is some mild tenderness on palpation. Extremities are intact. No cyanosis, clubbing, or edema. Skin without rash. Neurologic examination is brief but nonfocal. LABS: Labs are reviewed. White count 9, hemoglobin 8.2, hematocrit 28.2, platelet count 119,000. PT 11.1, INR 1. Sodium, potassium, chloride and CO2 all normal. Anion gap 5. BUN and creatinine were 27 and 0.79. Microbiology is essentially negative. Chest x-ray dated 01/04/2019 at 0800 shows stable bilateral consolidations and pleural effusions. This is consistent with mild CHF versus pneumonia. ASSESSMENT: 1. Acute hypoxemic and hypercapnic respiratory failure secondary to aspiration pneumonia and underlying chronic obstructive pulmonary disease exacerbation. 2. Status post intubation and mechanical ventilation with successful extubation on 12/29/2018. 3. Acute exacerbation of chronic obstructive pulmonary disease, with hypoxemic respiratory failure requiring intubation and mechanical ventilation. 4. Profound anemia secondary to GI blood loss, status post 2 units of PRBCs. 5. Abdominal ascites, status post large volume paracentesis abdominis. 6. Mental status changes, secondary to metabolic encephalopathy. 7. Type 2 diabetes. 8. Fibromyalgia. 9. Polymyalgia rheumatica. 10.Hypertension. 11.Rheumatoid arthritis. 12.Hyperlipidemia. 13.Elevated liver enzymes. 14.Fatty liver. 15.Recently resected transverse colonic polyp. 16.History of chronic back pain. 17.General medical debility. PLAN: The patient was referred to Interventional Radiology for consideration of a repeat paracentesis abdominis. Her mental status is improved. Her breathing is improved. She is not requiring any oxygen. We do sit up in bed and believe that sitting up in bed would improve her overall respiratory status. Additional recommendations and suggestions are forthcoming. We will continue to follow closely. MMODL / IJN: [id number] /
--- NOTE | 2019-01-04 19:47 | PN ---
PROGRESS NOTE DATE OF SERVICE: 01/04/2019 This 68-year-old woman who was admitted with COPD, acute exacerbation, also had respiratory failure and multiple other medical problems. The patient had prolonged mechanical ventilation and possible critical care polyneuropathy. The patient also has abdominal distention and ascites. The patient is complaining of abdominal pain at this time, mostly situated in the upper part and left-sided, also. The patient apparently ate some fiber bar from a friend. Cardiac, as noted, is following the patient. Past medical history reviewed. The most recent chest x-ray shows stable bilateral consolidation with effusion. CURRENT MEDICATIONS: Reviewed. They include: 1. Tylenol 650 q.6 p.r.n. 2. DuoNeb q.i.d. and p.r.n. 3. Xanax 0.25 mg p.o. q.6 p.r.n. 4. Elavil 25 mg at bedtime. 5. Aspirin 81 mg. 6. Pulmicort 1 mg b.i.d. 7. Tums. 8. Clindamycin. 9. Neurontin 300 mg . 10.Mucinex 1200 mg daily. 11.Levaquin. 12.Milk of Magnesia. 13.Melatonin. 14.Lopressor. 15.Narcan. 16.Zofran. 17.Protonix. PHYSICAL EXAMINATION: Patient is alert, oriented x3. Pulse is 80, blood pressure 122/78, respiration 18, temperature 98.2, pulse ox 97% on room air. HEENT: Conjunctivae normal. NECK: No jugular venous distention. CARDIOVASCULAR SYSTEM: S1, S2 muffled. RESPIRATORY SYSTEM: Breath sounds diminished at the bases. A few scattered rhonchi and crackles. ABDOMEN: Soft, obese. Minimal tenderness. No guarding. No rigidity. No mass palpable. Ascites present. LEGS: No edema. No swelling. NERVOUS SYSTEM: No focal deficit. LABS: WBC 9, hemoglobin 8.2. ASSESSMENT: 1. Chronic obstructive pulmonary disease, acute exacerbation, with acute hypoxic respiratory failure, ventilator-dependent respiratory failure, status post mechanical ventilation with acute left upper lobe pneumonia, possibly gram- negative. 2. Acute severe blood loss anemia, status post EGD, colonoscopy, small bowel endoscopy showing chronic gastritis and internal hemorrhoids. 3. Ascites, status post paracentesis of 2.5 liters. 4. 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 5. History of nicotine dependence. 6. Diabetes mellitus, type 2, uncontrolled, with hyperglycemia secondary to steroids. 7. Chronic fibromyalgia. 8. Gastroesophageal reflux disease. 9. Gait dysfunction. 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 11.Hypertension. 12.Hyperlipidemia. 13.History of polymyalgia rheumatica. 14.History of chronic back pain. 15.Peripheral neuropathy. 16.Acute renal failure, possibly prerenal. 17.FULL CODE. RECOMMENDATIONS AND DISCUSSION: I recommend to continue current medications, continue with the monitoring, symptomatic treatment. Otherwise at this time I would recommend pain medications for pain management. I would recommend ultrasound of the abdomen and possible paracentesis. Continue the rest of the medications. Continue the broad-spectrum IV antibiotics. At this time the urine culture showed Anais albicans. Otherwise, we will monitor the patient closely. Prognosis guarded. Once the patient is improved, PT/OT evaluation, ECF rehab. Further recommendations to follow. ARABELLA screen was negative. MMODL / IJN: [id number] / DANIE
[2019-01-04 20:59] LABS: Glucose,Whole Blood 281 mg/dL (75-99)
[2019-01-04 21:18] LABS: Appearance,Urine Cloudy (Clear); Bacteria,Urine Occasional /hpf; Bilirubin,Urine Negative (Negative); Blood,Urine Large (Negative); Budding Yeast,Urine Many /hpf; Color,Urine Light Red; Glucose,Urine (UA) Negative (Negative); Ketones,Urine Negative (Negative); Leukocyte Esterase,Urine Large (Negative); Mucus,Urine Occasional /hpf; Nitrite,Urine Negative (Negative); PH, Urine 5.5 (5.0-8.0); Protein,Urine 1+ (Negative); RBC,Urine >182 /hpf (0-5); Specific Gravity,Urine 1.022 (1.001-1.035); Squamous Epithelial Cell,Urine 1 /hpf (0-4); Urobilinogen,Urine <2.0 mg/dL (<2.0)
[2019-01-04] MEDS: AMITRIPTYLINE HCL 25 MG TAB PO SCH (21:55)
[2019-01-05] MEDS: ACETAMINOPHEN TAB 325 MG TAB PO PRN (01:24)
[2019-01-05] MEDS: IPRATROPIUM-ALBUTEROL 3 ML NEB INHALATION SCH ×4 (04:27→15:39)
[2019-01-05 07:23] LABS: Glucose,Whole Blood 146 mg/dL (75-99)
[2019-01-05] MEDS: INSULIN ASPART (NovoLOG) 100 UNIT/ML VIAL SQ SCH ×2 (08:13→12:55)
[2019-01-05] MEDS: SODIUM CHLORIDE 0.9% 1,000 ML IV SCH (08:14)
[2019-01-05] MEDS: BUDESONIDE 1 MG/2 ML NEBU INHALATION SCH (08:54)
[2019-01-05] MEDS: ASPIRIN 81 MG PO SCH ×2 (10:44→10:48)
[2019-01-05] MEDS: LEVOFLOXACIN 750 MG TAB PO SCH (10:45)
[2019-01-05] MEDS: guaiFENesin 600 MG TABLET.ER PO SCH (10:48)
[2019-01-05] MEDS: PANTOPRAZOLE 40 MG TABLET PO SCH (10:48)
[2019-01-05] MEDS: predniSONE 20 MG TAB PO SCH (10:48)
[2019-01-05] MEDS: GABAPENTIN 300 MG CAP PO SCH (10:53)
[2019-01-05] MEDS: METOPROLOL TARTRATE 50 MG TAB PO SCH (11:07)
[2019-01-05 11:57] LABS: Anisocytosis Moderate; Basophils % (A) 0 %; Eosinophils # (A) 0.2 k/uL (0-0.7); Eosinophils % (A) 2 %; HCT 32.1 % (34.0-46.0); HGB 9.4 gm/dL (11.4-16.0); Hypochromasia Marked; Lymphocytes # (A) 1.7 k/uL (1.0-4.8); Lymphocytes % (A) 19 %; MCH 25.4 pg (25.0-35.0); MCHC 29.3 g/dL (31.0-37.0); MCV 86.8 fL (80.0-100.0); Mean Platelet Volume 8.1; Microcytosis Slight; Monocytes # (A) 0.3 k/uL (0-1.0); Monocytes % (A) 3 %; Neutrophils # (A) 7.1 k/uL (1.3-7.7); Neutrophils % (A) 76 %; Platelet Count 120 k/uL (150-450); Poikilocytosis Slight; RDW 22.6 % (11.5-15.5); WBC 9.4 k/uL (3.8-10.6)
[2019-01-05 12:04] LABS: ALT 78 U/L (9-52); AST 55 U/L (14-36); Alkaline Phosphatase 325 U/L (38-126); Anion Gap 6 mmol/L; Blood Urea Nitrogen 24 mg/dL (7-17); Calcium 8.8 mg/dL (8.4-10.2); Carbon Dioxide 26 mmol/L (22-30); Chloride 103 mmol/L (98-107); Glucose 128 mg/dL (74-99); Potassium 4.3 mmol/L (3.5-5.1); Sodium 135 mmol/L (137-145); Total Bilirubin 2.6 mg/dL (0.2-1.3); Total Protein 5.5 g/dL (6.3-8.2)
--- NOTE | 2019-01-05 12:11 | US ---
Therapeutic paracentesis. DATE OF EXAM: 01/05/2019 CLINICAL HISTORY: Ascites The procedure was discussed with the patient. The risks, complications, benefits, and alternatives we re discussed and any questions were answered. Informed consent was obtained. The patient was placed s upine on the ultrasound table and prepped and draped in the usual sterile fashion. All elements of maximal barrier technique were utilized. Under ultrasound guidance, access into the right lower quadrant was obtained, via the paracentesis catheter system and direct ultrasound guidanc e. Approximately 5.2 liters of straw-colored fluid was removed. The patient was stable throughout the pr ocedure and remained stable upon discharge from Department of Radiology. IMPRESSION: Successful therapeutic paracentesis under ultrasound guidance.
[2019-01-05 12:27] LABS: Glucose,Whole Blood 166 mg/dL (75-99)
[2019-01-05 13:25] LABS: Liver/Kidney Microsome Antibod 1.7 UNITS (<=20)
--- NOTE | 2019-01-05 14:23 | P.PN ---
Subjective Progress Note Date: 01/05/19 Principal diagnosis: Acute hypoxic and hypercapnic respiratory failure secondary to left upper lobe pneumonia and underlying COPD with acute exacerbation. This is a 68-year-old female patient with known history of COPD in addition to history of polymyalgia rheumatica, fibromyalgia, chronic back pain, peripheral neuropathy and diabetes mellitus who came into the hospital because of generalized weakness. The patient apparently was getting progressively more weak and she had some increased nausea and dizziness. Overall she was feeling rundown. She was having difficulties mobility. In the emergency department, hemoglobin was done and came back at 4.9. The patient denied having any tarry stool. Hemoccult was positive. The patient had a component of hyperkalemia that was treated and the potassium level normalized. The patient was found to bronchospastic and wheezy. The patient was started on bronchodilators. GI consultation was obtained. Patient was given packed RBC transfusion. Over the past few days, the patient underwent further investigation including a EGD that was done that showed no evidence of any acute bleeding. There was mild scattered gastritis and the angiogram in the body and hiatal hernia. The esophagus was tortuous. The colonoscopy was also done that showed a polyp in transverse colon that was removed. There was mild internal hemorrhoids. Based on all this, a video capsule endoscopy was recommended.The patient was doing well. The patient was being considered even to be discharged home. Earlier this morning she became acutely short of breath. She became bronchus spastic and wheezy. She has also diminished level of consciousness. Time of the arrival to the ICU, the patient was diaphoretic and sweaty and tachypneic and tachycardic. She was not following commands. The blood gases was done that showed no significant respiratory acidosis. Nevertheless, clinically the patient was in impending respiratory failure. At that point, I decided to intubate the patient put on a mechanical ventilator. I reviewed the chest x- ray that was done earlier this morning and it showed a new left upper lobe opacity compared to the prior study and this finding was highly suspicious for an evolving pneumonia. Repeat chest x-ray as well as done post intubation showed a wedge-shaped opacity in the left upper lobe. Otherwise the rest of the cardiac border structures were low normal limits and ET tube was in a good location. The patient was started on a combination of Levaquin and clindamycin. She was started on DuoNeb the right seems on the clock and IV Solu -Medrol. Currently she is an assist-control mode of ventilation with a tidal volume of 400, FiO2 of 60%, PEEP of 5 and a respiratory rate of 20. Peak airway pressures around 30. The pH is at 7.43 with a pCO2 of 38 and pO2 of 162. Note that IV realized the patient had some increased abdominal distention post intubation. NG tube was inserted and output was minimal. The patient will be sent for a CAT scan of the chest and abdomen. Note that the CAT scan of the lumbar spine that was done showed degenerative changes in the mid in the lower lumbar spine in addition to moderate degree of abdominal pelvic ascites suspicious for liver cirrhosis an underlying portal hypertension. On 12/28/2018, patient was reevaluated in the ICU, remains on mechanical ventilation. Her ventilator settings are tidal volume of 400 assist control rate of 14 FiO2 is 40% PEEP of 5. Chest x-ray continues to show left upper lobe pneumonia. Patient remains on propofol at 40 mcg/kg/m, she was on norepinephrine this morning and this was discontinued. Her urine output was marginal, hence she was given fluid bolus of 0.9 normal saline/1 L. Patient was seen by interventional radiology, ultrasound was done, and being considered for paracentesis sometime today. However this is yet to be done. CT of the abdomen showed liver cirrhosis and abdominal with pelvic ascites. Patient continues to have a nasogastric tube in place, no evidence of any active GI bleeding, hemoglobin is holding at 7.6 today. ABG showed a pO2 of 90 pCO2 of 37 pH of 7.44. Pressure support/CPAP ABG showed a pO2 of 90 pCO2 of 35 pH of 7.45. Relatively normal electrolytes were noted. BUN is 32 creatinine is 0.88. Liver enzymes remain slightly elevated with alkaline phosphatase of 229. Total bilirubin is 2.3. Chest x-ray again showed bibasilar atelectasis, and left upper lobe pneumonia. Patient was noted to be arousable, followed simple instructions even on low dose of propofol. A patient was reevaluated today on 12/29/2018, remains in the ICU, mechanically ventilated. Her ventilator settings were noted to be unchanged, remains on assist control rate of 14, FiO2 of 40% PEEP of 400 and PEEP of 5. Chest x-ray is showing improvement, patchy bibasilar density persists, resolving pneumonia. Patient underwent paracentesis yesterday, and 4.5 L of fluid were drained. ABG this morning showed a pO2 of 144 pCO2 of 37 pH of 7.45. WBC count is 8.8 hemoglobin is 7. Electrolytes and renal profile are relatively normal. Studies on the spinal fluid are pending. However the fluid seems to be low on protein, and minimal amount of WBC count noted in the fluid. Clearly does not seem to be infected patient remains sedated at present, however I plan to hold sedation and I will likely give the patient another trial of weaning today, this will be utilizing a pressure support of 8 and CPAP, and if tolerated I will likely proceed to extubating the patient later today. Patient was reevaluated today on 12/30/2018, she was extubated yesterday, and tolerated the extubation quite well. However this morning the patient seems to be a bit sleepy and lethargic, in no form of respiratory distress. He denies any pain, denies any shortness of breath, no cough no wheezing, her abdomen seems to be a bit more distended, and I believe she is developing ascites again. This is all likely related to her liver and underlying liver disease. Patient was never a drinker, but she had history of fatty liver. ABG this morning was done to look into potential hypercapnia, her pO2 was noted to be 66 pCO2 is 34 pH of 7.47, and this was done on room air. Her chest x-ray, showed definite improvement in aeration of both lungs and specially the left upper lobe post extubation. Blood sugar was noted to be normal. Ammonia level is pending. Cytology on the peritoneal fluid is still pending. Cultures are negative so far. Patient is still being followed by gastroenterology. Still addressing her issue of intermittent melena and anemia as well as ascites and elevated liver enzymes. Reevaluated today on 12/31/2018, patient remains in the ICU, she was extubated 2 days ago, and she tolerated the extubation well. Denies any active pulmonary symptoms, no cough no wheezing no shortness of breath. She seems to be more alert today, however she had some episodes of confusion last night, and this has resolved early this morning. Denies any abdominal pain, no evidence of any active bleeding, hemoglobin is holding at 8.2 today. INR is normal. Electrolytes are normal renal profile is normal. Liver enzymes were noted to be slightly elevated. Chest x-ray was also reviewed, her left upper lobe pneumonia seems to be significantly improved. Ascites fluid has been negative for infection. Negative cytology was also noted. On 01/01/2019 patient seen in follow-up in medical surgical floor. She is lethargic, but arousable to verbal and tactile stimulation. No signs of respiratory distress, pulse ox is 99% on room air, no fever or chills, no use of accessory muscles of breathing. Lung sounds are positive for scattered rhonchi. Ascites fluid cultures remain negative thus far. Abdomen soft and nontender, family thinks there is a reaccumulation of ascites fluid. GI service is following. Repeat ultrasound the abdomen today showed mild to moderate ascites. She is status post paracentesis with removal of 3000 ML of ascites fluid on 12/29/2018. Cytology showed acute inflammation admixed with reactive mesothelial cells. On 01/05/2019 she seen in follow-up of surgical floor. She is up ambulating with physical therapy, the patient underwent ultrasound-guided paracentesis with removal of 5.2 L of ascites fluid. On today's exam abdomen is much less distended, patient is more comfortable, no dyspnea, she is on room air, with a pulse ox of 94-97%, hemodynamically patient stable, no fever or chills. Patient is awake and alert, conversant, was confused. Urine culture showed Anais albicans, patient is on Levaquin. Objective - Vital Signs Vital signs: Vital Signs Temp 97.8 F 01/05/19 09:02 Pulse 77 01/05/19 13:20 Resp 14 01/05/19 10:15 BP 101/67 01/05/19 13:20 Pulse Ox 97 01/05/19 13:20 Intake & Output 01/04/19 01/05/19 01/05/19 18:59 06:59 18:59 Output Total 400 Balance -400 Output: Urine 400 Other: Voiding Method Indwelling Catheter Indwelling Catheter Indwelling Catheter # Bowel Movements 1 1 ABP, PAP, CO, CI - Last Documented Arterial Blood Pressure 137/61 - Exam GENERAL EXAM: Somnolent, but arousable 68-year-old white female, on room air, comfortable in no apparent distress. HEAD: Normocephalic/atraumatic. EYES: Normal reaction of pupils, equal size. Conjunctiva pink, sclera white. NOSE: Clear with pink turbinates. THROAT: No erythema or exudates. NECK: No masses, no JVD, no thyroid enlargement, no adenopathy. CHEST: No chest wall deformity. Symmetrical expansion. LUNGS: Equal air entry with a few scattered rhonchi at the bases CVS: Regular rate and rhythm, normal S1 and S2, no gallops, no murmurs, no rubs ABDOMEN: Soft, nontender. No hepatosplenomegaly, normal bowel sounds, no guarding or rigidity. EXTREMITIES: No clubbing, no edema, no cyanosis, 2+ pulses and upper and lower extremities. MUSCULOSKELETAL: Muscle strength and tone normal. SPINE: No scoliosis or deformity SKIN: No rashes CENTRAL NERVOUS SYSTEM: Lethargic but arousable, confused. No focal deficits, tone is normal in all 4 extremities. - Labs CBC & Chem 7: 01/05/19 11:21 01/05/19 11:21 Labs: Abnormal Lab Results - Last 24 Hours (Table) 01/04/19 01/04/19 01/04/19 Range/Units 17:12 20:59 21:00 RBC (3.80-5.40) m/uL Hgb (11.4-16.0) gm/dL Hct (34.0-46.0) % MCHC (31.0-37.0) g/dL RDW (11.5-15.5) % Plt Count (150-450) k/uL Sodium (137-145) mmol/L BUN (7-17) mg/dL Glucose (74-99) mg/dL POC Glucose (mg/dL) 255 H 281 H (75-99) mg/dL Total Bilirubin (0.2-1.3) mg/dL AST (14-36) U/L ALT (9-52) U/L Alkaline Phosphatase (38-126) U/L Total Protein (6.3-8.2) g/dL Albumin (3.5-5.0) g/dL Urine Appearance Cloudy H (Clear) Urine Protein 1+ H (Negative) Urine Blood Large H (Negative) Ur Leukocyte Esterase Large H (Negative) Urine RBC >182 H (0-5) /hpf Urine Bacteria Occasional H (None) /hpf Urine Mucus Occasional H (None) /hpf Urine Yeast (Budding) Many H (None) /hpf 01/05/19 01/05/19 01/05/19 Range/Units 07:21 11:21 11:21 RBC 3.70 L (3.80-5.40) m/uL Hgb 9.4 L (11.4-16.0) gm/dL Hct 32.1 L (34.0-46.0) % MCHC 29.3 L (31.0-37.0) g/dL RDW 22.6 H (11.5-15.5) % Plt Count 120 L (150-450) k/uL Sodium 135 L (137-145) mmol/L BUN 24 H (7-17) mg/dL Glucose 128 H (74-99) mg/dL POC Glucose (mg/dL) 146 H (75-99) mg/dL Total Bilirubin 2.6 H (0.2-1.3) mg/dL AST 55 H (14-36) U/L ALT 78 H (9-52) U/L Alkaline Phosphatase 325 H (38-126) U/L Total Protein 5.5 L (6.3-8.2) g/dL Albumin 3.0 L (3.5-5.0) g/dL Urine Appearance (Clear) Urine Protein (Negative) Urine Blood (Negative) Ur Leukocyte Esterase (Negative) Urine RBC (0-5) /hpf Urine Bacteria (None) /hpf Urine Mucus (None) /hpf Urine Yeast (Budding) (None) /hpf 01/05/19 Range/Units 12:25 RBC (3.80-5.40) m/uL Hgb (11.4-16.0) gm/dL Hct (34.0-46.0) % MCHC (31.0-37.0) g/dL RDW (11.5-15.5) % Plt Count (150-450) k/uL Sodium (137-145) mmol/L BUN (7-17) mg/dL Glucose (74-99) mg/dL POC Glucose (mg/dL) 166 H (75-99) mg/dL Total Bilirubin (0.2-1.3) mg/dL AST (14-36) U/L ALT (9-52) U/L Alkaline Phosphatase (38-126) U/L Total Protein (6.3-8.2) g/dL Albumin (3.5-5.0) g/dL Urine Appearance (Clear) Urine Protein (Negative) Urine Blood (Negative) Ur Leukocyte Esterase (Negative) Urine RBC (0-5) /hpf Urine Bacteria (None) /hpf Urine Mucus (None) /hpf Urine Yeast (Budding) (None) /hpf Microbiology - Last 24 Hours (Table) 12/28/18 14:55 Acid Fast Bacilli Smear - Final Ascites Fluid Acid Fast Bacilli Culture - Preliminary 01/02/19 13:58 Urine Culture - Final Urine,Catheterized Anais albicans Assessment and Plan Plan: Assessment: 1 acute hypoxic and hypercapnic respiratory failure secondary to likely aspiration pneumonia, and underlying COPD with acute exacerbation. Patient was extubated on 12/29/2018, 2 acute exacerbation of COPD, also contributing to her hypoxic respiratory failure and requiring intubation and mechanical ventilation. 3 profound anemia secondary to GI blood losses, received a total of 2 units of packed RBCs since admission. Continues to be followed by gastroenterology. 4 abdominal ascites possibly related to liver disease, workup is nondiagnostic, basically negative. 5 change in mental status, possible metabolic encephalopathy improving, and her ammonia level came back normal 6 type 2 diabetes 7 fibromyalgia 8 polymyalgia rheumatica 9 hypertension 10 rheumatoid arthritis 11 hyperlipidemia 12 elevated liver enzymes and history of fatty liver with ascites. 13 transverse colonic polyp recently resected. 14 chronic back pain. Plan: Patient is doing well, clinically improving, she is up working with therapy, no fever or chills, no cough or chest congestion, and maintaining good oxygenation on room air. From pulmonary perspective patient is stable for discharge to rehab. Follow-up with Dr. Edwards in the office in one week I performed a history & physical examination of the patient and discussed their management with my nurse practitioner, Kenzie Daigle. I reviewed the nurse practitioner's note and agree with the documented findings and plan of care. Lung sounds are positive for scattered rhonchi. The findings and the impression was discussed with the patient. I attest to the documentation by the nurse practitioner. Time with Patient: Less than 30
[2019-01-05 15:11] VITALS: BP 90/53; RESP 16; TEMP 97.9
[2019-01-05 15:51] VITALS: PULSE 80
--- NOTE | 2019-01-06 06:47 | DS ---
DISCHARGE SUMMARY DATE OF SERVICE: 01/04/2019. HISTORY OF PRESENT ILLNESS: This 68-year-old woman was admitted with multiple medical problems including COPD, GI bleed, history of pneumonia, history of ascites, had a 2nd large volume paracentesis more than 6 L today. The patient also has cirrhosis of the liver. Patient also had anemia, but hemoglobin rather stable and fluctuating and current hemoglobin is 9.4. The patient will be discharged in stable condition. Guarded prognosis. I discussed the case with Dr. Gurdeep Curtis who is the primary care physician and the patient will be discharged to the [facility] at this time. On exam, vital signs are stable. Cardiovascular: S1, S2 normal. Abdomen is soft, nontender. Minimal ascites. Nervous system: No focal deficits. Total time taken 35 minutes. I would also recommend fluid restriction about 1500 mL and also I would also recommend a small dose of Lasix. I would avoid Aldactone because of the previous hyperkalemia. Otherwise monitor BUN, creatinine, CMP closely per Dr. Curtis. Continue the rest of the medications and please refer to my previous dictation for list of medications and consultations. Follow up with Gastroenterology as recommended and Pulmonology as recommended. Once again, the prognosis guarded. Further recommendations to follow. MMODL / IJN: [id number] /
== END 2019-01-05 16:33 | DRG 377 ==
LOC: EC 13:42 → 3NMEDONC 19:30 → 4SSUR 12-22 17:13 → 3SCARD 12-26 09:10 → 2SICU 12-26 09:39 → 4MS4W 12-31 22:21
PROVIDERS: ADMIT Hospitalist; ATTEND Hospitalist
PROC: 30233N1 Transfusion of Nonautologous Red Blood Cells into Peripheral Vein, Percutaneous Approach (ICD-10-PCS; 2018-12-22)
PROC: 0DB78ZX Excision of Stomach, Pylorus, Via Natural or Artificial Opening Endoscopic, Diagnostic (ICD-10-PCS; principal; 2018-12-23 11:00)
PROC: 0DBL8ZX Excision of Transverse Colon, Via Natural or Artificial Opening Endoscopic, Diagnostic (ICD-10-PCS; 2018-12-24)
PROC: 5A1945Z Respiratory Ventilation, 24-96 Consecutive Hours (ICD-10-PCS; 2018-12-26)
PROC: 0BH17EZ Insertion of Endotracheal Airway into Trachea, Via Natural or Artificial Opening (ICD-10-PCS; 2018-12-26)
PROC: 0W9G3ZX Drainage of Peritoneal Cavity, Percutaneous Approach, Diagnostic (ICD-10-PCS; 2018-12-28)
PROC: 0W9G3ZZ Drainage of Peritoneal Cavity, Percutaneous Approach (ICD-10-PCS; 2019-01-05)
DX: K29.71 Gastritis, unspecified, with bleeding (principal); G93.41 Metabolic encephalopathy; J69.0 Pneumonitis due to inhalation of food and vomit; J96.01 Acute respiratory failure with hypoxia; J96.02 Acute respiratory failure with hypercapnia; N17.0 Acute kidney failure with tubular necrosis; D62 Acute posthemorrhagic anemia; E87.4 Mixed disorder of acid-base balance; J44.1 Chronic obstructive pulmonary disease with (acute) exacerbation; J98.11 Atelectasis; R18.8 Other ascites; Z99.11 Dependence on respirator [ventilator] status; K76.6 Portal hypertension; K44.9 Diaphragmatic hernia without obstruction or gangrene; D12.3 Benign neoplasm of transverse colon; E11.22 Type 2 diabetes mellitus with diabetic chronic kidney disease; E11.42 Type 2 diabetes mellitus with diabetic polyneuropathy; E11.65 Type 2 diabetes mellitus with hyperglycemia; E66.9 Obesity, unspecified; E78.5 Hyperlipidemia, unspecified; E86.9 Volume depletion, unspecified; E87.5 Hyperkalemia; E87.70 Fluid overload, unspecified; F17.210 Nicotine dependence, cigarettes, uncomplicated; F41.9 Anxiety disorder, unspecified; G47.00 Insomnia, unspecified; G89.29 Other chronic pain; I12.9 Hypertensive chronic kidney disease with stage 1 through stage 4 chronic kidney disease, or unspecified chronic kidney disease; K21.9 Gastro-esophageal reflux disease without esophagitis; K59.00 Constipation, unspecified; K64.8 Other hemorrhoids; K74.60 Unspecified cirrhosis of liver; K76.0 Fatty (change of) liver, not elsewhere classified; M06.9 Rheumatoid arthritis, unspecified; M51.36 Other intervertebral disc degeneration, lumbar region; M35.3 Polymyalgia rheumatica; M79.7 Fibromyalgia; N18.3 Chronic kidney disease, stage 3 (moderate); T38.0X5A Adverse effect of glucocorticoids and synthetic analogues, initial encounter; Z79.82 Long term (current) use of aspirin; Z79.84 Long term (current) use of oral hypoglycemic drugs; Z79.899 Other long term (current) drug therapy; Z80.51 Family history of malignant neoplasm of kidney; Z82.49 Family history of ischemic heart disease and other diseases of the circulatory system; Z86.010 Personal history of colon polyps; Z90.710 Acquired absence of both cervix and uterus; Z83.6 Family history of other diseases of the respiratory system; R26.81 Unsteadiness on feet; Z88.0 Allergy status to penicillin; F40.240 Claustrophobia
CPT/HCPCS: 36415; 36600; 43239; 45380; 49083; 51701; 70450; 70553; 71045; 71046; 71260; 72131; 74177; 76705; 80048; 80053; 80074; 80076; 81001; 81003; 82042; 82103; 82140; 82247; 82248; 82272; 82390; 82553; 82565; 82728; 82787; 82805; 83010; 83036; 83516; 83540; 83550; 83735; 83880; 84100; 84132; 84157; 84484; 84520; 85025; 85027; 85045; 85610; 85730; 86038; 86376; 86850; 86860; 86870; 86880; 86885; 86900; 86901; 86905; 86920; 86970; 87070; 87075; 87086; 87116; 87205; 87206; 88108; 88305; 88341; 88342; 89050; 93005; 94002; 94003; 94640; 94660; 94760; 96361; 96365; 96366; 96367; 96374; 96375; 99285

== ENCOUNTER 2019-01-14 06:44 | Inpatient (IN) | payer MEDICARE ==
[2019-01-14] MEDS ORDERED: DOPamine DRIP 800 MG in DEXTROSE/WATER 1 250ML.BAG IV ONE (06:57)
--- NOTE | 2019-01-14 07:08 | ED ---
Altered Mental Status HPI - General Stated Complaint: CARMELA Time Seen by Provider: 01/14/19 06:55 Source: EMS Mode of arrival: EMS Limitations: altered mental status - History of Present Illness Initial Comments: This patient is a 68-year-old woman who appears to have been resident of the extended care facility located at [facility] she reportedly had become less responsive and also reportedly having dyspnea over the course of the night. I am not able to obtain any history from the patient due to altered mental status. The transfer notes report that the patient was "less responsive and developing shortness of breath." The patient does arrive with dopamine for pressure support the transfer paperwork note that her blood pressures had been hypotensive, 70s/50s. MD Complaint: altered mental status -: hour(s) Severity: moderate Consistency of Symptoms: getting worse Context: COPD Associated Symptoms: shortness of breath Treatments Prior to Arrival: IV fluid, other pre-hospital medication - Related Data Home Medications Medication Instructions Recorded Confirmed Metoprolol Tartrate [Lopressor] 50 mg PO BID 02/15/15 01/14/19 Omeprazole [PriLOSEC] 20 mg PO AC-BID 02/15/15 01/14/19 Aspirin 81 mg PO DAILY 03/07/15 01/14/19 Amitriptyline HCl [Elavil] 25 mg PO HS 12/21/18 01/14/19 Vitamin E 500mg 500 mg PO BID 12/21/18 01/14/19 Azithromycin 250 mg PO DAILY 01/14/19 01/14/19 HYDROcodone/APAP 7.5-325MG [[place] 1 tab PO Q6HR PRN 01/14/19 01/14/19 7.5-325] INSULIN LISPRO (HumaLOG) [humaLOG] See Protocol SQ ACHS 01/14/19 01/14/19 Lactobacillus Acidophilus 1 tab PO BID 01/14/19 01/14/19 [Acidophilus] diphenhydrAMINE [Benadryl] 25 mg PO BID PRN 01/14/19 01/14/19 metFORMIN HCL [Glucophage] 1,000 mg PO BID 01/14/19 01/14/19 Previous Rx's Medication Instructions Recorded Budesonide [Pulmicort] 1 mg INHALATION RT-BID nebu 01/04/19 Calcium Carbonate [Tums] 1,000 mg PO Q4HR PRN chew 01/04/19 Gabapentin [Neurontin] 300 mg PO BID #6 cap 01/04/19 Ipratropium-Albuterol Nebulize 3 ml INHALATION RT-Q4H ampul.neb 01/04/19 [Duoneb 0.5 mg-3 mg/3 ml Soln] Ipratropium-Albuterol Nebulize 3 ml INHALATION RT-Q4H PRN 01/04/19 [Duoneb 0.5 mg-3 mg/3 ml Soln] ampul.neb Lactulose [Cephulac] 20 gm PO DAILY PRN ml 01/04/19 Melatonin 3 mg PO HS PRN tablet 01/04/19 guaiFENesin [Mucinex] 1,200 mg PO Q12HR tablet.er 01/04/19 metFORMIN HCL 1,000 mg PO BID #1 tab 01/04/19 Furosemide [Lasix] 40 mg PO DAILY #1 tablet 01/05/19 Allergies Allergy/AdvReac Type Severity Reaction Status Date / Time levofloxacin [From Levaquin] Allergy Unknown Verified 01/14/19 08:26 Penicillins Allergy Dyspnea Verified 01/14/19 08:26 Review of Systems ROS Statement: Those systems with pertinent positive or pertinent negative responses have been documented in the HPI. ROS Other: All systems not noted in ROS Statement are negative. Limitations: ROS unobtainable due to patients medical condition (Patient appears delirious) Past Medical History Past Medical History: COPD, Diabetes Mellitus, Fibromyalgia, GERD/Reflux, Hyperlipidemia, Hypertension, Rheumatoid Arthritis (RA) Additional Past Medical History / Comment(s): Polymyalgia rheumatica, chronic lower back pain, lower back nerve damage, neuropathy R leg, NIDDM type II, anemia once, hiatal hernia, unsteady gait, elevated LFT in the past. History of Any Multi-Drug Resistant Organisms: None Reported Past Surgical History: Appendectomy, Bladder Surgery, Cholecystectomy, Hysterectomy, Tubal Ligation Additional Past Surgical History / Comment(s): [place] 2018, EGD, bladder suspension, lap surgery for ovarian cyst, lumbar epidural pain procedures, Past Anesthesia/Blood Transfusion Reactions: Motion Sickness Additional Past Anesthesia/Blood Transfusion Reaction / Comment(s): OCCASIONAL MOTION SICKNESS, some clausterphobia. Smoking Status: Current every day smoker - Past Family History Mother Family Medical History: Hypertension Additional Family Medical History / Comment(s): Mother of a respiratory arrest at the age of 69yrs. Father Family Medical History: Cancer Additional Family Medical History / Comment(s): Father of renal cancer at the age of 67yrs. General Exam Limitations: altered mental status (No areas) General appearance: obtunded Head exam: Present: atraumatic, normocephalic Eye exam: Present: PERRL. Absent: scleral icterus, conjunctival injection, periorbital swelling, periorbital tenderness ENT exam: Present: mucous membranes dry Neck exam: Present: normal inspection Respiratory exam: Present: rales, rhonchi Cardiovascular Exam: Present: regular rate, normal rhythm, normal heart sounds. Absent: systolic murmur, diastolic murmur, rubs, gallop GI/Abdominal exam: Present: soft. Absent: distended, tenderness, guarding, rebound Extremities exam: Present: normal inspection, normal capillary refill Back exam: Present: normal inspection Neurological exam: Present: altered, CN II-XII intact, other (Patient not able to cooperate with neurologic exam. When asked to squeeze my hand, she does state "I can do to myself" and pushes examiner away. Moves 4 extremities though not to command.) Skin exam: Present: warm, dry, rash (There is an erythematous macular rash diffusely over the torso and extremities. No involvement of the palms or soles of feet.), other (Jaundice) Course Vital Signs 01/14/19 01/14/19 01/14/19 06:53 07:59 09:33 Temperature 94.4 F L Pulse Rate 97 96 92 Respiratory 22 Rate Blood Pressure 60/50 91/51 69/59 O2 Sat by Pulse 96 Oximetry 01/14/19 01/14/19 01/14/19 09:35 09:40 09:50 Temperature Pulse Rate 92 92 92 Respiratory 16 15 15 Rate Blood Pressure 69/59 69/59 81/50 O2 Sat by Pulse Oximetry 01/14/19 01/14/19 01/14/19 10:00 10:10 10:20 Temperature Pulse Rate 92 89 92 Respiratory 16 15 Rate Blood Pressure 73/46 76/57 86/58 O2 Sat by Pulse Oximetry 01/14/19 01/14/19 01/14/19 10:30 10:40 10:50 Temperature Pulse Rate 92 92 92 Respiratory 16 16 Rate Blood Pressure 72/56 56/43 73/48 O2 Sat by Pulse Oximetry 01/14/19 01/14/19 01/14/19 11:00 11:10 11:20 Temperature Pulse Rate 91 92 Respiratory 16 17 17 Rate Blood Pressure 60/42 72/61 72/51 O2 Sat by Pulse Oximetry 01/14/19 01/14/19 01/14/19 11:30 11:40 11:50 Temperature Pulse Rate 92 92 85 Respiratory 17 15 16 Rate Blood Pressure 74/49 84/69 73/60 O2 Sat by Pulse Oximetry Given concerns of possible sepsis, patient is given fluid bolus and broad- spectrum antibiotic. Please note that the fluid boluses based on ideal body weight for the patient, and calculated to be 1.62 liters. - Reevaluation(s) Reevaluation #1: 01/14/19 10:00 Case discussed with admitting physician and his treatment recommendations are incorporated. I have paged to discuss case with media sales consultant. Some of the admission orders have been written for the admitting physician. Reevaluation #2: 01/14/19 10:23 Case discussed with Patrizia Shay, who states that they are currently in ICU and will see the patient. Procedures - Central Line Placement Left SC Consent Obtained: written consent Patient Placed on Monitor/Pulse Ox: Yes Prep: mask, gown, gloves Central Line Prep: Chlorhexidine scrub, sterile drapes applied Local Anesthesia Used: Lidocaine 1% Central Line Lumen Inserted: triple Central Line Position: good blood return, all ports aspirated, flushed, capped, sutured in place with 3-0 nylon Dressing Applied: Tegaderm Patient Tolerated Procedure: well, no complications Medical Decision Making - Medical Decision Making The outside facility chest x-ray from 3 AM is reviewed. Patient's previous admission from 12/22/2018 was reviewed. Appears patient had been admitted here for weakness and possible mental status change. At that time she was found to be anemic with a hemoglobin of 6.2 and also had occult positive stools. The patient was admitted, she had transfusion. She had upper and lower endoscopy without finding active bleeding. On December 26, the patient apparently developed some acute respiratory distress and was intubated and placed in ICU. She appears to have had a left upper lobe infiltrate, being treated with Levaquin and clindamycin. She is also hypotensive and treated with Levophed. The patient also reportedly had some ascites, with a paracentesis removing 4.5 L of fluid on 12/28. (Path report appears negative). It appears the patient also had a second paracentesis on 01/05 removing an additional 5.2 L. It is noted throughout her stay that the patient is always somnolent and lethargic. - Lab Data Result diagrams: 01/14/19 08:38 01/14/19 08:28 Lab Results 01/14/19 01/14/19 01/14/19 Range/Units 08:28 08: 08:28 WBC (3.8-10.6) k/uL RBC (3.80-5.40) m/uL Hgb (11.4-16.0) gm/dL Hct (34.0-46.0) % MCV (80.0-100.0) fL MCH (25.0-35.0) pg MCHC (31.0-37.0) g/dL RDW (11.5-15.5) % Plt Count (150-450) k/uL Neutrophils % Neutrophils % (Manual) % Band Neutrophils % % Lymphocytes % Lymphocytes % (Manual) % Monocytes % Monocytes % (Manual) % Eosinophils % Eosinophils % (Manual) % Basophils % Metamyelocytes % % Neutrophils # Neutrophils # (Manual) (1.3-7.7) k/uL Lymphocytes # Lymphocytes # (Manual) (1.0-4.8) k/uL Monocytes # Monocytes # (Manual) (0-1.0) k/uL Eosinophils # Eosinophils # (Manual) (0-0.7) k/uL Basophils # Metamyelocytes # (Man) (0) k/uL Nucleated RBCs (0-0) /100 WBC Manual Slide Review Polychromasia Hypochromasia Poikilocytosis Anisocytosis Macrocytosis Crenated Cell PT (9.0-12.0) sec INR (<1.2) APTT (22.0-30.0) sec D-Dimer (<0.60) mg/L FEU VBG pH 7.14 L* (7.31-7.41) VBG pCO2 18 L* (37-51) mmHg VBG HCO3 6 L* (24-28) mmol/L Sodium 137 (137-145) mmol/L Potassium 5.0 (3.5-5.1) mmol/L Chloride 100 (98-107) mmol/L Carbon Dioxide 7 L* (22-30) mmol/L Anion Gap 30 mmol/L BUN 31 H (7-17) mg/dL Creatinine 2.58 H (0.52-1.04) mg/dL Est GFR (CKD-EPI)AfAm 21 (>60 ml/min/1.73 sqM) Est GFR (CKD-EPI)NonAf 18 (>60 ml/min/1.73 sqM) Glucose 92 (74-99) mg/dL Lactic Ac Sepsis Rflx Plasma Lactic Acid Jose Armando (0.7-2.0) mmol/L Calcium 7.8 L (8.4-10.2) mg/dL Total Bilirubin 3.0 H (0.2-1.3) mg/dL AST 42 H (14-36) U/L ALT 46 (9-52) U/L Alkaline Phosphatase 242 H (38-126) U/L Ammonia (<30) umol/L Troponin I <0.012 (0.000-0.034) ng/mL NT-Pro-B Natriuret Pep pg/mL Total Protein 4.8 L (6.3-8.2) g/dL Albumin 2.6 L (3.5-5.0) g/dL 01/14/19 01/14/19 01/14/19 Range/Units 08:28 08:38 08:38 WBC 8.9 (3.8-10.6) k/uL RBC 3.16 L (3.80-5.40) m/uL Hgb 8.3 L (11.4-16.0) gm/dL Hct 30.7 L (34.0-46.0) % MCV 97.3 D (80.0-100.0) fL MCH 26.2 (25.0-35.0) pg MCHC 27.0 L (31.0-37.0) g/dL RDW 23.0 H (11.5-15.5) % Plt Count 258 D (150-450) k/uL Neutrophils % Not Reportable Neutrophils % (Manual) 71 % Band Neutrophils % 9 % Lymphocytes % Not Reportable Lymphocytes % (Manual) 8 % Monocytes % Not Reportable Monocytes % (Manual) 8 % Eosinophils % Not Reportable Eosinophils % (Manual) 5 % Basophils % Not Reportable Metamyelocytes % 1 % Neutrophils # Not Reportable Neutrophils # (Manual) 7.10 (1.3-7.7) k/uL Lymphocytes # Not Reportable Lymphocytes # (Manual) 0.71 L (1.0-4.8) k/uL Monocytes # Not Reportable Monocytes # (Manual) 0.71 (0-1.0) k/uL Eosinophils # Not Reportable Eosinophils # (Manual) 0.45 (0-0.7) k/uL Basophils # Not Reportable Metamyelocytes # (Man) 0.09 H (0) k/uL Nucleated RBCs 0 (0-0) /100 WBC Manual Slide Review Performed Polychromasia Present Hypochromasia Marked Poikilocytosis Slight Anisocytosis Moderate Macrocytosis Moderate Crenated Cell Present PT 13.9 H (9.0-12.0) sec INR 1.4 H (<1.2) APTT 29.1 (22.0-30.0) sec D-Dimer 16.61 H (<0.60) mg/L FEU VBG pH (7.31-7.41) VBG pCO2 (37-51) mmHg VBG HCO3 (24-28) mmol/L Sodium (137-145) mmol/L Potassium (3.5-5.1) mmol/L Chloride (98-107) mmol/L Carbon Dioxide (22-30) mmol/L Anion Gap mmol/L BUN (7-17) mg/dL Creatinine (0.52-1.04) mg/dL Est GFR (CKD-EPI)AfAm (>60 ml/min/1.73 sqM) Est GFR (CKD-EPI)NonAf (>60 ml/min/1.73 sqM) Glucose (74-99) mg/dL Lactic Ac Sepsis Rflx Plasma Lactic Acid Josea Rmando 17.3 H* (0.7-2.0) mmol/L Calcium (8.4-10.2) mg/dL Total Bilirubin (0.2-1.3) mg/dL AST (14-36) U/L ALT (9-52) U/L Alkaline Phosphatase (38-126) U/L Ammonia 52 H (<30) umol/L Troponin I (0.000-0.034) ng/mL NT-Pro-B Natriuret Pep pg/mL Total Protein (6.3-8.2) g/dL Albumin (3.5-5.0) g/dL 01/14/19 01/14/19 Range/Units 08:38 09:40 WBC (3.8-10.6) k/uL RBC (3.80-5.40) m/uL Hgb (11.4-16.0) gm/dL Hct (34.0-46.0) % MCV (80.0-100.0) fL MCH (25.0-35.0) pg MCHC (31.0-37.0) g/dL RDW (11.5-15.5) % Plt Count (150-450) k/uL Neutrophils % Neutrophils % (Manual) % Band Neutrophils % % Lymphocytes % Lymphocytes % (Manual) % Monocytes % Monocytes % (Manual) % Eosinophils % Eosinophils % (Manual) % Basophils % Metamyelocytes % % Neutrophils # Neutrophils # (Manual) (1.3-7.7) k/uL Lymphocytes # Lymphocytes # (Manual) (1.0-4.8) k/uL Monocytes # Monocytes # (Manual) (0-1.0) k/uL Eosinophils # Eosinophils # (Manual) (0-0.7) k/uL Basophils # Metamyelocytes # (Man) (0) k/uL Nucleated RBCs (0-0) /100 WBC Manual Slide Review Polychromasia Hypochromasia Poikilocytosis Anisocytosis Macrocytosis Crenated Cell PT (9.0-12.0) sec INR (<1.2) APTT (22.0-30.0) sec D-Dimer (<0.60) mg/L FEU VBG pH (7.31-7.41) VBG pCO2 (37-51) mmHg VBG HCO3 (24-28) mmol/L Sodium (137-145) mmol/L Potassium (3.5-5.1) mmol/L Chloride (98-107) mmol/L Carbon Dioxide (22-30) mmol/L Anion Gap mmol/L BUN (7-17) mg/dL Creatinine (0.52-1.04) mg/dL Est GFR (CKD-EPI)AfAm (>60 ml/min/1.73 sqM) Est GFR (CKD-EPI)NonAf (>60 ml/min/1.73 sqM) Glucose (74-99) mg/dL Lactic Ac Sepsis Rflx Y Plasma Lactic Acid Jose Armando (0.7-2.0) mmol/L Calcium (8.4-10.2) mg/dL Total Bilirubin (0.2-1.3) mg/dL AST (14-36) U/L ALT (9-52) U/L Alkaline Phosphatase (38-126) U/L Ammonia (<30) umol/L Troponin I (0.000-0.034) ng/mL NT-Pro-B Natriuret Pep 2220 pg/mL Total Protein (6.3-8.2) g/dL Albumin (3.5-5.0) g/dL - EKG Data -: EKG Interpreted by Ms EKG shows normal: sinus rhythm, intervals (NV interval 154 ms, QRS duration 80 ms, both normal. QTC is 539 ms, prolonged.), QRS complexes (Low-voltage QRS complex), ST-T waves (Normal) Rate: normal (Rate 92 bpm) Disposition Clinical Impression: Altered mental status, Lactic acidosis, Acute kidney injury, Anemia, Elevated d -dimer Disposition: ADMITTED IP TO THIS HOSP Condition: Serious
[2019-01-14] MEDS ORDERED: SODIUM CHLORIDE 0.9% 1,000 ML IV ONE ×4 (07:42→15:22)
[2019-01-14] MEDS ORDERED: NOREPINEPHRINE 4 MG in SODIUM CHLORIDE 0.9% 250 ML IV SCH (07:45)
[2019-01-14 08:51] LABS: Anisocytosis Moderate; HCT 30.7 % (34.0-46.0); HGB 8.3 gm/dL (11.4-16.0); Hypochromasia Marked; MCH 26.2 pg (25.0-35.0); Macrocytosis Moderate; Mean Platelet Volume 8.2; Poikilocytosis Slight; RBC 3.16 m/uL (3.80-5.40); WBC 8.9 k/uL (3.8-10.6)
[2019-01-14 08:59] LABS: MCV 97.3 fL (80.0-100.0); Platelet Count 258 k/uL (150-450)
[2019-01-14 09:02] LABS: Albumin 2.6 g/dL (3.5-5.0); Calcium 7.8 mg/dL (8.4-10.2); Total Protein 4.8 g/dL (6.3-8.2)
[2019-01-14 09:11] LABS: VBG PH 7.14 (7.31-7.41)
[2019-01-14 09:13] LABS: INR 1.4 (<1.2); Partial Thromboplastin Time 29.1 sec (22.0-30.0); Prothrombin Time 13.9 sec (9.0-12.0)
[2019-01-14 09:17] LABS: Band Neutrophils % 9 %; Crenated RBC Present; Eosinophils # (M) 0.45 k/uL (0-0.7); Lymphocytes # (M) 0.71 k/uL (1.0-4.8); Metamyelocytes # (M) 0.09 k/uL (0); Metamyelocytes % 1 %; Monocytes # (M) 0.71 k/uL (0-1.0); Neutrophils % (M) 71 %; Nucleated Red Blood Cells 0 /100 WBC (0-0); Total Cells Counted 200
[2019-01-14 09:18] LABS: Polychromasia Present
[2019-01-14] MEDS ORDERED: SODIUM CHLORIDE 0.9% 700 ML IV ONE (09:18)
[2019-01-14 09:38] LABS: Lactic Acid, Venous 17.3 mmol/L (0.7-2.0)
[2019-01-14 09:39] LABS: D-Dimer 16.61 mg/L FEU (<0.60)
[2019-01-14] MEDS ORDERED: ENOXAPARIN 100 MG/ML SYRINGE SQ STA (09:40)
[2019-01-14] MEDS ORDERED: NALOXONE 0.4 MG/ML 1 ML VIAL IV PRN (09:47)
[2019-01-14] MEDS ORDERED: ACETAMINOPHEN TAB 325 MG TAB PO PRN (09:47)
[2019-01-14] MEDS ORDERED: ACETAMINOPHEN SUPPOSITORY 650 MG SUPP RECTAL PRN (09:47)
[2019-01-14] MEDS ORDERED: IPRATROPIUM-ALBUTEROL 3 ML NEB INHALATION PRN (09:47)
[2019-01-14 12:08] VITALS: BMI 37.5
[2019-01-14] MEDS ORDERED: FAMOTIDINE 20 MG/2 ML VIAL IV SCH ×2 (14:00→21:00)
[2019-01-14] MEDS ORDERED: NOREPINEPHRINE 32 MG in SODIUM CHLORIDE 0.9% 218 ML IV SCH (14:00)
--- NOTE | 2019-01-14 14:02 | XR ---
EXAMINATION TYPE: XR chest 1V confirm line [facility] DATE OF EXAM: 01/14/2019 COMPARISON: Prior chest x-ray 01/04/2019 and chest x-ray same dated earlier time HISTORY: Status post central venous catheter placement TECHNIQUE: Single frontal view of the chest is obtained. FINDINGS: Patient is rotated and there is overlying artifact. Left subclavian central venous cathete r has been placed in the interval and the distal tip is overlying the region of the superior vena cav a. No evident pneumothorax or pleural effusion. Bilateral patchy areas of increased density are prese nt. IMPRESSION: No evident complication status post central venous catheter placement. Abnormal areas of density within the bilateral lungs, correlate for possible pneumonia, follow-up recommended.
[2019-01-14] MEDS: SODIUM CHLORIDE 0.9% 1,000 ML IV SCH ×2 (14:15→17:05)
[2019-01-14 14:55] LABS: Glucose,Whole Blood 40 mg/dL (75-99)
[2019-01-14] MEDS: DEXTROSE 50%-WATER 50 ML SYRINGE IVP STA ×2 (14:57→20:40)
[2019-01-14 14:58] LABS: Appearance,Urine Turbid (Clear); Bacteria,Urine Many /hpf; Bilirubin,Urine Negative (Negative); Blood,Urine Moderate (Negative); Budding Yeast,Urine Many /hpf; Color,Urine Dark Brown; Glucose,Urine (UA) Negative (Negative); Hyphae Yeast, Urine Few /hpf; Ketones,Urine Negative (Negative); Leukocyte Esterase,Urine Large (Negative); Mucus,Urine Occasional /hpf; Nitrite,Urine Negative (Negative); Protein,Urine 2+ (Negative); RBC,Urine >182 /hpf (0-5); Specific Gravity,Urine 1.017 (1.001-1.035); Squamous Epithelial Cell,Urine 24 /hpf (0-4)
[2019-01-14] MEDS ORDERED: SODIUM BICARB 8.4% 50 ML SYR (1 MEQ/ML) ONE ×3 (15:14→23:02)
[2019-01-14 15:17] LABS: Glucose,Whole Blood 121 mg/dL (75-99)
[2019-01-14] MEDS: methylPREDNISolone SOD SUCCI 125 MG/2 ML VIAL IV SCH ×2 (15:24→20:33)
[2019-01-14] MEDS: SODIUM CHLORIDE 0.9% 1,000 ML IV ONE ×2 (15:26→16:20)
[2019-01-14 15:27] LABS: ABG PCO2 28 mmHg (35-45); ABG PO2 >400 mmHg (83-108); ABG TCO2 11 mmol/L (19-24)
[2019-01-14 15:30] LABS: ABG HCO3 10 mmol/L (21-25); ABG PH 7.16 (7.35-7.45)
--- NOTE | 2019-01-14 15:38 | P.CNPUL ---
History of Present Illness Consult date: 01/14/19 Chief complaint: Septic shock History of present illness: 68-year-old female patient is known to me from a previous admission was coming in today to the emergency department after the patient became progressively worse as found in the ECF. The patient initially got transferred to [facility] for diminished level of consciousness. Following that she got transferred to our emergency department with profound hypotension with a blood pressure systolic in the mid 70s. No further information was given and the patient was unresponsive and such no further information can be taken from the patient. The patient developed diffuse maculopapular rash throughout her body which is probably of an ALLERGIC in nature. She is known to have multiple medical problems and comorbidities. This will be stated that the later stage in my history and physical. In summary, the patient comes in with severe lactic acidosis. Her current lactic acid level is at 18.4. The patient is profoundly acidotic. The serum bicarb is at 7. She is an acute kidney injury due to BUN of 31 and creatinine of 2.5. She had a chest x-ray in the emergency department that showed patchy increased bilateral pulmonary infiltrates in the left upper lobe and some in the right upper lobe. The patient had a triple lumen catheter inserted in the emergency department. She was given a total of 2.7 L of IV fluids. Currently she is on a bicarb infusion running at D5 with 3 ampules of sodium bicarbonate rate of 150 mL an hour. In the emergency department, upon arrival her blood sugar was noted to be in the 40s range and she was given an amp of D50. Immediately the patient was intubated and placed on a mechanical ventilator. Currently she is in a assist-control mode with FiO2 100% and PEEP of 5 with tidal volume of 500 and the respiratory rate of 32. Her postintubation blood gas showed a pH of 7.15 with a pCO2 of 27 and pO2 of 400. Eventually things will be kept unchanged and the FiO2 will be dropped down to maintain a saturation above 90%. An outlying catheter was inserted. The patient was already on pressors and she was receiving norepinephrine infusion at the rate of 9 g per minute. Orogastric tube was inserted. No evidence of any GI bleed. Abdomen is nondistended. No open wounds or sores. UA is abnormal and suspicious for an underlying urine checked infection. Blood pressure been sent. Based on the previous history, the patient has multiple medical problems. She has COPD, polymyalgia rheumatica, fibromyalgia, diabetes mellitus and peripheral neuropathy, chronic back pain and the patient also has history of liver cirrhosis. The patient has undergone previous paracentesis. She has also history of rheumatoid arthritis, hiatal hernia and hypertension and hyperlipidemia. During the earlier admission, the patient came to us in the ICU with an acute left upper lobe pneumonia. The patient was in acute respiratory distress. She was intubated and mechanically ventilated. She was managed and she was discharged to [facility] on 01/04/2019. She has a full CODE STATUS. Note that the patient is also hypothermic with temperature as low as 93 F. Review of Systems ROS unobtainable: due to endotracheal tube Past Medical History Past Medical History: COPD, Diabetes Mellitus, Fibromyalgia, GERD/Reflux, Hyperlipidemia, Hypertension, Rheumatoid Arthritis (RA) Additional Past Medical History / Comment(s): Liver cirrhosis, COPD, Polymyalgia rheumatica, chronic lower back pain, lower back nerve damage, neuropathy R leg, NIDDM type II, anemia once, hiatal hernia, unsteady gait, elevated LFT in the past. History of Any Multi-Drug Resistant Organisms: None Reported Past Surgical History: Appendectomy, Bladder Surgery, Cholecystectomy, Hysterectomy, Tubal Ligation Additional Past Surgical History / Comment(s): [place] 2018, EGD, bladder suspension, lap surgery for ovarian cyst, lumbar epidural pain procedures, Past Anesthesia/Blood Transfusion Reactions: Motion Sickness Additional Past Anesthesia/Blood Transfusion Reaction / Comment(s): OCCASIONAL MOTION SICKNESS, some clausterphobia. Smoking Status: Current every day smoker - Past Family History Mother Family Medical History: Hypertension Additional Family Medical History / Comment(s): Mother of a respiratory arrest at the age of 69yrs. Father Family Medical History: Cancer Additional Family Medical History / Comment(s): Father of renal cancer at the age of 67yrs. Medications and Allergies Home Medications Medication Instructions Recorded Confirmed Type Metoprolol Tartrate [Lopressor] 50 mg PO BID 02/15/15 01/14/19 History Omeprazole [PriLOSEC] 20 mg PO AC-BID 02/15/15 01/14/19 History Aspirin 81 mg PO DAILY 03/07/15 01/14/19 History Amitriptyline HCl [Elavil] 25 mg PO HS 12/21/18 01/14/19 History Vitamin E 500mg 500 mg PO BID 12/21/18 01/14/19 History Budesonide [Pulmicort] 1 mg INHALATION RT-BID nebu 01/04/19 01/14/19 Rx Calcium Carbonate [Tums] 1,000 mg PO Q4HR PRN chew 01/04/19 01/14/19 Rx Gabapentin [Neurontin] 300 mg PO BID #6 cap 01/04/19 01/14/19 Rx Ipratropium-Albuterol Nebulize 3 ml INHALATION RT-Q4H ampul.neb 01/04/19 Rx [Duoneb 0.5 mg-3 mg/3 ml Soln] Ipratropium-Albuterol Nebulize 3 ml INHALATION RT-Q4H PRN 01/04/19 01/14/19 Rx [Duoneb 0.5 mg-3 mg/3 ml Soln] ampul.neb Lactulose [Cephulac] 20 gm PO DAILY PRN ml 01/04/19 01/14/19 Rx Melatonin 3 mg PO HS PRN tablet 01/04/19 01/14/19 Rx guaiFENesin [Mucinex] 1,200 mg PO Q12HR tablet.er 01/04/19 01/14/19 Rx metFORMIN HCL 1,000 mg PO BID #1 tab 01/04/19 01/14/19 Rx Furosemide [Lasix] 40 mg PO DAILY #1 tablet 01/05/19 01/14/19 Rx Azithromycin 250 mg PO DAILY 01/14/19 01/14/19 History HYDROcodone/APAP 7.5-325MG [[place] 1 tab PO Q6HR PRN 01/14/19 01/14/19 History 7.5-325] INSULIN LISPRO (HumaLOG) [humaLOG] See Protocol SQ ACHS 01/14/19 01/14/19 History Lactobacillus Acidophilus 1 tab PO BID 01/14/19 01/14/19 History [Acidophilus] diphenhydrAMINE [Benadryl] 25 mg PO BID PRN 01/14/19 01/14/19 History metFORMIN HCL [Glucophage] 1,000 mg PO BID 01/14/19 01/14/19 History Allergies Allergy/AdvReac Type Severity Reaction Status Date / Time levofloxacin [From Levaquin] Allergy Unknown Verified 01/14/19 08:26 Penicillins Allergy Dyspnea Verified 01/14/19 08:26 Physical Exam Vitals: Vital Signs Temp Pulse Resp BP Pulse Ox 01/14/19 14:30 93.7 F L 81 18 80/52 98 01/14/19 14:00 81 18 76/59 99 01/14/19 13:45 83 18 80/65 98 01/14/19 13:15 87 18 102/88 97 01/14/19 13:00 83 16 81/56 96 01/14/19 12:30 90 18 51/39 96 01/14/19 12:20 87 18 82/48 96 01/14/19 12:10 83 16 86/53 96 01/14/19 11:50 85 16 73/60 01/14/19 11:40 92 15 84/69 01/14/19 11:30 92 17 74/49 01/14/19 11:20 92 17 72/51 01/14/19 11:10 17 72/61 01/14/19 11:00 91 16 60/42 01/14/19 10:50 92 16 73/48 01/14/19 10:40 92 56/43 01/14/19 10:30 92 16 72/56 01/14/19 10:20 92 15 86/58 01/14/19 10:10 89 76/57 01/14/19 10:00 92 16 73/46 01/14/19 09:50 92 15 81/50 01/14/19 09:40 92 15 69/59 01/14/19 09:35 92 16 69/59 01/14/19 09:33 92 69/59 01/14/19 07:59 96 91/51 01/14/19 06:53 94.4 F L 97 22 60/50 96 Intake and Output 01/14/19 01/14/19 01/14/19 06:59 14:59 22:59 Intake Total 123.702 Balance 123.702 Intake: Intake, IV Titration 123.702 Amount DOPamine DRIP 800 mg In 2.172 Dextrose/Water 1 250ml. bag @ 10 MCG/KG/MIN 18.62 mls/hr IV .[id number] [facility] Rx#:[id number] Norepinephrine 4 mg In 121.530 Sodium Chloride 0.9% 250 ml @ 0.05 MCG/KG/MIN 18. 92 mls/hr IV .[id number] [facility] Rx#:[id number] Other: Weight 99.337 kg Gen. appearance intubated, comfortable likely distress. The patient is sedated with propofol. The patient has an orotracheal and orogastric tube are both in place. The patient has diffuse maculopapular rash throughout her body. This seems to be an ALLERGIC reaction as the patient's skin rash is macular and blanching. Head exam was generally normal. There was no scleral icterus or corneal arcus. Mucous membranes were moist. Neck was supple and without jugular venous distension, thyromegaly, or carotid bruits. Carotids were easily palpable bilaterally. There was no adenopathy. Lungs sounds are diminished and the patient has diffuse expiratory wheezes throughout the lung meyer bilaterally and prolongation of expiratory phase of breathing. Cardiac exam revealed the PMI to be normally situated and sized. The rhythm was regular and no extrasystoles were noted during several minutes of auscultation. The first and second heart sounds were normal and physiologic splitting of the second heart sound was noted. There were no murmurs, rubs, clicks, or gallops. Abdomen is distended. There is some firmness over the upper abdominal portions involving the right upper and left upper quadrant. No direct tenderness. No rebound tenderness. No guarding. There may be possibly some underlying ascites. All his cannot be accurately palpated. The patient is obese. Extremities revealed +1 pitting edema and there is no cyanosis or clubbing. Neurologically, the patient is sedated and the patient is calm and comfortable. Examination of the skin revealed no evidence of significant rashes, suspicious appearing nevi or other concerning lesions. There is a diffuse rash as discussed above Results - Laboratory Findings CBC and BMP: 01/14/19 08:38 01/14/19 08:28 ABG ABG pH 7.16 (7.35-7.45) L* 01/14/19 15:25 ABG pCO2 28 mmHg (35-45) L 01/14/19 15:25 ABG pO2 >400 mmHg (83-108) H 01/14/19 15:25 ABG O2 Saturation 100.0 % (94-97) H 01/14/19 15:25 PT/INR, D-dimer PT 13.9 sec (9.0-12.0) H 01/14/19 08:38 INR 1.4 (<1.2) H 01/14/19 08:38 D-Dimer 16.61 mg/L FEU (<0.60) H 01/14/19 08:38 Abnormal lab findings: Abnormal Labs 01/14/19 01/14/19 01/14/19 08:28 08:28 08:28 RBC Hgb Hct MCHC RDW Lymphocytes # (Manual) Metamyelocytes # (Man) PT INR D-Dimer ABG pH ABG pCO2 ABG pO2 ABG HCO3 ABG Total CO2 ABG O2 Saturation VBG pH 7.14 L* VBG pCO2 18 L* VBG HCO3 6 L* Carbon Dioxide 7 L* BUN 31 H Creatinine 2.58 H POC Glucose (mg/dL) Plasma Lactic Acid Jose Armando 17.3 H* Calcium 7.8 L Total Bilirubin 3.0 H AST 42 H Alkaline Phosphatase 242 H Ammonia 52 H Total Protein 4.8 L Albumin 2.6 L Urine Appearance Urine Protein Urine Blood Ur Leukocyte Esterase Urine RBC Urine WBC Ur Squamous Epith Cells Urine Bacteria Urine Mucus Urine Yeast (Budding) 01/14/19 01/14/19 01/14/19 08:38 08:38 13:33 RBC 3.16 L Hgb 8.3 L Hct 30.7 L MCHC 27.0 L RDW 23.0 H Lymphocytes # (Manual) 0.71 L Metamyelocytes # (Man) 0.09 H PT 13.9 H INR 1.4 H D-Dimer 16.61 H ABG pH ABG pCO2 ABG pO2 ABG HCO3 ABG Total CO2 ABG O2 Saturation VBG pH VBG pCO2 VBG HCO3 Carbon Dioxide BUN Creatinine POC Glucose (mg/dL) Plasma Lactic Acid Jose Armando 18.4 H* Calcium Total Bilirubin AST Alkaline Phosphatase Ammonia Total Protein Albumin Urine Appearance Urine Protein Urine Blood Ur Leukocyte Esterase Urine RBC Urine WBC Ur Squamous Epith Cells Urine Bacteria Urine Mucus Urine Yeast (Budding) 01/14/19 01/14/19 01/14/19 14:31 14:53 15:15 RBC Hgb Hct MCHC RDW Lymphocytes # (Manual) Metamyelocytes # (Man) PT INR D-Dimer ABG pH ABG pCO2 ABG pO2 ABG HCO3 ABG Total CO2 ABG O2 Saturation VBG pH VBG pCO2 VBG HCO3 Carbon Dioxide BUN Creatinine POC Glucose (mg/dL) 40 L 121 H Plasma Lactic Acid Jose Armando Calcium Total Bilirubin AST Alkaline Phosphatase Ammonia Total Protein Albumin Urine Appearance Turbid H Urine Protein 2+ H Urine Blood Moderate H Ur Leukocyte Esterase Large H Urine RBC >182 H Urine WBC >182 H Ur Squamous Epith Cells 24 H Urine Bacteria Many H Urine Mucus Occasional H Urine Yeast (Budding) Many H 01/14/19 15:25 RBC Hgb Hct MCHC RDW Lymphocytes # (Manual) Metamyelocytes # (Man) PT INR D-Dimer ABG pH 7.16 L* ABG pCO2 28 L ABG pO2 >400 H ABG HCO3 10 L* ABG Total CO2 11 L ABG O2 Saturation 100.0 H VBG pH VBG pCO2 VBG HCO3 Carbon Dioxide BUN Creatinine POC Glucose (mg/dL) Plasma Lactic Acid Jose Armando Calcium Total Bilirubin AST Alkaline Phosphatase Ammonia Total Protein Albumin Urine Appearance Urine Protein Urine Blood Ur Leukocyte Esterase Urine RBC Urine WBC Ur Squamous Epith Cells Urine Bacteria Urine Mucus Urine Yeast (Budding) - Diagnostic Findings Chest x-ray: image reviewed Assessment and Plan Plan: Assessment 1 septic shock, currently under investigation. Suspect bilateral pneumonia. Suspect urine checked infection with secondary sepsis. Patient is hypotensive on pressors 2 severe metabolic acidosis, lactic acid is up to 18 3 severe hypotension currently on pressors and the patient was given approximately 3 L of IV fluids in the emergency department 4 acute respiratory failure secondary to severe metabolic acidosis. The patient was not hypoxic yet intubation was needed regarding the ongoing medical problems and shock state for ventilation and protection of the airway. The patient is currently on a mechanical ventilator on assist control mode of ventilation. 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 Monitor lactic acid level. Cover the patient with a combination of meropenem and vancomycin. Obtain urine culture. Obtain sputum culture. Obtain blood culture. Continue with pressors and titrate the dose to maintain a mean artery pressure above 65. The patient got intubated in the ICU. She is on a mechanical ventilator. There is a sitter ventilator changes will be done. She is on a bicarb drip infusion will be continued. He began GI prophylaxis. External warming. Monitor lactic acid level. Echocardiogram will be obtained in the morning. We'll will treat this patient's arrest with IV Solu Medrol. We'll continue to follow make further recommendations based on her progress. An arterial line was also inserted. Keep nothing by mouth for now. Monitor the blood sugar. Further recommendations to follow based on her progress. She is critically ill and this is a critically care evaluation and the family will be updated on the condition. Time with Patient: Greater than 30
[2019-01-14] MEDS ORDERED: VANCOMYCIN IV PER PHARMACY 1 EACH MISC MISCELLANE PRN (15:40)
[2019-01-14] MEDS ORDERED: SODIUM CHLORIDE 0.9% 2,000 ML IV ONE (15:41)
[2019-01-14] MEDS ORDERED: PANTOPRAZOLE 40 MG/10 ML VIAL IVP SCH (15:45)
[2019-01-14] MEDS ORDERED: FLUCONAZOLE IN NACL,ISO-OSM 100 MG in SALINE 1 50ML.BAG IVPB SCH (15:45)
[2019-01-14] MEDS: SODIUM CHLORIDE 0.9% 50 ML with VASOPRESSIN 20 UNIT IVPB SCH ×2 (16:12)
--- NOTE | 2019-01-14 16:15 | XR ---
EXAMINATION TYPE: XR chest 1V portable DATE OF EXAM: 01/14/2019 COMPARISON: Prior chest x-ray 01/14/2019 HISTORY: Intubated TECHNIQUE: Single frontal view of the chest is obtained. FINDINGS: Interval placement of an endotracheal tube which is overlying the tracheal air column, dis saúl tip is approximately 1.2 cm from the az. Orogastric tube is coiled within the stomach. Patien t is again rotated. Subclavian central venous catheter is stable. Bilateral patchy density within the lungs persists. No evident pneumothorax or pleural effusion. Heart size is stable. There are cardiac leads. IMPRESSION: Rotated exam. Interval intubation. Correlate for pneumonia.
[2019-01-14] MEDS ORDERED: VANCOMYCIN 1,500 MG in SODIUM CHLORIDE 0.9% 250 ML IVPB ONE (16:30)
[2019-01-14] MEDS: IPRATROPIUM-ALBUTEROL 3 ML NEB INHALATION SCH ×3 (16:38→23:06)
[2019-01-14] MEDS: MEROPENEM 1 GM in SODIUM CHLORIDE 0.9% 100 ML IVPB SCH (16:57)
[2019-01-14] MEDS: HEPARIN SODIUM,PORCINE 5,000 UNIT/ML 1 ML VIAL SQ SCH (16:58)
[2019-01-14] MEDS: DEXTROSE 5% IN WATER 1,000 ML with SODIUM BICARB (1 MEQ/ML) 150 ML IV SCH (18:57)
[2019-01-14] MEDS: ALBUMIN HUMAN 25% 50 ML in EMPTY BAG 1 BAG IVPB SCH ×2 (19:19→20:08)
[2019-01-14] MEDS ORDERED: BUDESONIDE 1 MG/2 ML NEBU INHALATION SCH (20:00)
[2019-01-14 20:40] LABS: Glucose,Whole Blood 46 mg/dL (75-99)
[2019-01-14] MEDS ORDERED: PROPOFOL 1,000 MG in EMPTY BAG 1 BAG IV SCH (20:45)
[2019-01-14] MEDS ORDERED: CHLORHEXIDINE GLUCONATE 15 ML CUP MUCOUS MEM SCH (21:00)
[2019-01-14] MEDS ORDERED: GABAPENTIN 300 MG CAP PO SCH (21:00)
[2019-01-14] MEDS ORDERED: AMITRIPTYLINE HCL 25 MG TAB PO SCH (21:00)
[2019-01-14] MEDS ORDERED: METOPROLOL TARTRATE 50 MG TAB PO SCH (21:00)
--- NOTE | 2019-01-14 21:19 | HP ---
HISTORY AND PHYSICAL DATE OF ADMISSION: 01/14/2019 PRESENTING COMPLAINT: Low blood pressure. HISTORY OF PRESENTING COMPLAINT: This is a 68-year-old patient who was not too long ago in the hospital, was discharged on January 05, 2019. The patient's chronic stable medical conditions included anemia, diabetes, fibromyalgia, GERD, hyperlipidemia, chronic polymyalgia rheumatica, peripheral neuropathy secondary to diabetes, hiatal hernia, cirrhosis, probably nonalcoholic fatty liver disease. On the last admission, patient had aspiration pneumonia with acute hypoxic respiratory failure. Also was found to be severely anemic the last admission. Did undergo a colonoscopy, EGD, capsule endoscopy. No obvious source was found. Patient also found to have cirrhosis. The patient was transferred here from [facility]. The patient was on dopamine drip. Blood pressure was running low, down to the 60s. When she came in here, patient was severely hypothermic with a temperature of 94.4, down to 92, started on Levophed. The patient currently remains on Levophed drip, vasopressin drip, Diprivan. Also was intubated with FiO2 40 and a PEEP of 5. Has got a Bear Hugger in place. A couple of family members at the bedside. The patient is also tachycardic. REVIEW OF SYSTEMS: Cannot be obtained as patient is intubated. PAST MEDICAL HISTORY: 1. Cirrhosis, probably nonalcoholic fatty liver disease. 2. Hiatal hernia. 3. Hypertension. 4. Peripheral neuropathy secondary to diabetes. 5. Chronic low back pain. 6. Arthritis. 7. Chronic polymyalgia rheumatica. 8. Hyperlipidemia. 9. Hypertension. 10.GERD. 11.Chronic fibromyalgia. 12.Diabetes mellitus type 2. 13.Advanced COPD. PAST SURGICAL HISTORY: Appendectomy, bladder surgery, cholecystectomy, hysterectomy, tubal ligation, bladder suspension, lap surgery for ovarian cyst, lumbar epidural pain procedure. SOCIAL HISTORY: Patient is . Currently a [facility]. Has a walker. The patient has been a smoker since 1965. Alcohol none. FAMILY HISTORY: Of hypertension. HOME MEDICATIONS: 1. Glucophage 1000 mg b.i.d. 2. Mucinex 1200 mg p.o. q.12. 3. Benadryl 25 mg p.o. b.i.d. p.r.n. 4. Vitamin E 500 mg b.i.d. 5. Prilosec 20 mg a.c. b.i.d. 6. Lopressor 50 mg b.i.d. 7. Melatonin 3 mg q.h.s. p.r.n. 8. Lactulose 20 g p.o. daily p.r.n. 9. DuoNeb q.4h plus p.r.n. 10.[place] 7.5 one tab q.6h p.r.n. 11.Neurontin 300 mg p.o. b.i.d. 12.Lasix 40 mg p.o. daily. 13.Tums 1000 mg p.o. q. p.o. p.r.n. 14.Pulmicort 1 mg b.i.d. 15.Azithromycin 250 mg p.o. daily. 16.Aspirin 81 mg p.o. daily. 17.Elavil 25 mg p.o. q.h.s. ALLERGIES: TO LEVAQUIN and PENICILLIN. PHYSICAL EXAMINATION: VITAL SIGNS: Temperature 94, pulse 72, respiration 28, blood pressure down to 82/36, pulse ox 100 percent on the ventilator. GENERAL APPEARANCE: Well built, BMI 37.6. Lying in bed, intubated. EYES: Pupils somewhat dilated and sluggish to light. Conjunctivae normal. HEENT: External appearance of nose and ears normal. Oral cavity dry with endotracheal tube in place. NECK: JVD unable to assess. Mass not palpable. RESPIRATORY: Effort increased. LUNGS: Diminished breath sounds. CARDIOVASCULAR: First and second sounds normal. Edema present. ABDOMEN: Slightly distended, soft. Liver and spleen not palpable. LYMPHATICS: No lymph nodes palpable in the neck and axilla. PSYCHIATRY: Unable to assess. Patient intubated. NEUROLOGICAL: Pupils equal, sluggish. No facial asymmetry. Some response to pain. INVESTIGATIONS: Reviewed in the clinical context. White count 8.9, hemoglobin 8.3, potassium 5.0, BUN 31, creatinine 2.58. Lactic acid was 17.3, albumin 2.6. UA positive for leukocyte esterase WBC. Blood gas did show a pH of 7.16, bicarb of 10. The patient's creatinine was 0.77 on January 05, 2019. ASSESSMENT: 1. Acute urinary tract infection with severe sepsis from cystitis causing hypotensive shock. 2. Acute renal failure likely acute tubular necrosis from underlying sepsis. 3. Severe metabolic acidosis with a bicarb of 7. 4. Secondary lactic acidosis due to underlying sepsis. 5. Acute hypoxic respiratory failure on the ventilator. 6. Normocytic anemia. 7. Advanced chronic obstructive pulmonary disease in a current smoker. 8. Chronic nicotine dependence, patient is a cigarette smoker. 9. Diabetes mellitus type 2. 10.Chronic fibromyalgia. 11.Gastroesophageal reflux disease. 12.Septic shock. 13.Hyperlipidemia. 14.Chronic polymyalgia rheumatica. 15.Chronic low back pain from arthritis. 16.Peripheral neuropathy due to diabetes. 17.Hiatal hernia. 18.Cirrhosis from nonalcoholic fatty liver disease. PLAN: The patient was seen by corporate tax manager, Dr. Vela. The patient is currently on DuoNeb, intubated, also on Zithromax, bicarbonate drip, IV Diflucan, IV meropenem, IV Solu- Medrol, Levophed drip, vasopressin drip, and the patient is doing poorly. I spoke to the patient's family at the bedside. Prognosis poor. Patient has got multiple comorbidities. Copy to Dr. Gurdeep Curtis. MMODL / IJN: [id number] /
[2019-01-14 21:38] LABS: Glucose,Whole Blood 118 mg/dL (75-99)
[2019-01-14 23:00] LABS: ABG PO2 120 mmHg (83-108); ABG TCO2 4 mmol/L (19-24)
[2019-01-14 23:05] LABS: ABG Base Excess -30.7 mmol/L; ABG HCO3 3 mmol/L (21-25); ABG PCO2 19 mmHg (35-45); ABG PH <7.00 (7.35-7.45)
[2019-01-15] MEDS: MEROPENEM 1 GM in SODIUM CHLORIDE 0.9% 100 ML IVPB SCH (00:41)
[2019-01-15] MEDS: HEPARIN SODIUM,PORCINE 5,000 UNIT/ML 1 ML VIAL SQ SCH (00:41)
[2019-01-15] MEDS: methylPREDNISolone SOD SUCCI 125 MG/2 ML VIAL IV SCH (00:42)
[2019-01-15 00:47] VITALS: TEMP 99.9
[2019-01-15 00:53] LABS: Glucose,Whole Blood 112 mg/dL (75-99)
[2019-01-15 03:03] VITALS: BP 115/51; PULSE 121; RESP 31
[2019-01-15] MEDS ORDERED: MORPHINE SULFATE 4 MG/ML SYRINGE IVP ONE (03:05)
[2019-01-15] MEDS ORDERED: MORPHINE SULFATE 2 MG/ML SYRINGE IV PRN (03:05)
[2019-01-15] MEDS ORDERED: MORPHINE SULFATE (100 MG/2 ML) 100 MG in SODIUM CHLORIDE 0.9% 100 ML IV SCH (03:15)
[2019-01-15] MEDS: SODIUM CHLORIDE 0.9% 50 ML with VASOPRESSIN 20 UNIT IVPB SCH ×2 (03:29)
[2019-01-15] MEDS: DEXTROSE 5% IN WATER 1,000 ML with SODIUM BICARB (1 MEQ/ML) 150 ML IV SCH (03:30)
[2019-01-15] MEDS: IPRATROPIUM-ALBUTEROL 3 ML NEB INHALATION SCH (03:31)
--- NOTE | 2019-01-15 06:32 | PCN ---
PROCEDURE NOTE ARTERIAL LINE PLACEMENT: Indications: Hemodynamic monitoring. A time-out was completed verifying correct patient, procedure, site, positioning, and implant(s) or special equipment if applicable. Loc's test was performed to ensure adequate perfusion. The patient's left wrist was prepped and draped in sterile fashion. 1% Lidocaine was used to anesthetize the area. An 18G Arrow arterial line was introduced into the left radial artery. The catheter was threaded over the guide wire and the needle was removed with appropriate pulsatile blood return. Blood loss was minimal. The catheter was then sutured in place to the skin and a sterile dressing applied. Perfusion to the extremity distal to the point of catheter insertion was checked and found to be adequate. The patient tolerated the procedure well and there were no complications. No bedside complications or bleeding. We will continue to follow. MMODL / IJN: [id number] /
[2019-01-15] MEDS ORDERED: ASPIRIN 81 MG PO SCH (09:00)
[2019-01-15] MEDS ORDERED: AZITHROMYCIN 250 MG TAB PO SCH (09:00)
--- NOTE | 2019-01-15 09:47 | PCN ---
PROCEDURE NOTE PREOPERATIVE DIAGNOSIS: Septic shock. POSTOPERATIVE DIAGNOSIS: Septic shock. ENDOTRACHEAL INTUBATION: INDICATION: Respiratory compromise. A time-out was completed verifying correct patient, procedure, site, positioning, and implant(s) or special equipment if applicable. The patient was positioned appropriately and a #8 orotracheal tube was placed under direct laryngoscopy. The tube was anchored at 22 cm at the teeth. Correct placement was confirmed by presence of bilateral breath sounds without air sounds in the abdomen on auscultation. An end-tidal CO2 monitor was also used to confirm tracheal placement of the ET tube. A chest x-ray was ordered to assess for pneumothorax and verify endotracheal tube placement. The patient tolerated the procedure well and there were no complications. The patient was intubated by #8 orotracheal tube. I used a #4 Alfred blade. No complications. MMODL / IJN: [id number] /
[2019-01-15] MEDS ORDERED: VANCOMYCIN 1,500 MG in SODIUM CHLORIDE 0.9% 250 ML IVPB ONE (12:00)
--- NOTE | 2019-01-17 08:25 | DS ---
DISCHARGE SUMMARY DATE OF ADMISSION: 01/14/2019 DATE OF EXPIRATION: 01/15/2019. CAUSE OF : Chronic obstructive pulmonary disease. OTHER MEDICAL PROBLEMS: 1. Acute urinary tract infection with severe sepsis from cystitis causing hypotensive and septic shock. 2. Acute renal failure likely acute tubular necrosis from underlying sepsis. 3. Severe metabolic acidosis with a bicarb of 7. 4. Secondary lactic acid due to sepsis. 5. Acute hypoxic respiratory failure on ventilator. 6. Normocytic anemia. 7. Advanced chronic obstructive pulmonary disease in a current smoker. 8. Chronic nicotine dependence, patient is a cigarette smoker. 9. Diabetes mellitus type 2. 10.Chronic fibromyalgia. 11.Gastroesophageal reflux disease. 12.Hyperlipidemia. 13.Chronic polymyalgia rheumatica. 14.Chronic low back pain from arthritis. 15.Peripheral neuropathy due to diabetes. 16.Hiatal hernia. 17.Cirrhosis from nonalcoholic fatty liver disease. HOSPITAL COURSE: This patient with multiple medical problems presented with a sepsis picture, intubated, continued to rapidly go down. Patient finally succumbed to the underlying problems. The patient's prognosis had been very poor because of multiple comorbidities. CONSULTATIONS: Dr. Vela from Pulmonary. DISPOSITION: The patient . Copy to Dr. Gurdeep Curtis. MMODL / IJN: [id number] /
== END 2019-01-15 04:30 | disposition expired | DRG 871 ==
LOC: EC 06:44 → 2SICU 09:48
PROVIDERS: ADMIT Hospitalist; ATTEND Hospitalist
PROC: 02HV33Z Insertion of Infusion Device into Superior Vena Cava, Percutaneous Approach (ICD-10-PCS; principal; 2019-01-14)
PROC: 5A09357 Assistance with Respiratory Ventilation, Less than 24 Consecutive Hours, Continuous Positive Airway Pressure (ICD-10-PCS; 2019-01-14)
PROC: 0BH18EZ Insertion of Endotracheal Airway into Trachea, Via Natural or Artificial Opening Endoscopic (ICD-10-PCS; 2019-01-14)
PROC: 5A1945Z Respiratory Ventilation, 24-96 Consecutive Hours (ICD-10-PCS; 2019-01-14)
PROC: 03HY32Z Insertion of Monitoring Device into Upper Artery, Percutaneous Approach (ICD-10-PCS; 2019-01-14)
PROC: 4A133B1 Monitoring of Arterial Pressure, Peripheral, Percutaneous Approach (ICD-10-PCS; 2019-01-14)
PROC: 4A133J1 Monitoring of Arterial Pulse, Peripheral, Percutaneous Approach (ICD-10-PCS; 2019-01-14)
PROC: 0D9670Z Drainage of Stomach with Drainage Device, Via Natural or Artificial Opening (ICD-10-PCS; 2019-01-14)
DX: A41.9 Sepsis, unspecified organism (principal); R65.21 Severe sepsis with septic shock; N17.0 Acute kidney failure with tubular necrosis; J96.01 Acute respiratory failure with hypoxia; E87.2 Acidosis; N30.90 Cystitis, unspecified without hematuria; Z66 Do not resuscitate; Z51.5 Encounter for palliative care; J44.9 Chronic obstructive pulmonary disease, unspecified; E11.42 Type 2 diabetes mellitus with diabetic polyneuropathy; E11.649 Type 2 diabetes mellitus with hypoglycemia without coma; K74.60 Unspecified cirrhosis of liver; M06.9 Rheumatoid arthritis, unspecified; K76.0 Fatty (change of) liver, not elsewhere classified; D64.9 Anemia, unspecified; F17.210 Nicotine dependence, cigarettes, uncomplicated; R21 Rash and other nonspecific skin eruption; M47.816 Spondylosis without myelopathy or radiculopathy, lumbar region; E78.5 Hyperlipidemia, unspecified; I10 Essential (primary) hypertension; M79.7 Fibromyalgia; K21.9 Gastro-esophageal reflux disease without esophagitis; M35.3 Polymyalgia rheumatica; K44.9 Diaphragmatic hernia without obstruction or gangrene; K63.5 Polyp of colon; G89.29 Other chronic pain; M54.5 Low back pain; M19.90 Unspecified osteoarthritis, unspecified site; Z79.82 Long term (current) use of aspirin; Z79.4 Long term (current) use of insulin; Z79.51 Long term (current) use of inhaled steroids; Z79.899 Other long term (current) drug therapy; Z90.710 Acquired absence of both cervix and uterus; Z90.49 Acquired absence of other specified parts of digestive tract; Z98.51 Tubal ligation status; Z88.1 Allergy status to other antibiotic agents; Z88.0 Allergy status to penicillin; Z82.49 Family history of ischemic heart disease and other diseases of the circulatory system; Z80.51 Family history of malignant neoplasm of kidney
CPT/HCPCS: 36415; 36556; 71045; 80053; 81001; 82140; 82803; 82805; 83605; 83880; 84484; 85025; 85379; 85610; 85730; 87040; 87070; 87077; 87086; 87186; 87205; 93005; 94002; 94003; 94640; 94660; 96361; 96365; 96366; 96368; 96372; 96375; 99285